=== PATIENT | male | born 1970 | race Caucasian/White ===

== ENCOUNTER 2019-08-29 08:37 | Outpatient (CLI) | payer MEDICAID, SELFPAY ==
--- NOTE | 2019-09-11 10:42 | ONC CON_ITS ---
Dr. Israel New Patient Note Patient: Tima Malik Unit #: [id number]: [id number] Dicatated By: Amee Israel M.D.Date of Visit: Aug 29, 2019 Onc MED New Patient/Consult Referring Physician: Dr. Chun Moreira M.D. History of Present Illness: Mr. Tima Malik, is a 48-year-old gentleman, with history of 40 to 50 pounds weight loss since February 2019, as per patient he sustained an injury to the chest in January or February 2019 initially, it was not bothersome but then it become progressive to the point where even taking deep breath would hurt and the pain was not mainly in the mid upper anterior chest wall. And also developed progressive shortness of breath. Patient said he did have medical insurance so he was taking over the counter pain medicine with some help but eventually on August 16, 2019 he went to the [facility] in [place], where he had chest x-ray done which showed complete whiteout of left lung and CTA chest done showed complete collapse of left lung likely secondary to left hilar mass/malignancy. There is a bulky mediastinal and likely left hilar lymphadenopathy present. And moderate to large malignant left pleural effusion patient was transferred to [facility] in [place] where on August 17, 2019 underwent ultrasound-guided left thoracentesis and about 25 cc of cloudy yellow pleural fluid was removed, repeat CT scan of the chest done on August 17, 2019 showed possible obstruction of left main bronchus, a mucous plug or obstructing pulmonary mass or consideration. Complete opacification of left hemithorax appears similar to chest x-ray done on August 16, 2019. Elevation of left diaphragm suggest volume loss due to some degree of atelectasis. Left pleural effusion or large left consolidations are also considered. On August 18, 2019 patient underwent bronchoscopy and endobronchial biopsy and bronchial washing from left main bronchus confirmed invasive small cell carcinoma. Patient underwent CT PET scan on August 27, 2019 which showed hypermetabolic very large left hilar/mediastinal mass and matthew conglomeration. There is also redemonstration of complete collapse of left lung with associated hypermetabolic activity that may be secondary to diffuse tumor involvement or pneumonia depending on clinical context There is also evidence of metastatic disease to bilateral cervical chain lymph nodes as well as posterior upper neck intramuscular metastasis. In addition there is evidence of direct metastatic extension into the right of the trachea and to an epicardial fat lymph node No findings to suggest metastatic disease below the diaphragm and no evidence of metastatic disease to the right lung. Patient was referred to cancer center in [place] as it is convenient to the patient. Patient has longstanding history of smoking quit in mid August 2019 Today patient is complaining of feeling weak and tired and lethargic still having shortness of breath and denies any hemoptysis or hematemesis denies any fever or chills, denies any headaches or blurred vision or double vision but patient appears lethargic his blood pressure is 80/50 and pulse is around 120/min Past Medical History: Mr. Malik's medical history consists of hypertension, left pleural effusion, and respiratory failure. Past Surgical History: Mr. Malik's surgical history is unremarkable. Medications: Cyclobenzaprine HCl 1 Tablet (of 10 mg) Oral at bedtime PRN, Flonase 2 [place](s) (of 50 mcg/act) Suspension Nasal daily, HYDROcodone-Acetaminophen 1 Tablet (of 5-325 mg) Oral q 6 hours PRN, levoFLOXacin 1 Tablet (of 500 mg) Oral daily for 7 days, Lisinopril 1 Tablet (of 20 mg) Oral daily, Multi-Vitamin Daily 1 Tablet Oral daily Allergies: No Known Allergies. Social History: Mr. Malik is single. Mr. Malik quit smoking less than one year ago but had smoked for 37 years. He is a former drinker. He has indicated exposure to the following products: recreational drug use. Mr. Malik reports the following support systems: lives with spouse, significant other, family, or friends, supportive family/friends willing to assist with needs, and adequate transportation available for expected visits. His diet consists of regular meals. He indicates his activity level as: daily activities. Family History: Mr. Malik's mother at age 68: esophageal cancer. Mr. Malik's father at age 71: lung cancer. Review Of Symptoms: Review of Systems is not available for this patient. Vital Signs: Performed on Sep 11, 2019 10:36: 2, 18.52, 1.77 sq.m, 71.00 in, 97 %, 105 /min (HIGH), 18 /min, 120/71 mm(hg), 97.9 F (LOW), and 132.8 lbs (HIGH). Performance Status: 3 - Capable of only limited self-care, confined to bed or chair more than 50% of waking hours. (ECOG) Physical Examination: ENMT - Poor oral hygiene, no mucositis or thrush,But dry oral mucosa,no jaundice, Respiratory - No breath sounds heard in the left lung, poor air entry in the right, Cardiovascular - Tachycardia, regular rate and rhythm, Abdomen - Soft, bowel sounds present, nontender, Extremities - No visible edema. Lab/Imaging: Most recent lab results are not available for this patient. Impression: Small cell lung cancer involving left lung, per bronchoscopy done on August 18, 2019 Extensive loco- regional disease with bilateral cervical lymph nodes involvement. CT PET scan done on August 27, 2019 showed hypermetabolic large left hilar/mediastinal mass with matthew conglomeration in keeping with known small cell lung cancer. Also redemonstration of complete collapse of left lung with associated hypermetabolic activity may be secondary to diffuse tumor involvement or pneumonia There is evidence of metastatic disease to bilateral cervical chain lymph nodes as well as posterior upper neck intramuscular metastasis. In addition there is evidence of direct metastatic extension to the right of trachea and to an epicardial fat lymph node. No findings to suggest metastatic disease below diaphragm. No evidence of metastatic disease to the right lung. Longstanding history of smoking, quit in mid August 2019 Plan: Discussed with the patient regarding his disease status, clinically, it appears patient is either progressing into septic shock or severely dehydrated, but alert and oriented. At this point , because of his overall condition and severity, we will send him to emergency room via ambulance for immediate evaluation for sepsis or impending risk of respiratory distress/failure. Discussed with caregiver and agreed, patient was transferred to [facility] via ambulance. Further treatment will be considered as an inpatient or as situation arise. Signed By: Amee Israel M.D. <<Signature on File>>
== END 2019-08-29 08:38 | disposition home or self-care (01) ==
LOC: ONCMED 08:42
PROVIDERS: PCP Family Medicine; Referring Provider Family Medicine; Visit Provider Internal Medicine Hematology & Oncology
DX: C34.12 Malignant neoplasm of upper lobe, left bronchus or lung (principal); R53.1 Weakness; R53.83 Other fatigue; F17.201 Nicotine dependence, unspecified, in remission; R00.0 Tachycardia, unspecified
CPT/HCPCS: 99203

== ENCOUNTER 2019-08-29 10:49 | Inpatient (IN) | payer MEDICAID, SELFPAY ==
[2019-08-29] VITALS (24 sets, daily range): BP systolic 74–108; BP diastolic 51–66; PULSE 99–164; RESP 14–27; TEMP 36.6–36.8; O2SAT 97–100; BMI 17.8
--- NOTE | 2019-08-29 11:00 | XRR_ITS ---
PROCEDURE INFORMATION: Exam: XR Chest, 1 View Exam date and time: 08/29/2019 11:31 AM Age: 49 years old Clinical indication: Condition or disease; Lung condition and disease; Cancer of the lung; Left; Unspecified; Patient HX: PT denies surgery; Hypotensive, weakness; Additional info: Lung CA, small cell; Starting chemo TECHNIQUE: Imaging protocol: XR of the chest Views: 1 view. COMPARISON: CR XR chest 2V* [id number] 08/16/2019 11:59 AM FINDINGS: Lungs: Complete opacification left hemithorax. Elevation left hemidiaphragm. No significant change. Pleural space: Left pleural effusion and atelectasis. Heart/Mediastinum: Obscured on the left Bones/joints: Unremarkable. XR/XR chest 1V portable [id number] IMPRESSION: Complete opacification left hemithorax. Elevation left hemidiaphragm. No significant change.
--- NOTE | 2019-08-29 11:02 | ECG_ITS ---
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 Measurements Intervals [place] Rate: 107 P: 22 RI: 138 QRS: 37 QRSD: 85 T: 36 QT: 302 QTc: 405 Interpretive Statements SINUS TACHYCARDIA ST ELEVATION CONSISTENT WITH INJURY, PERICARDITIS, OR EARLY REPOLARIZATION [ST ELEVATION W/O NORMALLY INFLECTED T WAVE] No previous ECG available for comparison Electronically Signed On 08-29-2019 21:13:52 CDT by Ly Ponce M.D. [id number]
--- NOTE | 2019-08-29 11:05 | ED_ITS ---
HPI - SOB/Dyspnea General: Chief Complaint: Weakness Stated Complaint: HYPOTENSIVE/ LUNG CA/ WEAKNESS Time Seen by Provider: 08/29/19 10:50 History of Present Illness: HPI Narrative: Patient just recently been diagnosed with small cell lung cancer. He was seen by Dr. Israel today. Dr. Israel called me and told me the patient is hypotensive and has complete white out of his left long. Patient was sent to the emergency room to be admitted to the hospital. MD elicited complaint: shortness of breath, cough and pain with inspiration Pertinent past history: sepsis (possible) and other (ca) Timing: constant and progressively worsening Severity: severe Exacerbating factors: lying flat, exertion, movement, coughing and stress Relieving factors: nothing Known history of: other (ca) Review of Systems General: Reports: 10 or more systems reviewed and unremarkable except in HPI and below PFSH ED PFSH: Social History Smoking and tobacco status: former smoker Physical Exam Const: COMMON NORMALS: alert GENERAL APPEARANCE: cooperative, disheveled, ill appearing and frail appearing NUTRITIONAL APPEARANCE: thin and underweight ORIENTATION/CONSCIOUSNESS: Yes awake, Yes oriented to person, Yes oriented to place and Yes oriented to time HENMT: COMMON NORMALS: normocephalic and atraumatic HEAD & SCALP: normal to inspection, normocephalic and atraumatic Eye: GENERAL EYE: appearance normal, both eyes and all related structures Neck/C-Spine: COMMON NORMALS: full ROM, no lymphadenopathy and no meningeal signs GENERAL: Yes normal visual inspection CERVICAL SPINE: Yes cervical ROM normal and Yes normal cervical lordosis Chest: COMMONS NORMALS: normal inspection of the chest and normal palpation of entire chest wall Resp: COMMON NORMALS: normal respiratory effort EFFORT & INSPECTION: Yes decreased respiratory effort and Yes labored AUSCULTATION: breath sounds absent on th left Cardio: COMMON NORMALS: regular rate, regular rhythm, S1 normal heart sound present and S2 normal heart sound present JUGULAR VENOUS DISTENTION: no JVD PALPATION: normal PMI RATE: regular rate RHYTHM: regular rhythm HEART SOUNDS: S1 normal heart sound present and S2 normal heart sound present GI: COMMON NORMALS: Soft to palpation and No hepatosplenomegaly present INSPECTION: Yes normal to inspection PALPATION: Yes Soft to palpation and Yes No hepatosplenomegaly present PERCUSSION: normal to percussion : COMMON NORMALS: Yes no CVA tenderness BLADDER/KIDNEY EXAM: Yes no CVA tenderness Back/Pelvis: COMMON NORMALS: no CVA tenderness, thoracic and lumbar spine normal to inspection and thoraco-lumbar ROM normal Extremity: COMMON NORMALS: normal to inspection, full ROM and capillary refill normal Neuro: SENSORIUM/ORIENTATION: Yes alert, Yes oriented to person, Yes oriented to place and Yes oriented to time MENINGEAL SIGNS: Yes no meningeal signs Skin: COMMON NORMALS: no rashes or lesions noted, no wounds and turgor normal GENERAL SKIN EXAM: no rashes or lesions noted, elasticity normal and turgor normal LESIONS: no lesions RASHES: no rashes TRAUMA: no lacerations or abrasions HAIR: normal NAILS: normal Procedures Central Line Placement Right SC: Time Out Performed: No Patient Placed on Monitor/Pulse Ox: Yes MD Prep: mask, gown and gloves Central Line Prep: Chlorhexidine scrub and sterile drapes applied Local Anesthetic: lidocaine 1% and with epi Ultrasound Used for Placement: No Central Line Lumen Inserted: triple Post Procedure: sutured in place, good blood return, all ports aspirated, flushed, capped and sterile dressing applied Post Procedure X-Ray: tip of catheter in good position and no pneumothorax seen Patient Tolerated Procedure: well Intubation sedative: Etomidate paralytic: Succinylcholine Laryngoscope: Ngoc ET Tube Size: 8 Tube Placement Confirmation: visualized tube passing through cords, equal breath sounds bilaterally, no breath sounds over epigastrium and confirmation by capnometry Patient Tolerated Procedure: well Intubation Complications: none Course ED course: While still waiting the results of laboratory testing the patient developed atrial fibrillation with rapid ventricular response. Patient also became markedly hypotensive. I contacted internal medicine for consult and admission. Dr. Gant came to the ER promptly patient was started on levo fed for his hypotension. Patient's blood pressure began to improve Cardizem was started for his atrial fibrillation. I placed a subclavian central IV line at the request of the hospitalist. Also the request of Dr. Gant the patient will be orotracheally intubated prior to transfer to the ICU. Vital Signs: Vital signs: Vital Signs Temperature 97.8 F 08/29/19 11:00 Pulse Rate 112 H 08/29/19 11:00 Respiratory Rate 27 H 08/29/19 11:00 Blood Pressure 81/65 08/29/19 11:00 Pulse Oximetry 98 08/29/19 11:00 MDM - SOB/Dyspnea Lab Data: Labs: Lab Results 08/29/19 08/29/19 08/29/19 Range/Units 10:45 10:45 10:45 WBC 12.9 H (4.0-10.0) 10^3/ uL RBC 4.24 (4.1-5.3) 10^6/u L Hgb 10.7 L (11.7-16.6) g/dL Hct 35.3 L (42.0-52.0) % MCV 83.3 (80-94) fL MCH 25.2 L (28.0-34.0) pg MCHC 30.3 (30.0-36.0) g/dL RDW 15.3 H (12.1-15.1) % Plt Count 777 H (130-400) 10^3/c mm MPV 8.9 (7.4-10.4) fL Neut % (Auto) 74.3 % Lymph % (Auto) 15.3 % [place] % (Auto) 7.9 % Eos % (Auto) 1.5 % Baso % (Auto) 0.6 % Neut # (Auto) 9.6 H (1.8-7.7) 10^3/u L Lymph # (Auto) 2.0 (0.8-4.8) 10^3/u L [place] # (Auto) 1.0 H (0.2-0.9) 10^3/u L Eos # (Auto) 0.2 (0.0-0.8) 10^3/u L Baso # (Auto) 0.1 (0.0-0.1) 10^3/u L Nucleated RBC % (a uto) 0 % Nucleated RBCs # 0.0 /100WBC PT 14.10 H (10.5-13.3) SECO NDS INR 1.06 (0.8-1.2) Specimen Type Sample Site ABG pH (7.35-7.45) ABG pCO2 (35-45) mmHg ABG pO2 (80.0-100.0) mmH g ABG HCO3 (22-26) mmol/L ABG Base Excess (-2.0-2.0) mmol/ L [place] Test Hematocrit (42-52) % O2 Delivery Device O2 Liters/Min % FiO2 % Seamless Tube Mill Operator ID Sodium 132 L (136-145) mmol/L Potassium 5.9 H (3.5-5.1) mmol/L Chloride 92 L (98-107) mmol/L Carbon Dioxide 26 (22-29) mmol/L Anion Gap 19.9 H (5-19) BUN 28 H (6-20) mg/dL Creatinine 0.8 (0.7-1.2) mg/dL GFR Calculation 103.6 (90-130) mL/min Glucose 86 (65-115) mg/dL Calculated Osmolal ity 270 L (285-295) mOsm/k g Lactic Acid (0.5-2.2) mmol/L Calcium 9.5 (8.5-10.5) mg/dL Total Bilirubin 0.2 (0.15-1.2) mg/dL AST 20 (0-40) U/L ALT 12 (0-41) U/L Alkaline Phosphata se 156 H (40-130) IU/L Troponin T Baselin e (0-15) ng/L Troponin T 120 Min [place] (0-15) ng/L NT-Pro-B Natriuret Pep 267 H (0-125) pg/mL Total Protein 6.9 (6.6-8.7) g/dL Albumin 3.2 L (3.5-5.2) g/dL Globulin 3.7 (1.3-4.6) g/dL 08/29/19 08/29/19 08/29/19 Range/Units 10:45 11:13 11:13 WBC (4.0-10.0) 10^3/ uL RBC (4.1-5.3) 10^6/u L Hgb (11.7-16.6) g/dL Hct (42.0-52.0) % MCV (80-94) fL MCH (28.0-34.0) pg MCHC (30.0-36.0) g/dL RDW (12.1-15.1) % Plt Count (130-400) 10^3/c mm MPV (7.4-10.4) fL Neut % (Auto) % Lymph % (Auto) % [place] % (Auto) % Eos % (Auto) % Baso % (Auto) % Neut # (Auto) (1.8-7.7) 10^3/u L Lymph # (Auto) (0.8-4.8) 10^3/u L [place] # (Auto) (0.2-0.9) 10^3/u L Eos # (Auto) (0.0-0.8) 10^3/u L Baso # (Auto) (0.0-0.1) 10^3/u L Nucleated RBC % (a uto) % Nucleated RBCs # /100WBC PT (10.5-13.3) SECO NDS INR (0.8-1.2) Specimen Type Arterial Sample Site Radial, left ABG pH 7.46 H (7.35-7.45) ABG pCO2 35.9 (35-45) mmHg ABG pO2 70.7 L (80.0-100.0) mmH g ABG HCO3 25.3 (22-26) mmol/L ABG Base Excess 1.6 (-2.0-2.0) mmol/ L [place] Test Pos Hematocrit 33.8 L (42-52) % O2 Delivery Device Oxy mask O2 Liters/Min 2.0 % FiO2 28.0 % Seamless Tube Mill Operator ID ed Sodium (136-145) mmol/L Potassium (3.5-5.1) mmol/L Chloride (98-107) mmol/L Carbon Dioxide (22-29) mmol/L Anion Gap (5-19) BUN (6-20) mg/dL Creatinine (0.7-1.2) mg/dL GFR Calculation (90-130) mL/min Glucose (65-115) mg/dL Calculated Osmolal ity (285-295) mOsm/k g Lactic Acid 1.2 (0.5-2.2) mmol/L Calcium (8.5-10.5) mg/dL Total Bilirubin (0.15-1.2) mg/dL AST (0-40) U/L ALT (0-41) U/L Alkaline Phosphata se (40-130) IU/L Troponin T Baselin e 11 (0-15) ng/L Troponin T 120 Min [place] (0-15) ng/L NT-Pro-B Natriuret Pep (0-125) pg/mL Total Protein (6.6-8.7) g/dL Albumin (3.5-5.2) g/dL Globulin (1.3-4.6) g/dL // Range/Units 13:00 WBC (4.0-10.0) 10^3/ uL RBC (4.1-5.3) 10^6/u L Hgb (11.7-16.6) g/dL Hct (42.0-52.0) % MCV (80-94) fL MCH (28.0-34.0) pg MCHC (30.0-36.0) g/dL RDW (12.1-15.1) % Plt Count (130-400) 10^3/c mm MPV (7.4-10.4) fL Neut % (Auto) % Lymph % (Auto) % [place] % (Auto) % Eos % (Auto) % Baso % (Auto) % Neut # (Auto) (1.8-7.7) 10^3/u L Lymph # (Auto) (0.8-4.8) 10^3/u L [place] # (Auto) (0.2-0.9) 10^3/u L Eos # (Auto) (0.0-0.8) 10^3/u L Baso # (Auto) (0.0-0.1) 10^3/u L Nucleated RBC % (a uto) % Nucleated RBCs # /100WBC PT (10.5-13.3) SECO NDS INR (0.8-1.2) Specimen Type Sample Site ABG pH (7.35-7.45) ABG pCO2 (35-45) mmHg ABG pO2 (80.0-100.0) mmH g ABG HCO3 (22-26) mmol/L ABG Base Excess (-2.0-2.0) mmol/ L [place] Test Hematocrit (42-52) % O2 Delivery Device O2 Liters/Min % FiO2 % Seamless Tube Mill Operator ID Sodium (136-145) mmol/L Potassium (3.5-5.1) mmol/L Chloride (98-107) mmol/L Carbon Dioxide (22-29) mmol/L Anion Gap (5-19) BUN (6-20) mg/dL Creatinine (0.7-1.2) mg/dL GFR Calculation (90-130) mL/min Glucose (65-115) mg/dL Calculated Osmolal ity (285-295) mOsm/k g Lactic Acid (0.5-2.2) mmol/L Calcium (8.5-10.5) mg/dL Total Bilirubin (0.15-1.2) mg/dL AST (0-40) U/L ALT (0-41) U/L Alkaline Phosphata se (40-130) IU/L Troponin T Baselin e (0-15) ng/L Troponin T 120 Min [place] 12.07 (0-15) ng/L NT-Pro-B Natriuret Pep (0-125) pg/mL Total Protein (6.6-8.7) g/dL Albumin (3.5-5.2) g/dL Globulin (1.3-4.6) g/dL Discharge Plan Discharge Patient Disposition: Admitted As Inpatient Clinical Impression: Small cell lung cancer, Atrial fibrillation and flutter, Thrombocytopenia Sepsis Qualifiers: Sepsis type: sepsis due to unspecified organism Sepsis acute organ dysfunction status: with acute organ dysfunction Severe sepsis acute organ dysfunction type: unspecified Severe sepsis shock status: unspecified Qualified Code(s): A41.9 - Sepsis, unspecified organism Hypotension Qualifiers: Hypotension type: unspecified hypotension type Qualified Code(s): I95.9 - Hypotension, unspecified Respiratory failure Qualifiers: Chronicity: acute Respiratory failure complication: hypoxia and hypercapnia Qualified Code(s): J96.01 - Acute respiratory failure with hypoxia Condition: Serious Referrals: Chun Moreira [Primary Care Provider] - Coding Level of Care Code ED Fashion Show Director for [facility] Fwd Exam Comprehensive
[2019-08-29 11:24] LABS: ABG PCO2 35.9 mmHg (35-45); ABG PH Result 7.46 (7.35-7.45); Arterial Blood Gas Hematocrit 33.8 % (42-52); Base Excess ABG 1.6 mmol/L (-2.0-2.0); Blood Gas Allen Test Pos; Blood Gas Sample Site Radial, left; Blood Gas Sample Type Arterial; HCO3 ABG 25.3 mmol/L (22-26); Oxygen Device OXY MASK; PO2 ABG 70.7 mmHg (80.0-100.0)
[2019-08-29 11:34] LABS: Basophils # 0.1 10^3/uL (0.0-0.1); Basophils % 0.6 %; Eosinophils # 0.2 10^3/uL (0.0-0.8); Eosinophils % 1.5 %; Hematocrit 35.3 % (42.0-52.0); Hemoglobin 10.7 g/dL (11.7-16.6); Lymphocytes % 15.3 %; Mean Corpuscular HGB Conc 30.3 g/dL (30.0-36.0); Mean Corpuscular Hemoglobin 25.2 pg (28.0-34.0); Mean Corpuscular Volume 83.3 fL (80-94); Mean Platelet Volume 8.9 fL (7.4-10.4); Monocytes % 7.9 %; Neutrophils # 9.6 10^3/uL (1.8-7.7); Neutrophils % 74.3 %; Nucleated Red Blood Cells % 0 %; Platelet Count 777 10^3/cmm (130-400); Red Blood Count 4.24 10^6/uL (4.1-5.3); Red Cell Distribution Width 15.3 % (12.1-15.1); White Blood Count 12.9 10^3/uL (4.0-10.0)
[2019-08-29] MEDS: piperacillin-tazobactam 4.5 GM in sodium chloride 0.9% (plus) 50 ML IV (11:37)
[2019-08-29] MEDS: sodium chloride 0.9% 1,000 ML 125 ML IV (11:38)
[2019-08-29 11:51] LABS: INR 1.06 (0.8-1.2)
[2019-08-29 11:51] LABS: Lactic Sepsis W/Reflex 1.2 mmol/L (0.5-2.2)
[2019-08-29 11:53] LABS: Troponin(5th) Baseline 11 ng/L (0-15)
[2019-08-29 12:01] LABS: Alanine Aminotransferase 12 U/L (0-41); Albumin Level 3.2 g/dL (3.5-5.2); Alkaline Phosphatase 156 IU/L (40-130); Anion Gap 19.9 (5-19); Blood Urea Nitrogen 28 mg/dL (6-20); Calcium 9.5 mg/dL (8.5-10.5); Carbon Dioxide 26 mmol/L (22-29); Chloride 92 mmol/L (98-107); Globulin 3.7 g/dL (1.3-4.6); Glomerular Filtration Rate 103.6 mL/min (90-130); Glucose 86 mg/dL (65-115); NT Pro B Type Natriuretic Pept 267 pg/mL (0-125); Osmolality Calculated 270 mOsm/kg (285-295); Potassium 5.9 mmol/L (3.5-5.1); Sodium 132 mmol/L (136-145); Total Bilirubin 0.2 mg/dL (0.15-1.2); Total Protein 6.9 g/dL (6.6-8.7)
[2019-08-29] MEDS: Fleet Enema 133 mL Enema PR (12:07)
[2019-08-29 12:18] LABS: Aspartate Amino Transferase 20 U/L (0-40)
--- NOTE | 2019-08-29 13:02 | ECG_ITS ---
[facility] Test Date: 2019-08-29 Pat Name: Tima Malik Department: Room: [facility] Gender: Male Generation Manager: : 1970 Requested By: Sabas Frye Order Number: [id number] Catrachito MD: yL Ponce M.D. Measurements Intervals [place] Rate: 160 P: NE: -1 QRS: 60 QRSD: 84 T: -51 QT: 271 QTc: 442 Interpretive Statements ATRIAL FIBRILLATION WITH RAPID VENTRICULAR RESPONSE ABNORMAL QRS-T ANGLE [QRS-T AXIS DIFFERENCE > 60] CRITICAL TEST RESULT Compared to ECG 08/29/2019 11:24:36 Sinus tachycardia no longer present ST (T wave) deviation no longer present Early repolarization no longer present Electronically Signed On 08-29-2019 21:14:42 CDT by Ly Ponce M.D. [id number] f
--- NOTE | 2019-08-29 13:23 | CT_ITS ---
WS: [id number] CT CHEST ANGIOGRAPHY WITH REFORMATS HISTORY: sob TECHNIQUE: Contiguous axial images are obtained through the chest during arterial injection of intrav enous contrast. Images are reconstructed to evaluate the pulmonary arteries. MIP imaging also reviewe d. All CT scans at [facility] use at least one of these dose optimization techniques: aut omated exposure control; mA and/or kV adjustment per patient size (includes targeted exams where dose is matched to clinical indication); or iterative reconstruction. CONTRAST: Omnipaque 350; 95 mL IV. DLP: 547.33 mGy.cm COMPARISON: 08/16/2019 Good opacification of the main pulmonary artery and the central pulmonary arteries. No pulmonary embo li are identified. Thoracic aorta is normal caliber. Patient has a known neoplastic process in the LEFT chest which is poorly visualized on this examinati on. There is complete LEFT lung collapse due to central mass. There is a small LEFT pleural effusion and large pericardial effusion. Increased soft tissue density in the LEFT apex surrounding the pulmon jon arteries and proximal LEFT bronchial tree. Recent PET/CT showed extensive neoplastic process in t he LEFT thorax. Patient is intubated. CT/CT angio chest PE protcl [id number] IMPRESSION: 1. No pulmonary embolism. 2. Complete collapse of the LEFT lung similar to the prior study secondary to a central neoplastic process causing postobstructive atelectasis. 3. Large pericardial effusion has increased since 08/27/2019.
--- NOTE | 2019-08-29 13:27 | XRR_ITS ---
PROCEDURE INFORMATION: Exam: XR Chest, 1 View Exam date and time: 08/29/2019 2:30 PM Age: 49 years old Clinical indication: Device placement; Additional info: Post central line placement TECHNIQUE: Imaging protocol: XR of the chest Views: 1 view. COMPARISON: CR XR chest 1V portable [id number] 08/29/2019 11:19 AM FINDINGS: Tubes, catheters and devices: A right central line extends into the right atrium. Endotracheal tube is in place the tip is 5.6 cm above the tasha. Lungs: There is a complete opacification of the left hemithorax Pleural space: Unremarkable. No pneumothorax. Heart/Mediastinum: The heart and mediastinal structures are not visible having been shifted toward the left side. Elevation of the left hemidiaphragm is seen Bones/joints: Unremarkable. Other findings: Comparison to prior examination similar findings is seen. XR/XR chest 1V portable [id number] IMPRESSION: 1. Right central line extending into the right atrium. 2. Endotracheal tube is in place as described. 3. Stable Complete opacity and volume loss left hemithorax 4. Otherwise negative chest examination
[2019-08-29 13:29] LABS: Troponin 5 2HR 12.07 ng/L (0-15); Troponin 5 2HR Delta 1.07 ABS# (0-10)
[2019-08-29] MEDS: succinylcholine 20 mg/mL SDV 10mL 87.09 MG IV (13:35)
[2019-08-29] MEDS: midazolam 1 mg/mL INJ 2 mL 4 MG IVP (13:42)
[2019-08-29] MEDS: sodium chloride 0.9% (100 ml) 100 ML (13:43)
[2019-08-29] MEDS: propofol 1,000 MG/100 ML INJ 25 MG (14:38)
--- NOTE | 2019-08-29 15:11 | PM.HP ---
Providers/Chief Complaint Admitting Physician: Brenden Shannon MD Primary Care Provider: Chun Moreira Chief Complaint: HYPOTENSIVE/ LUNG CA/ WEAKNESS History of Present Illness Tima Malik is a 49 year old male with newly diagnosed small cell lung cancer, presents [facility] due to complaints of shortness of breath, low blood pressure, concern for complete whiteout of the left lung. Patient was recently diagnosed with small cell lung cancer in [facility] 2 weeks ago, apparently had a bronchoscopy, PET scan, had a inpatient admission. Patient was discharged home, has been complaining of shortness of breath, weakness, was supposed to follow-up with Dr. Israel for oncology follow-up here in [place]. Most the history was obtained by mother at bedside as patient had episodes of respiratory distress and confusion. Currently patient was on 15 L nonrebreather, having intermittent episodes of tachypnea, intercostal retractions, nasal flaring, respiratory distress, chest x-ray showed complete blackout of the left lung, telemetry showed atrial fibrillation, EKG showed atrial fibrillation. Patient was hypotensive blood pressures 80s over 60s, on 4 mcg of Levophed, receiving sepsis bolus, receiving Zosyn. Currently patient is in septic shock from postobstructive pneumonia, currently in respiratory failure, decision was to intubate patient, risks and benefits were discussed with patient, he agreed, voiced understanding, all questions answered, agreed with intubation and mechanical ventilation. Patient was a full code. Also I discussed the possibility of repeat bronchoscopy, thoracocentesis, Pleurx catheter placement, patient agreed to all medical interventions. Also patient was a full code, wanted all interventions. Central line was placed by Dr. Buckley. Patient was intubated by Dr. Goldman. Review of Systems General: Reports: ROS unobtainable due to medical condition Medications/Allergies Home Medications Medication Instructions Recorded Confirmed Last Taken Type Unable to Assess 08/29/19 08/29/19 Unknown History Allergies Allergy/AdvReac Type Severity Reaction Status Date / Time No Known Allergies Allergy Verified 08/29/19 11:18 PFSH Acute PFSH: Surgical History (Updated 08/29/19 @ 15:20 by Brenden Shannon MD) S/P bronchoscopy Social History Smoking and tobacco status: former smoker Vitals/I&O/Wt Last Vital Signs Temp 97.8 F 08/29/19 11:00 Pulse 112 H 08/29/19 11:00 Resp 19 H 08/29/19 13:59 BP 81/65 08/29/19 11:00 Pulse Ox 98 08/29/19 11:00 08/29/19 08/29/19 08/29/19 06:59 14:59 22:59 Intake Total 36.458 / 36.458 Balance 36.458 / 36.458 Weight last 48 hrs Weight 58.06 kg Data : 08/29/19 10:45 08/29/19 10:45 Micro: Microbiology 08/29/19 11:13 Blood Culture - Preliminary Blood SPECIMEN COLLECTED 08/29/19 11:17 Blood Culture - Preliminary Blood SPECIMEN COLLECTED A&P Assessment and plan (1) Acute respiratory failure with hypoxia: -Secondary to postobstructive pneumonia, small cell lung cancer, possible mucous plugging -With septic encephalopathy -With septic shock -, With A. fib with RVR Plan: -COVID-19 testing, COVID-19 precautions -Blood cultures, urine cultures, sputum cultures, urine bacterial antigens -Continue mechanical ventilation, minimize PEEP, minimize FiO2, fentanyl, propofol for sedation -Heparin drip for DVT prophylaxis -Protonix for GI prophylaxis -Broad-spectrum antibiotics vancomycin, Zosyn, azithromycin -Currently on a Levophed drip, maintain map around 65 -Continue fluid boluses, septic boluses, then IV fluids thereafter LR 100 cc an hour -Nolasco catheter in place, monitor urine output -Cardizem drip, heparin drip -We will order CT angiogram of the chest, will order cardiac echocardiogram -I have spoken to Dr. Israel, they are considering doing inpatient chemotherapy - Status: Acute (2) Septic shock: Status: Acute (3) Postobstructive pneumonia: Status: Acute (4) Small cell lung cancer: -Patient was admitted on 1220 at [facility] for acute respiratory failure, severe protein calorie malnutrition, left pleural effusion, mediastinal mass -He underwent bronchoscopy with 15 biopsies, attempt was made to partially debulked mouth, pathology was positive for small cell lung carcinoma -He also had a CT of the chest which did show complete collapse of the left lung likely secondary to left hilar mass, bulky mediastinal and likely left hilar lymphadenopathy present, moderate to large malignant pleural effusion -Bronchoscopy report shows vocal cords left vocal cord paralyzed, trachea was normal, tasha was sharp, right tracheobronchial tree within normal limits, left tracheobronchial tree fungating mass seen left mainstem, totally occluding the left upper and lower lobe bronchi, masses located 2 cm from the tasha, at least 15 endobronchial biopsies were performed to attempt to debulk as much as possible -Sputum culture with Gram stain -AFB stain negative, no acid fast bacilli isolated on culture so far -Anaerobic and aerobic cultures no growth, no WBCs, no organisms, Gram stain organisms -COVID-19 negative -Lesion cells are positive for AE1/AE3, CK7, TTF-1 synaptophysin, chromogranin, CD56 Status: Acute (5) Sepsis: Status: Acute Qualifiers: Sepsis acute organ dysfunction status: with acute organ dysfunction Sepsis type: sepsis due to unspecified organism Severe sepsis acute organ dysfunction type: unspecified Severe sepsis shock status: unspecified Qualified Code(s): A41.9 - Sepsis, unspecified organism; R65.20 - Severe sepsis without septic shock (6) Atrial fibrillation and flutter: Status: Acute (7) Hypotension: Status: Acute Qualifiers: Hypotension type: unspecified hypotension type Qualified Code(s): I95.9 - Hypotension, unspecified Attestations Medical Necessity Statement*: Patient requires inpatient admission, greater than 2 midnights, acute respiratory failure, postobstructive pneumonia, septic shock Coding Level of Care Code Acute General Matcher for [facility] Diagnoses Acute respiratory failure with hypoxia J96.01 Septic shock A41.9; R65.21 Postobstructive pneumonia J18.9 Small cell lung cancer C34.90 Sepsis A41.9; R65.20 Sepsis acute organ dysfunction status: with acute organ dysfunction Sepsis type: sepsis due to unspecified organism Severe sepsis acute organ dysfunction type: unspecified Severe sepsis shock status: unspecified Atrial fibrillation and flutter I48.91; I48.92 Hypotension I95.9 Hypotension type: unspecified hypotension type
[2019-08-29] MEDS: propofol 1,000 MG/100 ML INJ 3.5 MG IV ×2 (15:19→19:05)
[2019-08-29 15:24] LABS: NT Pro B Type Natriuretic Pept 273 pg/mL (0-125); Procalcitonin 0.12 ng/mL (0-0.5); Thyroid Stimulating Hormone 2.59 uIU/mL (0.27-4.20)
[2019-08-29 15:35] LABS: C Reactive Protein 81.6 mg/L (0.0-4.9); Chol HDL Ratio 3.51 mg/dL (1.0-5.00); Cholesterol 123 mg/dL (0-200); HDL Cholesterol 35 mg/dL (60-100); LDL Cholesterol Calculated 71 mg/dL (50-129); LDL HDL Ratio 2.03 RATIO (0.00-3.22); Triglycerides 86 mg/dL (0-150)
[2019-08-29 15:38] LABS: Estmated Average Glucose 120; Hemoglobin A1C 5.8 % (4.0-6.0)
[2019-08-29 15:58] LABS: Erythrocyte Sedimentation Rate 115 mm/hr (0-10)
[2019-08-29] MEDS: iohexol 350 mg/mL 100 mL Btl IV (16:14)
[2019-08-29 16:46] LABS: ABG PCO2 37.7 mmHg (35-45); ABG PH Result 7.37 (7.35-7.45); Alveolar-Arterial Oxygen Gradi 313.8 mmHg (5-10); Arterial Blood Gas Hematocrit 32.7 % (42-52); Base Excess ABG -2.9 mmol/L (-2.0-2.0); Blood Gas Allen Test Pos; Blood Gas Sample Site Radial, right; Blood Gas Sample Type Arterial; Blood Gas Tidal Volume 0.5; Carboxyhemoglobin 0.6 %THgb (0.4-20.1); HGB O2 Sat 98.6 % (95-100); Ionized Calcium Level - ABG 1.2 mmol/L (1.1-1.4); Methemoglobin 1.1 % (0.4-1.5); Oxygen Device VENT; Potassium Level - ABG 4.8 mmol/L (3.5-5.0); Total Hemoglobin 10.7 g/dL (14-18)
--- NOTE | 2019-08-29 17:19 | PC.NURSE ---
PASSWORD: BUTT CHEESE.
--- NOTE | 2019-08-29 17:19 | PC.NURSE ---
Spoke with family at [facility] entrance. Password set with Aunt Trice Parikh. Family asked about pt/ transferring to [facility] when stable, stated they had already spoke to about this. They chose [facility] , do not want [facility].
[2019-08-29] MEDS: vancomycin 1,000 MG in sodium chloride 0.9% 250 ML 250 MG IV (17:24)
[2019-08-29] MEDS: lactated ringers 1,000 ML 125 ML IV (17:25)
[2019-08-29] MEDS: enoxaparin 60 mg/0.6 mL Syringe SUBCUT (17:30)
[2019-08-29] MEDS: azithromycin 500 MG in sodium chloride 0.9% 250 ML 250 MG IV (18:59)
--- NOTE | 2019-08-29 19:50 | XRR_ITS ---
PROCEDURE INFORMATION: Exam: XR Chest, 1 View Exam date and time: 08/29/2019 8:34 PM Age: 49 years old Clinical indication: Device placement; Other: Og placement; Additional info: Og tube placement verification TECHNIQUE: Imaging protocol: XR of the chest Views: 1 view. COMPARISON: CR XR chest 1V portable [id number] 08/29/2019 2:36 PM FINDINGS: Tubes, catheters and devices: Tip of the OG tube is in the stomach. Tip of the central line is in the right atrium. Lungs: The left hemithorax remains completely opacified. Lung apices not included on x-ray. Right lateral lung not included on x-ray. Pleural space: Unremarkable. No pleural effusion. No pneumothorax. Heart/Mediastinum: Unremarkable. No cardiomegaly. Bones/joints: Unremarkable. Gastrointestinal tract: There is moderately dilated small and large bowel, probable ileus. XR/XR chest 1V portable [id number] IMPRESSION: Tip of OG tube in stomach.
[2019-08-29] MEDS: piperacillin-tazobactam 3.375 GM in sodium chloride 0.9% (plus) 50 ML IV (20:35)
[2019-08-30] VITALS (63 sets, daily range): BP systolic 85–115; BP diastolic 50–70; PULSE 92–113; RESP 12–28; TEMP 36.1–36.6; O2SAT 89–100
[2019-08-30] MEDS: lactated ringers 1,000 ML 125 ML IV (00:47)
[2019-08-30] MEDS: propofol 1,000 MG/100 ML INJ 15.7 MG IV (00:47)
[2019-08-30] MEDS: vancomycin 1,000 MG in sodium chloride 0.9% 250 ML 250 MG IV (01:41)
[2019-08-30] MEDS: piperacillin-tazobactam 3.375 GM in sodium chloride 0.9% (plus) 50 ML IV ×2 (04:05→11:32)
[2019-08-30 04:54] LABS: ABG PCO2 29.9 mmHg (35-45); ABG PH Result 7.48 (7.35-7.45); Arterial Blood Gas Hematocrit 30.4 % (42-52); Base Excess ABG -0.8 mmol/L (-2.0-2.0); Blood Gas Allen Test Pos; Blood Gas Sample Site Radial, right; Blood Gas Sample Type Arterial; Blood Gas Tidal Volume 0.5; HCO3 ABG 22.1 mmol/L (22-26); Oxygen Device VENT; PO2 ABG 93.1 mmHg (80.0-100.0)
[2019-08-30] MEDS: enoxaparin 60 mg/0.6 mL Syringe SUBCUT (05:00)
--- NOTE | 2019-08-30 07:00 | XRR_ITS ---
PROCEDURE INFORMATION: Exam: XR Chest, 1 View Exam date and time: 08/30/2019 5:10 AM Age: 49 years old Clinical indication: Shortness of breath; Patient HX: SOB f/u et, og TECHNIQUE: Imaging protocol: XR of the chest Views: 1 view. COMPARISON: CR XR chest 1V portable [id number] 08/29/2019 8:20 PM FINDINGS: Tubes, catheters and devices: Endotracheal tube tip resides 2.7 cm above the tasha. Enteric tube tip extends to the lateral left upper abdomen. Central vascular catheter tip resides at the cavoatrial junction or right atrium. Electronic device projects over the left chest. Lungs: No consolidation of the right lung. There is no aeration of a left lung. Pleural space: A component of effusion within the left chest could be present. No pneumothorax. Heart/Mediastinum: Cardiac structure shifted to the left. Diaphragm: Elevation left hemidiaphragm. Bones/joints: Unremarkable. Soft tissues: There is complete opacification of the left chest. Gastrointestinal tract: Gaseous distention of bowel in the upper abdomen. XR/XR chest 1V portable [id number] IMPRESSION: 1. Complete opacification of the left chest. 2. Hyperinflation right lung.
--- NOTE | 2019-08-30 07:29 | PC.NURSE ---
responsive on vent at this time wants et tube out at this time pending covid
[2019-08-30 09:13] LABS: Lactic Sepsis W/Reflex 1.4 mmol/L (0.5-2.2)
[2019-08-30] MEDS: pantoprazole 40 mg SDV IVP (09:16)
[2019-08-30 09:18] LABS: Basophils # 0.1 10^3/uL (0.0-0.1); Eosinophils # 0.2 10^3/uL (0.0-0.8); Eosinophils % 1.9 %; Hematocrit 29.7 % (42.0-52.0); Hemoglobin 9.1 g/dL (11.7-16.6); Lymphocytes # 1.7 10^3/uL (0.8-4.8); Mean Corpuscular HGB Conc 30.6 g/dL (30.0-36.0); Mean Corpuscular Hemoglobin 25.8 pg (28.0-34.0); Mean Corpuscular Volume 84.1 fL (80-94); Mean Platelet Volume 9.4 fL (7.4-10.4); Monocytes # 1.1 10^3/uL (0.2-0.9); Monocytes % 8.5 %; Neutrophils # 9.2 10^3/uL (1.8-7.7); Neutrophils % 74.3 %; Nucleated Red Blood Cells % 0 %; Platelet Count 638 10^3/cmm (130-400); Red Blood Count 3.53 10^6/uL (4.1-5.3); Red Cell Distribution Width 15.7 % (12.1-15.1); White Blood Count 12.4 10^3/uL (4.0-10.0)
[2019-08-30 09:24] LABS: INR 1.29 (0.8-1.2)
[2019-08-30 09:29] LABS: Alanine Aminotransferase 9 U/L (0-41); Albumin Level 2.4 g/dL (3.5-5.2); Alkaline Phosphatase 120 IU/L (40-130); Anion Gap 16.9 (5-19); Aspartate Amino Transferase 16 U/L (0-40); Blood Urea Nitrogen 16 mg/dL (6-20); C Reactive Protein 88.2 mg/L (0.0-4.9); Calcium 8.4 mg/dL (8.5-10.5); Carbon Dioxide 22 mmol/L (22-29); Chloride 98 mmol/L (98-107); Globulin 2.9 g/dL (1.3-4.6); Glomerular Filtration Rate 144.4 mL/min (90-130); Glucose 133 mg/dL (65-115); Magnesium 1.8 mg/dL (1.7-2.3); Osmolality Calculated 272 mOsm/kg (285-295); Phosphorus 3.6 mg/dL (2.5-4.5); Potassium 4.9 mmol/L (3.5-5.1); Sodium 132 mmol/L (136-145); Total Bilirubin 0.2 mg/dL (0.15-1.2); Total Protein 5.3 g/dL (6.6-8.7)
[2019-08-30 09:39] LABS: Procalcitonin 0.27 ng/mL (0-0.5)
--- NOTE | 2019-08-30 10:11 | PC.NURSE ---
attempting to transfer to [facility] at this time pending accepting
--- NOTE | 2019-08-30 11:51 | P.TS_ITS ---
Transfer Summary Providers Date of Admission: 08/29/19 13:10 Date of Discharge: 08/30/19 Attending Provider at Admission: Brenden Shannon MD Attending Provider at Transfer: Brenden Shannon MD Primary Care Provider: Chun Moreira Anticipated Date of Transfer: Anticipated date of transfer: 08/30/19 Receiving Facility & Provider: Receiving Provider: [] Receiving facility: [] Diagnoses at Discharge Discharge Diagnosis (1) Acute respiratory failure with hypoxia: Status: Acute (2) Septic shock: Status: Acute (3) Postobstructive pneumonia: Status: Acute (4) Small cell lung cancer: Status: Acute (5) Sepsis: Status: Acute Qualifiers: Sepsis acute organ dysfunction status: with acute organ dysfunction Sepsis type: sepsis due to unspecified organism Severe sepsis acute organ dysfunction type: unspecified Severe sepsis shock status: unspecified Qualified Code(s): A41.9 - Sepsis, unspecified organism; R65.20 - Severe sepsis without septic shock (6) Atrial fibrillation and flutter: Status: Acute (7) Hypotension: Status: Acute Qualifiers: Hypotension type: unspecified hypotension type Qualified Code(s): I95.9 - Hypotension, unspecified Reason for Visit Reason for Visit: HYPOTENSIVE/ LUNG CA/ WEAKNESS Hospital Course Discharge Summary: This is a 49-year-old with a recent medical history of small cell lung cancer who presented to [facility] due to respiratory distress, low blood pressure, fatigue, malaise. -Patient was admitted on 1220 at [facility] for acute respiratory failure, severe protein calorie malnutrition, left pleural effusion, mediastinal mass -He underwent bronchoscopy with 15 biopsies, attempt was made to partially debulked mouth, pathology was positive for small cell lung carcinoma -He also had a CT of the chest which did show complete collapse of the left lung likely secondary to left hilar mass, bulky mediastinal and likely left hilar lymphadenopathy present, moderate to large malignant pleural effusion -Bronchoscopy report shows vocal cords left vocal cord paralyzed, trachea was normal, tasha was sharp, right tracheobronchial tree within normal limits, left tracheobronchial tree fungating mass seen left mainstem, totally occluding the left upper and lower lobe bronchi, masses located 2 cm from the tasha, at least 15 endobronchial biopsies were performed to attempt to debulk as much as possible -Sputum culture with Gram stain -AFB stain negative, no acid fast bacilli isolated on culture so far -Anaerobic and aerobic cultures no growth, no WBCs, no organisms, Gram stain organisms -COVID-19 negative -Lesion cells are positive for AE1/AE3, CK7, TTF-1 synaptophysin, chromogranin, CD56 -He also was diagnosed with postobstructive pneumonia, given Levaquin, discharge on oral Levaquin, with a follow-up with Dr. Israel in clinic for consideration of chemotherapy -Upon arriving to Dr. Israel's office, patient was noted to be hypotensive blood pressures 80s over 40s, having episodes of tachypnea, concerns for respiratory distress she was sent over to [facility] for further evaluation In the [facility] emergency room, patient was diagnosed with postobstructive pneumonia, healthcare associated pneumonia septic shock, acute hypoxic respiratory failure , A. fib with RVR Due to concerns for respiratory distress, white out of the left lung seen on the chest x-ray, postobstructive pneumonia, healthcare associate pneumonia, patient was intubated in the emergency room, placed on sedative medications, had a central line placed, moved to the ICU, placed on pressors, broad-spectrum antibiotics blood cultures, sputum cultures, urine cultures were obtained, in addition patient was tested for COVID-19. Ct angio showed:Good opacification of the main pulmonary artery and the central pulmonary arteries. No pulmonary emboli are identified. Thoracic aorta is normal caliber. Patient has a known neoplastic process in the LEFT chest which is poorly visualized on this examination. There is complete LEFT lung collapse due to central mass. There is a small LEFT pleural effusion and large pericardial effusion. Increased soft tissue density in the LEFT apex surrounding the pulmonary arteries and proximal LEFT bronchial tree. Recent PET/CT showed extensive neoplastic process in the LEFT thorax. I reviewed the case with Dr. Stevenson cardiothoracic surgery, he felt that performing a bronchoscopy for debulking would l carry significant risk of bleeding, and he would likely not benefit. I also reviewed the case with Dr. Israel and Dr. Renee, the advised that likely patient would benefit from chemotherapy or radiation therapy once he is clinically stable from his sepsis. 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 Advised the risk and benefits, voiced understanding, all questions answered, agreed for transfer. I do not think that this is unreasonable as we do not currently have a home therapy teacher control clerk subassembly, patient in addition needs a infectious disease specialist, 24-hour CT surgery and hematology oncology. I spoke to Dr. Valles, from [facility] who accepted transfer. Before discharge, patient was in A. fib, heart rates 100s to 110, on Cardizem drip, getting therapeutic Lovenox. For his postobstructive pneumonia, sepsis, septic shock, was on 8 of levophed, on vancomycin, Zosyn, azithromycin. For sedation was getting fentanyl and propofol. Was receiving tube feeds. Has a Nolasco catheter in place, good urine output. Doing well on ventilation, 40% FiO2, PEEP of 8. On minimal sedation this morning was able to follow commands, squeeze my fingers, not understanding, I reviewed the case with him, he nodded that he understood. Urine cultures, blood cultures, sputum cultures pending. COVID-19 testing pending. Physical Exam Const: COMMON NORMALS: no acute distress OTHER: Intubated, on minimal sedation follows commands, nods his head to voiced understanding, squeezes my fingers HENMT: COMMON NORMALS: normocephalic HEAD & SCALP: normocephalic Neck/C-Spine: COMMON NORMALS: no JVD Resp: COMMON NORMALS: normal respiratory effort, No retractions and No use of accessory muscles AUSCULTATION: breath sounds absent on th left Cardio: COMMON NORMALS: no JVD, S1 normal heart sound present and S2 normal heart sound present RATE: tachycardic RHYTHM: abnormal rhythm HEART SOUNDS: S1 normal heart sound present and S2 normal heart sound present GI: COMMON NORMALS: Normal to inspection, nondistended, normoactive bowel sounds present, Soft to palpation, non-tender, No hepatosplenomegaly present, no masses and no bruits PALPATION: Yes Soft to palpation and Yes No hepatosplenomegaly present Extremity: COMMON NORMALS: capillary refill normal, no clubbing, cyanosis or edema, no calf tenderness and no pedal edema Urinary Catheter Management^: Nolasco: Cath Placed During This Visit: yes Reason for Continuing Indwelling Catheter: Accurate Measurement of Urinary Output in Critically Ill Patients Urinary Catheter Date of Insertion: 08/29/19 Urinary Catheter Time of Insertion: 16:56 TS Data Data Completed and Pending: Completed Studies During Hospitalization Category Date Time Status CT angio chest PE protcl [id number] Urge nt Cat Scan 08/29/19 13:23 Completed CXRP [XR chest 1V portable [id number]] S tat Exams 08/29/19 13:27 Completed XR chest 1V reilyl ble [id number] NOW Exams 08/29/19 19:50 Completed XR chest 1V reilly ble [id number] Routine Exams 08/30/19 07:00 Completed XR chest 1V reilly ble [id number] Stat Exams 08/29/19 11:00 Completed Pending at discharge Category Date Time Status ABG FULL [Arteria l Blood Gas Full] Stat Lab 08/29/19 16:32 Results Arterial Blood Ga s W/O Coox AM LABS Lab 08/31/19 04:00 Ordered Arterial Blood Ga s W/O Coox AM LABS Lab 09/01/19 04:00 Ordered Blood Culture Sta t Lab 08/29/19 11:13 Results C Reactive Protei n AM LABS Lab 08/31/19 04:00 Ordered C Reactive Protei n AM LABS Lab 09/01/19 04:00 Ordered Complete Blood Co unt w/Auto AM LABS Lab 08/31/19 04:00 Ordered Complete Blood Co unt w/Auto AM LABS Lab 09/01/19 04:00 Ordered Comprehensive Met abolic Panel AM LA BS Lab 08/31/19 04:00 Ordered Comprehensive Met abolic Panel AM LA BS Lab 09/01/19 04:00 Ordered Magnesium AM LABS Lab 08/31/19 04:00 Ordered Magnesium AM LABS Lab 09/01/19 04:00 Ordered Phosphorus AM LAB S Lab 08/31/19 04:00 Ordered Phosphorus AM LAB S Lab 09/01/19 04:00 Ordered Procalcitonin AM LABS Lab 08/31/19 04:00 Ordered Procalcitonin AM LABS Lab 09/01/19 04:00 Ordered Prothrombin Time INR AM LABS Lab 08/31/19 04:00 Ordered Prothrombin Time INR AM LABS Lab 09/01/19 04:[address] at Lab 08/29/19 11:00 Ordered Sputum Culture an d Gram Stain Routi ne Lab 08/29/19 13:55 Results Sputum Culture an d Gram Stain Stat Lab 08/29/19 14:48 Ordered Urine Culture Sta t Lab 08/29/19 16:50 Results Vancomycin Trough Timed Lab 08/31/19 00:45 Ordered CV echo complete* [id number] Routine Ultrasound 08/30/19 13:23 Ordered Labs from last 24 hours 08/30/19 08/30/19 08/30/19 08:53 05:26 05:26 WBC RBC Hgb Hct MCV MCH MCHC RDW Plt Count MPV Neut % (Auto) Lymph % (Auto) Crisp % (Auto) Eos % (Auto) Baso % (Auto) Neut # (Auto) Lymph # (Auto) Crisp # (Auto) Eos # (Auto) Baso # (Auto) Nucleated RBC % (a uto) Nucleated RBCs # ESR PT 16.50 H INR 1.29 H Specimen Type Sample Site ABG pH ABG pCO2 ABG pO2 ABG HCO3 ABG O2 Saturation ABG Base Excess [place] Test A-a O2 Gradient Hematocrit Hgb O2 Saturation Carboxyhemoglobin Methemoglobin Total Hemoglobin Ionized Calcium Respiration Rate O2 Delivery Device O2 Liters/Min Mechanical Rate FiO2 Tidal Volume PEEP [employer] Principal ID Sodium Potassium Chloride Carbon Dioxide Anion Gap BUN Creatinine GFR Calculation Glucose Estimat Average Gl ucose Hemoglobin A1c Calculated Osmolal ity Lactic Acid 1.4 Calcium Phosphorus Magnesium Total Bilirubin AST ALT Alkaline Phosphata se Troponin I 6 Hour Troponin I Hi Sens Del Troponin T Baselin e Troponin T 120 Min kiana Delta Troponin T C-Reactive Protein NT-Pro-B Natriuret Pep Total Protein Albumin Globulin Triglycerides Cholesterol LDL Cholesterol, C alc HDL Cholesterol LDL/HDL Ratio Cholesterol/HDL Ra charlee Procalcitonin 0.27 TSH RSV Antigen 08/30/19 08/30/19 08/30/19 05:26 05:26 04:40 WBC 12.4 H RBC 3.53 L Hgb 9.1 L Hct 29.7 L MCV 84.1 MCH 25.8 L MCHC 30.6 RDW 15.7 H Plt Count 638 H MPV 9.4 Neut % (Auto) 74.3 Lymph % (Auto) 14.0 Crisp % (Auto) 8.5 Eos % (Auto) 1.9 Baso % (Auto) 1.0 Neut # (Auto) 9.2 H Lymph # (Auto) 1.7 Crisp # (Auto) 1.1 H Eos # (Auto) 0.2 Baso # (Auto) 0.1 Nucleated RBC % (a uto) 0 Nucleated RBCs # 0.0 ESR PT INR Specimen Type Arterial Sample Site Radial, right ABG pH 7.48 H ABG pCO2 29.9 L ABG pO2 93.1 ABG HCO3 22.1 ABG O2 Saturation ABG Base Excess -0.8 Salvador Test Pos A-a O2 Gradient Hematocrit 30.4 L Hgb O2 Saturation Carboxyhemoglobin Methemoglobin Total Hemoglobin Ionized Calcium Respiration Rate 14.0 O2 Delivery Device Vent O2 Liters/Min Mechanical Rate FiO2 40.0 Tidal Volume 0.5 PEEP 8.0 [employer] Principal ID kurt Sodium 132 L Potassium 4.9 Chloride 98 Carbon Dioxide 22 Anion Gap 16.9 BUN 16 Creatinine 0.6 L GFR Calculation 144.4 H Glucose 133 H Estimat Average Gl ucose Hemoglobin A1c Calculated Osmolal ity 272 L Lactic Acid Calcium 8.4 L Phosphorus 3.6 Magnesium 1.8 Total Bilirubin 0.2 AST 16 ALT 9 Alkaline Phosphata se 120 Troponin I 6 Hour Troponin I Hi Sens Del Troponin T Baselin e Troponin T 120 Min kiana Delta Troponin T C-Reactive Protein 88.2 H NT-Pro-B Natriuret Pep Total Protein 5.3 L D Albumin 2.4 L Globulin 2.9 Triglycerides Cholesterol LDL Cholesterol, C alc HDL Cholesterol LDL/HDL Ratio Cholesterol/HDL Ra charlee Procalcitonin TSH RSV Antigen 08/29/19 08/29/19 08/29/19 16:46 16:32 15:30 WBC RBC Hgb Hct MCV MCH MCHC RDW Plt Count MPV Neut % (Auto) Lymph % (Auto) Crisp % (Auto) Eos % (Auto) Baso % (Auto) Neut # (Auto) Lymph # (Auto) Crisp # (Auto) Eos # (Auto) Baso # (Auto) Nucleated RBC % (a uto) Nucleated RBCs # ESR PT INR Specimen Type Arterial Sample Site Radial, right ABG pH 7.37 ABG pCO2 37.7 ABG pO2 336.0 H* ABG HCO3 22.0 ABG O2 Saturation Pending ABG Base Excess -2.9 L [place] Test Pos A-a O2 Gradient 313.8 H Hematocrit 32.7 L Hgb O2 Saturation 98.6 Carboxyhemoglobin 0.6 Methemoglobin 1.1 Total Hemoglobin 10.7 L Ionized Calcium 1.2 Respiration Rate 14.0 O2 Delivery Device Vent O2 Liters/Min Mechanical Rate 14.0 FiO2 100.0 Tidal Volume 0.5 PEEP 8.0 [employer] Principal ID gd Sodium 133.0 Potassium 4.8 Chloride Carbon Dioxide Anion Gap BUN Creatinine GFR Calculation Glucose 171.0 H Estimat Average Gl ucose Hemoglobin A1c Calculated Osmolal ity Lactic Acid Calcium Phosphorus Magnesium Total Bilirubin AST ALT Alkaline Phosphata se Troponin I 6 Hour 10.30 Troponin I Hi Sens Del -0.70 L Troponin T Baselin e Troponin T 120 Min kiana Delta Troponin T C-Reactive Protein NT-Pro-B Natriuret Pep Total Protein Albumin Globulin Triglycerides Cholesterol LDL Cholesterol, C alc HDL Cholesterol LDL/HDL Ratio Cholesterol/HDL Ra charlee Procalcitonin TSH RSV Antigen Negative 08/29/19 08/29/19 08/29/19 13:00 11:13 11:13 WBC RBC Hgb Hct MCV MCH MCHC RDW Plt Count MPV Neut % (Auto) Lymph % (Auto) Crisp % (Auto) Eos % (Auto) Baso % (Auto) Neut # (Auto) Lymph # (Auto) Crisp # (Auto) Eos # (Auto) Baso # (Auto) Nucleated RBC % (a uto) Nucleated RBCs # ESR PT INR Specimen Type Arterial Sample Site Radial, left ABG pH 7.46 H ABG pCO2 35.9 ABG pO2 70.7 L ABG HCO3 25.3 ABG O2 Saturation ABG Base Excess 1.6 [place] Test Pos A-a O2 Gradient Hematocrit 33.8 L Hgb O2 Saturation Carboxyhemoglobin Methemoglobin Total Hemoglobin Ionized Calcium Respiration Rate O2 Delivery Device Oxy mask O2 Liters/Min 2.0 Mechanical Rate FiO2 28.0 Tidal Volume PEEP [employer] Principal ID ed Sodium Potassium Chloride Carbon Dioxide Anion Gap BUN Creatinine GFR Calculation Glucose Estimat Average Gl ucose Hemoglobin A1c Calculated Osmolal ity Lactic Acid 1.2 Calcium Phosphorus Magnesium Total Bilirubin AST ALT Alkaline Phosphata se Troponin I 6 Hour Troponin I Hi Sens Del Troponin T Baselin e Troponin T 120 Min kiana 12.07 Delta Troponin T 1.07 C-Reactive Protein NT-Pro-B Natriuret Pep Total Protein Albumin Globulin Triglycerides Cholesterol LDL Cholesterol, C alc HDL Cholesterol LDL/HDL Ratio Cholesterol/HDL Ra charlee Procalcitonin TSH RSV Antigen 08/29/19 08/29/19 08/29/19 10:45 10:45 10:45 WBC RBC Hgb Hct MCV MCH MCHC RDW Plt Count MPV Neut % (Auto) Lymph % (Auto) Crisp % (Auto) Eos % (Auto) Baso % (Auto) Neut # (Auto) Lymph # (Auto) Crisp # (Auto) Eos # (Auto) Baso # (Auto) Nucleated RBC % (a uto) Nucleated RBCs # ESR 115 H PT INR Specimen Type Sample Site ABG pH ABG pCO2 ABG pO2 ABG HCO3 ABG O2 Saturation ABG Base Excess [place] Test A-a O2 Gradient Hematocrit Hgb O2 Saturation Carboxyhemoglobin Methemoglobin Total Hemoglobin Ionized Calcium Respiration Rate O2 Delivery Device O2 Liters/Min Mechanical Rate FiO2 Tidal Volume PEEP [employer] Principal ID Sodium Potassium Chloride Carbon Dioxide Anion Gap BUN Creatinine GFR Calculation Glucose Estimat Average Gl ucose 120 Hemoglobin A1c 5.8 Calculated Osmolal ity Lactic Acid Calcium Phosphorus Magnesium Total Bilirubin AST ALT Alkaline Phosphata se Troponin I 6 Hour Troponin I Hi Sens Del Troponin T Baselin e Troponin T 120 Min kiana Delta Troponin T C-Reactive Protein 81.6 H NT-Pro-B Natriuret Pep 273 H Total Protein Albumin Globulin Triglycerides 86 Cholesterol 123 LDL Cholesterol, C alc 71 HDL Cholesterol 35 L LDL/HDL Ratio 2.03 Cholesterol/HDL Ra charlee 3.51 Procalcitonin 0.12 TSH 2.59 RSV Antigen 08/29/19 08/29/19 08/29/19 10:45 10:45 10:45 WBC RBC Hgb Hct MCV MCH MCHC RDW Plt Count MPV Neut % (Auto) Lymph % (Auto) Crisp % (Auto) Eos % (Auto) Baso % (Auto) Neut # (Auto) Lymph # (Auto) Crisp # (Auto) Eos # (Auto) Baso # (Auto) Nucleated RBC % (a uto) Nucleated RBCs # ESR PT 14.10 H INR 1.06 Specimen Type Sample Site ABG pH ABG pCO2 ABG pO2 ABG HCO3 ABG O2 Saturation ABG Base Excess [place] Test A-a O2 Gradient Hematocrit Hgb O2 Saturation Carboxyhemoglobin Methemoglobin Total Hemoglobin Ionized Calcium Respiration Rate O2 Delivery Device O2 Liters/Min Mechanical Rate FiO2 Tidal Volume PEEP [employer] Principal ID Sodium 132 L Potassium 5.9 H Chloride 92 L Carbon Dioxide 26 Anion Gap 19.9 H BUN 28 H Creatinine 0.8 GFR Calculation 103.6 Glucose 86 Estimat Average Gl ucose Hemoglobin A1c Calculated Osmolal ity 270 L Lactic Acid Calcium 9.5 Phosphorus Magnesium Total Bilirubin 0.2 AST 20 ALT 12 Alkaline Phosphata se 156 H Troponin I 6 Hour Troponin I Hi Sens Del Troponin T Baselin e 11 Troponin T 120 Min kiana Delta Troponin T C-Reactive Protein NT-Pro-B Natriuret Pep 267 H Total Protein 6.9 Albumin 3.2 L Globulin 3.7 Triglycerides Cholesterol LDL Cholesterol, C alc HDL Cholesterol LDL/HDL Ratio Cholesterol/HDL Ra charlee Procalcitonin TSH RSV Antigen Vitals: Last Vital Signs Temp 97.0 F L 08/30/19 04:00 Pulse 108 H 08/30/19 08:15 Resp 14 08/30/19 11:23 BP 103/66 08/30/19 08:15 Pulse Ox 97 08/30/19 08:15 TS Medications Medications Home Medications Men's Daily 1 tab PO DAILY 08/29/19 [History Confirmed 08/29/19] cyclobenzaprine 10 mg PO BEDTIME 08/29/19 [History Confirmed 08/29/19] fluticasone propionate 2 puff INHALATION DAILY 08/29/19 [History Confirmed 08/29/19] hydrocodone-acetaminophen 1 tab PO Q6H PRN 08/29/19 [History Confirmed 08/29/19] ibuprofen 400 mg PO TID PRN 08/29/19 [History Confirmed 08/29/19] levofloxacin 500 mg PO DAILY 08/29/19 [History Confirmed 08/29/19] lisinopril 20 mg PO DAILY 08/29/19 [History Confirmed 08/29/19] Active Medications Enoxaparin Sodium (Lovenox) 60 mg SUBCUT Q12H YUDI Last Admin: 08/30/19 05:00 Dose: 60 mg Documented by: Norepinephrine Bitartrate 4 mg (/ Dextrose) 254 mls @ 0 mls/hr IV .Q0M YUDI; Protocol Last Admin: 08/30/19 07:52 Dose: 8 mcg/min, 30.5 mls/hr Documented by: Diltiazem HCl 125 mg/ Sodium (Chloride) 125 mls @ 0 mls/hr IV .Q0M YUDI; Protocol Last Admin: 08/30/19 11:32 Dose: 10 mg/hr, 10 mls/hr Documented by: Vancomycin HCl 1,000 mg/ (Sodium Chloride) 250 mls @ 250 mls/hr IV Q12H YUDI; Protocol Last Infusion: 08/30/19 02:45 Dose: Infused Documented by: Piperacillin Sod/Tazobactam (Sod 3.375 gm/ Sodium Chloride) 50 mls @ 12.5 mls/hr IV Q8H YUDI; Protocol Last Admin: 08/30/19 11:32 Dose: 12.5 mls/hr Documented by: Azithromycin 500 mg/ Sodium (Chloride) 250 mls @ 250 mls/hr IV Q24H YUDI; Protocol Last Infusion: 08/29/19 20:00 Dose: Infused Documented by: Propofol (Diprivan) 1,000 mg in 100 mls @ 0 mls/hr IV .Q0M YUDI; Protocol Last Titration: 08/30/19 04:11 Dose: 30 mcg/kg/min, 10.5 mls/hr Documented by: Fentanyl 1,000 mcg/ Sodium (Chloride) 100 mls @ 0 mls/hr IV .Q0M YUDI; Protocol Last Admin: 08/29/19 14:04 Dose: 25 mcg/hr, 2.5 mls/hr Documented by: Lactated Ringer's (Lactated Ringers) 1,000 mls @ 125 mls/hr IV .Q8H YUDI Last Admin: 08/30/19 10:05 Dose: Not Given Documented by: Vasopressin 40 unit/ Sodium (Chloride) 40 mls @ 0.03 mls/min IV PRN [facility] Pantoprazole Sodium (Protonix) 40 mg IVP DAILY [facility] Last Admin: 08/30/19 09:16 Dose: 40 mg Documented by: Discharge Plan Discharge Patient Disposition: Xfer Other Condition: Serious Prescriptions: No Action cyclobenzaprine 10 mg Tablet 10 mg PO BEDTIME RF: 0 hydrocodone-acetaminophen 5-325 mg Tablet 1 tab PO Q6H PRN (Reason: Pain) RF: 0 lisinopril 20 mg Tablet 20 mg PO DAILY RF: 0 fluticasone propionate 44 mcg/actuation Hfa Aerosol Inhaler 2 puff INHALATION DAILY RF: 0 ibuprofen 400 mg Tablet 400 mg PO TID PRN (Reason: Pain) RF: 0 levofloxacin 500 mg Tablet 500 mg PO DAILY RF: 0 Men's Daily 1 tab PO DAILY RF: 0 Discharge Orders: Discharge Order (Routine); Ordered 08/30/19 Ordered By: Brenden Shannon Referrals: Chun Moreira [Primary Care Provider] - Transfer Attestations Time Spent in Transfer Care*: less than 30 min Quality Metrics Clinical Quality Measures: During this hospital stay, did patient experience: None Coding Level of Care Code Acute Epic Interface Analyst for g Fwd Diagnoses Acute respiratory failure with hypoxia J96.01 Septic shock A41.9; R65.21 Postobstructive pneumonia J18.9 Small cell lung cancer C34.90 Sepsis A41.9; R65.20 Sepsis acute organ dysfunction status: with acute organ dysfunction Sepsis type: sepsis due to unspecified organism Severe sepsis acute organ dysfunction type: unspecified Severe sepsis shock status: unspecified Atrial fibrillation and flutter I48.91; I48.92 Hypotension I95.9 Hypotension type: unspecified hypotension type
[2019-08-30] MEDS: propofol 1,000 MG/100 ML INJ 10.5 MG IV (12:34)
--- NOTE | 2019-08-30 13:48 | PC.RESP ---
Pulmonary Rehab information sent to patient.
--- NOTE | 2019-08-30 14:04 | PC.NURSE ---
transfer out at this time per air vac . covid results neg
--- NOTE | 2019-08-30 14:08 | PC.NURSE ---
transfer out to [facility] at this time per air vac
[2019-08-30 14:53] LABS: Coronavirus Lab Test PTC NOT DETECTED
== END 2019-08-30 14:50 | disposition short-term general hospital (02) | DRG 871 ==
LOC: ER 14:20 → ICU 14:24
PROVIDERS: Admitting Provider Family Medicine; Emergency Provider Family Medicine; PCP Family Medicine; Visit Provider Family Medicine
DX: A41.9 Sepsis, unspecified organism (principal); R65.21 Severe sepsis with septic shock; J18.9 Pneumonia, unspecified organism; J96.01 Acute respiratory failure with hypoxia; G93.41 Metabolic encephalopathy; E43 Unspecified severe protein-calorie malnutrition; C34.90 Malignant neoplasm of unspecified part of unspecified bronchus or lung; Z68.1 Body mass index [BMI] 19.9 or less, adult; I95.9 Hypotension, unspecified; I48.91 Unspecified atrial fibrillation; Z87.891 Personal history of nicotine dependence
CPT/HCPCS: 12345; 31500; 36415; 36556; 36592; 36600; 51702; 71045; 71275; 80051; 80053; 80061; 82803; 82810; 83036; 83605; 83735; 83880; 83986; 84100; 84145; 84443; 84484; 85025; 85610; 85651; 86140; 86403; 87040; 87070; 87086; 87205; 87420; 87635; 87641; 93005; 94002; 94003; 94664; 94799; 96372; 96375; 99284; C1751; C9113; J0330; J0456; J1650; J2001; J2250; J2543; J2704; J3010; J3370; J3490; J7030; J7050; Q9967

== ENCOUNTER 2019-08-29 10:49 | Emergency (ER) | payer MEDICAID, SELFPAY | END 2019-08-29 17:06 | disposition admitted as inpatient to this hospital (09) | LOC: ER 08-31 02:42 | PROVIDERS: Emergency Provider Family Medicine; PCP Family Medicine | DX: A41.9 Sepsis, unspecified organism (principal); C34.90 Malignant neoplasm of unspecified part of unspecified bronchus or lung; I48.91 Unspecified atrial fibrillation; I48.92 Unspecified atrial flutter; D69.6 Thrombocytopenia, unspecified; I95.9 Hypotension, unspecified; J96.01 Acute respiratory failure with hypoxia; Z87.891 Personal history of nicotine dependence | CPT/HCPCS: 12345; 31500; 36415; 36556; 36600; 51702; 71045; 80053; 80061; 82803; 83036; 83605; 83880; 84145; 84443; 84484; 85025; 85610; 85651; 86140; 87040; 93005; 96365; 96366; 96367; 96368; 96375; 99284; 99291; C1751; J2543; J7030 ==

== ENCOUNTER 2019-09-11 08:53 | Outpatient (CLI) | payer MEDICAID, SELFPAY ==
[2019-09-11 09:39] LABS: Hematocrit 28.1 % (42.0-52.0); Hemoglobin 8.6 g/dL (11.7-16.6); Lymphocytes # 0.8 10^3/uL (0.8-4.8); Lymphocytes % 41.7 %; Mean Corpuscular HGB Conc 30.6 g/dL (30.0-36.0); Mean Corpuscular Hemoglobin 25.7 pg (28.0-34.0); Mean Corpuscular Volume 84.1 fL (80-94); Mean Platelet Volume 9.5 fL (7.4-10.4); Monocytes # 0.2 10^3/uL (0.2-0.9); Monocytes % 11.7 %; Neutrophils % 38.8 %; Nucleated Red Blood Cells % 0 %; Platelet Count 110 10^3/cmm (130-400); Red Blood Count 3.34 10^6/uL (4.1-5.3); Red Cell Distribution Width 14.9 % (12.1-15.1); White Blood Count 1.8 10^3/uL (4.0-10.0)
[2019-09-11 09:55] LABS: Alanine Aminotransferase 41 U/L (0-41); Albumin Level 3.3 g/dL (3.5-5.2); Alkaline Phosphatase 141 IU/L (40-130); Anion Gap 16.5 (5-19); Aspartate Amino Transferase 16 U/L (0-40); Blood Urea Nitrogen 19 mg/dL (6-20); Carbon Dioxide 23 mmol/L (22-29); Chloride 102 mmol/L (98-107); Globulin 3.1 g/dL (1.3-4.6); Glomerular Filtration Rate 178.2 mL/min (90-130); Glucose 132 mg/dL (65-115); Osmolality Calculated 282 mOsm/kg (285-295); Potassium 4.5 mmol/L (3.5-5.1); Sodium 137 mmol/L (136-145); Total Bilirubin 0.2 mg/dL (0.15-1.2); Total Protein 6.4 g/dL (6.6-8.7)
[2019-09-11 10:15] LABS: Neutrophils # 0.7 10^3/uL (1.8-7.7); Slide Review Slide Review Perform
--- NOTE | 2019-09-11 17:54 | ONC FU_ITS ---
Dr. Israel follow up note Patient: Tima Malik Unit #: [id number]: [id number] Dicatated By: Amee Israel M.D.Date of Visit:Sep 11, 2019 Onc Med Follow-up/Prog Note History of Present Illness: Mr. Tima Malik, is a 48-year-old gentleman, with history of 40 to 50 pounds weight loss since February 2019, as per patient he sustained an injury to the chest in January or February 2019 initially, it was not bothersome but then it become progressive to the point where even taking deep breath would hurt and the pain was not mainly in the mid upper anterior chest wall. And also developed progressive shortness of breath. Patient said he did have medical insurance so he was taking over the counter pain medicine with some help but eventually on August 16, 2019 he went to the [facility] in [place], where he had chest x-ray done which showed complete whiteout of left lung and CTA chest done showed complete collapse of left lung likely secondary to left hilar mass/malignancy. There is a bulky mediastinal and likely left hilar lymphadenopathy present. And moderate to large malignant left pleural effusion patient was transferred to [facility] in [place] where on August 17, 2019 underwent ultrasound-guided left thoracentesis and about 25 cc of cloudy yellow pleural fluid was removed, repeat CT scan of the chest done on August 17, 2019 showed possible obstruction of left main bronchus, a mucous plug or obstructing pulmonary mass or consideration. Complete opacification of left hemithorax appears similar to chest x-ray done on August 16, 2019. Elevation of left diaphragm suggest volume loss due to some degree of atelectasis. Left pleural effusion or large left consolidations are also considered. On August 18, 2019 patient underwent bronchoscopy and endobronchial biopsy and bronchial washing from left main bronchus confirmed invasive small cell carcinoma. Patient underwent CT PET scan on August 27, 2019 which showed hypermetabolic very large left hilar/mediastinal mass and matthew conglomeration. There is also redemonstration of complete collapse of left lung with associated hypermetabolic activity that may be secondary to diffuse tumor involvement or pneumonia depending on clinical context There is also evidence of metastatic disease to bilateral cervical chain lymph nodes as well as posterior upper neck intramuscular metastasis. In addition there is evidence of direct metastatic extension into the right of the trachea and to an epicardial fat lymph node No findings to suggest metastatic disease below the diaphragm and no evidence of metastatic disease to the right lung. Patient was referred to cancer center in [place] as it is convenient to the patient. Patient has longstanding history of smoking quit in mid August 2019 Patient was admitted to hospital on August 29, 2019 with acute respiratory failure with hypoxia and he was intubated and then he was transferred to [facility] in [place] where he underwent further management and work-up including MRI scan of the head on September 01, 2019 which showed multiple intra-axial metastasis the largest lesion is located within the left parietal lobe. Extracranial soft tissue mass adjacent to spinous process of C2 and posterior arch of C1 suspicious for metastatic disease., Patient was started on systemic chemotherapy with carboplatin/etoposide on August 31 and completed on September 03, 2019 tolerated reasonably well but as per patient and his aunt, patient did 'crash' during chemotherapy, his blood pressure dropped his pulse was fast and he was diagnosed with atrial fibrillation since then he is having off and on episode of tachycardia and palpitation.Radiation oncology was consulted for brain mets but radiation was not offered because the patient was asymptomatic and he was started on systemic chemotherapy because of progressive and symptomatic intrathoracic disease. And was recommended to complete systemic chemotherapy followed by whole brain radiation therapy. Came for follow-up, denies any specific complaint except off and on episodes of palpitation, patient has 20+ year history of marijuana use, as per patient anytime he get anxious, he get palpitations and usually with marijuana does help him. Denies any chest pain denies any shortness of breath, since first cycle of chemotherapy his retrosternal pain/heaviness has resolved, breathing is better. Overall feeling better. No headaches no blurred vision or double vision. No fever or chills, no nausea or vomiting, no diarrhea or constipation. Medications: Allopurinol 1 Tablet (of 300 mg) Oral daily, Dexamethasone 1 Tablet (of 4 mg) Oral q 6 hours for 6 days, Flonase 2 [place](s) (of 50 mcg/act) Suspension Nasal daily, Ibuprofen 1 - 2 Capsule (of 200 mg) Oral daily PRN, oxyCODONE HCl 1 Capsule (of 5 mg) Oral q 8 hours PRN Allergies: No Known Allergies. Review of Systems: Review of Systems is not available for this patient. Vital Signs: Performed on Sep 11, 2019 10:36 Height - 71.00 in Weight - 132.8 lbs (HIGH) BSA - 1.77 sq.m BMI - 18.52 Temperature - 97.9 F (LOW) Pulse - 105 /min (HIGH) Respiration - 18 /min BP - 120/71 mm(hg) O2 Sat - 97 % Pain - 2 Performance Status: 2 - Ambulatory/capable of all self-care, unable to perform any work activities. Up and about more than 50% of waking hours. (ECOG) Physical Examination: ENMT - No mouth sores no thrush no jaundice, Respiratory - Poor air entry with a decreased breath sound the left lung, Cardiovascular - Regular rate and rhythm of heart, Abdomen - Soft, bowel sounds present, Extremities - Trace edema bilaterally. Lab/Imaging: Most recent lab results are not available for this patient. Impression: Small cell lung cancer involving left lung, per bronchoscopy done on August 18, 2019 Extensive loco- regional disease with bilateral cervical lymph nodes involvement. CT PET scan done on August 27, 2019 showed hypermetabolic large left hilar/mediastinal mass with matthew conglomeration in keeping with known small cell lung cancer. Also redemonstration of complete collapse of left lung with associated hypermetabolic activity may be secondary to diffuse tumor involvement or pneumonia There is evidence of metastatic disease to bilateral cervical chain lymph nodes as well as posterior upper neck intramuscular metastasis. In addition there is evidence of direct metastatic extension to the right of trachea and to an epicardial fat lymph node. No findings to suggest metastatic disease below diaphragm. No evidence of metastatic disease to the right lung. MRI scan of the brain done on September 01, 2019 at [facility] in [place] showed extensive brain mets but asymptomatic As per radiation oncology consultation at [facility] radiation therapy to brain was postponed till completion of systemic chemotherapy Started on Systemic chemotherapy with carboplatin/etoposide on September 01, 2019, first cycle was given at [facility] in [place] Longstanding history of smoking, quit in mid August 2019 Plan: Discussed with patient regarding his labs white blood count 1.8 hemoglobin 8.6 hematocrit 28.1 platelets 110,000 ANC 700 CMP within normal limits Clinically, patient doing reasonably well, no new signs symptoms rather retrosternal pain/pressure is improving since first cycle of chemotherapy done recently. His follow-up lab work-up shows pancytopenia due to chemotherapy. At this point will continue supportive care and also consider Port-A-Cath placement as patient has PICC line in the right subclavian and repeat his labs in a week and if it shows recovery e.g. resolution of thrombocytopenia and leukopenia/neutropenia, will consider second cycle of chemotherapy. In the meantime we will refer him to cardiology for evaluation regarding episode of atrial fibrillation and now with off and on tachycardia palpitation which could be due to anxiety attacks but new onset of atrial fibrillation cannot be ruled out. Patient and his aunt was concerned rather anxious regarding next cycle of chemotherapy as during first cycle of chemotherapy patient had issues with severe hypotension and tachycardia. In that case we will get cardiac evaluation done prior to next treatment otherwise we may consider second course of chemotherapy as inpatient. We will continue to monitor his hemoglobin and consider blood transfusion if hemoglobin drops below 8 g. We will consider CT scan of the chest after third cycle of chemotherapy To assess the response. Signed By: Amee Israel M.D. <<Signature on File>>
== END 2019-09-11 08:54 | disposition home or self-care (01) ==
LOC: ONCMED 09:00
PROVIDERS: PCP Family Medicine; Visit Provider Internal Medicine Hematology & Oncology
DX: C34.02 Malignant neoplasm of left main bronchus (principal); J96.01 Acute respiratory failure with hypoxia; J96.02 Acute respiratory failure with hypercapnia; J90 Pleural effusion, not elsewhere classified; I10 Essential (primary) hypertension; F17.211 Nicotine dependence, cigarettes, in remission
CPT/HCPCS: 36592; 80053; 85025; 99214

== ENCOUNTER 2019-09-19 09:16 | Outpatient (CLI) | payer MEDICAID, SELFPAY ==
[2019-09-19 13:31] LABS: Hematocrit 33.8 % (42.0-52.0); Hemoglobin 10.2 g/dL (11.7-16.6); Mean Corpuscular HGB Conc 30.2 g/dL (30.0-36.0); Mean Corpuscular Volume 89.4 fL (80-94); Mean Platelet Volume 9.9 fL (7.4-10.4); Nucleated Red Blood Cells % 0 %; Platelet Count 117 10^3/cmm (130-400); Red Blood Count 3.78 10^6/uL (4.1-5.3); Red Cell Distribution Width 20.6 % (12.1-15.1); White Blood Count 21.8 10^3/uL (4.0-10.0)
[2019-09-19 13:56] LABS: Alanine Aminotransferase 32 U/L (0-41); Albumin Level 3.4 g/dL (3.5-5.2); Alkaline Phosphatase 251 IU/L (40-130); Anion Gap 17.9 (5-19); Aspartate Amino Transferase 27 U/L (0-40); Blood Urea Nitrogen 15 mg/dL (6-20); Calcium 9.3 mg/dL (8.5-10.5); Carbon Dioxide 24 mmol/L (22-29); Chloride 101 mmol/L (98-107); Globulin 3.4 g/dL (1.3-4.6); Glomerular Filtration Rate 120.9 mL/min (90-130); Glucose 81 mg/dL (65-115); Osmolality Calculated 283 mOsm/kg (285-295); Potassium 3.9 mmol/L (3.5-5.1); Sodium 139 mmol/L (136-145); Total Bilirubin 0.2 mg/dL (0.15-1.2); Total Protein 6.8 g/dL (6.6-8.7)
[2019-09-19 15:25] LABS: Slide Review Slide Review Perform
[2019-09-19 15:28] LABS: Absolute Segmented Neutrophil 11.8 10/cmm (1.6-7.1); Band Neutrophils Absolute 3.7 10^3/cmm (0.0-1.2); Lymphocytes 22 %; Monocytes Absolute 1.5 10^3/cmm (0.1-0.6); Segmented Neutrophils 54 %; Total Cells Counted 100 (0-100)
[2019-09-19 15:30] LABS: Absolute Neutrophil 15.5 10^3/cmm (1.4-6.5); Anisocytosis Trace; Platelet Estimate Decreased (Normal)
[2019-09-19 15:31] LABS: Polychromasia Trace
== END 2019-09-19 09:17 | disposition home or self-care (01) ==
LOC: ONCMED 14:46
PROVIDERS: PCP Family Medicine; Visit Provider Internal Medicine Hematology & Oncology
DX: C34.02 Malignant neoplasm of left main bronchus (principal)
CPT/HCPCS: 80053; 85007; 85025

== ENCOUNTER 2019-09-23 05:49 | Day surgery (SDC) | payer MEDICAID, SELFPAY ==
[2019-09-20 13:48] VITALS: BMI 17.8
--- NOTE | 2019-09-23 | SCC_ITS ---
Procedure Done: Placement of PowerPort in the right internal jugular vein Fluoroscopic guidance and interpretation for placement of catheter Ultrasound guidance to access right internal jugular vein Removal of central venous triple-lumen catheter from the right subclavian vein 26.9 seconds of fluoroscopic guidance, for a cumulative dose of 2.82 mGy, was provided to Dr. Mccollum by the radiology department. C-arm images of the chest were saved for the patient's permanent record. ROJELIOD
[2019-09-23 06:10] VITALS: BP 108/70; PULSE 99; RESP 18; TEMP 37.3; O2SAT 99
[2019-09-23] MEDS: sodium chloride 0.9% 1,000 ML 30 ML IV (06:30)
--- NOTE | 2019-09-23 06:41 | SC_ITS ---
WS: [id number] C-ARM RADIOGRAPHS CHEST; 2 IMAGES HISTORY: intra-op COMPARISON: None available. Intraoperative imaging during Port-A-Cath placement through the RIGHT subclavian vein. SC/C-arm FL for CVA 88269 IMPRESSION: Intraoperative imaging during Port-A-Cath placement.
--- NOTE | 2019-09-23 06:54 | W.PM.OPSUD ---
Surgery/Procedure H&P Update DATE OF PROCEDURE: September 23, 2019 DATE H&P PERFORMED: 09/16/19 H&P UPDATE INFORMATION: I have reviewed H&P completed within last 30 days, I have examined patient prior to procedure and No changes to prior documentation PREOP DIAGNOSIS: lung ca PLANNED PROCEDURE: Operation Date: 09/23/19 07:00 Proposed Procedures p Portacath Placement 13666 C34.90(Not Applicable) - Epifanio Mccollum MD
--- NOTE | 2019-09-23 06:59 | ANES.PREANE2 ---
Pre-Anesthetic Assessment Pre-Anesthetic Assessment: Height/Weight: Height 1.8 m Weight 58.06 kg Temp Pulse Resp BP Pulse Ox 99.1 F 99 18 108/70 99 09/23/19 06:10 09/23/19 06:10 09/23/19 06:10 09/23/19 06:10 09/23/19 06:10 Preop Diagnosis: lung ca Proposed Procedure: Operation Date: 09/23/19 07:00 Proposed Procedures p Portacath Placement 20270 C34.90(Not Applicable) - Epifanio Mccollum MD Was Beta Eri taken within 24 hours: N/A Last intake: Intake Last Liquid Date 09/22/19 Last Liquid Time 20:00 Last Solid Date 09/22/19 Last Solid Time 20:00 Social: Packs per day: quit recently Exam: Pre-Anes Outpt Exam: alert, oriented x 3, clear to auscultation bilaterally and regular rate & rhythm Airway: Submandibular: WNL Cervical ROM: WNL MP: 2 Dentition: Chipped and Loose Additional comments: multiple History/ROS: No significant history except as noted and No significant complaints Pulmonary: Pulmonary: COPD, EASTON and SOB CV/HEM: CV/HEM: Afib Comments: one episode A Fib : : None reported Hepatic: Hepatic: None reported GI: GI: None reported Metabolic: Metabolic: None reported Musc/skel: Musc/skel: None reported Neuropsych: Neuropsych: Anxiety and None reported Anesthetic Plan: ASA status: 3 Anesthesia: MAC Risk of > 500 ml blood loss (7ml/kg in children): No PFSH Anesthesia PFSH: Surgical History (Updated 09/16/19 @ 14:06 by Epifanio Mccollum MD) H/O circumcision S/P bronchoscopy Family History Father Cancer Mother Cancer lungs Other Diabetes Denies family history of Anesthesia complication Bleeding disorder Social History Smoking and tobacco status: former smoker Alcohol intake: never Household members: family Marital status: Single Current occupational status: disabled History of recent travel: No Data Anesthesia Cardiac Studies: No Data to Display
[2019-09-23] MEDS: lidocaine 1% INJ 20 mL SUBCUT (07:35)
[2019-09-23] MEDS: heparin, porcine 1,000 unit/mL INJ 10 mL 6000 UNIT IRRIGATION (07:43)
[2019-09-23 08:10] VITALS: BP 100/72; PULSE 97; RESP 18; TEMP 36.7; O2SAT 97
[2019-09-23 08:39] VITALS: BP 114/76; PULSE 82; RESP 18; O2SAT 99
--- NOTE | 2019-09-23 09:32 | P.OP_ITS ---
Operative Report Date of procedure: September 23, 2019 Pre-op Diagnosis: lung ca Post-op diagnosis: same Procedure Done: Placement of PowerPort in the right internal jugular vein Fluoroscopic guidance and interpretation for placement of catheter Ultrasound guidance to access right internal jugular vein Removal of central venous triple-lumen catheter from the right subclavian vein Pathology: none sent Surgeon: Epifanio Mccollum Anesthesia: MAC Condition: stable Disposition: same day Procedure: The patient was taken to the Operating Room and the chest and neck bilaterally were prepped and draped in a sterile manner after the antibiotic had been administered and shoulder rolls had been placed. A total of 10 mL of 1% lidocaine with 0.5% Marcaine was infiltrated at the side at the site of the planned entry into the right vein. An ultrasound of the right internal jugular vein revealed patent flow, no thrombus. An introducer needle was then used to access the subclavian vein under the clavicle and after withdrawing blood syringe was removed and a guidewire passed under fluoroscopy into the superior vena cava. The site of the planned port was then marked on the chest and a 15 blade was used to make a 3 cm skin incision this was extended into the subcutaneous tissue using electrocautery and a subcutaneous pocket over the pectoralis fascia was created 2-0 Vicryl suture was used to suture the port to the pectoral fascia in the pocket on 3 sides. The catheter, after having been flushed with hep saline, was attached to the tunneler and a tunnel created between the port site and the internal jugular vein entry site. Under fluoroscopy the dilator sheath was passed over the guidewire into the proximal superior vena cava. The inner dilator was removed and the sheath left behind and~ the catheter was introduced through the peel- away sheath with the tip in the superior vena cava. The peel-away sheath was removed. The proximal end of the catheter was cut to the right size and was attached to the port. Using a Barker needle the port was accessed, it withdrew blood easily and flushed easily. A final 5cc of heparin was used to flush the PowerPort. The subcutaneous tissue was approximated using interrupted 3-0 Vicryl sutures and the skin at the introducer site and the port site was closed using subcuticular running 4-0 Monocryl sutures. Surgical glue was applied and the patient was stable throughout the procedure. Fluoroscopic guidance and interpretation was performed for introduction of the guidewire in the right internal jugular vein, passage of dilator and placement of catheter tip in the distal superior vena cava. \ Sutures were cut and triple-lumen catheter was removed from the right subclavian vein without difficulty and pressure was held.
== END 2019-09-23 08:57 | disposition home or self-care (01) ==
PROVIDERS: PCP Family Medicine; Visit Provider Surgery
PROC: (CPT 36561; principal; 2019-09-23 07:00)
DX: C34.90 Malignant neoplasm of unspecified part of unspecified bronchus or lung (principal); J44.9 Chronic obstructive pulmonary disease, unspecified; I48.91 Unspecified atrial fibrillation; Z87.891 Personal history of nicotine dependence; Z79.891 Long term (current) use of opiate analgesic
CPT/HCPCS: 36561; 12345; 76000; 77001; C1788; J0690; J1644; J2250; J2704; J3490; J7030

== ENCOUNTER 2019-10-03 06:04 | Outpatient (RCR) | payer MEDICAID, SELFPAY ==
[2019-10-01 11:34] LABS: Basophils # 0.2 10^3/uL (0.0-0.1); Basophils % 1.4 %; Eosinophils # 0.1 10^3/uL (0.0-0.8); Eosinophils % 1.2 %; Lymphocytes # 3.2 10^3/uL (0.8-4.8); Lymphocytes % 29.2 %; Mean Corpuscular HGB Conc 30.3 g/dL (30.0-36.0); Mean Corpuscular Volume 88.9 fL (80-94); Mean Platelet Volume 9.1 fL (7.4-10.4); Monocytes # 1.3 10^3/uL (0.2-0.9); Neutrophils % 55.3 %; Nucleated Red Blood Cells % 0 %; Platelet Count 518 10^3/cmm (130-400); Red Blood Count 3.71 10^6/uL (4.1-5.3); Red Cell Distribution Width 22.1 % (12.1-15.1)
[2019-10-01 11:53] LABS: Alanine Aminotransferase 9 U/L (0-41); Albumin Level 3.5 g/dL (3.5-5.2); Alkaline Phosphatase 148 IU/L (40-130); Anion Gap 13.4 (5-19); Aspartate Amino Transferase 18 U/L (0-40); Blood Urea Nitrogen 10 mg/dL (6-20); Calcium 8.4 mg/dL (8.5-10.5); Carbon Dioxide 26 mmol/L (22-29); Chloride 103 mmol/L (98-107); Globulin 3.6 g/dL (1.3-4.6); Glomerular Filtration Rate 144.4 mL/min (90-130); Glucose 111 mg/dL (65-115); Osmolality Calculated 283 mOsm/kg (285-295); Potassium 4.4 mmol/L (3.5-5.1); Sodium 138 mmol/L (136-145); Total Bilirubin 0.2 mg/dL (0.15-1.2); Total Protein 7.1 g/dL (6.6-8.7)
[2019-10-01] MEDS: sodium chloride 0.9% 250 ML 999 ML IV (13:48)
[2019-10-02] MEDS: sodium chloride 0.9% 250 ML 999 ML IV (14:09)
[2019-10-03] MEDS: palonosetron 0.25 mg/5 mL SDV IV (14:40)
[2019-10-03] MEDS: sodium chloride 0.9% 250 ML 75 ML IV (14:40)
== END 2019-10-04 23:59 | disposition home or self-care (01) ==
LOC: ONCMED 06:04
PROVIDERS: PCP Family Medicine; Visit Provider Internal Medicine Medical Oncology
DX: Z51.11 Encounter for antineoplastic chemotherapy (principal); C34.02 Malignant neoplasm of left main bronchus
CPT/HCPCS: 80053; 85025; 96367; 96375; 96413; 96415; 96417; J2405; J2469; J7040; J7050; J9045; J9181

== ENCOUNTER 2019-10-31 05:40 | Outpatient (RCR) | payer MEDICAID, SELFPAY ==
--- NOTE | 2019-10-22 17:07 | ONC FU_ITS ---
Dr. Israel follow up note Patient: Tima Malik Unit #: [id number]: 1970 Dicatated By: Amee Israel M.D.Date of Visit:Oct 22, 2019 Onc Med Follow-up/Prog Note History of Present Illness: Mr. Tima Malik, is a 49-year-old gentleman, with history of 40 to 50 pounds weight loss since February 2019, as per patient he sustained an injury to the chest in January or February 2019 initially, it was not bothersome but then it become progressive to the point where even taking deep breath would hurt and the pain was not mainly in the mid upper anterior chest wall. And also developed progressive shortness of breath. Patient said he did have medical insurance so he was taking over the counter pain medicine with some help but eventually on August 16, 2019 he went to the [facility] in [place], where he had chest x-ray done which showed complete whiteout of left lung and CTA chest done showed complete collapse of left lung likely secondary to left hilar mass/malignancy. There is a bulky mediastinal and likely left hilar lymphadenopathy present. And moderate to large malignant left pleural effusion patient was transferred to [facility] in [place] where on August 17, 2019 underwent ultrasound-guided left thoracentesis and about 25 cc of cloudy yellow pleural fluid was removed, repeat CT scan of the chest done on August 17, 2019 showed possible obstruction of left main bronchus, a mucous plug or obstructing pulmonary mass or consideration. Complete opacification of left hemithorax appears similar to chest x-ray done on August 16, 2019. Elevation of left diaphragm suggest volume loss due to some degree of atelectasis. Left pleural effusion or large left consolidations are also considered. On August 18, 2019 patient underwent bronchoscopy and endobronchial biopsy and bronchial washing from left main bronchus confirmed invasive small cell carcinoma. Patient underwent CT PET scan on August 27, 2019 which showed hypermetabolic very large left hilar/mediastinal mass and matthew conglomeration. There is also redemonstration of complete collapse of left lung with associated hypermetabolic activity that may be secondary to diffuse tumor involvement or pneumonia depending on clinical context There is also evidence of metastatic disease to bilateral cervical chain lymph nodes as well as posterior upper neck intramuscular metastasis. In addition there is evidence of direct metastatic extension into the right of the trachea and to an epicardial fat lymph node No findings to suggest metastatic disease below the diaphragm and no evidence of metastatic disease to the right lung. Patient was referred to cancer center in [place] as it is convenient to the patient. Patient has longstanding history of smoking quit in mid August 2019 Patient was admitted to hospital on August 29, 2019 with acute respiratory failure with hypoxia and he was intubated and then he was transferred to [facility] in [place] where he underwent further management and work-up including MRI scan of the head on September 01, 2019 which showed multiple intra-axial metastasis the largest lesion is located within the left parietal lobe. Extracranial soft tissue mass adjacent to spinous process of C2 and posterior arch of C1 suspicious for metastatic disease., Patient was started on systemic chemotherapy with carboplatin/etoposide on August 31 and completed on September 03, 2019 tolerated reasonably well but as per patient and his aunt, patient did 'crash' during chemotherapy, his blood pressure dropped his pulse was fast and he was diagnosed with atrial fibrillation since then he is having off and on episode of tachycardia and palpitation.Radiation oncology was consulted for brain mets but radiation was not offered because the patient was asymptomatic and he was started on systemic chemotherapy because of progressive and symptomatic intrathoracic disease. And was recommended to complete systemic chemotherapy followed by whole brain radiation therapy. Came for follow-up, denies any specific complaint except cough with yellowish phlegm but no fever chills, no hemoptysis or hematemesis, breathing is much better, overall feeling better, tolerating systemic chemotherapy with carboplatin/etoposide well Medications: Flonase 2 [place](s) (of 50 mcg/act) Suspension Nasal daily PRN, Ibuprofen 1 - 2 Capsule (of 200 mg) Oral daily PRN, oxyCODONE HCl 1 Capsule (of 5 mg) Oral q 8 hours PRN Allergies: No Known Allergies. Review of Systems: Constitutional - Appetite is fair and weight is stable. No fever, night sweats, or hot flashes. Energy level is poor, ENMT - No sinus congestion/drainage. No mouth sores. No sore throat or difficulty swallowing, Hematologic/Lymphatic - No abnormal bruising or bleeding, Respiratory - Positive for shortness of breath and cough. No pleuritic pain or hemoptysis, Cardiovascular - No angina pain. No palpitations, Gastrointestinal - No nausea or vomiting. No heartburn or acid reflux. No diarrhea or constipation. No blood in the stool or black stools, Genitourinary (M) - No dysuria or hematuria. No urinary frequency. No urgency or incontinence, Musculoskeletal - No joint or bone pain, Neurologic - No headache or dizziness. No numbness or tingling. No other focal neurologic symptoms, Psychiatric - No anxiety or depression. No insomnia. Vital Signs: Performed on Oct 22, 2019 09:09 Height - 71.00 in Weight - 142.0 lbs (HIGH) BSA - 1.82 sq.m BMI - 19.81 Temperature - 98.6 F Pulse - 108 /min (HIGH) Respiration - 24 /min BP - 127/75 mm(hg) O2 Sat - 100 % Pain - 0 Performance Status: 1 - No physically strenuous activity, but ambulatory and able to carry out light or sedentary work (e.g. office work, light house work). (ECOG) Physical Examination: ENMT - No mouth sores, no thrush, no jaundice, Respiratory - Lungs are clear, Cardiovascular - Regular rate and rhythm of heart, Abdomen - Soft, bowel sounds present, Extremities - No visible edema. Lab/Imaging: Test performed on Oct 21, 2019 10:01 Glucose 127 mg/dL BUN 10 mg/dL Creatinine 0.69 mg/dL Cr Clearance (Est) 112.76 mL/min Sodium 137 mmol/L Potassium 4.1 mmol/L Chloride 102 mmol/L CO2 26 mmol/L Calcium 9.6 mg/dL Protein, Total 7.1 g/dL Albumin 3.9 g/dL Bilirubin, Total 0.2 mg/dL Alkaline Phosphatase 128 IU/L AST (SGOT) 21 IU/L ALT (SGPT) 17 IU/L WBC 2.9 10^9/L RBC 3.37 10^12/L HGB 9.5 g/dL HCT 28.8 % MCV 88.4 fl MCH 28.2 pg MCHC 31.9 g/dL RDW 23.2 % Platelet Count 176 10^9/L MPV 10.2 fL Neutrophils (Gran) 0.33 10^9/L Lymphocytes 2.06 10^9/L Monocytes 0.44 10^9/L Eosinophils 0.10 10^9/L Basophils 0.01 10^9/L Manual Lymphocytes 70 % Manual Monocytes 15 % Manual Eosinophils 3 % Manual Basophils 0 % Test performed on Oct 01, 2019 11:11 Anion Gap 13.4 eGFR 144.4 mL/min Globulin 3.6 g/dL Neutrophil % 55.3 % Lymphocyte % 29.2 % Monocyte % 12.0 % Eosinophil % 1.2 % Basophils % 1.4 % NRBC % 0 % Test performed on Sep 19, 2019 09:16 Manual Bands % 17.0 % Polychromasia Trace Anisocytosis Trace CBC Slide Review Slide Review Perform Manual Bands Abs 3.7 10 3/cmm Manual Neutrophils Abs 15.5 10 3/cmm Manual Monocytes Abs 1.5 10 3/cmm Impression: Small cell lung cancer involving left lung, per bronchoscopy done on August 18, 2019 Extensive loco- regional disease with bilateral cervical lymph nodes involvement. CT PET scan done on August 27, 2019 showed hypermetabolic large left hilar/mediastinal mass with matthew conglomeration in keeping with known small cell lung cancer. Also redemonstration of complete collapse of left lung with associated hypermetabolic activity may be secondary to diffuse tumor involvement or pneumonia There is evidence of metastatic disease to bilateral cervical chain lymph nodes as well as posterior upper neck intramuscular metastasis. In addition there is evidence of direct metastatic extension to the right of trachea and to an epicardial fat lymph node. No findings to suggest metastatic disease below diaphragm. No evidence of metastatic disease to the right lung. MRI scan of the brain done on September 01, 2019 at [facility] showed extensive brain mets but asymptomatic As per radiation oncology consultation at [facility] radiation therapy to brain was postponed till completion of systemic chemotherapy Started on Systemic chemotherapy with carboplatin/etoposide on September 01, 2019, first cycle was given at [facility] Longstanding history of smoking, quit in mid August 2019 Plan: Discussed with patient regarding his labs white blood count 2.9 hemoglobin 9.5 hematocrit 28.8 platelets 176,000 ANC 330 CMP within normal limits And chest x-ray done on October 16, 2019 showed previously seen large left-sided pleural effusion has largely resolved, left lung is much better aerated. There is residual pleural fluid or thickening or fibrotic changes over the left pulmonary apex. Right lung is clear Clinically, patient doing reasonably well, tolerating systemic chemotherapy with carboplatin/etoposide well, he was scheduled for his next cycle #3 of chemotherapy but follow-up labs shows persistent neutropenia/leukopenia and moderate anemia, will hold his chemotherapy today and he will return to clinic in 1 week with CBC CMP and if blood counts improve we will consider cycle #3 but this time with Neulasta support to prevent chemotherapy-induced neutropenia/leukopenia. And Because of cough with yellowish phlegm but no fever chills, will start him on Levaquin 500 mg p.o. daily, patient was advised in case he has any fever or chills or shortness of breath he need to go to hospital for evaluation. As far as moderate anemia is concerned, will consider anemia work-up e.g. iron studies, B12 folic acid with next blood drawn We will consider follow-up CT PET scan and MRI scan of the head after next cycle of chemotherapy and if it shows resolution of metastatic disease, will discuss with radiation oncology regarding combined chemoradiation or sequential for better local control and whole brain radiation therapy once chemotherapy is completed Signed By: Amee Israel M.D. <<Signature on File>>
[2019-10-29] MEDS: sodium chloride 0.9% 250 ML 30 ML IV (09:08)
--- NOTE | 2019-10-29 09:35 | ONC FU_ITS ---
Dr. Israel follow up note Patient: Tima Malik Unit #: [id number]: 1970 Dicatated By: Amee Israel M.D.Date of Visit:Oct 29, 2019 Onc Med Follow-up/Prog Note History of Present Illness: Mr. Tima Malik, is a 49-year-old gentleman, with history of 40 to 50 pounds weight loss since February 2019, as per patient he sustained an injury to the chest in January or February 2019 initially, it was not bothersome but then it become progressive to the point where even taking deep breath would hurt and the pain was not mainly in the mid upper anterior chest wall. And also developed progressive shortness of breath. Patient said he did have medical insurance so he was taking over the counter pain medicine with some help but eventually on August 16, 2019 he went to the [facility] in [place], where he had chest x-ray done which showed complete whiteout of left lung and CTA chest done showed complete collapse of left lung likely secondary to left hilar mass/malignancy. There is a bulky mediastinal and likely left hilar lymphadenopathy present. And moderate to large malignant left pleural effusion patient was transferred to [facility] in [place] where on August 17, 2019 underwent ultrasound-guided left thoracentesis and about 25 cc of cloudy yellow pleural fluid was removed, repeat CT scan of the chest done on August 17, 2019 showed possible obstruction of left main bronchus, a mucous plug or obstructing pulmonary mass or consideration. Complete opacification of left hemithorax appears similar to chest x-ray done on August 16, 2019. Elevation of left diaphragm suggest volume loss due to some degree of atelectasis. Left pleural effusion or large left consolidations are also considered. On August 18, 2019 patient underwent bronchoscopy and endobronchial biopsy and bronchial washing from left main bronchus confirmed invasive small cell carcinoma. Patient underwent CT PET scan on August 27, 2019 which showed hypermetabolic very large left hilar/mediastinal mass and matthew conglomeration. There is also redemonstration of complete collapse of left lung with associated hypermetabolic activity that may be secondary to diffuse tumor involvement or pneumonia depending on clinical context There is also evidence of metastatic disease to bilateral cervical chain lymph nodes as well as posterior upper neck intramuscular metastasis. In addition there is evidence of direct metastatic extension into the right of the trachea and to an epicardial fat lymph node No findings to suggest metastatic disease below the diaphragm and no evidence of metastatic disease to the right lung. Patient was referred to cancer center in [place] as it is convenient to the patient. Patient has longstanding history of smoking quit in mid August 2019 Patient was admitted to hospital on August 29, 2019 with acute respiratory failure with hypoxia and he was intubated and then he was transferred to [facility] in [place] where he underwent further management and work-up including MRI scan of the head on September 01, 2019 which showed multiple intra-axial metastasis the largest lesion is located within the left parietal lobe. Extracranial soft tissue mass adjacent to spinous process of C2 and posterior arch of C1 suspicious for metastatic disease., Patient was started on systemic chemotherapy with carboplatin/etoposide on August 31 and completed on September 03, 2019 tolerated reasonably well but as per patient and his aunt, patient did 'crash' during chemotherapy, his blood pressure dropped his pulse was fast and he was diagnosed with atrial fibrillation since then he is having off and on episode of tachycardia and palpitation.Radiation oncology was consulted for brain mets but radiation was not offered because the patient was asymptomatic and he was started on systemic chemotherapy because of progressive and symptomatic intrathoracic disease. And was recommended to complete systemic chemotherapy followed by whole brain radiation therapy. Came for follow-up, denies any specific complaints, no fever chills, no nausea or vomiting, no diarrhea constipation, no shortness of breath or wheezing, no hemoptysis or hematemesis patient denies smoking tobacco but still smoking marijuana regularly. Tolerating systemic chemotherapy with carboplatin/etoposide well Medications: Flonase 2 [place](s) (of 50 mcg/act) Suspension Nasal daily PRN, Ibuprofen 1 - 2 Capsule (of 200 mg) Oral daily PRN, oxyCODONE HCl 1 Capsule (of 5 mg) Oral q 8 hours PRN Allergies: No Known Allergies. Review of Systems: Constitutional - Appetite is fair and weight is stable. No fever, night sweats, or hot flashes. Energy level is poor, ENMT - No sinus congestion/drainage. No mouth sores. No sore throat or difficulty swallowing, Hematologic/Lymphatic - No abnormal bruising or bleeding, Respiratory - Positive for shortness of breath and cough. No pleuritic pain or hemoptysis, Cardiovascular - No angina pain. No palpitations, Gastrointestinal - No nausea or vomiting. No heartburn or acid reflux. No diarrhea or constipation. No blood in the stool or black stools, Genitourinary (M) - No dysuria or hematuria. No urinary frequency. No urgency or incontinence, Musculoskeletal - No joint or bone pain, Neurologic - No headache or dizziness. No numbness or tingling. No other focal neurologic symptoms, Psychiatric - No anxiety or depression. No insomnia. Vital Signs: Performed on Oct 29, 2019 08:06 Height - 71.00 in Weight - 141.2 lbs (LOW) BSA - 1.82 sq.m BMI - 19.69 Temperature - 98.1 F (LOW) Pulse - 80 /min Respiration - 20 /min BP - 120/74 mm(hg) O2 Sat - 100 % Pain - 0 Performance Status: 0 - Fully active, able to carry on all predisease activities without restrictions. (ECOG) Physical Examination: ENMT - No mouth sores, no thrush, no jaundice, Respiratory - Decreased breath sound at left lung base, otherwise clear, Cardiovascular - Regular rate and rhythm of heart, Abdomen - Soft, bowel sounds present, Extremities - No visible edema or rash. Lab/Imaging: Test performed on Oct 28, 2019 09:25 Glucose 91 mg/dL BUN 7 mg/dL Creatinine 0.69 mg/dL Cr Clearance (Est) 112.76 mL/min Sodium 141 mmol/L Potassium 4.4 mmol/L Chloride 106 mmol/L CO2 26 mmol/L Calcium 9.0 mg/dL Protein, Total 7.2 g/dL Albumin 3.7 g/dL Bilirubin, Total 0.2 mg/dL Alkaline Phosphatase 124 IU/L AST (SGOT) 21 IU/L ALT (SGPT) 14 IU/L WBC 5.9 10^9/L RBC 3.59 10^12/L HGB 10.1 g/dL HCT 32.3 % MCV 90.0 fl MCH 28.1 pg MCHC 31.3 g/dL RDW 23.5 % Platelet Count 547 10^9/L MPV 8.7 fL Neutrophils (Gran) 2.15 10^9/L Lymphocytes 2.45 10^9/L Monocytes 1.06 10^9/L Eosinophils 0.09 10^9/L Basophils 0.07 10^9/L Manual Lymphocytes 42 % Manual Monocytes 18 % Manual Eosinophils 2 % Manual Basophils 1 % Test performed on Oct 01, 2019 11:11 Anion Gap 13.4 eGFR 144.4 mL/min Globulin 3.6 g/dL Neutrophil % 55.3 % Lymphocyte % 29.2 % Monocyte % 12.0 % Eosinophil % 1.2 % Basophils % 1.4 % NRBC % 0 % Test performed on Sep 19, 2019 09:16 Manual Bands % 17.0 % Polychromasia Trace Anisocytosis Trace CBC Slide Review Slide Review Perform Manual Bands Abs 3.7 10 3/cmm Manual Neutrophils Abs 15.5 10 3/cmm Manual Monocytes Abs 1.5 10 3/cmm Impression: Small cell lung cancer involving left lung, per bronchoscopy done on August 18, 2019 Extensive loco- regional disease with bilateral cervical lymph nodes involvement. CT PET scan done on August 27, 2019 showed hypermetabolic large left hilar/mediastinal mass with matthew conglomeration in keeping with known small cell lung cancer. Also redemonstration of complete collapse of left lung with associated hypermetabolic activity may be secondary to diffuse tumor involvement or pneumonia There is evidence of metastatic disease to bilateral cervical chain lymph nodes as well as posterior upper neck intramuscular metastasis. In addition there is evidence of direct metastatic extension to the right of trachea and to an epicardial fat lymph node. No findings to suggest metastatic disease below diaphragm. No evidence of metastatic disease to the right lung. MRI scan of the brain done on September 01, 2019 at [facility] in [place] showed extensive brain mets but asymptomatic As per radiation oncology consultation at [facility] radiation therapy to brain was postponed till completion of systemic chemotherapy Started on Systemic chemotherapy with carboplatin/etoposide on September 01, 2019, first cycle was given at [facility] in [place] Longstanding history of smoking, quit in mid August 2019 Plan: Discussed with patient regarding his labs white blood count 5.9 hemoglobin 10.1 hematocrit 32.3 platelets 547,000 CMP within normal limits Clinically, patient is doing well with no new signs symptoms suggestive of disease progression, tolerating systemic chemotherapy with carboplatin/etoposide well but with expected side effects e.g. progressive neutropenia/leukopenia causing delay in chemotherapy schedule. We will consider Neulasta with further chemotherapy to prevent chemotherapy-induced leukopenia/neutropenia and delay in chemotherapy schedule. We will proceed with cycle #3 with carboplatin/etoposide with Neulasta today and then patient return to clinic in 3 weeks with CBC CMP and with follow-up CT PET scan and MRI scan of the brain to assess response, in case patient has complete response, then will discuss with radiation oncology regarding radiation therapy to the thorax concurrent versus sequential followed by whole brain radiation therapy as, patient was diagnosed with brain mets at the time of diagnosis. We will also discuss about adding immunotherapy Tecentriq, as after completion of recommended chemotherapy, may continue with maintenance immunotherapy with Tecentriq alone. Signed By: Amee Israel M.D. <<Signature on File>>
[2019-10-31] MEDS: palonosetron 0.25 mg/5 mL SDV IV (10:00)
[2019-10-31] MEDS: sodium chloride 0.9% 250 ML 75 ML IV (10:00)
[2019-10-31] MEDS: pegfilgrastim 6 mg/0.6 mL Kit (onpro) SUBCUT (11:20)
== END 2019-11-04 23:59 | disposition home or self-care (01) ==
LOC: ONCMED 05:40
PROVIDERS: PCP Family Medicine; Visit Provider Internal Medicine Hematology & Oncology
DX: Z51.11 Encounter for antineoplastic chemotherapy (principal); C34.02 Malignant neoplasm of left main bronchus; C77.0 Secondary and unspecified malignant neoplasm of lymph nodes of head, face and neck; C77.1 Secondary and unspecified malignant neoplasm of intrathoracic lymph nodes; C79.31 Secondary malignant neoplasm of brain; C78.39 Secondary malignant neoplasm of other respiratory organs; C79.89 Secondary malignant neoplasm of other specified sites; D64.9 Anemia, unspecified; D70.1 Agranulocytosis secondary to cancer chemotherapy; T45.1X5A Adverse effect of antineoplastic and immunosuppressive drugs, initial encounter; J90 Pleural effusion, not elsewhere classified; Z87.891 Personal history of nicotine dependence
CPT/HCPCS: 96367; 96372; 96375; 96413; 96417; 99214; J2405; J2469; J2505; J7040; J7050; J9045; J9181

== ENCOUNTER 2019-11-14 14:37 | Outpatient (CLI) | payer MEDICAID, SELFPAY ==
--- NOTE | 2019-11-14 14:45 | USCV_ITS ---
Helena Tima Age: 49 Gender: M : 1970 Exam Date: 11/14/2019 14:57 Ordering Phys: Ivory Louis MD ([email or web address]) Technologist: Monserrat Esparza Exam Location: [facility] – [place] Indication: afib, flutter BP: 122 / 73 HR: 78 Rhythm: Sinus Technical Quality: Adequate MEASUREMENTS (Male / Female) Normal Values 2D ECHO LV Diastolic Diameter PLAX 3.3 cm 4.2 - 5.9 / 3.9 - 5.3 cm LV Systolic Diameter PLAX 2.7 cm LV Chamber Size 3.5 cm IVS Diastolic Thickness 0.7 cm 0.6 - 1.0 / 0.6 - 0.9 cm IVS Systolic Thickness 0.9 cm LVPW Diastolic Thickness 1.8 cm 0.6 - 1.0 / 0.6 - 0.9 cm LVPW Systolic Thickness 1.8 cm RV Chamber Size 3.5 cm LVOT Diameter 2.0 cm LV Ejection Fraction 2D Teich 38.4 % LV Ejection Fraction MOD 2C 44.6 % LV Ejection Fraction 2C AL 45.2 % LA Diameter 3.1 cm LA Width 3.3 cm LA Height 3.6 cm RA Width 3.0 cm RA Height 3.6 cm Aorta at Sinotubular Diameter 1.9 cm M-MODE LV Diastolic Diameter MM 4.9 cm 4.2 - 5.9 / 3.9 - 5.3 cm LV Systolic Diameter MM 3.4 cm LV Ejection Fraction MM Teich 56.5 % IVS Diastolic Thickness MM 0.4 cm 0.6 - 1.0 / 0.6 - 0.9 cm IVS Systolic Thickness MM 0.7 cm LVPW Diastolic Thickness MM 0.7 cm 0.6 - 1.0 / 0.6 - 0.9 cm LVPW Systolic Thickness MM 0.9 cm Aortic Annulus Diameter 2.8 cm LA Ao Ratio MM 1.1 MV E Point Septal Separation 0.3 cm DOPPLER AV Peak Velocity 105.0 cm/s LVOT Peak Velocity 101.0 cm/s AV Area Cont Eq vti 2.5 cm squared AV Area Cont Eq pk 3.1 cm squared MV Area PHT 3.9 cm squared Mitral E to A Ratio 1.3 MV E' Velocity 15.0 cm/s Mitral E to MV E' Ratio 4.2 Mitral E to LV E' Lateral Ratio 4.7 Mitral E to LV E' Septal Ratio 3.8 TR Peak Velocity 282.0 cm/s TR Peak Gradient 31.9 mmHg TV Peak E Velocity 70.0 cm/s Right Atrial Pressure 3.0 mmHg Pulmonary Artery Systolic Pressu 34.8 mmHg PV Peak Velocity 80.0 cm/s RV Acceleration Time 0.2 s RV Ejection Time 0.5 s RV AcT/ET 0.4 FINDINGS Left Ventricle Normal LV size with a borderline low ejection fraction of 50 to 55%. Relative hypokinesia of the anterolateral regions. Right Ventricle The right ventricle is normal in size and function. Right Atrium The right atrium is normal in size. Left Atrium The left atrium is normal in size. Mitral Valve No gross abnormalities noted . Aortic Valve Appears to be tricuspid with no gross abnormalities Tricuspid Valve Structurally normal tricuspid valve without significant stenosis or regurgitation. Pulmonary artery systolic pressure is normal. Pulmonic Valve Trace pulmonary valve regurgitation. Pericardium Normal pericardium without effusion. Aorta Normal ascending aorta dimension. CONCLUSIONS Normal LV size with a borderline low ejection fraction of 50 to 55%. Relative hypokinesia of the anterolateral regions. Trace pulmonary valve regurgitation. Normal cardiac chamber sizes. There is no pericardial effusion. There are no intracardiac masses. There are no prior echocardiogram studies to compare. Dr Ivory Louis MD FACC (Electronically Signed) Final Date: 14 November 2019 18:10 S
== END 2019-11-14 14:38 | disposition home or self-care (01) ==
LOC: US 14:37
PROVIDERS: PCP Family Medicine; Visit Provider Internal Medicine Cardiovascular Disease
DX: I35.0 Nonrheumatic aortic (valve) stenosis (principal); I48.91 Unspecified atrial fibrillation; I48.92 Unspecified atrial flutter; I37.1 Nonrheumatic pulmonary valve insufficiency
CPT/HCPCS: 93306

== ENCOUNTER 2019-11-21 05:41 | Outpatient (RCR) | payer MEDICAID, SELFPAY ==
--- NOTE | 2019-11-15 11:33 | MR_ITS ---
WS: [id number] MRI HEAD WITH CONTRAST TECHNIQUE: Sagittal T1, T2 axial, T2 axial FLAIR, axial susceptibility weighted imaging, axial diffus ion weighted images, and coronal T2 images were obtained. Pre and post-T1 axial and post T1 coronal i mages. ADC and FSPGR images. CLINICAL INFORMATION: LUNG CA W/ BRAIN METS COMPARISON: MRI September 01, 2019 FINDINGS: No evidence of restricted diffusion to suggest acute ischemia. Ventricular system and basal cisterns are patent. Again seen is the cystic appearing peripheral enhancing lesion in the left parietal lobe decreased in size compared to the prior examination today measuring 2.6 x 1.9 cm compared to 3.6 x 2. 9 cm previous. Interval decrease in surrounding edema. No evidence of increasing edema or mass effect . Previously described right parietal lesion is no longer visualized and has resolved. Additional left frontal lesion previously seen, no longer visualized today. No other suspicious lesions. No new lesio ns. No hemosiderin on the susceptibly weighted images. Normal posterior fossa. Normal vascular flow voids at the skull base. No extra-axial fluid collections. Paranasal sinuses and mastoid air cells are wel l aerated. Normal optic chiasm and pituitary infundibulum. No other enhancing intracranial lesions. N ormal visualized dural venous sinuses. MR/MR head wo/w con [id number] IMPRESSION: 1. No evidence of progressed metastatic disease. 2. Interval decrease in size of the cystic appearing peripherally enhancing le ft parietal lesion measuring 1.8 x 2.6 cm today. Interval decrease in the surro unding edema. 3. Previously described lesions are no longer appreciated today. 4. No new enhancing lesions. 5. No restricted diffusion to suggest acute ischemia. 6. No other interval changes.
[2019-11-19] MEDS: alteplase 1 mg/mL SDV 2 mL 2 MG IV ×2 (10:10→11:40)
[2019-11-19] MEDS: sodium chloride 0.9% 250 ML 999 ML IV (10:50)
[2019-11-20] MEDS: sodium chloride 0.9% 250 ML 75 ML IV (13:10)
[2019-11-20] MEDS: LORazepam 2 mg/mL INJ 1 mL IV (13:44)
[2019-11-21] MEDS: palonosetron 0.25 mg/5 mL SDV IV (13:06)
[2019-11-21] MEDS: LORazepam 2 mg/mL INJ 1 mL IVP (13:08)
[2019-11-21] MEDS: pegfilgrastim 6 mg/0.6 mL Kit (onpro) SUBCUT (15:20)
--- NOTE | 2019-11-24 20:45 | ONC FU_ITS ---
[facility] Patient Note Patient: Tima Malik Unit #: [id number]: 1970 Dictated By: Josh RobertsDate of Visit: Nov 19, 2019 Onc MED Follow-Up/Prog Note Chief Complaint: Small cell lung cancer History of Present Illness: Mr. Malik is a 49-year-old gentleman with history of 40 to 50 pounds weight loss since February 2019. Mr Malik reports he sustained an injury to the chest in January or February 2019. Initially, it was not bothersome but then it become progressive to the point where even taking deep breath would hurt. The pain was not mainly in the mid upper anterior chest wall. He also developed progressive shortness of breath. He said he did not have medical insurance so he was taking over the counter pain medicine, which did help some but eventually on August 16, 2019 he went to the [facility] in [place], [place]. He had chest x-ray done which showed complete whiteout of left lung and CTA chest done showed complete collapse of left lung likely secondary to left hilar mass/malignancy. There was a bulky mediastinal and likely left hilar lymphadenopathy present. And moderate to large malignant left pleural effusion patient was transferred to [facility] in [place] where on August 17, 2019 underwent ultrasound-guided left thoracentesis and about 25 cc of cloudy yellow pleural fluid was removed, repeat CT scan of the chest done on August 17, 2019 showed possible obstruction of left main bronchus, a mucous plug or obstructing pulmonary mass or consideration. Complete opacification of left hemithorax appears similar to chest x-ray done on August 16, 2019. Elevation of left diaphragm suggest volume loss due to some degree of atelectasis. Left pleural effusion or large left consolidations are also considered. On August 18, 2019 patient underwent bronchoscopy and endobronchial biopsy and bronchial washing from left main bronchus confirmed invasive small cell carcinoma. Mr Malik underwent CT PET scan on August 27, 2019 which showed hypermetabolic very large left hilar/mediastinal mass and matthew conglomeration. There is also redemonstration of complete collapse of left lung with associated hypermetabolic activity that may be secondary to diffuse tumor involvement or pneumonia depending on clinical context There was also evidence of metastatic disease to bilateral cervical chain lymph nodes as well as posterior upper neck intramuscular metastasis. In addition there is evidence of direct metastatic extension into the right of the trachea and to an epicardial fat lymph node. No findings to suggest metastatic disease below the diaphragm and no evidence of metastatic disease to the right lung. Mr Malik was referred to Dr Israel for cancer center in [place] as it is convenient to the patient. Patient has longstanding history of smoking but states he quit in mid August 2019. Patient was admitted to hospital on August 29, 2019 with acute respiratory failure with hypoxia and he was intubated and then he was transferred to [facility] in [place] where he underwent further management and work-up including MRI scan of the head on September 01, 2019 which showed multiple intra-axial metastasis the largest lesion was located within the left parietal lobe. Extracranial soft tissue mass adjacent to spinous process of C2 and posterior arch of C1 suspicious for metastatic disease. Mr Malik was started on systemic chemotherapy with carboplatin/etoposide on August 31 and completed on September 03, 2019. He tolerated it reasonably well but as per patient and his aunt, patient did 'crash' during chemotherapy, his blood pressure dropped and his pulse was fast. He was diagnosed with atrial fibrillation- since then he is having off and on episode of tachycardia and palpitation. Radiation oncology was consulted for brain mets but radiation was not offered because the patient was asymptomatic. He was started on systemic chemotherapy because of progressive and symptomatic intrathoracic disease. The current plan is to complete systemic chemotherapy followed by whole brain radiation therapy. Mr Malik had his third cycle of chemotherapy with Carboplatin/etoposide on 10/29/2019-10/31/2019. (He did receive 1 chemotherapy prior to transferring his care to [facility]-his second cycle was complete on 10/03/2019). He is receiving growth factor support for neutropenia. Mr. Malik did have PET CT imaging on 11/02/2019 after 3 cycles of chemotherapy. It was noted there were bilateral cervical lymph nodes described on the prior imaging for CT was not present on this PET CT. There was no head or neck intramuscular metastatic disease present. There was complete postobstructive atelectasis of the left upper lobe. A region of residual activity measuring 1.6 x 3.7 cm with an SUV of 6.2 is consistent with a lung primary. Mild activity in the subaortic node is consistent with local metastatic disease. There was no other significant mediastinal adenopathy present. Innumerable small sclerotic osseous lesions best in the pelvis are most compatible with treated osseous metastatic disease. These were difficult to characterize due to size and background marrow activity from recent Neulasta therapy. He continues with chemotherapy at this time. The followup MRI scan of the brain to assess response has not been obtained as of this visit. Mr. Malik is here today for follow-up. He is due for cycle 4. carboplatin and etoposide. He states overall he is feeling pretty good. He states he did have nausea for 2 to 3 days with the chemotherapy but he has not had any nausea since then. He denies any emesis. He denies any mouth sores, sore throat or difficulty swallowing. He states his breathing is a little better. He still having some heaviness in his chest but no further palpitations. He states both hands shake at times but that comes and goes. He cannot find and identify a trigger at this point. He states his appetite is fair. His energy is poor but seems to be improving per his report. He denies any fever or chills. He has had no signs of fever or infection for at least the last 72 hours. He denies any COVID symptoms or known exposure. His ECOG is 1. Past Medical History: Hypertension Left pleural effusion Respiratory failure Past Surgical History: Mr. Malik's surgical history is unremarkable. Allergies: Dexamethasone Medications: Flonase 2 [place](s) (of 50 mcg/act) Suspension Nasal daily PRN Ibuprofen 1 - 2 Capsule (of 200 mg) Oral daily PRN oxyCODONE HCl 1 Capsule (of 5 mg) Oral q 8 hours PRN Family History: Mr. Malik's mother at age 68: esophageal cancer. Mr. Malik's father at age 71: lung cancer. Social History: Mr. Malik is single. Mr. Malik quit smoking less than one year ago but had smoked for 37 years. He is a former drinker. He has indicated exposure to the following products: recreational drug use. Mr. Malik reports the following support systems: lives with spouse, significant other, family, or friends, supportive family/friends willing to assist with needs, and adequate transportation available for expected visits. His diet consists of regular meals. He indicates his activity level as: daily activities. Pt states he smokes marijuana. Review Of Symptoms: Constitutional Denies fevers, chills, night sweats, excessive fatigue or weight loss. Allergic/Immunologic No reactions. Eyes Denies significant visual changes. No diplopia. No amaurosis. ENMT Denies changes in hearing, sore throat, mouth sores, difficulty or changes in swallowing ability, and/or sinus drainage. Endocrine No diabetes, thyroid disease or hormone replacement. Denies hot flashes or night sweats. Hematologic/Lymphatic Denies easy bruising or bleeding. The patient denies any tender or palpable lymph nodes. Respiratory Denies dyspnea on exertion, chest pain, cough or hemoptysis. Denies orthopnea. Cardiovascular Denies anginal chest pain, palpitations or orthopnea. Gastrointestinal Denies nausea, vomiting, diarrhea, GI bleeding, or constipation. Denies change in bowel habits and/or stool color, no heartburn or early satiety. Genitourinary (M) Denies hematuria, dysuria, increased frequency, urgency, hesitancy or incontinence. Musculoskeletal Denies joint pain, swelling or redness. No decreased range of motion. Integumentary Denies chronic rashes, inflammation, ulcerations or skin changes. Neurologic Denies headache, blurred vision, and no areas of focal weakness or numbness. Normal gait. No sensory problems. Psychiatric Denies insomnia, depression, allyson or mood swings. Vital Signs: Performed on Nov 19, 2019 09:01 Height - 71.00 in Weight - 142.8 lbs (HIGH) BSA - 1.83 sq.m BMI - 19.92 Temperature - 98.2 F (LOW) Pulse - 99 /min Respiration - 16 /min BP - 123/79 mm(hg) O2 Sat - 99 % Pain - 0,2 - Ambulatory/capable of all self-care, unable to perform any work activities. Up and about more than 50% of waking hours. (ECOG) Physical Examination: Constitutional Alert, oriented, no acute distress. Skin pink, warm and dry. Head Normocephalic; atraumatic. Eyes Conjunctivae and sclerae are clear and without icterus. Pupils are reactive and equal. Neck Supple without masses or thyromegaly. No jugular venous distension. Hematologic/Lymphatic No petechiae or purpura. No tender or palpable lymph nodes in the cervical or supraclavicular areas. Respiratory Lungs are clear to auscultation without rhonchi or wheezing. Cardiovascular Regular rate and rhythm of heart without murmurs,clicks, gallops or rubs. Abdomen Non-tender, non-distended, no masses or ascites. Good bowel sounds noted in all quads. No guarding or rebound tenderness. No pulsatile masses. Back/Spine Non-tender to palpation. Extremities No visible deformities, no cyanosis, clubbing or edema. Musculoskeletal No tenderness or swelling, normal range of motion without obvious weakness. Integumentary No rashes or lesions. Neurologic No sensory or motor deficits, normal cerebellar function, normal gait. Psychiatric Alert and oriented times three. Coherent speech. Verbalizes understanding of our discussions today. Laboratory:Test performed on Nov 18, 2019 09:08 Glucose 128 mg/dL BUN 10 mg/dL Creatinine 0.77 mg/dL Cr Clearance (Est) 101.05 mL/min Sodium 141 mmol/L Potassium 4.0 mmol/L Chloride 105 mmol/L CO2 25 mmol/L Calcium 9.6 mg/dL Protein, Total 7.2 g/dL Albumin 4.1 g/dL Bilirubin, Total 0.2 mg/dL Alkaline Phosphatase 152 IU/L AST (SGOT) 22 IU/L ALT (SGPT) 18 IU/L WBC 6.7 10^9/L RBC 3.48 10^12/L HGB 10.1 g/dL HCT 31.4 % MCV 90.2 fl MCH 29.0 pg MCHC 32.2 g/dL RDW 22.1 % Platelet Count 184 10^9/L MPV 9.8 fL Neutrophils (Gran) 3.28 10^9/L Lymphocytes 2.31 10^9/L Monocytes 0.88 10^9/L Eosinophils 0.4 10^9/L Basophils 0.03 10^9/L Manual Lymphocytes 35 % Manual Monocytes 13 % Manual Eosinophils 1 % Manual Basophils 1 % Impression: Small cell lung cancer involving left lung, per bronchoscopy done on August 18, 2019 Extensive loco- regional disease with bilateral cervical lymph nodes involvement. CT PET scan done on August 27, 2019 showed hypermetabolic large left hilar/mediastinal mass with matthew conglomeration in keeping with known small cell lung cancer. Also redemonstration of complete collapse of left lung with associated hypermetabolic activity may be secondary to diffuse tumor involvement or pneumonia There is evidence of metastatic disease to bilateral cervical chain lymph nodes as well as posterior upper neck intramuscular metastasis. In addition there is evidence of direct metastatic extension to the right of trachea and to an epicardial fat lymph node. No findings to suggest metastatic disease below diaphragm. No evidence of metastatic disease to the right lung. MRI scan of the brain done on September 01, 2019 at [facility] in [place] showed extensive brain mets but asymptomatic As per radiation oncology consultation at [facility] radiation therapy to brain was postponed till completion of systemic chemotherapy Started on Systemic chemotherapy with carboplatin/etoposide on September 01, 2019, first cycle was given at [facility] in [place] Longstanding history of smoking, quit in mid August 2019. Clinically, patient is doing well with no new signs symptoms suggestive of disease progression, tolerating systemic chemotherapy with carboplatin/etoposide well but with expected side effects e.g. progressive neutropenia/leukopenia causing delay in chemotherapy schedule with cycle 2. We have given him Neulasta to prevent chemotherapy-induced leukopenia/neutropenia and further delay in his chemotherapy schedule. Mr. Malik did have PET CT imaging on 11/02/2019 after 3 cycles of chemotherapy. It was noted there were bilateral cervical lymph nodes described on the prior imaging for CT was not present on this PET CT. There was no head or neck intramuscular metastatic disease present. There was complete postobstructive atelectasis of the left upper lobe. A region of residual activity measuring 1.6 x 3.7 cm with an SUV of 6.2 is consistent with a lung primary. Mild activity in the subaortic node is consistent with local metastatic disease. There was no other significant mediastinal adenopathy present. Innumerable small sclerotic osseous lesions best in the pelvis are most compatible with treated osseous metastatic disease. These were difficult to characterize due to size and background marrow activity from recent Neulasta therapy. He continues with chemotherapy at this time. The followup MRI scan of the brain to assess response has not been obtained as of this visit. Dr Israel's recommendations for further plan of care per his last office note suggests in case patient has complete response, then will discuss with radiation oncology regarding radiation therapy to the thorax concurrent versus sequential followed by whole brain radiation therapy as, patient was diagnosed with brain mets at the time of diagnosis. We will also discuss about adding immunotherapy Tecentriq, as after completion of recommended chemotherapy, may continue with maintenance immunotherapy with Tecentriq alone . Plan: 1. Proceed with cycle 4 carboplatin etoposide. 2. Continue current antiemetics we can add Emend on day 2 if he continues to have chemo induced nausea for now we will add Pepcid to his regimen to see if this helps any at all. He has been advised that he could take the Compazine starting the night of day 2 and day 3 if he wants to see if this will help jordan off the nausea. He is not getting any Compazine or similar agent premed for chemotherapy. 3. We will continue with the Neulasta support. 4. Labs from November 18, 2019 were reviewed in detail and discussed with Mr. Malik and a copy was given to him. White count 6.7 hemoglobin 10.1 platelets 184,000 ANC is 3300 potassium 4.0 creatinine 0.77 LFTs are normal his alk phos was 152. His weight is stable at 142.8. 5. We will plan to recheck a CBC CMP and port flush for this follow-up in 3 weeks at which time he will be due for cycle 4 chemotherapy with carboplatin etoposide. 6. Mr. Malik was instructed to contact us in the interim should questions or problems arise. He is aware that we are glad to do supportive care with hydration and antiemetics if needed. 7. We discussed briefly the possibility referring him to cancer rehab here at [facility] if only for a few visits just to help him get built back up . He states he will think about it or the course of the cycle and discuss it further with his at his next visit. Signed By: Josh Roberts-, KEY Israel MD <<Signature on File>>
== END 2019-12-04 23:59 | disposition home or self-care (01) ==
LOC: ONCMED 05:41
PROVIDERS: PCP Family Medicine; Visit Provider Nurse Practitioner
DX: Z51.11 Encounter for antineoplastic chemotherapy (principal); C34.02 Malignant neoplasm of left main bronchus; C79.31 Secondary malignant neoplasm of brain; C77.8 Secondary and unspecified malignant neoplasm of lymph nodes of multiple regions; D64.9 Anemia, unspecified; I10 Essential (primary) hypertension; Z87.09 Personal history of other diseases of the respiratory system; Z87.891 Personal history of nicotine dependence
CPT/HCPCS: 36593; 70553; 96367; 96372; 96375; 96376; 96413; 96417; 99214; A9579; J2060; J2405; J2469; J2505; J2997; J3490; J7040; J7050; J9045; J9181

== ENCOUNTER 2019-12-03 08:57 | Outpatient (CLI) | payer MEDICAID, SELFPAY ==
--- NOTE | 2019-12-03 09:03 | ECG_ITS ---
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 Interpretive Statements NAME OF STUDY: LEXISCAN SESTAMIBI STRESS TEST INDICATION: Muscle weakness; ; muscle weakness; , NOTE: Please note that this is the electrocardiogram portion of the Lexiscan/Sestamibi stress test. The perfusion scan will be documented separately. DATA: Baseline heart rate was 78 beats per minute. Baseline blood pressure was 127/85 millimeters of mercury. Target heart rate was 173. Maximum heart rate achieved was 108 . which was 62 % of the predicted target heart rate. Maximum blood pressure was 127/85 millimeters of mercury. The reason for ending the test was completion of the protocol. The patient did not experience any symptoms. ELECTROCARDIOGRAM: BASELINE: Sinus rhythm. Normal axis. Otherwise, no ST-T changes suggestive of ischemia noted. No arrhythmia noted. EXERCISE: After Lexiscan injection, no ST-T changes suggestive of ischemic noted. No arrhythmia noted. 1. EKG not suggestive of ischemia 2. Lexiscan injection unremarkable. 3. Perfusion scan will be documented separately. Electronically Signed On 12-04-2019 18:43:05 CDT by Ly Ponce M.D. [id number]
--- NOTE | 2019-12-03 09:03 | NMCV_ITS ---
NM aaron perf SPECT r/s* [id number] Tima Malik Age: 49 Gender: M : 1970 Exam Date: 12/03/2019 09:51 Ordering Phys: Ivory Louis MD ([email or web address]) Technologist: AURORA Liang Exam Location: [facility] Indications: Muscle weakness of heart STRESS TEST Please see separate stress test report in [facility] for full findings IMAGE PROTOCOL Rest/Stress 1 Lexiscan Day Radiopharmaceutical Dose (mCi) Administration Site Administered by Rest: Tc-99m 10.4 IV AURORA Liang Sestamibi Stress:Tc-99m 32.7 IV AURORA Carter Sestamibi Rest: 03-Dec-2019 60 Discovery 630 Stress: 03-Dec-2019 45 Discovery 630 0.4mg Lexiscan. Images obtained in supine and prone position. SPECT RESULTS Technical Quality: Good Raw Data Analysis: Subdiaphragmatic activity Image Corrections: No attenuation or motion correction applied Summed Stress Score: 4 Summed Rest Score: 2 Summed Difference Score: 2 PERFUSION FINDINGS Myocardial perfusion may revealing a small area of decreased tracer uptake in the apical anterior ,lateral and LV apex.. Some reversibility was noted in the apical lateral and LV apex FUNCTIONAL RESULTS (calculated via Gated SPECT) Stress Image LV EF (%): 45 Stress EDV (mL):86 TID: 0.95 Stress ESV (mL):47 FUNCTIONAL FINDINGS: Segmental wall motion analysis revealing mild diffuse hypokinesia of the LV, more so of the apex. IMPRESSIONS 1. Myocardial perfusion imaging revealing a small area of decreased tracer uptake in the apical lateral and LV apex with some reversibility, suggestive of ischemia in the distribution of the left circumflex artery. 2. Slightly diminished LV ejection fraction of 45%. 3. LV wall motion analysis revealing mild diffuse hypokinesia of the left ventricle. 4. Mildly dilated LV cavity with an end-systolic volume of 47 normal. No similar previous studies are available for comparison Dr Ivory Louis MD FAC (Electronically Signed) Final Date: 03 December 2019 14:24 S
[2019-12-03 09:17] VITALS: BMI 20.2
[2019-12-03] MEDS: regadenoson 0.4 Mg/5 ml Syringe IVP (10:47)
[2019-12-03 11:02] VITALS: BP 118/73; PULSE 96
== END 2019-12-03 08:58 | disposition home or self-care (01) ==
LOC: CDL 08:58
PROVIDERS: PCP Family Medicine; Visit Provider Internal Medicine Cardiovascular Disease
DX: I48.91 Unspecified atrial fibrillation (principal); I48.92 Unspecified atrial flutter
CPT/HCPCS: 78452; 93017; A9500; J2785

== ENCOUNTER 2020-01-02 08:17 | Outpatient (CLI) | payer MEDICAID, SELFPAY ==
--- NOTE | 2020-01-02 08:41 | CT_ITS ---
WS: [id number] Exam: CT chest w con* [id number] Date/Time of Exam: 01/02/2020 8:42 AM Reason For Exam: LUNG CANCER RESTAGING DLP: 674.[address] scans at [facility] use at least one of these dose optimization techniques: automat ed exposure control; mA and/or kV adjustment per patient size (includes targeted exams where dose is matched to clinical indication); or iterative reconstruction. Comparison to PET CT scan performed 11/02/[address] performed 08/29/2019. Again noted is atelectasis of the superior segment of the left upper lobe secondary to left hilar pul monary mass. Diffuse interstitial change noted in the left upper lobe which appears to be chronic. Th e trachea and proximal mainstem bronchi are patent. There is narrowing of the distal left mainstem br onchi secondary to mass effect. The right lung remains clear and fully expanded. No new pulmonary ma ss or nodule identified. The thoracic aorta is normal in caliber. The central pulmonary arteries appe ar to be clear. No significant mediastinal lymphadenopathy noted. Normal thyroid tissue. No destructi ve bone lesions. Mild pectus excavatum. CT/CT chest w con* [id number] IMPRESSION: 1. Atelectasis of the superior segment of the left upper lobe secondary to left hilar pulmonary mass. No significant change. Diffuse interstitial changes in t he left upper lobe which are stable. 2. No significant mediastinal lymphadenopathy noted. No new pulmonary mass or n odule.
[2020-01-02] MEDS: iohexol 300 mg/mL 100 mL Btl IV (08:55)
== END 2020-01-02 08:18 | disposition home or self-care (01) ==
LOC: RADWPI 08:19
PROVIDERS: PCP Family Medicine; Visit Provider Radiology Radiation Oncology
DX: C34.90 Malignant neoplasm of unspecified part of unspecified bronchus or lung (principal); J98.11 Atelectasis
CPT/HCPCS: 71260; Q9967

== ENCOUNTER 2020-01-02 08:30 | Outpatient (RCR) | payer MEDICAID, SELFPAY ==
--- NOTE | 2019-12-10 13:45 | ONC FU_ITS ---
Dr. Israel follow up note Patient: Tima Malik Unit #: [id number]: [id number] Dicatated By: Amee Israel M.D.Date of Visit:Dec 10, 2019 Onc Med Follow-up/Prog Note History of Present Illness: Mr. Malik is a 49-year-old gentleman with history of 40 to 50 pounds weight loss since February 2019. Mr Malik reports he sustained an injury to the chest in January or February 2019. Initially, it was not bothersome but then it become progressive to the point where even taking deep breath would hurt. The pain was not mainly in the mid upper anterior chest wall. He also developed progressive shortness of breath. He said he did not have medical insurance so he was taking over the counter pain medicine, which did help some but eventually on August 16, 2019 he went to the [facility] in [place], [place]. He had chest x-ray done which showed complete whiteout of left lung and CTA chest done showed complete collapse of left lung likely secondary to left hilar mass/malignancy. There was a bulky mediastinal and likely left hilar lymphadenopathy present. And moderate to large malignant left pleural effusion patient was transferred to [facility] in [place] where on August 17, 2019 underwent ultrasound-guided left thoracentesis and about 25 cc of cloudy yellow pleural fluid was removed, repeat CT scan of the chest done on August 17, 2019 showed possible obstruction of left main bronchus, a mucous plug or obstructing pulmonary mass or consideration. Complete opacification of left hemithorax appears similar to chest x-ray done on August 16, 2019. Elevation of left diaphragm suggest volume loss due to some degree of atelectasis. Left pleural effusion or large left consolidations are also considered. On August 18, 2019 patient underwent bronchoscopy and endobronchial biopsy and bronchial washing from left main bronchus confirmed invasive small cell carcinoma. Mr Malik underwent CT PET scan on August 27, 2019 which showed hypermetabolic very large left hilar/mediastinal mass and matthew conglomeration. There is also redemonstration of complete collapse of left lung with associated hypermetabolic activity that may be secondary to diffuse tumor involvement or pneumonia depending on clinical context There was also evidence of metastatic disease to bilateral cervical chain lymph nodes as well as posterior upper neck intramuscular metastasis. In addition there is evidence of direct metastatic extension into the right of the trachea and to an epicardial fat lymph node. No findings to suggest metastatic disease below the diaphragm and no evidence of metastatic disease to the right lung. Mr Malik was referred to cancer center in [place] as it is convenient to the patient. Patient has longstanding history of smoking but states he quit in mid August 2019. Patient was admitted to hospital on August 29, 2019 with acute respiratory failure with hypoxia and he was intubated and then he was transferred to [facility] in [place] where he underwent further management and work-up including MRI scan of the head on September 01, 2019 which showed multiple intra-axial metastasis the largest lesion was located within the left parietal lobe. Extracranial soft tissue mass adjacent to spinous process of C2 and posterior arch of C1 suspicious for metastatic disease. Mr Malik was started on systemic chemotherapy with carboplatin/etoposide on August 31 and completed on September 03, 2019. He tolerated it reasonably well but as per patient and his aunt, patient did 'crash' during chemotherapy, his blood pressure dropped and his pulse was fast. He was diagnosed with atrial fibrillation- since then he is having off and on episode of tachycardia and palpitation. Radiation oncology was consulted for brain mets but radiation was not offered because the patient was asymptomatic. He was started on systemic chemotherapy because of progressive and symptomatic intrathoracic disease. The current plan is to complete systemic chemotherapy followed by whole brain radiation therapy. Mr Malik had his third cycle of chemotherapy with Carboplatin/etoposide on 10/29/2019-10/31/2019. (He did receive 1 chemotherapy prior to transferring his care to [facility]-his second cycle was complete on 10/03/2019). He is receiving growth factor support for neutropenia. Mr. Malik did have PET CT imaging on 11/02/2019 after 3 cycles of chemotherapy. It was noted there were bilateral cervical lymph nodes described on the prior imaging for CT was not present on this PET CT. There was no head or neck intramuscular metastatic disease present. There was complete postobstructive atelectasis of the left upper lobe. A region of residual activity measuring 1.6 x 3.7 cm with an SUV of 6.2 is consistent with a lung primary. Mild activity in the subaortic node is consistent with local metastatic disease. There was no other significant mediastinal adenopathy present. Innumerable small sclerotic osseous lesions best in the pelvis are most compatible with treated osseous metastatic disease. These were difficult to characterize due to size and background marrow activity from recent Neulasta therapy. He continues with chemotherapy at this time. The followup MRI scan of the brain to assess response Mr. Malik is here today for follow-up. He is due for cycle 4. carboplatin and etoposide. He states overall he is feeling pretty good. He states he did have nausea for 2 to 3 days with the chemotherapy but he has not had any nausea since then. He denies any emesis. He denies any mouth sores, sore throat or difficulty swallowing. He states his breathing is a little better. He still having some heaviness in his chest but no further palpitations. He states both hands shake at times but that comes and goes. He cannot find and identify a trigger at this point. He states his appetite is fair. His energy is poor but seems to be improving per his report. He denies any fever or chills. He has had no signs of fever or infection for at least the last 72 hours. He denies any COVID symptoms or known exposure. His ECOG is 1.Was done on November 15, 2019 showed excellent response to the chemotherapy as radiation was not given earlier and planning was to do after completion of systemic chemotherapy for extensive intrathoracic disease. And repeat MRI scan showed no evidence of progressed metastatic disease interval decrease in size of cystic appearing peripheral enhancing left parietal lesion measuring 1.6 x 2.6 cm compared to 3.6 x 2.9 cm prior to chemotherapy and also interval decrease in surrounding edema. Previously described lesions are no longer appreciated on the scan no new enhancing lesions. Came for follow-up, denies any specific complaints, no fever chills, no nausea or vomiting, no diarrhea constipation, no shortness of breath. No hemoptysis or hematemesis, no melena or hematochezia, no hematuria, no jaundice, no headaches blurred vision double vision. Tolerating systemic chemotherapy with carboplatin/etoposide well Medications: Flonase 2 [place](s) (of 50 mcg/act) Suspension Nasal daily PRN, Ibuprofen 1 - 2 Capsule (of 200 mg) Oral daily PRN, oxyCODONE HCl 1 Capsule (of 5 mg) Oral q 8 hours PRN Allergies: Dexamethasone Review of Systems: Review of Systems is not available for this patient. Vital Signs: Performed on Dec 10, 2019 10:00 Height - 71.00 in Weight - 145.2 lbs (HIGH) BSA - 1.84 sq.m BMI - 20.25 Temperature - 98.2 F (LOW) Pulse - 80 /min Respiration - 24 /min BP - 110/69 mm(hg) O2 Sat - 99 % Pain - 0 Performance Status: 1 - No physically strenuous activity, but ambulatory and able to carry out light or sedentary work (e.g. office work, light house work). (ECOG) Physical Examination: ENMT - No mouth sores, no thrush, no jaundice, Respiratory - Lungs are clear to auscultation, Cardiovascular - Regular rate and rhythm of heart, Abdomen - Soft, bowel sounds present, Extremities - No visible edema. Lab/Imaging: Test performed on Nov 18, 2019 09:08 Glucose 128 mg/dL BUN 10 mg/dL Creatinine 0.77 mg/dL Cr Clearance (Est) 101.05 mL/min Sodium 141 mmol/L Potassium 4.0 mmol/L Chloride 105 mmol/L CO2 25 mmol/L Calcium 9.6 mg/dL Protein, Total 7.2 g/dL Albumin 4.1 g/dL Bilirubin, Total 0.2 mg/dL Alkaline Phosphatase 152 IU/L AST (SGOT) 22 IU/L ALT (SGPT) 18 IU/L WBC 6.7 10^9/L RBC 3.48 10^12/L HGB 10.1 g/dL HCT 31.4 % MCV 90.2 fl MCH 29.0 pg MCHC 32.2 g/dL RDW 22.1 % Platelet Count 184 10^9/L MPV 9.8 fL Neutrophils (Gran) 3.28 10^9/L Lymphocytes 2.31 10^9/L Monocytes 0.88 10^9/L Eosinophils 0.4 10^9/L Basophils 0.03 10^9/L Manual Lymphocytes 35 % Manual Monocytes 13 % Manual Eosinophils 1 % Manual Basophils 1 % Test performed on Oct 28, 2019 09:25 % Iron Saturation 18 % Iron, Total 45 mcg/dL TIBC 249 mcg/dL Test performed on Oct 01, 2019 11:11 Anion Gap 13.4 eGFR 144.4 mL/min Osmolality - Calculated 283 mOsm/kg Globulin 3.6 g/dL Neutrophil % 55.3 % Lymphocyte % 29.2 % Monocyte % 12.0 % Eosinophil % 1.2 % Basophils % 1.4 % NRBC % 0 % Test performed on Sep 19, 2019 09:16 Manual Bands % 17.0 % Polychromasia Trace Anisocytosis Trace CBC Slide Review Slide Review Perform Manual Bands Abs 3.7 10 3/cmm Manual Neutrophils Abs 15.5 10 3/cmm Manual Monocytes Abs 1.5 10 3/cmm Impression: Small cell lung cancer involving left lung, per bronchoscopy done on August 18, 2019 Extensive loco- regional disease with bilateral cervical lymph nodes involvement. CT PET scan done on August 27, 2019 showed hypermetabolic large left hilar/mediastinal mass with matthew conglomeration in keeping with known small cell lung cancer. Also redemonstration of complete collapse of left lung with associated hypermetabolic activity may be secondary to diffuse tumor involvement or pneumonia There is evidence of metastatic disease to bilateral cervical chain lymph nodes as well as posterior upper neck intramuscular metastasis. In addition there is evidence of direct metastatic extension to the right of trachea and to an epicardial fat lymph node. No findings to suggest metastatic disease below diaphragm. No evidence of metastatic disease to the right lung. MRI scan of the brain done on September 01, 2019 at [facility] showed extensive brain mets but asymptomatic As per radiation oncology consultation at [facility] radiation therapy to brain was postponed till completion of systemic chemotherapy Started on Systemic chemotherapy with carboplatin/etoposide on September 01, 2019, first cycle was given at [facility] Longstanding history of smoking, quit in mid August 2019. Clinically, patient is doing well with no new signs symptoms suggestive of disease progression, tolerating systemic chemotherapy with carboplatin/etoposide well but with expected side effects e.g. progressive neutropenia/leukopenia causing delay in chemotherapy schedule with cycle 2. We have given him Neulasta to prevent chemotherapy-induced leukopenia/neutropenia and further delay in his chemotherapy schedule. Mr. Malik did have PET CT imaging on 11/02/2019 after 3 cycles of chemotherapy. It was noted there were bilateral cervical lymph nodes described on the prior imaging for CT was not present on this PET CT. There was no head or neck intramuscular metastatic disease present. There was complete postobstructive atelectasis of the left upper lobe. A region of residual activity measuring 1.6 x 3.7 cm with an SUV of 6.2 is consistent with a lung primary. Mild activity in the subaortic node is consistent with local metastatic disease. There was no other significant mediastinal adenopathy present. Innumerable small sclerotic osseous lesions best in the pelvis are most compatible with treated osseous metastatic disease. These were difficult to characterize due to size and background marrow activity from recent Neulasta therapy. He continues with chemotherapy at this time. The followup MRI scan of the brain to assess response has not been obtained as of this visit. recommendations for further plan of care per his last office note suggests in case patient has complete response, then will discuss with radiation oncology regarding radiation therapy to the thorax concurrent versus sequential followed by whole brain radiation therapy as, patient was diagnosed with brain mets at the time of diagnosis. We will also discuss about adding immunotherapy Tecentriq, as after completion of recommended chemotherapy, may continue with maintenance immunotherapy with Tecentriq alone . Plan: Discussed with patient regarding his labs done at [facility] on December 09, 2019 showed white blood count 8.6 hemoglobin 9.5 hematocrit 28.9 platelets 80,000 and CMP within normal limits except alk phos 162 Clinically, patient is doing well, tolerating systemic chemotherapy with carboplatin/etoposide well and with excellent response seen on follow-up CT PET scan done on November 02, 2019 and MRI scan of the brain which was done on November 15, 2019 showed excellent response to chemotherapy with resolution of previously seen multiple brain lesions and now with interval decrease in size of cystic appearing peripherally enhancing left lateral lesion now measuring 1.8 x 2.6 cm compared to 3.6 x 2.9 prior to chemotherapy and interval decrease in surrounding edema also and again patient did not get radiation therapy to the brain as he was started on chemotherapy because of extensive intrathoracic disease in [place]. Case was discussed with radiation oncology today regarding role of radiation therapy to the chest and also to the brain as patient has extensive disease he would need maintenance therapy with immunotherapy Tecentriq. Patient was due for his systemic chemotherapy today but because of progressive thrombocytopenia we will hold his chemotherapy and repeat CBC in the week if blood count recovers then will consider last cycle of chemotherapy with carboplatin/etoposide in the meantime we will refer him to radiation oncology for evaluation for consolidation radiation therapy to the chest and also evaluate for whole brain radiation therapy. And then we will discuss with him regarding role of maintenance therapy with immunotherapy. Signed By: Amee Israel M.D. <<Signature on File>>
[2019-12-17] MEDS: sodium chloride 0.9% 250 ML 75 ML IV (11:11)
--- NOTE | 2019-12-17 17:42 | ONC FU_ITS ---
Dr. Israel follow up note Patient: Tima Malik Unit #: [id number]: 1970 Dicatated By: Amee Israel M.D.Date of Visit:Dec 17, 2019 Onc Med Follow-up/Prog Note History of Present Illness: Mr. Malik is a 49-year-old gentleman with history of 40 to 50 pounds weight loss since February 2019. Mr Malik reports he sustained an injury to the chest in January or February 2019. Initially, it was not bothersome but then it become progressive to the point where even taking deep breath would hurt. The pain was not mainly in the mid upper anterior chest wall. He also developed progressive shortness of breath. He said he did not have medical insurance so he was taking over the counter pain medicine, which did help some but eventually on August 16, 2019 he went to the [facility] in [place], [place]. He had chest x-ray done which showed complete whiteout of left lung and CTA chest done showed complete collapse of left lung likely secondary to left hilar mass/malignancy. There was a bulky mediastinal and likely left hilar lymphadenopathy present. And moderate to large malignant left pleural effusion patient was transferred to [facility] in [place] where on August 17, 2019 underwent ultrasound-guided left thoracentesis and about 25 cc of cloudy yellow pleural fluid was removed, repeat CT scan of the chest done on August 17, 2019 showed possible obstruction of left main bronchus, a mucous plug or obstructing pulmonary mass or consideration. Complete opacification of left hemithorax appears similar to chest x-ray done on August 16, 2019. Elevation of left diaphragm suggest volume loss due to some degree of atelectasis. Left pleural effusion or large left consolidations are also considered. On August 18, 2019 patient underwent bronchoscopy and endobronchial biopsy and bronchial washing from left main bronchus confirmed invasive small cell carcinoma. Mr Malik underwent CT PET scan on August 27, 2019 which showed hypermetabolic very large left hilar/mediastinal mass and matthew conglomeration. There is also redemonstration of complete collapse of left lung with associated hypermetabolic activity that may be secondary to diffuse tumor involvement or pneumonia depending on clinical context There was also evidence of metastatic disease to bilateral cervical chain lymph nodes as well as posterior upper neck intramuscular metastasis. In addition there is evidence of direct metastatic extension into the right of the trachea and to an epicardial fat lymph node. No findings to suggest metastatic disease below the diaphragm and no evidence of metastatic disease to the right lung. Mr Malik was referred to cancer center in [place] as it is convenient to the patient. Patient has longstanding history of smoking but states he quit in mid August 2019. Patient was admitted to hospital on August 29, 2019 with acute respiratory failure with hypoxia and he was intubated and then he was transferred to [facility] in [place] where he underwent further management and work-up including MRI scan of the head on September 01, 2019 which showed multiple intra-axial metastasis the largest lesion was located within the left parietal lobe. Extracranial soft tissue mass adjacent to spinous process of C2 and posterior arch of C1 suspicious for metastatic disease. Mr Malik was started on systemic chemotherapy with carboplatin/etoposide on August 31 and completed on September 03, 2019. He tolerated it reasonably well but as per patient and his aunt, patient did 'crash' during chemotherapy, his blood pressure dropped and his pulse was fast. He was diagnosed with atrial fibrillation- since then he is having off and on episode of tachycardia and palpitation. Radiation oncology was consulted for brain mets but radiation was not offered because the patient was asymptomatic. He was started on systemic chemotherapy because of progressive and symptomatic intrathoracic disease. The current plan is to complete systemic chemotherapy followed by whole brain radiation therapy. Mr Malik had his third cycle of chemotherapy with Carboplatin/etoposide on 10/29/2019-10/31/2019. (He did receive 1 chemotherapy prior to transferring his care to [facility]-his second cycle was complete on 10/03/2019). He is receiving growth factor support for neutropenia. Mr. Malik did have PET CT imaging on 11/02/2019 after 3 cycles of chemotherapy. It was noted there were bilateral cervical lymph nodes described on the prior imaging for CT was not present on this PET CT. There was no head or neck intramuscular metastatic disease present. There was complete postobstructive atelectasis of the left upper lobe. A region of residual activity measuring 1.6 x 3.7 cm with an SUV of 6.2 is consistent with a lung primary. Mild activity in the subaortic node is consistent with local metastatic disease. There was no other significant mediastinal adenopathy present. Innumerable small sclerotic osseous lesions best in the pelvis are most compatible with treated osseous metastatic disease. These were difficult to characterize due to size and background marrow activity from recent Neulasta therapy. He continues with chemotherapy at this time. The followup MRI scan of the brain to assess response .Was done on November 15, 2019 showed excellent response to the chemotherapy as radiation was not given earlier and planning was to do after completion of systemic chemotherapy for extensive intrathoracic disease. And repeat MRI scan showed no evidence of progressed metastatic disease interval decrease in size of cystic appearing peripheral enhancing left parietal lesion measuring 1.6 x 2.6 cm compared to 3.6 x 2.9 cm prior to chemotherapy and also interval decrease in surrounding edema. Previously described lesions are no longer appreciated on the scan no new enhancing lesions. Came for follow-up, denies any specific complaints, no fever chills, no nausea or vomiting, no diarrhea or constipation Tolerating systemic chemotherapy with carboplatin/etoposide well Medications: Flonase 2 Monroe(s) (of 50 mcg/act) Suspension Nasal daily PRN, Ibuprofen 1 - 2 Capsule (of 200 mg) Oral daily PRN, oxyCODONE HCl 1 Capsule (of 5 mg) Oral q 8 hours PRN Allergies: Dexamethasone Review of Systems: Review of Systems is not available for this patient. Vital Signs: Performed on Dec 17, 2019 10:12 Height - 71.00 in Weight - 144.6 lbs (LOW) BSA - 1.84 sq.m BMI - 20.17 Temperature - 97.9 F (LOW) Pulse - 75 /min Respiration - 20 /min BP - 104/60 mm(hg) O2 Sat - 98 % Pain - 2 Performance Status: 0 - Fully active, able to carry on all predisease activities without restrictions. (ECOG) Physical Examination: ENMT - No mouth sores, no thrush, no jaundice, Respiratory - Lungs are clear to auscultation, Cardiovascular - Regular rate and rhythm of heart, Abdomen - Soft, bowel sounds present, no tenderness, Extremities - No visible edema. Lab/Imaging: Test performed on Dec 17, 2019 10:51 Creatinine 0.77 mg/dL Cr Clearance (Est) 101.05 mL/min Test performed on Dec 16, 2019 08:07 WBC 6.7 10^9/L RBC 3.36 10^12/L HGB 10.4 g/dL HCT 32.0 % MCV 95.2 fl MCH 31.0 pg MCHC 32.5 g/dL RDW 20.9 % Platelet Count 428 10^9/L MPV 8.9 fL Neutrophils (Gran) 2.83 10^9/L Lymphocytes 2.41 10^9/L Monocytes 1.23 10^9/L Eosinophils 0.09 10^9/L Basophils 0.10 10^9/L Manual Lymphocytes 36 % Manual Monocytes 18 % Manual Eosinophils 1 % Manual Basophils 2 % Test performed on Nov 18, 2019 09:08 Glucose 128 mg/dL BUN 10 mg/dL Sodium 141 mmol/L Potassium 4.0 mmol/L Chloride 105 mmol/L CO2 25 mmol/L Calcium 9.6 mg/dL Protein, Total 7.2 g/dL Albumin 4.1 g/dL Bilirubin, Total 0.2 mg/dL Alkaline Phosphatase 152 IU/L AST (SGOT) 22 IU/L ALT (SGPT) 18 IU/L Test performed on Oct 28, 2019 09:25 % Iron Saturation 18 % Iron, Total 45 mcg/dL TIBC 249 mcg/dL Test performed on Oct 01, 2019 11:11 Anion Gap 13.4 eGFR 144.4 mL/min Osmolality - Calculated 283 mOsm/kg Globulin 3.6 g/dL Neutrophil % 55.3 % Lymphocyte % 29.2 % Monocyte % 12.0 % Eosinophil % 1.2 % Basophils % 1.4 % NRBC % 0 % Test performed on Sep 19, 2019 09:16 Manual Bands % 17.0 % Polychromasia Trace Anisocytosis Trace CBC Slide Review Slide Review Perform Manual Bands Abs 3.7 10 3/cmm Manual Neutrophils Abs 15.5 10 3/cmm Manual Monocytes Abs 1.5 10 3/cmm Impression: Small cell lung cancer involving left lung, per bronchoscopy done on August 18, 2019 Extensive loco- regional disease with bilateral cervical lymph nodes involvement. CT PET scan done on August 27, 2019 showed hypermetabolic large left hilar/mediastinal mass with matthew conglomeration in keeping with known small cell lung cancer. Also redemonstration of complete collapse of left lung with associated hypermetabolic activity may be secondary to diffuse tumor involvement or pneumonia There is evidence of metastatic disease to bilateral cervical chain lymph nodes as well as posterior upper neck intramuscular metastasis. In addition there is evidence of direct metastatic extension to the right of trachea and to an epicardial fat lymph node. No findings to suggest metastatic disease below diaphragm. No evidence of metastatic disease to the right lung. MRI scan of the brain done on September 01, 2019 at [facility] in [place] showed extensive brain mets but asymptomatic As per radiation oncology consultation at [facility] radiation therapy to brain was postponed till completion of systemic chemotherapy Started on Systemic chemotherapy with carboplatin/etoposide on September 01, 2019, first cycle was given at [facility] in [place] Longstanding history of smoking, quit in mid August 2019. Clinically, patient is doing well with no new signs symptoms suggestive of disease progression, tolerating systemic chemotherapy with carboplatin/etoposide well but with expected side effects e.g. progressive neutropenia/leukopenia causing delay in chemotherapy schedule with cycle 2. We have given him Neulasta to prevent chemotherapy-induced leukopenia/neutropenia and further delay in his chemotherapy schedule. Mr. Malik did have PET CT imaging on 11/02/2019 after 3 cycles of chemotherapy. It was noted there were bilateral cervical lymph nodes described on the prior imaging for CT was not present on this PET CT. There was no head or neck intramuscular metastatic disease present. There was complete postobstructive atelectasis of the left upper lobe. A region of residual activity measuring 1.6 x 3.7 cm with an SUV of 6.2 is consistent with a lung primary. Mild activity in the subaortic node is consistent with local metastatic disease. There was no other significant mediastinal adenopathy present. Innumerable small sclerotic osseous lesions best in the pelvis are most compatible with treated osseous metastatic disease. These were difficult to characterize due to size and background marrow activity from recent Neulasta therapy. He continues with chemotherapy at this time. The followup MRI scan of the brain to assess response has not been obtained as of this visit. recommendations for further plan of care per his last office note suggests in case patient has complete response, then will discuss with radiation oncology regarding radiation therapy to the thorax concurrent versus sequential followed by whole brain radiation therapy as, patient was diagnosed with brain mets at the time of diagnosis. We will also discuss about adding immunotherapy Tecentriq, as after completion of recommended chemotherapy, may continue with maintenance immunotherapy with Tecentriq alone . Plan: Discussed with patient regarding his labs white blood count 6.7 hemoglobin 10.4 hematocrit 32 platelets 428,000 Clinically, patient doing well, his follow-up CBC shows leukopenia/thrombocytopenia has improved, will proceed with next cycle #5 chemotherapy with carboplatin/etoposide/Tecentriq and then he will return to clinic in 2 weeks with CBC CMP, patient was referred to radiation oncology and he is supposed to see radiation oncologist on December 19, 2019 and decided to proceed with consolidation radiation therapy to the chest as well as brain then we will conclude his chemotherapy with the cycle and then after completion of radiation therapy will consider maintenance therapy with immunotherapy Tecentriq. If patient, somehow decided not to go with radiation oncology then will consider final course of chemotherapy in 3 weeks. Signed By: Amee Israel M.D. <<Signature on File>>
[2019-12-18] MEDS: sodium chloride 0.9% 250 ML 75 ML IV (10:54)
[2019-12-18] MEDS: LORazepam 2 mg/mL INJ 1 mL IV (12:42)
--- NOTE | 2019-12-19 10:01 | N.ONRAD NP_ITS ---
Radiation Oncology New Patient Visit Patient: Tima Malik MR#: [id number] : 1970> Age: 49> Sex: Male> Dictated by: Dr. Angel Low Date of Service: 12/19/2019 Referring Physician(s) : Dr. Israel Diagnosis: Extensive stage small cell lung carcinoma originating in the left lung. Purpose of Visit: Discuss the role of radiotherapy with palliative intent. History of Present Illness: The patient is a 49-year-old male with an unintended weight loss of 40 to 50 pounds, and progressive chest pain made worse with deep inspiration. He sought medical attention, and a subsequent chest x-ray demonstrated complete whiteout of the left lung. A subsequent CT angio chest (08/16/2019 and 08/29/2019) revealed complete collapse of the left lung secondary to a central neoplastic process causing postobstructive atelectasis. There is also a large pericardial effusion. A Left mainstem endobronchial biopsy (08/18/2019) revealed invasive small cell carcinoma. A subsequent PET/CT (08/27/2019) revealed: -) FDG avid large left hilar/mediastinal mass with extensive matthew conglomeration, complete collapse of the left lung; -) FDG avidity and tumor involvement/extension to the right of the trachea, a hypermetabolic large lymph node in the epicardial fat, and -) FDG avidity in the bilateral cervical lymph node chain with evidence of direct metastatic extension to the right of the trachea The patient received systemic chemotherapy by Dr. Israel and a subsequent a PET/CT (11/02/2019) revealed a significant positive posttreatment response. In addition, the MRI of the brain (11/15/2019 versus 09/01/2019) revealed interval resolution of a 1.2 cm right parietal lesion, and interval reduction in a peripheral enhancing cystic lesion in the left parietal lobe (previously measuring 3.6 x 2.9 cm, now measuring 2.6 x 1.9 cm). In consultation today, the patient reports no headaches, blurred vision, double vision, numbness/weakness, or history of seizures. Furthermore, he reports that he is breathing better, his pain on deep inspiration has resolved, he reports no cough, and no fever/chills. Imaging Review: I reviewed the radiographic images discussed above. Current Medications: CARBOplatin, dexamethasone Sodium Phosphate, etoposide, famotidine, flonase, ibuprofen, lORazepam, lORazepam, neulasta Delivery Kit, ondansetron HCl, oxyCODONE HCl, oxyCODONE-Acetaminophen, palonosetron HCl, prochlorperazine Maleate. Allergies: Dexamethasone. Medical History: - Hypertension, - left pleural effusion, - respiratory failure. No history of collagen vascular disease. No previous radiation therapy. Surgical History: Bronchoscopy. Family History: Father is at age 71 having experienced lung cancer. Mother is at age 68 having experienced esophageal cancer. Social History: Last screened on 12/19/2019 - Yes - but has quit for less than one year. Smoked 2.0 packs/day for 37 years (74 pack years). Last screened on 12/19/2019 - Past drinker. Patient indicated use of the following products: recreational drug use. Patient indicated access to the following support systems: Adequate transportation available for expected visits, Lives with spouse, significant other, family, or friends, and Supportive family/friends willing to assist with needs. Patient indicated the following nutritional habits: Regular meals. Patient indicated participation in the following forms of activity: Daily activities. Current Complaints / Review of Systems: Constitutional - Complains of a poor appetite. Complains of moderate fatigue. Complains of rigors / chills. Complains of change in weight had lost about 40 lbs in 7 months but is slowly regaining. Denies fever and night sweats. ENMT - Complains of altered taste occasionally. Denies dysphagia, ear pain, mouth dryness, stomatitis and tinnitus. Neck - Denies neck pain. Integumentary - Denies rash. Cardiovascular - Denies arrhythmias, chest pain and edema. Respiratory - Complains of a moderate cough which is non-productive. Complains of moderate dyspnea associated with normal activity. Complains of mild wheezing. Denies hemoptysis. Gastrointestinal - Complains of occasional constipation. Complains of nausea associated with treatment. Complains of pain / cramping. Complains of satiety. Complains of occasional vomiting. Denies abdominal pain, diarrhea, heartburn / dyspepsia and melena / GI bleeding. Genitourinary (M) - Denies dysuria, frequency, nocturia and urgency. Musculoskeletal - Complains of joint pain both hips and occasionally in both shoulders. Denies bone pain and muscle weakness. Neurologic - Complains of intermittent dizziness that occurs upon sitting to standing. Denies abnormal gait and headaches. Endocrine - Denies diabetes and thyroid disease. Hematologic/Lymphatic - Denies tender or enlarged lymph nodes.. Vital Signs: Performed on 12/19/2019 9:15 AM BMI - 19.945 kg/m2, Height - 71.00 in, Weight - 143.0 lbs, Temperature - 97.4 f, Pulse - 91, Respiration - 18, O2 Sat - 97 %, Pain - 0 and BP - 104/ 68 mm(hg). Physical Exam: GENERAL:??? The patient is alert, and in no acute distress. HEENT:??? Head is normocephalic. Face is symmetric. External ocular movements are intact. Sclera and conjunctivae are non erythematous. NECK:??? Trachea is midline.??? Thyroid is not enlarged by palpation.??? LYMPH NODES:??? There is no cervical or supraclavicular adenopathy bilaterally. LUNGS:??? Clear to auscultation bilaterally. Respiratory movement is unlabored. HEART:??? Regular rate and rhythm. EXTREMITIES:??? No deformities. NEUROLOGIC:??? Gait and station are normal.??? The patient is well coordinated and strength is equal bilaterally. 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 Cranial nerves II-XII are intact and without focal deficits.??? Psych: Affect is normal. Skin: Cursory review of the skin reveals no obvious lesions concerning for malignancy. Performance Status: 2 - Ambulatory/capable of all self-care, unable to perform any work activities. Up and about more than 50% of waking hours. (ECOG) Pathology: Primary, c34.02 - malignant neoplasm of left main bronchus, Diagnosed 09/10/2019 (active) and Secondary, d64.9 - anemia, unspecified, Diagnosed 10/14/2019 (active). Lab: Test performed on 09/19/2019 9:16 AM Manual Bands Abs - 3.7 10 3/cmm (high), Manual Neutrophils Abs - 15.5 10 3/cmm (high), Manual Monocytes Abs - 1.5 10 3/cmm (high), Test performed on 10/01/2019 11:11 AM eGFR - 144.4 ml/min (high), Osmolality - Calculated - 283 mosm/kg (low), Test performed on 10/28/2019 9:25 AM TIBC - 249 mcg/dl (low), Test performed on 11/18/2019 9:08 AM Alkaline Phosphatase - 152 iu/l (high), Test performed on 12/16/2019 8:07 AM RBC - 3.36 10^12/l (low), HGB - 10.4 g/dl (low), HCT - 32.0 % (low), RDW - 20.9 % (high), Platelet Count - 428 10^9/l (high), Monocytes - 1.23 10^9/l (high) and Manual Monocytes - 18 % (high). Imaging: See HPI Impression: The patient is a 49-year-old male with extensive stage small cell lung carcinoma originating in the left lung with intracranial metastasis found at initial diagnosis. The patient remains asymptomatic with respect to intracranial disease, and he has had a favorable clinical and radiographic response to systemic chemotherapy. With respect to his intracranial disease burden, complete resolution of the 1.2 cm lesion in the right parietal lobe was observed along with interval reduction in the left parietal lobe lesion (see MRI of the brain 11/15/2019 versus 09/01/2019). Furthermore, the patient has also had a dramatic response to chemotherapy (fifth cycle completed today) with respect to intrathoracic disease burden (see PET/CT 11/02/2019 versus 08/27/2019). I discussed this case with Dr. Israel who intends to treat the patient with 5 cycles of systemic chemotherapy followed by radiation therapy and immunotherapy as tolerated. Following systemic chemotherapy, I recommend whole brain radiation therapy and thoracic consolidative radiation therapy for a 10% 2-year overall survival advantage (Rajwinder et al - Lancet 2015). I have ordered a CT chest to be completed in 2 weeks to provide targeting guidance for intrathoracic consolidative radiotherapy. One or [address] chest, I recommend that the patient follow-up with us to begin treatment planning for whole brain radiation therapy and consolidative thoracic radiation therapy, both sites to 30 Gy in 10 fractions. 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 Signed by: 12/19/2019 9:59:30 AM <<Signature on File>> Time spent with patient: CPT Code: CPT Code:
[2019-12-19] MEDS: sodium chloride 0.9% 250 ML IV (10:05)
[2019-12-19] MEDS: palonosetron 0.25 mg/5 mL SDV IV (10:05)
[2019-12-19] MEDS: LORazepam 2 mg/mL INJ 1 mL IVP (10:06)
[2019-12-19] MEDS: pegfilgrastim 6 mg/0.6 mL Kit (onpro) SUBCUT (10:37)
[2019-12-31 11:28] LABS: Basophils % 0.4 %; Eosinophils % 0.8 %; Hematocrit 28.2 % (42.0-52.0); Lymphocytes # 2.4 10^3/uL (0.8-4.8); Lymphocytes % 49.3 %; Mean Corpuscular HGB Conc 31.9 g/dL (30.0-36.0); Mean Corpuscular Hemoglobin 30.8 pg (28.0-34.0); Mean Corpuscular Volume 96.6 fL (80-94); Monocytes # 0.3 10^3/uL (0.2-0.9); Monocytes % 7.1 %; Neutrophils # 2.01 10^3/uL (1.8-7.7); Nucleated Red Blood Cells % 0 %; Red Blood Count 2.92 10^6/uL (4.1-5.3); Red Cell Distribution Width 17.1 % (12.1-15.1); White Blood Count 4.8 10^3/uL (4.0-10.0)
[2019-12-31 11:36] LABS: Platelet Count 7 10^3/cmm (130-400)
[2019-12-31 15:43] VITALS: BP 112/74; PULSE 80; RESP 18; TEMP 37.3; O2SAT 97
[2019-12-31] MEDS: acetaminophen 325 mg Tablet 650 MG PO (15:45)
[2019-12-31] MEDS: diphenhydrAMINE 25 mg Capsule PO (15:45)
--- NOTE | 2019-12-31 16:56 | ONC FU_ITS ---
Dr. Israel follow up note Patient: Tima Malik Unit #: [id number]: 1970 Dicatated By: Amee Israel M.D.Date of Visit:Dec 31, 2019 Onc Med Follow-up/Prog Note History of Present Illness: Mr. Malik is a 49-year-old gentleman with history of 40 to 50 pounds weight loss since February 2019. Mr Malik reports he sustained an injury to the chest in January or February 2019. Initially, it was not bothersome but then it become progressive to the point where even taking deep breath would hurt. The pain was not mainly in the mid upper anterior chest wall. He also developed progressive shortness of breath. He said he did not have medical insurance so he was taking over the counter pain medicine, which did help some but eventually on August 16, 2019 he went to the [facility] in [place], [place]. He had chest x-ray done which showed complete whiteout of left lung and CTA chest done showed complete collapse of left lung likely secondary to left hilar mass/malignancy. There was a bulky mediastinal and likely left hilar lymphadenopathy present. And moderate to large malignant left pleural effusion patient was transferred to [facility] in [place] where on August 17, 2019 underwent ultrasound-guided left thoracentesis and about 25 cc of cloudy yellow pleural fluid was removed, repeat CT scan of the chest done on August 17, 2019 showed possible obstruction of left main bronchus, a mucous plug or obstructing pulmonary mass or consideration. Complete opacification of left hemithorax appears similar to chest x-ray done on August 16, 2019. Elevation of left diaphragm suggest volume loss due to some degree of atelectasis. Left pleural effusion or large left consolidations are also considered. On August 18, 2019 patient underwent bronchoscopy and endobronchial biopsy and bronchial washing from left main bronchus confirmed invasive small cell carcinoma. Mr Malik underwent CT PET scan on August 27, 2019 which showed hypermetabolic very large left hilar/mediastinal mass and matthew conglomeration. There is also redemonstration of complete collapse of left lung with associated hypermetabolic activity that may be secondary to diffuse tumor involvement or pneumonia depending on clinical context There was also evidence of metastatic disease to bilateral cervical chain lymph nodes as well as posterior upper neck intramuscular metastasis. In addition there is evidence of direct metastatic extension into the right of the trachea and to an epicardial fat lymph node. No findings to suggest metastatic disease below the diaphragm and no evidence of metastatic disease to the right lung. Mr Malik was referred to cancer center in [place] as it is convenient to the patient. Patient has longstanding history of smoking but states he quit in mid August 2019. Patient was admitted to hospital on August 29, 2019 with acute respiratory failure with hypoxia and he was intubated and then he was transferred to [facility] in [place] where he underwent further management and work-up including MRI scan of the head on September 01, 2019 which showed multiple intra-axial metastasis the largest lesion was located within the left parietal lobe. Extracranial soft tissue mass adjacent to spinous process of C2 and posterior arch of C1 suspicious for metastatic disease. Mr Malik was started on systemic chemotherapy with carboplatin/etoposide on August 31 and completed on September 03, 2019. He tolerated it reasonably well but as per patient and his aunt, patient did 'crash' during chemotherapy, his blood pressure dropped and his pulse was fast. He was diagnosed with atrial fibrillation- since then he is having off and on episode of tachycardia and palpitation. Radiation oncology was consulted for brain mets but radiation was not offered because the patient was asymptomatic. He was started on systemic chemotherapy because of progressive and symptomatic intrathoracic disease. The current plan is to complete systemic chemotherapy followed by whole brain radiation therapy. Mr Malik had his third cycle of chemotherapy with Carboplatin/etoposide on 10/29/2019-10/31/2019. (He did receive 1 chemotherapy prior to transferring his care to [facility]-his second cycle was complete on 10/03/2019). He is receiving growth factor support for neutropenia. Mr. Malik did have PET CT imaging on 11/02/2019 after 3 cycles of chemotherapy. It was noted there were bilateral cervical lymph nodes described on the prior imaging for CT was not present on this PET CT. There was no head or neck intramuscular metastatic disease present. There was complete postobstructive atelectasis of the left upper lobe. A region of residual activity measuring 1.6 x 3.7 cm with an SUV of 6.2 is consistent with a lung primary. Mild activity in the subaortic node is consistent with local metastatic disease. There was no other significant mediastinal adenopathy present. Innumerable small sclerotic osseous lesions best in the pelvis are most compatible with treated osseous metastatic disease. These were difficult to characterize due to size and background marrow activity from recent Neulasta therapy. He continues with chemotherapy at this time. The followup MRI scan of the brain to assess response .Was done on November 15, 2019 showed excellent response to the chemotherapy as radiation was not given earlier and planning was to do after completion of systemic chemotherapy for extensive intrathoracic disease. And repeat MRI scan showed no evidence of progressed metastatic disease interval decrease in size of cystic appearing peripheral enhancing left parietal lesion measuring 1.6 x 2.6 cm compared to 3.6 x 2.9 cm prior to chemotherapy and also interval decrease in surrounding edema. Previously described lesions are no longer appreciated on the scan no new enhancing lesions. Patient completed 5 cycles of chemotherapy with carboplatin/etoposide on December 19, 2019, had excellent response, was referred to radiation oncology for consolidation radiotherapy to the chest and also to the brain as patient was diagnosed with brain mets at the time of diagnosis. Came for follow-up, denies any specific complaints, no fever chills, no nausea or vomiting, no diarrhea or constipation, no melena or hematochezia, no nosebleed or gum bleed. Patient has seen radiation oncology now consolidation radiation therapy to the chest as well as whole brain radiation therapy for brain mets is under consideration. Medications: Aspirin Adult Low Dose 1 Tablet (of 81 mg) Tablet, enteric coated Oral daily, Flonase 2 [place](s) (of 50 mcg/act) Suspension Nasal daily PRN, Ibuprofen 1 - 2 Capsule (of 200 mg) Oral daily PRN, oxyCODONE HCl 1 Capsule (of 5 mg) Oral q 8 hours PRN Allergies: Dexamethasone Review of Systems: Review of Systems is not available for this patient. Vital Signs: Performed on Dec 31, 2019 09:45 Height - 71.00 in Weight - 141.4 lbs (LOW) BSA - 1.82 sq.m BMI - 19.72 Temperature - 98.1 F (LOW) Pulse - 96 /min Respiration - 17 /min BP - 115/74 mm(hg) O2 Sat - 98 % Pain - 2 Performance Status: 1 - No physically strenuous activity, but ambulatory and able to carry out light or sedentary work (e.g. office work, light house work). (ECOG) Physical Examination: ENMT - No mouth sores, no thrush, no joint, Respiratory - Lungs are clear to auscultation, Cardiovascular - Regular rate and rhythm of heart, Abdomen - Soft, bowel sounds present, Extremities - No visible edema or petechia or ecchymosis. Lab/Imaging: Test performed on Dec 30, 2019 10:09 Glucose 97 mg/dL BUN 11 mg/dL Creatinine 0.78 mg/dL Cr Clearance (Est) 99.75 mL/min Sodium 139 mmol/L Potassium 3.7 mmol/L Chloride 104 mmol/L CO2 26 mmol/L Calcium 9.4 mg/dL Protein, Total 7.1 g/dL Albumin 4.3 g/dL Bilirubin, Total 0.2 mg/dL Alkaline Phosphatase 180 IU/L AST (SGOT) 19 IU/L ALT (SGPT) 15 IU/L WBC 4.7 10^9/L RBC 3.16 10^12/L HGB 9.8 g/dL HCT 30.6 % MCV 96.8 fl MCH 31.0 pg MCHC 32.0 g/dL RDW 16.7 % Platelet Count 13 10^9/L Neutrophils (Gran) 2.20 10^9/L Lymphocytes 1.99 10^9/L Monocytes 0.38 10^9/L Eosinophils 0.07 10^9/L Basophils 0.03 10^9/L Manual Lymphocytes 42 % Manual Monocytes 8 % Manual Eosinophils 2 % Manual Basophils 1 % Test performed on Dec 16, 2019 08:07 MPV 8.9 fL Test performed on Oct 28, 2019 09:25 % Iron Saturation 18 % Iron, Total 45 mcg/dL TIBC 249 mcg/dL Test performed on Oct 01, 2019 11:11 Anion Gap 13.4 eGFR 144.4 mL/min Osmolality - Calculated 283 mOsm/kg Globulin 3.6 g/dL Neutrophil % 55.3 % Lymphocyte % 29.2 % Monocyte % 12.0 % Eosinophil % 1.2 % Basophils % 1.4 % NRBC % 0 % Test performed on Sep 19, 2019 09:16 Manual Bands % 17.0 % Polychromasia Trace Anisocytosis Trace CBC Slide Review Slide Review Perform Manual Bands Abs 3.7 10 3/cmm Manual Neutrophils Abs 15.5 10 3/cmm Manual Monocytes Abs 1.5 10 3/cmm Impression: Small cell lung cancer involving left lung, per bronchoscopy done on August 18, 2019 Extensive loco- regional disease with bilateral cervical lymph nodes involvement. CT PET scan done on August 27, 2019 showed hypermetabolic large left hilar/mediastinal mass with matthew conglomeration in keeping with known small cell lung cancer. Also redemonstration of complete collapse of left lung with associated hypermetabolic activity may be secondary to diffuse tumor involvement or pneumonia There is evidence of metastatic disease to bilateral cervical chain lymph nodes as well as posterior upper neck intramuscular metastasis. In addition there is evidence of direct metastatic extension to the right of trachea and to an epicardial fat lymph node. No findings to suggest metastatic disease below diaphragm. No evidence of metastatic disease to the right lung. MRI scan of the brain done on September 01, 2019 at [facility] in [place] showed extensive brain mets but asymptomatic As per radiation oncology consultation at [facility] radiation therapy to brain was postponed till completion of systemic chemotherapy Started on Systemic chemotherapy with carboplatin/etoposide on September 01, 2019, first cycle was given at [facility] in [place] Longstanding history of smoking, quit in mid August 2019. Clinically, patient is doing well with no new signs symptoms suggestive of disease progression, tolerating systemic chemotherapy with carboplatin/etoposide well but with expected side effects e.g. progressive neutropenia/leukopenia causing delay in chemotherapy schedule with cycle 2. We have given him Neulasta to prevent chemotherapy-induced leukopenia/neutropenia and further delay in his chemotherapy schedule. Mr. Malik did have PET CT imaging on 11/02/2019 after 3 cycles of chemotherapy. It was noted there were bilateral cervical lymph nodes described on the prior imaging for CT was not present on this PET CT. There was no head or neck intramuscular metastatic disease present. There was complete postobstructive atelectasis of the left upper lobe. A region of residual activity measuring 1.6 x 3.7 cm with an SUV of 6.2 is consistent with a lung primary. Mild activity in the subaortic node is consistent with local metastatic disease. There was no other significant mediastinal adenopathy present. Innumerable small sclerotic osseous lesions best in the pelvis are most compatible with treated osseous metastatic disease. These were difficult to characterize due to size and background marrow activity from recent Neulasta therapy. He continues with chemotherapy at this time. The followup MRI scan of the brain to assess response has not been obtained as of this visit. recommendations for further plan of care per his last office note suggests in case patient has complete response, then will discuss with radiation oncology regarding radiation therapy to the thorax concurrent versus sequential followed by whole brain radiation therapy as, patient was diagnosed with brain mets at the time of diagnosis. We will also discuss about adding immunotherapy Tecentriq, as after completion of recommended chemotherapy, may continue with maintenance immunotherapy with Tecentriq alone . Plan: Discussed with patient regarding his labs from December 30, 2019 done at [facility] in [place] which showed white blood count 4.7 hemoglobin 9.8 hematocrit 30.6 platelets 13,000, repeat platelet count here was 7000 Clinically, patient doing well with no signs symptom suggestive of gross bleeding his follow-up labs shows severe thrombocytopenia probably due to chemotherapy, at this point we will consider platelet transfusion today and monitor his platelet counts. Return to clinic in 1 week with CBC Patient will follow with radiation oncology regarding consolidation therapy to the chest and also whole brain radiation therapy for brain mets and if thrombocytopenia resolves then will follow him after radiation therapy to discuss maintenance immunotherapy with Tecentriq. Mild/moderate anemia, probably due to chemotherapy will continue monitor blood counts, if no improvement will consider work-up. Signed By: Amee Israel M.D. <<Signature on File>>
== END 2020-01-04 23:59 | disposition home or self-care (01) ==
LOC: ONCMED 08:30
PROVIDERS: PCP Family Medicine; Visit Provider Internal Medicine Hematology & Oncology
DX: Z51.11 Encounter for antineoplastic chemotherapy (principal); C34.02 Malignant neoplasm of left main bronchus; C77.0 Secondary and unspecified malignant neoplasm of lymph nodes of head, face and neck; C79.31 Secondary malignant neoplasm of brain; C79.51 Secondary malignant neoplasm of bone; D69.59 Other secondary thrombocytopenia; T45.1X5A Adverse effect of antineoplastic and immunosuppressive drugs, initial encounter; Z79.82 Long term (current) use of aspirin; Z79.891 Long term (current) use of opiate analgesic; Z87.891 Personal history of nicotine dependence
CPT/HCPCS: 36430; 85025; 86900; 96367; 96372; 96375; 96413; 96417; 99214; 99215; J2060; J2405; J2469; J2505; J3490; J7040; J7050; J9045; J9181; P9035

== ENCOUNTER 2020-01-27 05:32 | Outpatient (RCR) | payer MEDICAID, SELFPAY ==
--- NOTE | 2020-01-07 | CT_ITS ---
Radiation Therapy Planning CT images; total exam DLP: 819.73 mGy-cm and 554.17 mGy-cm MTDD
--- NOTE | 2020-01-15 14:51 | ONCRAD TMN_ITS ---
Radiation Oncology Weekly Treatment Management Patient: Helena Alfred MR#: [id number] : 1970 Attending Physician: Dr. Christiano Flores Date of Service: 01/15/2020 Diagnosis: C34.02 - Malignant neoplasm of left main bronchus, Diagnosed 09/10/2019 (Active) Treatment Site: LT Lung and brain Fraction #: Start Date: 01/13/2020 End Date: 01/15/2020 Elapsed Days: 2 Reason for visit: The patient is being seen today as part of their regularly scheduled weekly on treatment visits to assess for acute toxicities from radiotherapy. Review of Systems: The patient described improvement in his breathing. Not report any neurological symptoms. Vital Signs: Performed on 01/15/2020 2:36 PM BMI - 19.554 kg/m2, Height - 71.00 in, Weight - 140.2 lbs, Temperature - 98.8 f, Pulse - 69, Respiration - 18, O2 Sat - 100 %, Pain - 7 and BP - 119/ 77 mm(hg). Physical Exam: No neurological signs upon examination. Auscultation of the posterior lung field revealed decreased left sided breath sounds. Imaging: Radiation therapy imaging related to accurate target localization (i.e. KV, MV and CBCT) was reviewed. Appropriate changes, if any, were made to ensure treatment accuracy. Plan: Continue consolidative radiotherapy as prescribed. Signed by: Dr. Christiano Flores 01/15/2020 2:51:21 PM
--- NOTE | 2020-01-21 14:46 | ONCRAD TMN_ITS ---
Radiation Oncology Weekly Treatment Management Patient: Helena Alfred> MR#: [id number] : 1970> Attending Physician: Christiano Flores M.D. Date of Service: 01/21/2020 Diagnosis: Metastatic non-small cell lung cancer Treatment Site: Brain and thorax Dose: 21 Gy of a prescribed 30 Gy. Review of Systems: Not report any neurological symptoms. He continues to have shortness of breath upon exertion. Vital Signs: Weight - 140 lbs. Temperature -98.9 F, BP -122/84 (mm Hg). Pulse ??? 64 bpm, Respirations - 18, oxygen saturation was 98% with ambient air Physical Exam: The skin within the treatment gordon did not demonstrate any erythema. Imaging: Radiation therapy imaging related to accurate target localization (i.e. KV, MV and CBCT) was reviewed. Appropriate changes, if any, were made to ensure treatment accuracy. Plan: Continue whole brain radiotherapy and consolidative thoracic radiation treatment. Signed by: Dr. Christiano Flores 01/21/2020 2:45:15 PM
== END 2020-02-03 23:59 | disposition home or self-care (01) ==
LOC: ONCMED 05:32
PROVIDERS: PCP Family Medicine; Visit Provider Radiology Radiation Oncology
DX: Z51.0 Encounter for antineoplastic radiation therapy (principal); C34.02 Malignant neoplasm of left main bronchus
CPT/HCPCS: 77295; 77300; 77334; 77336; 77387; 77412

== ENCOUNTER 2020-02-12 05:37 | Outpatient (RCR) | payer MEDICAID, SELFPAY ==
--- NOTE | 2020-02-12 10:35 | ONC FU_ITS ---
Dr. Israel follow up note Patient: Tima Malik Unit #: [id number]: 1970 Dicatated By: Amee Israel M.D.Date of Visit:Feb 12, 2020 Onc Med Follow-up/Prog Note History of Present Illness: Mr. Malik is a 49-year-old gentleman with history of 40 to 50 pounds weight loss since February 2019. Mr Malik reports he sustained an injury to the chest in January or February 2019. Initially, it was not bothersome but then it become progressive to the point where even taking deep breath would hurt. The pain was not mainly in the mid upper anterior chest wall. He also developed progressive shortness of breath. He said he did not have medical insurance so he was taking over the counter pain medicine, which did help some but eventually on August 16, 2019 he went to the [facility] in [place], [place]. He had chest x-ray done which showed complete whiteout of left lung and CTA chest done showed complete collapse of left lung likely secondary to left hilar mass/malignancy. There was a bulky mediastinal and likely left hilar lymphadenopathy present. And moderate to large malignant left pleural effusion patient was transferred to [facility] in [place] where on August 17, 2019 underwent ultrasound-guided left thoracentesis and about 25 cc of cloudy yellow pleural fluid was removed, repeat CT scan of the chest done on August 17, 2019 showed possible obstruction of left main bronchus, a mucous plug or obstructing pulmonary mass or consideration. Complete opacification of left hemithorax appears similar to chest x-ray done on August 16, 2019. Elevation of left diaphragm suggest volume loss due to some degree of atelectasis. Left pleural effusion or large left consolidations are also considered. On August 18, 2019 patient underwent bronchoscopy and endobronchial biopsy and bronchial washing from left main bronchus confirmed invasive small cell carcinoma. Mr Malik underwent CT PET scan on August 27, 2019 which showed hypermetabolic very large left hilar/mediastinal mass and matthew conglomeration. There is also redemonstration of complete collapse of left lung with associated hypermetabolic activity that may be secondary to diffuse tumor involvement or pneumonia depending on clinical context There was also evidence of metastatic disease to bilateral cervical chain lymph nodes as well as posterior upper neck intramuscular metastasis. In addition there is evidence of direct metastatic extension into the right of the trachea and to an epicardial fat lymph node. No findings to suggest metastatic disease below the diaphragm and no evidence of metastatic disease to the right lung. Mr Malik was referred to cancer center in [place] as it is convenient to the patient. Patient has longstanding history of smoking but states he quit in mid August 2019. Patient was admitted to hospital on August 29, 2019 with acute respiratory failure with hypoxia and he was intubated and then he was transferred to [facility] in [place] where he underwent further management and work-up including MRI scan of the head on September 01, 2019 which showed multiple intra-axial metastasis the largest lesion was located within the left parietal lobe. Extracranial soft tissue mass adjacent to spinous process of C2 and posterior arch of C1 suspicious for metastatic disease. Mr Malik was started on systemic chemotherapy with carboplatin/etoposide on August 31 and completed on September 03, 2019. He tolerated it reasonably well but as per patient and his aunt, patient did 'crash' during chemotherapy, his blood pressure dropped and his pulse was fast. He was diagnosed with atrial fibrillation- since then he is having off and on episode of tachycardia and palpitation. Radiation oncology was consulted for brain mets but radiation was not offered because the patient was asymptomatic. He was started on systemic chemotherapy because of progressive and symptomatic intrathoracic disease. The current plan is to complete systemic chemotherapy followed by whole brain radiation therapy. Mr Malik had his third cycle of chemotherapy with Carboplatin/etoposide on 10/29/2019-10/31/2019. (He did receive 1 chemotherapy prior to transferring his care to [facility]his second cycle was complete on 10/03/2019). He is receiving growth factor support for neutropenia. Mr. Malik did have PET CT imaging on 11/02/2019 after 3 cycles of chemotherapy. It was noted there were bilateral cervical lymph nodes described on the prior imaging for CT was not present on this PET CT. There was no head or neck intramuscular metastatic disease present. There was complete postobstructive atelectasis of the left upper lobe. A region of residual activity measuring 1.6 x 3.7 cm with an SUV of 6.2 is consistent with a lung primary. Mild activity in the subaortic node is consistent with local metastatic disease. There was no other significant mediastinal adenopathy present. Innumerable small sclerotic osseous lesions best in the pelvis are most compatible with treated osseous metastatic disease. These were difficult to characterize due to size and background marrow activity from recent Neulasta therapy. He continues with chemotherapy at this time. The followup MRI scan of the brain to assess response .Was done on November 15, 2019 showed excellent response to the chemotherapy as radiation was not given earlier and planning was to do after completion of systemic chemotherapy for extensive intrathoracic disease. And repeat MRI scan showed no evidence of progressed metastatic disease interval decrease in size of cystic appearing peripheral enhancing left parietal lesion measuring 1.6 x 2.6 cm compared to 3.6 x 2.9 cm prior to chemotherapy and also interval decrease in surrounding edema. Previously described lesions are no longer appreciated on the scan no new enhancing lesions. Patient completed 5 cycles of chemotherapy with carboplatin/etoposide on December 19, 2019, had excellent response, was referred to radiation oncology for consolidation radiotherapy to the chest and also to the brain as patient was diagnosed with brain mets at the time of diagnosis. Patient completed radiation therapy to his brain on January 27, 2020 and to his left chest on January 27, 2020 Came for follow-up, denies any specific complaints, more energetic, now recovering from radiation therapy to the chest and brain, as per patient he did develop discomfort with swallowing during radiation therapy but now has resolved, no fever chills, no nausea or vomiting, no diarrhea, constipation, no dysphagia. No headaches or blurred vision or double vision, no hemoptysis or hematemesis, appetite is good, patient smoke marijuana and feeling well with that. Medications: Aspirin Adult Low Dose 1 Tablet (of 81 mg) Tablet, enteric coated Oral daily, Flonase 2 [place](s) (of 50 mcg/act) Suspension Nasal daily PRN, Ibuprofen 1 - 2 Capsule (of 200 mg) Oral daily PRN, oxyCODONE HCl 1 Capsule (of 5 mg) Oral q 8 hours PRN Allergies: Dexamethasone Review of Systems: Constitutional - Appetite is fair and weight is stable. No fever, night sweats, or hot flashes. Energy level is poor, ENMT - No sinus congestion/drainage. No mouth sores. No sore throat or difficulty swallowing, Hematologic/Lymphatic - No abnormal bruising or bleeding, Respiratory - Positive for shortness of breath and cough. No pleuritic pain or hemoptysis, Cardiovascular - No angina pain. No palpitations, Gastrointestinal - No nausea or vomiting. No heartburn or acid reflux. No diarrhea or constipation. No blood in the stool or black stools, Genitourinary (M) - No dysuria or hematuria. No urinary frequency. No urgency or incontinence, Musculoskeletal - Positive for joint and bone pain to left shoulder and right hip, Neurologic - No headache or dizziness. No numbness or tingling. No other focal neurologic symptoms, Psychiatric - No anxiety or depression. No insomnia. Vital Signs: Performed on Feb 12, 2020 09:01 Height - 71.00 in Weight - 142.0 lbs (HIGH) BSA - 1.82 sq.m BMI - 19.81 Temperature - 98.8 F Pulse - 64 /min Respiration - 18 /min BP - 125/82 mm(hg) O2 Sat - 100 % Pain - 4 Performance Status: 1 - No physically strenuous activity, but ambulatory and able to carry out light or sedentary work (e.g. office work, light house work). (ECOG) Physical Examination: ENMT - No mouth sores, no thrush, no jaundice, Respiratory - poor air entry with mild wheezing, Cardiovascular - Regular rate and rhythm of heart, Abdomen - Soft, bowel sounds present, Extremities - No visible edema. Lab/Imaging: Test performed on Feb 11, 2020 09:19 Glucose 101 mg/dL BUN 14 mg/dL Creatinine 0.92 mg/dL Cr Clearance (Est) 84.57 mL/min Sodium 136 mmol/L Potassium 4.0 mmol/L Chloride 103 mmol/L CO2 26 mmol/L Calcium 9.4 mg/dL Protein, Total 6.8 g/dL Albumin 3.8 g/dL Bilirubin, Total 0.3 mg/dL Alkaline Phosphatase 116 IU/L AST (SGOT) 17 IU/L ALT (SGPT) 10 IU/L WBC 4.3 10^9/L RBC 3.99 10^12/L HGB 12.2 g/dL HCT 38.4 % MCV 96.2 fl MCH 30.6 pg MCHC 31.8 g/dL RDW 15.2 % Platelet Count 163 10^9/L Neutrophils (Gran) 2.795 10^9/L Lymphocytes 0.817 10^9/L Monocytes 0.387 10^9/L Eosinophils 0.258 10^9/L Basophils 0.043 10^9/L Test performed on Dec 31, 2019 15:36 ABO & Rh Type # 2 AP Test performed on Dec 31, 2019 10:39 Platelets Leuko Reduced [id number] OP PLTLR ISSUED 12/31/19 1533 [id number] AP PLTLR ISSUED 12/31/19 1535 Neutrophil % 42.0 % Lymphocyte % 49.3 % Monocyte % 7.1 % Eosinophil % 0.8 % Basophils % 0.4 % NRBC % 0 % Test performed on Dec 30, 2019 10:09 Manual Lymphocytes 42 % Manual Monocytes 8 % Manual Eosinophils 2 % Manual Basophils 1 % Test performed on Dec 16, 2019 08:07 MPV 8.9 fL Test performed on Oct 28, 2019 09:25 % Iron Saturation 18 % Iron, Total 45 mcg/dL TIBC 249 mcg/dL Test performed on Oct 01, 2019 11:11 Anion Gap 13.4 eGFR 144.4 mL/min Osmolality - Calculated 283 mOsm/kg Globulin 3.6 g/dL Test performed on Sep 19, 2019 09:16 Manual Bands % 17.0 % Polychromasia Trace Anisocytosis Trace CBC Slide Review Slide Review Perform Manual Bands Abs 3.7 10 3/cmm Manual Neutrophils Abs 15.5 10 3/cmm Manual Monocytes Abs 1.5 10 3/cmm Impression: Small cell lung cancer involving left lung, per bronchoscopy done on August 18, 2019 Extensive loco- regional disease with bilateral cervical lymph nodes involvement. CT PET scan done on August 27, 2019 showed hypermetabolic large left hilar/mediastinal mass with matthew conglomeration in keeping with known small cell lung cancer. Also redemonstration of complete collapse of left lung with associated hypermetabolic activity may be secondary to diffuse tumor involvement or pneumonia There is evidence of metastatic disease to bilateral cervical chain lymph nodes as well as posterior upper neck intramuscular metastasis. In addition there is evidence of direct metastatic extension to the right of trachea and to an epicardial fat lymph node. No findings to suggest metastatic disease below diaphragm. No evidence of metastatic disease to the right lung. MRI scan of the brain done on September 01, 2019 at [facility] in [place] showed extensive brain mets but asymptomatic As per radiation oncology consultation at [facility] radiation therapy to brain was postponed till completion of systemic chemotherapy Started on Systemic chemotherapy with carboplatin/etoposide on September 01, 2019, first cycle was given at [facility] in [place] Longstanding history of smoking, quit in mid August 2019. Clinically, patient is doing well with no new signs symptoms suggestive of disease progression, tolerating systemic chemotherapy with carboplatin/etoposide well but with expected side effects e.g. progressive neutropenia/leukopenia causing delay in chemotherapy schedule with cycle 2. We have given him Neulasta to prevent chemotherapy-induced leukopenia/neutropenia and further delay in his chemotherapy schedule. Mr. Malik did have PET CT imaging on 11/02/2019 after 3 cycles of chemotherapy. It was noted there were bilateral cervical lymph nodes described on the prior imaging for CT was not present on this PET CT. There was no head or neck intramuscular metastatic disease present. There was complete postobstructive atelectasis of the left upper lobe. A region of residual activity measuring 1.6 x 3.7 cm with an SUV of 6.2 is consistent with a lung primary. Mild activity in the subaortic node is consistent with local metastatic disease. There was no other significant mediastinal adenopathy present. Innumerable small sclerotic osseous lesions best in the pelvis are most compatible with treated osseous metastatic disease. These were difficult to characterize due to size and background marrow activity from recent Neulasta therapy. He continues with chemotherapy at this time. The followup MRI scan of the brain to assess response has not been obtained as of this visit. recommendations for further plan of care per his last office note suggests in case patient has complete response, then will discuss with radiation oncology regarding radiation therapy to the thorax concurrent versus sequential followed by whole brain radiation therapy as, patient was diagnosed with brain mets at the time of diagnosis. We will also discuss about adding immunotherapy Tecentriq, as after completion of recommended chemotherapy, may continue with maintenance immunotherapy with Tecentriq alone . Plan: Discussed with patient regarding his labs done on February 11, 2020 showed white blood count 4.3 hemoglobin 12.2 hematocrit 38.4 platelets 163,000 CMP within normal limits Clinically, patient doing well, no recovering from consolidation radiation therapy to the the chest and whole brain radiation for brain mets which was completed a couple of weeks ago, his lab work-up shows resolution of thrombocytopenia and improvement in his anemia and white blood count is in normal range. At this point treatment options including maintenance immunotherapy therapy with Tecentriq or durvalumab was discussed or observation with history and physical, lab as well as CT scan of chest abdomen pelvis every 2 months and first year then 3 to 4 months from 2 to 3 years then every 6 months till 5 years along with MRI scan of the brain every 3 to 4 months and first year then every 6 months till 5 years, patient wants to think about this, he was given information regarding immunotherapy, all the side effects possible benefits associated with immunotherapy including but not limited to, nausea, bone marrow suppression, peripheral neuropathy, hypothyroidism, pneumonitis, colitis, jaundice were mentioned and patient was provided literature. Patient wants to review his follow-up CT scan of chest abdomen pelvis and MRI scan of brain before he make his decision regarding whether to consider maintenance immunotherapy or not. So we will schedule him for CT scan of chest abdomen pelvis with and without contrast and MRI scan of the brain in 2-3 months as patient recently completed radiation therapy to brain and chest and he will return to clinic after CT scan of chest abdomen pelvis and MRI scan and with CBC CMP for further discussion. Patient was advised in case he has any new symptoms like headaches or hemoptysis or hematemesis or jaundice or new bony pains he need to call us. Signed By: Amee Israel M.D. <<Signature on File>>
== END 2020-03-05 23:59 | disposition home or self-care (01) ==
LOC: ONCMED 05:37
PROVIDERS: Absent Provider Radiology Radiation Oncology; PCP Family Medicine; Visit Provider Internal Medicine Hematology & Oncology
DX: C34.02 Malignant neoplasm of left main bronchus (principal); C79.31 Secondary malignant neoplasm of brain; F17.211 Nicotine dependence, cigarettes, in remission; Z79.899 Other long term (current) drug therapy; Z92.3 Personal history of irradiation
CPT/HCPCS: 99214

== ENCOUNTER 2020-05-13 10:02 | Outpatient (CLI) | payer MEDICAID, SELFPAY ==
--- NOTE | 2020-05-13 10:06 | MR_ITS ---
WS: [id number] MRI HEAD WITH CONTRAST TECHNIQUE: Sagittal T1, T2 axial, T2 axial FLAIR, axial susceptibility weighted imaging, axial diffus ion weighted images, and coronal T2 images were obtained. Pre and post-T1 axial and post T1 coronal i mages. ADC and FSPGR images. CLINICAL INFORMATION: SMALL CELL LUNG CANCER COMPARISON: MRI 11/15/2019 and 09/01/2019 FINDINGS: No evidence of restricted diffusion to suggest acute ischemia. Ventricular system and basal cisterns are patent. Again seen is the cystic appearing peripheral enhancing lesion in the left parietal lobe decreased in size compared to the prior examinations today measuring 1.6 x 1.0 cm compared to 2.6 x 1 .9 cm previous. No significant surrounding edema. No evidence of increasing edema or mass effect. New enhancing metastatic lesion in the left temporal lobe with surrounding edema. Enhancing lesion me asures 5.2 mm. No hemosiderin on the susceptibly weighted images. Normal posterior fossa. Normal vascular flow void s at the skull base. No extra-axial fluid collections. Retention cyst right maxillary sinus. Mild muc osal thickening. Incidental tiny pars intermedia cyst unchanged. Normal optic chiasm. MR/MR head wo/w con [id number] IMPRESSION: 1. New enhancing metastatic lesion in the left temporal lobe measuring 5.2 mm with surrounding edema. 2. Previously described left parietal peripherally enhancing cystic lesion has decreased in size today measuring 1.6 x 1.0 CM. 3. No other new lesions. 4. No other significant interval changes.
[2020-05-13] MEDS: gadobenate dimeglumine 20 mL vial IV (11:08)
== END 2020-05-13 10:03 | disposition home or self-care (01) ==
LOC: RADSHAW 10:04
PROVIDERS: PCP Family Medicine; Visit Provider Internal Medicine Hematology & Oncology
DX: C34.02 Malignant neoplasm of left main bronchus (principal); G93.89 Other specified disorders of brain
CPT/HCPCS: 70553; A9577

== ENCOUNTER 2020-05-14 13:17 | Outpatient (CLI) | payer MEDICAID, SELFPAY ==
--- NOTE | 2020-05-14 13:15 | CT_ITS ---
WS: [id number] CT CHEST, ABDOMEN AND PELVIS WITH CONTRAST HISTORY: SMALL CELL LUNG CANCER TECHNIQUE: Contiguous 5 mm axial imaging performed through the chest, abdomen and pelvis with IV cont rast, oral contrast has been provided. Coronal and sagittal reformats chest. Coronal and sagittal ref ormats through the abdomen and pelvis. All CT scans at [facility] use at least one of the se dose optimization techniques: automated exposure control; mA and/or kV adjustment per patient size (includes targeted exams where dose is matched to clinical indication); or iterative reconstruction. CONTRAST: Omnipaque 300; 95 mL IV. DLP: 1382.0 mGycm COMPARISON: 01/02/2020, PET/CT 11/02/[address]: Again noted is atelectasis of the superior segment LEFT upper lobe. Dense triangular area o f consolidation. Soft tissue in the proximal LEFT upper lobe bronchus causing collapse. Mild progress ion of the soft tissue in the proximal LEFT upper lobe bronchus causing the obstruction. Increased so ft tissue surrounding the LEFT main pulmonary artery. There is volume loss in the adjacent pleural th ickening in the LEFT upper lobe. RIGHT lung is hyperexpanded. No additional masses or nodules. Increa sed soft tissue at the LEFT hilum extending into the AP window is due to combination of atelectasis a nd possible extension of neoplasm. Abdomen CT: No metastatic lesions are noted within the liver. Spleen is normal. Pancreatic atrophy an d no adrenal mass. Gallbladder is normally distended. Stable cystic lesion in the mid RIGHT kidney. N o obstruction. No ascites or fluid. Mild atherosclerosis aorta. The appendix is normal. No GI tract obstruction. Pelvic CT: There is a small amount of free fluid in the pelvis. This collection in the perineum measu ring 2.6 x 1.3 cm that was not present on the PET/CT of 11/02/2019. Low-attenuation center with periph eral enhancement. May be an abscess at the perineum or pilonidal cyst. There are numerous tiny sclerotic lesions within the pelvis and femoral necks and heads. A few additi onal sclerotic lesions throughout the thoracic spine. These areas were previously described and relat ed to treated metastatic bone disease. CT/CT chest abd pel w con* IMPRESSION: 1. Partial collapse LEFT upper lobe is unchanged. Increasing soft tissue in th e proximal LEFT upper lobe bronchus and encasing the LEFT main pulmonary artery . Suspicious for progression of tumor. It is difficult to determine what is brigitte or versus atelectatic lung. 2. No evidence for metastatic disease to the liver or adrenal glands. 3. Treated sclerotic metastatic disease. 4. New cystic mass with peripheral enhancement in the perineum. This may be an abscess or pilonidal cyst. 5. Small amount of free fluid in the pelvis.
[2020-05-14] MEDS: iohexol 300 mg/mL 50 mL Btl PO (14:09)
[2020-05-14] MEDS: iohexol 300 mg/mL 100 mL Btl IV (14:35)
== END 2020-05-14 13:18 | disposition home or self-care (01) ==
LOC: RADWPI 13:20
PROVIDERS: PCP Family Medicine; Visit Provider Internal Medicine Hematology & Oncology
DX: C34.02 Malignant neoplasm of left main bronchus (principal)
CPT/HCPCS: 71260; 74177; Q9967

== ENCOUNTER 2020-05-15 05:47 | Outpatient (CLI) | payer MEDICAID, SELFPAY ==
--- NOTE | 2020-05-15 12:54 | ONC FU_ITS ---
Dr. Israel follow up note Patient: Tima Malik Unit #: [id number]: [id number] Dicatated By: Amee Israel M.D.Date of Visit:May 15, 2020 Onc Med Follow-up/Prog Note History of Present Illness: Mr. Malik is a 49-year-old gentleman with history of 40 to 50 pounds weight loss since February 2019. Mr Malik reports he sustained an injury to the chest in January or February 2019. Initially, it was not bothersome but then it become progressive to the point where even taking deep breath would hurt. The pain was not mainly in the mid upper anterior chest wall. He also developed progressive shortness of breath. He said he did not have medical insurance so he was taking over the counter pain medicine, which did help some but eventually on August 16, 2019 he went to the [facility] in [place], [place]. He had chest x-ray done which showed complete whiteout of left lung and CTA chest done showed complete collapse of left lung likely secondary to left hilar mass/malignancy. There was a bulky mediastinal and likely left hilar lymphadenopathy present. And moderate to large malignant left pleural effusion patient was transferred to [facility] in [place] where on August 17, 2019 underwent ultrasound-guided left thoracentesis and about 25 cc of cloudy yellow pleural fluid was removed, repeat CT scan of the chest done on August 17, 2019 showed possible obstruction of left main bronchus, a mucous plug or obstructing pulmonary mass or consideration. Complete opacification of left hemithorax appears similar to chest x-ray done on August 16, 2019. Elevation of left diaphragm suggest volume loss due to some degree of atelectasis. Left pleural effusion or large left consolidations are also considered. On August 18, 2019 patient underwent bronchoscopy and endobronchial biopsy and bronchial washing from left main bronchus confirmed invasive small cell carcinoma. Mr Malik underwent CT PET scan on August 27, 2019 which showed hypermetabolic very large left hilar/mediastinal mass and matthew conglomeration. There is also redemonstration of complete collapse of left lung with associated hypermetabolic activity that may be secondary to diffuse tumor involvement or pneumonia depending on clinical context There was also evidence of metastatic disease to bilateral cervical chain lymph nodes as well as posterior upper neck intramuscular metastasis. In addition there is evidence of direct metastatic extension into the right of the trachea and to an epicardial fat lymph node. No findings to suggest metastatic disease below the diaphragm and no evidence of metastatic disease to the right lung. Mr Malik was referred to cancer center in [place] as it is convenient to the patient. Patient has longstanding history of smoking but states he quit in mid August 2019. Patient was admitted to hospital on August 29, 2019 with acute respiratory failure with hypoxia and he was intubated and then he was transferred to [facility] in [place] where he underwent further management and work-up including MRI scan of the head on September 01, 2019 which showed multiple intra-axial metastasis the largest lesion was located within the left parietal lobe. Extracranial soft tissue mass adjacent to spinous process of C2 and posterior arch of C1 suspicious for metastatic disease. Mr Malik was started on systemic chemotherapy with carboplatin/etoposide on August 31 and completed on September 03, 2019. He tolerated it reasonably well but as per patient and his aunt, patient did 'crash' during chemotherapy, his blood pressure dropped and his pulse was fast. He was diagnosed with atrial fibrillation- since then he is having off and on episode of tachycardia and palpitation. Radiation oncology was consulted for brain mets but radiation was not offered because the patient was asymptomatic. He was started on systemic chemotherapy because of progressive and symptomatic intrathoracic disease. The current plan is to complete systemic chemotherapy followed by whole brain radiation therapy. Mr Malik had his third cycle of chemotherapy with Carboplatin/etoposide on 10/29/2019-10/31/2019. (He did receive 1 chemotherapy prior to transferring his care to [facility]his second cycle was complete on 10/03/2019). He is receiving growth factor support for neutropenia. Mr. Malik did have PET CT imaging on 11/02/2019 after 3 cycles of chemotherapy. It was noted there were bilateral cervical lymph nodes described on the prior imaging for CT was not present on this PET CT. There was no head or neck intramuscular metastatic disease present. There was complete postobstructive atelectasis of the left upper lobe. A region of residual activity measuring 1.6 x 3.7 cm with an SUV of 6.2 is consistent with a lung primary. Mild activity in the subaortic node is consistent with local metastatic disease. There was no other significant mediastinal adenopathy present. Innumerable small sclerotic osseous lesions best in the pelvis are most compatible with treated osseous metastatic disease. These were difficult to characterize due to size and background marrow activity from recent Neulasta therapy. He continues with chemotherapy at this time. The followup MRI scan of the brain to assess response .Was done on November 15, 2019 showed excellent response to the chemotherapy as radiation was not given earlier and planning was to do after completion of systemic chemotherapy for extensive intrathoracic disease. And repeat MRI scan showed no evidence of progressed metastatic disease interval decrease in size of cystic appearing peripheral enhancing left parietal lesion measuring 1.6 x 2.6 cm compared to 3.6 x 2.9 cm prior to chemotherapy and also interval decrease in surrounding edema. Previously described lesions are no longer appreciated on the scan no new enhancing lesions. Patient completed 5 cycles of chemotherapy with carboplatin/etoposide on December 19, 2019, had excellent response, was referred to radiation oncology for consolidation radiotherapy to the chest and also to the brain as patient was diagnosed with brain mets at the time of diagnosis. Patient completed radiation therapy to his brain on January 27, 2020 and to his left chest on January 27, 2020 Follow-up CT scan of the chest abdomen pelvis done on May 14, 2020 showed partial collapse left upper lobe is unchanged. Increasing soft tissue in the proximal left upper lobe bronchus and encasing the left main pulmonary artery. Suspicious for progression of tumor. Difficult to determine that tumor versus atelectatic lung. No evidence of metastatic disease to the liver or adrenal gland. New cystic mass with peripheral enhancement in the perineum abscess versus pilonidal cyst. MRI scan of the brain shows new enhancing metastatic lesion in the left temporal lobe 5.2 mm with surrounding edema. Previously described left parietal peripherally enhancing cystic lesion has decreased in size measuring 1.6 cm x 1 cm today. No other new lesions seen. Came for follow-up, complaining of pain in the left shoulder but patient has history of bursitis involving both shoulders in the past used to get cortisone shots. But denies any hemoptysis or hematemesis denies any nausea or vomiting denies any headaches blurred vision or double vision as per patient this morning he had abscess popped up in the upper side of buttock line. He has been having these pop ups since he he was diagnosed with small cell lung cancer. Medications: Aspirin Adult Low Dose 1 Tablet (of 81 mg) Tablet, enteric coated Oral daily, Flonase 2 [place](s) (of 50 mcg/act) Suspension Nasal daily PRN, Ibuprofen 1 - 2 Capsule (of 200 mg) Oral daily PRN, oxyCODONE HCl 1 Capsule (of 5 mg) Oral q 8 hours PRN Allergies: Dexamethasone Review of Systems: Review of Systems is not available for this patient. Vital Signs: Performed on May 15, 2020 09:01 Height - 71.00 in Weight - 133.6 lbs (LOW) BSA - 1.78 sq.m BMI - 18.63 Temperature - 99 F (HIGH) Pulse - 102 /min (HIGH) Respiration - 17 /min BP - 129/80 mm(hg) O2 Sat - 97 % Pain - 9 Performance Status: 1 - No physically strenuous activity, but ambulatory and able to carry out light or sedentary work (e.g. office work, light house work). (ECOG) Physical Examination: ENMT - No mouth sores, no thrush, no jaundice, Respiratory - Poor air entry otherwise clear, Cardiovascular - Regular rate and rhythm of heart, Abdomen - Soft, bowel sounds present, Extremities - No visible edema. Lab/Imaging: Test performed on May 14, 2020 10:16 Glucose 87 mg/dL BUN 11 mg/dL Creatinine 0.85 mg/dL Cr Clearance (Est) 91.54 mL/min Sodium 138 mmol/L Potassium 4.0 mmol/L Chloride 102 mmol/L CO2 23 mmol/L Calcium 9.5 mg/dL Protein, Total 7.0 g/dL Albumin 4.0 g/dL Bilirubin, Total 0.6 mg/dL Alkaline Phosphatase 133 IU/L AST (SGOT) 15 IU/L ALT (SGPT) 9 IU/L WBC 7.1 10^9/L RBC 4.63 10^12/L HGB 13.3 g/dL HCT 40.6 % MCV 87.7 fl MCH 28.7 pg MCHC 32.8 g/dL RDW 13.9 % Platelet Count 172 10^9/L MPV 9.2 fL Neutrophils (Gran) 5.06 10^9/L Lymphocytes 1.25 10^9/L Monocytes 0.70 10^9/L Eosinophils 0.06 10^9/L Basophils 0.03 10^9/L Manual Lymphocytes 18 % Manual Monocytes 10 % Manual Eosinophils 1 % Manual Basophils 0 % Test performed on Feb 12, 2020 09:12 Manual Diff NO SPECIMEN OF 203077 Test performed on Dec 31, 2019 15:36 ABO & Rh Type # 2 AP Test performed on Dec 31, 2019 10:39 Platelets Leuko Reduced [id number] OP PLTLR ISSUED 12/31/19 1533 [id number] AP PLTLR ISSUED 12/31/19 1535 Neutrophil % 42.0 % Eosinophil % 0.8 % Basophils % 0.4 % NRBC % 0 % Impression: Small cell lung cancer involving left lung, per bronchoscopy done on August 18, 2019 Extensive loco- regional disease with bilateral cervical lymph nodes involvement. CT PET scan done on August 27, 2019 showed hypermetabolic large left hilar/mediastinal mass with matthew conglomeration in keeping with known small cell lung cancer. Also redemonstration of complete collapse of left lung with associated hypermetabolic activity may be secondary to diffuse tumor involvement or pneumonia There is evidence of metastatic disease to bilateral cervical chain lymph nodes as well as posterior upper neck intramuscular metastasis. In addition there is evidence of direct metastatic extension to the right of trachea and to an epicardial fat lymph node. No findings to suggest metastatic disease below diaphragm. No evidence of metastatic disease to the right lung. MRI scan of the brain done on September 01, 2019 at [facility] showed extensive brain mets but asymptomatic As per radiation oncology consultation at [facility] radiation therapy to brain was postponed till completion of systemic chemotherapy Started on Systemic chemotherapy with carboplatin/etoposide on September 01, 2019, first cycle was given at [facility] Longstanding history of smoking, quit in mid August 2019. Clinically, patient is doing well with no new signs symptoms suggestive of disease progression, tolerating systemic chemotherapy with carboplatin/etoposide well but with expected side effects e.g. progressive neutropenia/leukopenia causing delay in chemotherapy schedule with cycle 2. We have given him Neulasta to prevent chemotherapy-induced leukopenia/neutropenia and further delay in his chemotherapy schedule. Mr. Malik did have PET CT imaging on 11/02/2019 after 3 cycles of chemotherapy. It was noted there were bilateral cervical lymph nodes described on the prior imaging for CT was not present on this PET CT. There was no head or neck intramuscular metastatic disease present. There was complete postobstructive atelectasis of the left upper lobe. A region of residual activity measuring 1.6 x 3.7 cm with an SUV of 6.2 is consistent with a lung primary. Mild activity in the subaortic node is consistent with local metastatic disease. There was no other significant mediastinal adenopathy present. Innumerable small sclerotic osseous lesions best in the pelvis are most compatible with treated osseous metastatic disease. These were difficult to characterize due to size and background marrow activity from recent Neulasta therapy. He continues with chemotherapy at this time. The followup MRI scan of the brain to assess response has not been obtained as of this visit. recommendations for further plan of care per his last office note suggests in case patient has complete response, then will discuss with radiation oncology regarding radiation therapy to the thorax concurrent versus sequential followed by whole brain radiation therapy as, patient was diagnosed with brain mets at the time of diagnosis. We will also discuss about adding immunotherapy Tecentriq, as after completion of recommended chemotherapy, may continue with maintenance immunotherapy with Tecentriq alone . But patient decided to wait till follow-up CT scan reports. Which was done on May 14, 2019, MRI scan of the brain shows new enhancing metastatic lesion in the left temporal lobe 5.2 mm with surrounding edema. Previously described left parietal peripherally enhancing cystic lesion has decreased in size 1.6 x 1 cm. No new lesion seen and CT scan of chest abdomen pelvis done on May 14, 2020 shows partial collapse left upper lobe is unchanged. Increasing soft tissue in the proximal left upper lobe bronchus and encasing left main pulmonary artery suspicious for progression of tumor but difficult to determine tumor versus atelectatic lung. No evidence of metastatic disease to the liver or adrenal gland and and pelvis 2.6 x 1.3 cm collection of fluid in the perineum consistent with abscess versus pilonidal cyst Plan: Discussed with patient regarding his labs white blood count 7.1 hemoglobin 13.3 hematocrit 40.6 platelets 172,000, CMP within normal limits and follow-up CT scan of chest abdomen pelvis findings and MRI scan of the brain Clinically, patient is doing reasonably well with no new signs symptom suggestive of disease progression but follow-up MRI scan of brain shows subcentimeter nodule in the left temporal lobe with surrounding edema and no other new lesion seen except previously described 1.6 x 1.0 cm lesion in left parietal lobe which has decreased in size. CT scan of chest abdomen pelvis shows persistent partial collapse left upper lobe which is unchanged. Increased soft tissue in the proximal left upper lobe bronchus and encasing left main pulmonary artery. Suspicious for tumor progression but difficult to determine tumor versus atelectasis. No other abnormality seen in the liver or adrenal gland. Accepting pelvis new cystic mass with peripheral enhancement in the perineum abscess versus pilonidal cyst. As per patient this morning he had abscess pop up in his upper side of buttock line and now feeling better and is using antibiotic cream. He said he has noticed this pops up since he was diagnosed with small cell lung cancer. Patient was suggested to see the surgeon for possible pilonidal cyst but patient declined. Denies any fever chills As far as left upper lobe mass is concerned, could be recurrence or atelectasis so we will consider CT PET scan if it shows no evidence of recurrence we will consider refer to radiation for SRS to the new solitary brain lesion As far as left shoulder pain is concerned, will refer him to orthopedic for cortisone injection or management Patient is also complaining of lower back pain sometimes radiate to right leg, etiology unclear again if PET scan is unremarkable, will consider MRI scan of lumbosacral area to rule out any disc herniation or arthritis. Patient return to clinic after CT PET scan for further discussion Signed By: Amee Israel M.D. <<Signature on File>>
== END 2020-05-15 05:48 | disposition home or self-care (01) ==
LOC: ONCMED 05:48
PROVIDERS: PCP Family Medicine; Visit Provider Internal Medicine Hematology & Oncology
DX: C34.02 Malignant neoplasm of left main bronchus (principal); C79.31 Secondary malignant neoplasm of brain; C77.1 Secondary and unspecified malignant neoplasm of intrathoracic lymph nodes; Z92.3 Personal history of irradiation; Z87.891 Personal history of nicotine dependence; Z79.899 Other long term (current) drug therapy
CPT/HCPCS: 99215

== ENCOUNTER 2020-06-02 05:52 | Outpatient (CLI) | payer MEDICAID, SELFPAY ==
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
== END 2020-06-02 05:53 | disposition home or self-care (01) ==
LOC: ONCMED 05:53
PROVIDERS: PCP Family Medicine; Visit Provider Internal Medicine Hematology & Oncology
DX: C34.02 Malignant neoplasm of left main bronchus (principal); C79.31 Secondary malignant neoplasm of brain; C77.8 Secondary and unspecified malignant neoplasm of lymph nodes of multiple regions; M25.512 Pain in left shoulder; M25.511 Pain in right shoulder; Z79.899 Other long term (current) drug therapy; Z92.3 Personal history of irradiation
CPT/HCPCS: 99215

== ENCOUNTER 2020-06-24 11:27 | Outpatient (CLI) | payer MEDICAID, SELFPAY ==
[2020-06-24 12:13] LABS: Basophils # 0.1 10^3/uL (0.0-0.1); Basophils % 0.9 %; Eosinophils % 0.5 %; Hemoglobin 13.5 g/dL (11.7-16.6); Lymphocytes # 1.2 10^3/uL (0.8-4.8); Mean Corpuscular HGB Conc 32.1 g/dL (30.0-36.0); Mean Corpuscular Hemoglobin 29.4 pg (28.0-34.0); Mean Corpuscular Volume 91.5 fL (80-94); Mean Platelet Volume 9.1 fL (7.4-10.4); Monocytes # 0.4 10^3/uL (0.2-0.9); Monocytes % 5.8 %; Neutrophils # 4.81 10^3/uL (1.8-7.7); Neutrophils % 73.5 %; Nucleated Red Blood Cells % 0 %; Platelet Count 214 10^3/cmm (130-400); Red Blood Count 4.59 10^6/uL (4.1-5.3); White Blood Count 6.5 10^3/uL (4.0-10.0)
[2020-06-24 12:31] LABS: Alanine Aminotransferase 10 U/L (0-41); Albumin Level 4.1 g/dL (3.5-5.2); Alkaline Phosphatase 125 IU/L (40-130); Anion Gap 9.2 (5-19); Aspartate Amino Transferase 14 U/L (0-40); Blood Urea Nitrogen 16 mg/dL (6-20); Calcium 8.8 mg/dL (8.5-10.5); Carbon Dioxide 29 mmol/L (22-29); Chloride 103 mmol/L (98-107); Globulin 2.4 g/dL (1.3-4.6); Glomerular Filtration Rate 120.9 mL/min (90-130); Glucose 123 mg/dL (65-115); Osmolality Calculated 287 mOsm/kg (285-295); Potassium 4.2 mmol/L (3.5-5.1); Sodium 137 mmol/L (136-145); Total Bilirubin 0.3 mg/dL (0.15-1.2); Total Protein 6.5 g/dL (6.6-8.7)
[2020-06-24] MEDS: sodium chloride 0.9% 250 ML 75 ML IV (15:20)
--- NOTE | 2020-07-11 23:03 | ONC FU_ITS ---
[facility] M Maldonado Patient Note Patient: Tima Malik Unit #: [id number]: 1970 Dictated By: Josh RobertsDate of Visit: Jun 24, 2020 Onc MED Follow-Up/Prog Note Chief Complaint: Small cell lung cancer History of Present Illness: Mr. Malik is a 49-year-old gentleman with history of 40 to 50 pounds weight loss since February 2019. Mr Malik reports he sustained an injury to the chest in January or February 2019. Initially, it was not bothersome but then it become progressive to the point where even taking deep breath would hurt. The pain was not mainly in the mid upper anterior chest wall. He also developed progressive shortness of breath. He said he did not have medical insurance so he was taking over the counter pain medicine, which did help some but eventually on August 16, 2019 he went to the [facility] in [place], [place]. He had chest x-ray done which showed complete whiteout of left lung and CTA chest done showed complete collapse of left lung likely secondary to left hilar mass/malignancy. There was a bulky mediastinal and likely left hilar lymphadenopathy present. And moderate to large malignant left pleural effusion patient was transferred to [facility] in [place] where on August 17, 2019 underwent ultrasound-guided left thoracentesis and about 25 cc of cloudy yellow pleural fluid was removed, repeat CT scan of the chest done on August 17, 2019 showed possible obstruction of left main bronchus, a mucous plug or obstructing pulmonary mass or consideration. Complete opacification of left hemithorax appears similar to chest x-ray done on August 16, 2019. Elevation of left diaphragm suggest volume loss due to some degree of atelectasis. Left pleural effusion or large left consolidations are also considered. On August 18, 2019 patient underwent bronchoscopy and endobronchial biopsy and bronchial washing from left main bronchus confirmed invasive small cell carcinoma. Mr Malik underwent CT PET scan on August 27, 2019 which showed hypermetabolic very large left hilar/mediastinal mass and matthew conglomeration. There is also redemonstration of complete collapse of left lung with associated hypermetabolic activity that may be secondary to diffuse tumor involvement or pneumonia depending on clinical context. There was also evidence of metastatic disease to bilateral cervical chain lymph nodes as well as posterior upper neck intramuscular metastasis. In addition there is evidence of direct metastatic extension into the right of the trachea and to an epicardial fat lymph node. No findings to suggest metastatic disease below the diaphragm and no evidence of metastatic disease to the right lung. Mr Malik was referred to [facility] in [place] as it is convenient to the patient. Patient has longstanding history of smoking but states he quit in mid August 2019. Patient was admitted to hospital on August 29, 2019 with acute respiratory failure with hypoxia and he was intubated and then he was transferred to [facility] in [place] where he underwent further management and work-up including MRI scan of the head on September 01, 2019 which showed multiple intra-axial metastasis the largest lesion was located within the left parietal lobe. Extracranial soft tissue mass adjacent to spinous process of C2 and posterior arch of C1 suspicious for metastatic disease. Mr Malik was started on systemic chemotherapy with carboplatin/etoposide on August 31 and completed on September 03, 2019. He tolerated it reasonably well but as per patient and his aunt, patient did 'crash' during chemotherapy, his blood pressure dropped and his pulse was fast. He was diagnosed with atrial fibrillation- since then he is having off and on episode of tachycardia and palpitation. Radiation oncology was consulted for brain mets but radiation was not offered because the patient was asymptomatic. He was started on systemic chemotherapy because of progressive and symptomatic intrathoracic disease. The current plan is to complete systemic chemotherapy followed by whole brain radiation therapy. Mr Malik had his third cycle of chemotherapy with Carboplatin/etoposide on 10/29/2019-10/31/2019. (He did receive 1 chemotherapy prior to transferring his care to [facility]-his second cycle was complete on 10/03/2019). He is receiving growth factor support for neutropenia. Mr. Malik did have PET CT imaging on 11/02/2019 after 3 cycles of chemotherapy. It was noted there were bilateral cervical lymph nodes described on the prior imaging for CT was not present on this PET CT. There was no head or neck intramuscular metastatic disease present. There was complete postobstructive atelectasis of the left upper lobe. A region of residual activity measuring 1.6 x 3.7 cm with an SUV of 6.2 is consistent with a lung primary. Mild activity in the subaortic node is consistent with local metastatic disease. There was no other significant mediastinal adenopathy present. Innumerable small sclerotic osseous lesions best in the pelvis are most compatible with treated osseous metastatic disease. These were difficult to characterize due to size and background marrow activity from recent Neulasta therapy. He continues with chemotherapy at this time. The followup MRI scan of the brain to assess response .Was done on November 15, 2019 showed excellent response to the chemotherapy as radiation was not given earlier and planning was to do after completion of systemic chemotherapy for extensive intrathoracic disease. And repeat MRI scan showed no evidence of progressed metastatic disease interval decrease in size of cystic appearing peripheral enhancing left parietal lesion measuring 1.6 x 2.6 cm compared to 3.6 x 2.9 cm prior to chemotherapy and also interval decrease in surrounding edema. Previously described lesions are no longer appreciated on the scan no new enhancing lesions. Mr Malik completed 5 cycles of chemotherapy with carboplatin/etoposide on December 19, 2019, had excellent response. He was referred to radiation oncology for consolidation radiotherapy to the chest and also to the brain as patient was diagnosed with brain mets at the time of diagnosis. Mr Malik completed radiation therapy to his brain on January 27, 2020 and to his left chest on January 27, 2020. Follow-up CT scan of the chest abdomen pelvis done on May 14, 2020 showed partial collapse left upper lobe is unchanged. Increasing soft tissue in the proximal left upper lobe bronchus and encasing the left main pulmonary artery. Suspicious for progression of tumor. Difficult to determine that tumor versus atelectatic lung. No evidence of metastatic disease to the liver or adrenal gland. New cystic mass with peripheral enhancement in the perineum abscess versus pilonidal cyst. MRI scan of the brain from May reported a new enhancing metastatic lesion in the left temporal lobe 5.2 mm with surrounding edema. Previously described left parietal peripherally enhancing cystic lesion has decreased in size measuring 1.6 cm x 1 cm today. No other new lesions seen. history of bursitis involving both shoulders in the past used to get cortisone shots. Follow-up CT PET scan done on 05/23/2020 shows left upper lobe atelectasis seen on prior study on 11/02/2019 is unchanged on current, now with an SUV of 8.3 compared to 6.2 previously. The subaortic lymph node is significantly progressed now measuring 2.3 cm in diameter with SUV of 14.7. A left-sided anterior diaphragmatic node which was subcentimeter in size and FDG negative on prior study now measuring 1.5 cm and SUV of 6.6 and no evidence of distant mets. Mr. Malik has had follow-up with Dr. Israel regarding his PET/CT from May 2020. He was offered treatment with Tecentriq and is here today to begin his first cycle. He has no new complaints. He has persistent left shoulder pain and has been referred to orthopedics. He is awaiting that appointment. He also has right shoulder pain but it is less than the left side. He states he has had good luck with cortisone injections in them before and is hopeful that can be done again. He states he is doing good overall other than the shoulder pain. He denies any headaches or vision changes. He denies any double vision. He denies fever or chills. He states he has had no hemoptysis. He is somewhat short of breath but no worse than what he states is normal. He denies any orthopnea. He denies any chest pain or palpitations. He has had no diarrhea or constipation. He denies any bladder issues. He has had no lower extremity edema and has no neuropathy complaints. He states his appetite is fair and his energy is fair. His ECOG is 1. Past Medical History: Hypertension Left pleural effusion Respiratory failure Past Surgical History: Mr. Malik's surgical history is unremarkable. Allergies: Dexamethasone Medications: Aspirin Adult Low Dose 1 Tablet (of 81 mg) Tablet, enteric coated Oral daily Flonase 2 [place](s) (of 50 mcg/act) Suspension Nasal daily PRN Ibuprofen 1 - 2 Capsule (of 200 mg) Oral daily PRN oxyCODONE HCl 1 Capsule (of 5 mg) Oral q 8 hours PRN Family History: Mr. Malik's mother at age 68: esophageal cancer. Mr. Malik's father at age 71: lung cancer. Social History: Mr. Malik is single. Mr. Malik quit smoking less than one year ago but had smoked 2.0 packs/day for 37 years. He is a former drinker. He has indicated exposure to the following products: recreational drug use. Mr. Malik reports the following support systems: lives with spouse, significant other, family, or friends, supportive family/friends willing to assist with needs, and adequate transportation available for expected visits. His diet consists of regular meals. He indicates his activity level as: daily activities. Pt states he smokes marijuana. Review Of Symptoms: Vital Signs: Performed on Jun 24, 2020 14:28 Height - 71.00 in Weight - 133.4 lbs (HIGH) BSA - 1.78 sq.m BMI - 18.61 Temperature - 98.4 F Pulse - 90 /min Respiration - 18 /min BP - 113/75 mm(hg) O2 Sat - 98 % Pain - 7 Fatigue - 2,1 - No physically strenuous activity, but ambulatory and able to carry out light or sedentary work (e.g. office work, light house work). (ECOG) Physical Examination: Constitutional Alert, oriented, no acute distress. Skin pink, warm and dry. Head Normocephalic; atraumatic. Eyes Conjunctivae and sclerae are clear and without icterus. Pupils are reactive and equal. Neck Supple without masses or thyromegaly. No jugular venous distension. Hematologic/Lymphatic No petechiae or purpura. No tender or palpable lymph nodes in the cervical or supraclavicular areas. Respiratory Lungs are clear to auscultation without rhonchi or wheezing. Cardiovascular Regular rate and rhythm of heart without murmurs,clicks, gallops or rubs. Abdomen Non-tender, non-distended, no masses or ascites. Good bowel sounds noted in all quads. No guarding or rebound tenderness. No pulsatile masses. Back/Spine Non-tender to palpation. Extremities No visible deformities, no cyanosis, clubbing or edema. Musculoskeletal No tenderness or swelling, normal range of motion without obvious weakness. Integumentary No rashes or lesions. Neurologic No sensory or motor deficits, normal cerebellar function, normal gait. Psychiatric Alert and oriented times three. Coherent speech. Verbalizes understanding of our discussions today. Laboratory:Test performed on Jun 30, 2020 12:45 Sodium 138 mmol/L Potassium 4.2 mmol/L Chloride 106 mmol/L CO2 25 mmol/L Anion Gap 11.2 BUN 12 mg/dL Creatinine 0.7 mg/dL Cr Clearance (Est) 113.5000 mL/min eGFR 120.9 mL/min Glucose 76 mg/dL Osmolality - Calculated 285 mOsm/kg Calcium 8.4 mg/dL Protein, Total 6.0 g/dL Albumin 3.7 g/dL Globulin 2.3 g/dL Bilirubin, Total 0.4 mg/dL ALT (SGPT) 8 U/L AST (SGOT) 14 U/L Alkaline Phosphatase 113 IU/L WBC 5.8 10 3/uL RBC 4.19 10 6/uL HGB 12.6 g/dL HCT 39.2 % MCV 93.6 fL MCH 30.1 pg MCHC 32.1 g/dL RDW 14.8 % Platelet Count 186 10 3/cmm MPV 9.8 fL Neutrophils 4.33 10 3/uL Lymphocytes 0.9 10 3/uL Monocytes 0.5 10 3/uL Eosinophils 0.1 10 3/uL Basophils 0.0 10 3/uL Neutrophil % 74.3 % Lymphocyte % 16.0 % Monocyte % 7.7 % Eosinophil % 1.0 % Basophils % 0.7 % NRBC % 0 % Test performed on May 14, 2020 10:16 Manual Lymphocytes 18 % Manual Monocytes 10 % Manual Eosinophils 1 % Manual Basophils 0 % Test performed on Feb 12, 2020 09:12 Manual Diff NO SPECIMEN OF [id number] Test performed on Dec 31, 2019 15:36 ABO & Rh Type # 2 AP Test performed on Dec 31, 2019 10:39 Platelets Leuko Reduced [id number] OP PLTLR ISSUED 12/31/19 1533 [id number] AP PLTLR ISSUED 12/31/19 1535 Impression: Small cell lung cancer involving left lung, per bronchoscopy done on August 18, 2019 Extensive loco- regional disease with bilateral cervical lymph nodes involvement. CT PET scan done on August 27, 2019 showed hypermetabolic large left hilar/mediastinal mass with matthew conglomeration in keeping with known small cell lung cancer. Also redemonstration of complete collapse of left lung with associated hypermetabolic activity may be secondary to diffuse tumor involvement or pneumonia There is evidence of metastatic disease to bilateral cervical chain lymph nodes as well as posterior upper neck intramuscular metastasis. In addition there is evidence of direct metastatic extension to the right of trachea and to an epicardial fat lymph node. No findings to suggest metastatic disease below diaphragm. No evidence of metastatic disease to the right lung. MRI scan of the brain done on September 01, 2019 at [facility] showed extensive brain mets but asymptomatic As per radiation oncology consultation at [facility] radiation therapy to brain was postponed till completion of systemic chemotherapy Started on Systemic chemotherapy with carboplatin/etoposide on September 01, 2019, first cycle was given at [facility] in [place] Longstanding history of smoking, quit in mid August 2019. Clinically, patient is doing well with no new signs symptoms suggestive of disease progression, tolerating systemic chemotherapy with carboplatin/etoposide well but with expected side effects e.g. progressive neutropenia/leukopenia causing delay in chemotherapy schedule with cycle 2. We have given him Neulasta to prevent chemotherapy-induced leukopenia/neutropenia and further delay in his chemotherapy schedule. Mr. Malik did have PET CT imaging on 11/02/2019 after 3 cycles of chemotherapy. It was noted there were bilateral cervical lymph nodes described on the prior imaging for CT was not present on this PET CT. There was no head or neck intramuscular metastatic disease present. There was complete postobstructive atelectasis of the left upper lobe. A region of residual activity measuring 1.6 x 3.7 cm with an SUV of 6.2 is consistent with a lung primary. Mild activity in the subaortic node is consistent with local metastatic disease. There was no other significant mediastinal adenopathy present. Innumerable small sclerotic osseous lesions best in the pelvis are most compatible with treated osseous metastatic disease. These were difficult to characterize due to size and background marrow activity from recent Neulasta therapy. He continues with chemotherapy at this time. The followup MRI scan of the brain to assess response has not been obtained as of this visit. recommendations for further plan of care per his last office note suggests in case patient has complete response, then will discuss with radiation oncology regarding radiation therapy to the thorax concurrent versus sequential followed by whole brain radiation therapy as, patient was diagnosed with brain mets at the time of diagnosis. We will also discuss about adding immunotherapy Tecentriq, as after completion of recommended chemotherapy, may continue with maintenance immunotherapy with Tecentriq alone . But patient decided to wait till follow-up CT scan reports. Which was done on May 14, 2019, MRI scan of the brain shows new enhancing metastatic lesion in the left temporal lobe 5.2 mm with surrounding edema. Previously described left parietal peripherally enhancing cystic lesion has decreased in size 1.6 x 1 cm. No new lesion seen and CT scan of chest abdomen pelvis done on May 14, 2020 shows partial collapse left upper lobe is unchanged. Increasing soft tissue in the proximal left upper lobe bronchus and encasing left main pulmonary artery suspicious for progression of tumor but difficult to determine tumor versus atelectatic lung. No evidence of metastatic disease to the liver or adrenal gland and and pelvis 2.6 x 1.3 cm collection of fluid in the perineum consistent with abscess versus pilonidal cyst Follow-up CT PET scan done on 05/23/2020 showed no morphological changes in the left upper lobe atelectasis but now with increasing FDG uptake. Progression of subaortic and left anterior diaphragmatic node. No change in sterilized osseous metastatic disease. Plan: Problems Addressed Today 1. Small cell lung cancer with history of extensive brain mets but asymptomatic. He was started on systemic chemotherapy with carboplatin etoposide on September 01, 2019 with his first cycle given at [facility] in [facility]. Mr. Malik received a total of 30 Soto of radiation to the whole brain from January 12, 2022 January 27, [address] [facility] Israel discussed with Mr Malik regarding his PET/CT scan from 05/23/2020 which showed disease progression based on increased FDG uptake in the persistent left upper lobe atelectasis and significant increase in size of subaortic lymph node which is 2.3 cm with SUV of 14.7 and the left-sided anterior diaphragmatic node which was subcentimeter in size and FDG negative previously now 1.5 cm with SUV of 6.6, Based on these findings, Mr Malik has agreed to proceed with immunotherapy with Tecentriq, plan to give him Tecentriq 1200 mg intravenously every 3 weeks and then repeat PET/CT scan after 4 doses to assess the response. A. Proceed with cycle 1 atezolizumab (Tecentriq). B. Standard premeds prior to immunotherapy. C. Today's labs reviewed in detail discussed with Mr. Malik and a copy was given to him. WBC 6.5, hemoglobin 13.5, platelets 214,000 ANC is 4800. Sodium 137, potassium 4.2, random glucose 123, creatinine 0.7 LFTs are normal. Baseline TSH was pending at visit. D. He may have Compazine and lorazepam as needed on hand for antiemesis at home. 2. Bilateral shoulder pain more on the left side A. Referral made to orthopedics for further followup per Dr Jhonatan Toney. He does have ibuprofen 400 mg and takes to 3 times daily also has backup oxycodone 5 mg immediate release to use as needed for pain. 3. Follow-up plan A. We will plan to see him back in 3 weeks with CBC CMP TSH. B. Mr. Malik was instructed to contact us in the interim should questions or problems arise. 4. Chemotherapy patient treatment plan education regarding Tecentriq A. The patient was informed of the chemotherapy/immunotherapy plan and specific drugs were discussed. We also discussed how chemo/immuno therapy works and identified common side effects including alopecia; myelosuppression-including neutropenia, anemia, thrombocytopenia; peripheral neuropathy; fatigue; nausea; diarrhea; constipation; bleeding or bruising; skin changes; mouth sores; drug hypersensitivity/allergic reactions or anaphylaxis and extravasation. Specific side effects of immunotherapy discussed included but not limited to: Infusion reactions such as anaphylaxis, hives, shortness of breath, difficulty swallowing, fever, chills, hypotension hypertension, tremors/shakes, and anxiety amongst others ??? pneumonitis: new or worsening cough; chest pain; and shortness of breath. ??? Colitis: diarrhea or more bowel movements than usual; blood in stools or dark, tarry, sticky stools; and severe stomach area (abdomen) pain or tenderness. ??? Encephalitis: confusion, headaches, mental status changes, disorientation * hepatitis: jaundice; severe nausea or vomiting; pain on the right side of the abdomen; drowsiness; dark urine; bleeding or bruise more easily than normal. ??? nephritis and kidney failure: including decrease in the amount of urine; hematuria; lower extremity edema; and loss of appetite. ??? thyroid and pituitary changes that may include: headaches that will not go away or unusual headaches; extreme tiredness, weight gain or weight loss; changes in mood or behavior, such as decreased sex drive, irritability, or forgetfulness; dizziness or fainting; hair loss; feeling cold; constipation; and voice gets deeper. ???rash; changes in eyesight; severe or persistent muscle or joint pains; and severe muscle weakness. They have also been informed how to contact the clinic with side effects or symptoms, including but not limited to fever greater than 100.4???, chills, sore throat, bleeding or bruising that is not explained or mouth sores, cough, nasal discharge, diarrhea, constipation, nausea and/or vomiting not relieved with medications on hand at home, as well as any other concern or question they may have. Our hours are 8:00 a.m. to 4:30 p.m. on Monday through and 8-12:00 on Monday. However, someone is individualized education plan aide 24 hours per day and they have been advised to contact the [facility] at if it is after hours. We have also discussed potential long-term side effects of chemotherapy including secondary cancers, infertility, pulmonary complications, cardiac complications, and again peripheral neuropathy. We have discussed that they certainly need to let us know before taking any antioxidants or herbal or further dietary supplements, as we are unsure of how these agents react with chemotherapy and we request that they avoid these products for now. They were informed that it is okay to take multivitamins at normal doses. They verbally state that they understand to take all medications as directed by their healthcare provider unless otherwise indicated. They also verbalized understanding to leave the pressure dressing on the intravenous administration site for at least two hours after treatment. Instructions for oral care with baking soda and salt water rinses as well as a guide for use of [id number] medication were provided with the treatment plan. They have been given a written patient treatment plan, of which a copy is in the chart, as well as specific drug information. They have no questions and verbalized understanding and are willing to proceed with treatment at this time. Total time spent with this patient's care today including review of records prior to visit; review of treatment plan, side effect identification and management; answering various questions and post visit documentation was 60 minutes. Signed By: Josh Roberts-, AOCNP Amee Israel MD <<Signature on File>>
== END 2020-06-24 11:28 | disposition home or self-care (01) ==
LOC: ONCMED 11:31
PROVIDERS: PCP Family Medicine; Visit Provider Nurse Practitioner
DX: Z51.12 Encounter for antineoplastic immunotherapy (principal); C34.02 Malignant neoplasm of left main bronchus; C79.31 Secondary malignant neoplasm of brain; D64.9 Anemia, unspecified; I10 Essential (primary) hypertension; M25.511 Pain in right shoulder; M25.512 Pain in left shoulder; Z87.891 Personal history of nicotine dependence; Z79.899 Other long term (current) drug therapy
CPT/HCPCS: 80053; 85025; 96413; 99215; J7050; J9022

== ENCOUNTER 2020-06-30 06:01 | Outpatient (CLI) | payer MEDICAID, SELFPAY ==
[2020-06-30 13:16] LABS: Basophils % 0.7 %; Eosinophils # 0.1 10^3/uL (0.0-0.8); Hematocrit 39.2 % (42.0-52.0); Hemoglobin 12.6 g/dL (11.7-16.6); Lymphocytes # 0.9 10^3/uL (0.8-4.8); Mean Corpuscular HGB Conc 32.1 g/dL (30.0-36.0); Mean Corpuscular Hemoglobin 30.1 pg (28.0-34.0); Mean Corpuscular Volume 93.6 fL (80-94); Mean Platelet Volume 9.8 fL (7.4-10.4); Monocytes # 0.5 10^3/uL (0.2-0.9); Monocytes % 7.7 %; Neutrophils # 4.33 10^3/uL (1.8-7.7); Neutrophils % 74.3 %; Nucleated Red Blood Cells % 0 %; Platelet Count 186 10^3/cmm (130-400); Red Blood Count 4.19 10^6/uL (4.1-5.3); Red Cell Distribution Width 14.8 % (12.1-15.1); White Blood Count 5.8 10^3/uL (4.0-10.0)
[2020-06-30 13:41] LABS: Alanine Aminotransferase 8 U/L (0-41); Albumin Level 3.7 g/dL (3.5-5.2); Alkaline Phosphatase 113 IU/L (40-130); Anion Gap 11.2 (5-19); Aspartate Amino Transferase 14 U/L (0-40); Blood Urea Nitrogen 12 mg/dL (6-20); Calcium 8.4 mg/dL (8.5-10.5); Carbon Dioxide 25 mmol/L (22-29); Chloride 106 mmol/L (98-107); Globulin 2.3 g/dL (1.3-4.6); Glomerular Filtration Rate 120.9 mL/min (90-130); Glucose 76 mg/dL (65-115); Osmolality Calculated 285 mOsm/kg (285-295); Potassium 4.2 mmol/L (3.5-5.1); Sodium 138 mmol/L (136-145); Total Bilirubin 0.4 mg/dL (0.15-1.2)
--- NOTE | 2020-07-13 23:14 | ONC FU_ITS ---
[facility] M Maldonado Patient Note Patient: Tima Malik Unit #: [id number]: [id number] Dictated By: Josh RobertsDate of Visit: Jun 30, 2020 Onc MED Follow-Up/Prog Note Chief Complaint: Small cell lung cancer History of Present Illness: Mr. Malik is a 49-year-old gentleman with history of 40 to 50 pounds weight loss since February 2019. Mr Malik reports he sustained an injury to the chest in January or February 2019. Initially, it was not bothersome but then it become progressive to the point where even taking deep breath would hurt. The pain was not mainly in the mid upper anterior chest wall. He also developed progressive shortness of breath. He said he did not have medical insurance so he was taking over the counter pain medicine, which did help some but eventually on August 16, 2019 he went to the [facility] in [place], [place]. He had chest x-ray done which showed complete whiteout of left lung and CTA chest done showed complete collapse of left lung likely secondary to left hilar mass/malignancy. There was a bulky mediastinal and likely left hilar lymphadenopathy present. And moderate to large malignant left pleural effusion patient was transferred to [facility] in [place] where on August 17, 2019 underwent ultrasound-guided left thoracentesis and about 25 cc of cloudy yellow pleural fluid was removed, repeat CT scan of the chest done on August 17, 2019 showed possible obstruction of left main bronchus, a mucous plug or obstructing pulmonary mass or consideration. Complete opacification of left hemithorax appears similar to chest x-ray done on August 16, 2019. Elevation of left diaphragm suggest volume loss due to some degree of atelectasis. Left pleural effusion or large left consolidations are also considered. On August 18, 2019 patient underwent bronchoscopy and endobronchial biopsy and bronchial washing from left main bronchus confirmed invasive small cell carcinoma. Mr Malik underwent CT PET scan on August 27, 2019 which showed hypermetabolic very large left hilar/mediastinal mass and matthew conglomeration. There is also redemonstration of complete collapse of left lung with associated hypermetabolic activity that may be secondary to diffuse tumor involvement or pneumonia depending on clinical context There was also evidence of metastatic disease to bilateral cervical chain lymph nodes as well as posterior upper neck intramuscular metastasis. In addition there is evidence of direct metastatic extension into the right of the trachea and to an epicardial fat lymph node. No findings to suggest metastatic disease below the diaphragm and no evidence of metastatic disease to the right lung. Mr Malik was referred to cancer center in [place] as it is convenient to the patient. Patient has longstanding history of smoking but states he quit in mid August 2019. Patient was admitted to hospital on August 29, 2019 with acute respiratory failure with hypoxia and he was intubated and then he was transferred to [facility] in [place] where he underwent further management and work-up including MRI scan of the head on September 01, 2019 which showed multiple intra-axial metastasis the largest lesion was located within the left parietal lobe. Extracranial soft tissue mass adjacent to spinous process of C2 and posterior arch of C1 suspicious for metastatic disease. Mr Malik was started on systemic chemotherapy with carboplatin/etoposide on August 31 and completed on September 03, 2019. He tolerated it reasonably well but as per patient and his aunt, patient did 'crash' during chemotherapy, his blood pressure dropped and his pulse was fast. He was diagnosed with atrial fibrillation- since then he is having off and on episode of tachycardia and palpitation. Radiation oncology was consulted for brain mets but radiation was not offered because the patient was asymptomatic. He was started on systemic chemotherapy because of progressive and symptomatic intrathoracic disease. The current plan is to complete systemic chemotherapy followed by whole brain radiation therapy. Mr Malik had his third cycle of chemotherapy with Carboplatin/etoposide on 10/29/2019-10/31/2019. (He did receive 1 chemotherapy prior to transferring his care to [facility] [place]-his second cycle was complete on 10/03/2019). He is receiving growth factor support for neutropenia. Mr. Malik did have PET CT imaging on 11/02/2019 after 3 cycles of chemotherapy. It was noted there were bilateral cervical lymph nodes described on the prior imaging for CT was not present on this PET CT. There was no head or neck intramuscular metastatic disease present. There was complete postobstructive atelectasis of the left upper lobe. A region of residual activity measuring 1.6 x 3.7 cm with an SUV of 6.2 is consistent with a lung primary. Mild activity in the subaortic node is consistent with local metastatic disease. There was no other significant mediastinal adenopathy present. Innumerable small sclerotic osseous lesions best in the pelvis are most compatible with treated osseous metastatic disease. These were difficult to characterize due to size and background marrow activity from recent Neulasta therapy. He continues with chemotherapy at this time. The followup MRI scan of the brain to assess response .Was done on November 15, 2019 showed excellent response to the chemotherapy as radiation was not given earlier and planning was to do after completion of systemic chemotherapy for extensive intrathoracic disease. And repeat MRI scan showed no evidence of progressed metastatic disease interval decrease in size of cystic appearing peripheral enhancing left parietal lesion measuring 1.6 x 2.6 cm compared to 3.6 x 2.9 cm prior to chemotherapy and also interval decrease in surrounding edema. Previously described lesions are no longer appreciated on the scan no new enhancing lesions. Patient completed 5 cycles of chemotherapy with carboplatin/etoposide on December 19, 2019, had excellent response, was referred to radiation oncology for consolidation radiotherapy to the chest and also to the brain as patient was diagnosed with brain mets at the time of diagnosis. Patient completed radiation therapy to his brain on January 27, 2020 and to his left chest on January 27, 2020 Follow-up CT scan of the chest abdomen pelvis done on May 14, 2020 showed partial collapse left upper lobe is unchanged. Increasing soft tissue in the proximal left upper lobe bronchus and encasing the left main pulmonary artery. Suspicious for progression of tumor. Difficult to determine that tumor versus atelectatic lung. No evidence of metastatic disease to the liver or adrenal gland. New cystic mass with peripheral enhancement in the perineum abscess versus pilonidal cyst. MRI scan of the brain shows new enhancing metastatic lesion in the left temporal lobe 5.2 mm with surrounding edema. Previously described left parietal peripherally enhancing cystic lesion has decreased in size measuring 1.6 cm x 1 cm today. No other new lesions seen. history of bursitis involving both shoulders in the past used to get cortisone shots. Follow-up CT PET scan done on 05/23/2020 shows left upper lobe atelectasis seen on prior study on 11/02/2019 is unchanged on current, now with an SUV of 8.3 compared to 6.2 previously. The subaortic lymph node is significantly progressed now measuring 2.3 cm in diameter with SUV of 14.7. A left-sided anterior diaphragmatic node which was subcentimeter in size and FDG negative on prior study now measuring 1.5 cm and SUV of 6.6 and no evidence of distant mets. Mr. Malik is here today for follow-up. He began his first cycle of atezolizumab on 06/24/2020. He states he has tolerated it well overall. He has no new concerns today. He denies any fever or chills. He has had no shortness of breath orthopnea. Denies any mouth sores, sore throat or difficulty swallowing. He denies any cough or hemoptysis. He denies any chest pain or palpitations. He states his bowels and bladder are normal for him. He continues to have shoulder pain that is due to see the orthopedic on July 06 for follow-up/consult. He has no new concerns today. His ECOG is 1. Past Medical History: Hypertension Left pleural effusion Respiratory failure Past Surgical History: Mr. Malik's surgical history is unremarkable. Allergies: Dexamethasone Medications: Aspirin Adult Low Dose 1 Tablet (of 81 mg) Tablet, enteric coated Oral daily Flonase 2 [place](s) (of 50 mcg/act) Suspension Nasal daily PRN Ibuprofen 1 - 2 Capsule (of 200 mg) Oral daily PRN oxyCODONE HCl 1 Capsule (of 5 mg) Oral q 8 hours PRN Family History: Mr. Malik's mother at age 68: esophageal cancer. Mr. Malik's father at age 71: lung cancer. Social History: Mr. Malik is single. Mr. Malik quit smoking less than one year ago but had smoked 2.0 packs/day for 37 years. He is a former drinker. He has indicated exposure to the following products: recreational drug use. Mr. Malik reports the following support systems: lives with spouse, significant other, family, or friends, supportive family/friends willing to assist with needs, and adequate transportation available for expected visits. His diet consists of regular meals. He indicates his activity level as: daily activities. Pt states he smokes marijuana. Review Of Symptoms: <See Above> Vital Signs: Performed on Jun 30, 2020 14:50 Height - 71.00 in Weight - 135.6 lbs (HIGH) BSA - 1.79 sq.m BMI - 18.91 Temperature - 99.7 F (HIGH) Pulse - 102 /min (HIGH) Respiration - 18 /min BP - 100/62 mm(hg) O2 Sat - 97 % Pain - 7 Fatigue - 6,1 - No physically strenuous activity, but ambulatory and able to carry out light or sedentary work (e.g. office work, light house work). (ECOG) Physical Examination: Constitutional Alert, oriented, no acute distress. Skin pink, warm and dry. Head Normocephalic; atraumatic. Eyes Conjunctivae and sclerae are clear and without icterus. Pupils are reactive and equal. Neck Supple without masses or thyromegaly. No jugular venous distension. Hematologic/Lymphatic No petechiae or purpura. No tender or palpable lymph nodes in the cervical or supraclavicular areas. Respiratory Lungs are clear to auscultation without rhonchi or wheezing. Cardiovascular Regular rate and rhythm of heart without murmurs,clicks, gallops or rubs. Abdomen Non-tender, non-distended, no masses or ascites. Good bowel sounds noted in all quads. No guarding or rebound tenderness. No pulsatile masses. Back/Spine Non-tender to palpation. Extremities No visible deformities, no cyanosis, clubbing or edema. Musculoskeletal No tenderness or swelling, normal range of motion without obvious weakness. Integumentary No rashes or lesions. Neurologic No sensory or motor deficits, normal cerebellar function, normal gait. Psychiatric Alert and oriented times three. Coherent speech. Verbalizes understanding of our discussions today. Laboratory:Test performed on Jun 30, 2020 12:45 Sodium 138 mmol/L Potassium 4.2 mmol/L Chloride 106 mmol/L CO2 25 mmol/L Anion Gap 11.2 BUN 12 mg/dL Creatinine 0.7 mg/dL Cr Clearance (Est) 113.5000 mL/min eGFR 120.9 mL/min Glucose 76 mg/dL Osmolality - Calculated 285 mOsm/kg Calcium 8.4 mg/dL Protein, Total 6.0 g/dL Albumin 3.7 g/dL Globulin 2.3 g/dL Bilirubin, Total 0.4 mg/dL ALT (SGPT) 8 U/L AST (SGOT) 14 U/L Alkaline Phosphatase 113 IU/L WBC 5.8 10 3/uL RBC 4.19 10 6/uL HGB 12.6 g/dL HCT 39.2 % MCV 93.6 fL MCH 30.1 pg MCHC 32.1 g/dL RDW 14.8 % Platelet Count 186 10 3/cmm MPV 9.8 fL Neutrophils 4.33 10 3/uL Lymphocytes 0.9 10 3/uL Monocytes 0.5 10 3/uL Eosinophils 0.1 10 3/uL Basophils 0.0 10 3/uL Neutrophil % 74.3 % Lymphocyte % 16.0 % Monocyte % 7.7 % Eosinophil % 1.0 % Basophils % 0.7 % NRBC % 0 % Impression: Small cell lung cancer involving left lung, per bronchoscopy done on August 18, 2019 Extensive loco- regional disease with bilateral cervical lymph nodes involvement. CT PET scan done on August 27, 2019 showed hypermetabolic large left hilar/mediastinal mass with matthew conglomeration in keeping with known small cell lung cancer. Also redemonstration of complete collapse of left lung with associated hypermetabolic activity may be secondary to diffuse tumor involvement or pneumonia There is evidence of metastatic disease to bilateral cervical chain lymph nodes as well as posterior upper neck intramuscular metastasis. In addition there is evidence of direct metastatic extension to the right of trachea and to an epicardial fat lymph node. No findings to suggest metastatic disease below diaphragm. No evidence of metastatic disease to the right lung. MRI scan of the brain done on September 01, 2019 at [facility] showed extensive brain mets but asymptomatic As per radiation oncology consultation at [facility] radiation therapy to brain was postponed till completion of systemic chemotherapy Started on Systemic chemotherapy with carboplatin/etoposide on September 01, 2019, first cycle was given at [facility] in [place] Longstanding history of smoking, quit in mid August 2019. Clinically, patient is doing well with no new signs symptoms suggestive of disease progression, tolerating systemic chemotherapy with carboplatin/etoposide well but with expected side effects e.g. progressive neutropenia/leukopenia causing delay in chemotherapy schedule with cycle 2. We have given him Neulasta to prevent chemotherapy-induced leukopenia/neutropenia and further delay in his chemotherapy schedule. Mr. Malik did have PET CT imaging on 11/02/2019 after 3 cycles of chemotherapy. It was noted there were bilateral cervical lymph nodes described on the prior imaging for CT was not present on this PET CT. There was no head or neck intramuscular metastatic disease present. There was complete postobstructive atelectasis of the left upper lobe. A region of residual activity measuring 1.6 x 3.7 cm with an SUV of 6.2 is consistent with a lung primary. Mild activity in the subaortic node is consistent with local metastatic disease. There was no other significant mediastinal adenopathy present. Innumerable small sclerotic osseous lesions best in the pelvis are most compatible with treated osseous metastatic disease. These were difficult to characterize due to size and background marrow activity from recent Neulasta therapy. He continues with chemotherapy at this time. The followup MRI scan of the brain to assess response has not been obtained as of this visit. recommendations for further plan of care per his last office note suggests in case patient has complete response, then will discuss with radiation oncology regarding radiation therapy to the thorax concurrent versus sequential followed by whole brain radiation therapy as, patient was diagnosed with brain mets at the time of diagnosis. We will also discuss about adding immunotherapy Tecentriq, as after completion of recommended chemotherapy, may continue with maintenance immunotherapy with Tecentriq alone . But patient decided to wait till follow-up CT scan reports. Which was done on May 14, 2019, MRI scan of the brain shows new enhancing metastatic lesion in the left temporal lobe 5.2 mm with surrounding edema. Previously described left parietal peripherally enhancing cystic lesion has decreased in size 1.6 x 1 cm. No new lesion seen and CT scan of chest abdomen pelvis done on May 14, 2020 shows partial collapse left upper lobe is unchanged. Increasing soft tissue in the proximal left upper lobe bronchus and encasing left main pulmonary artery suspicious for progression of tumor but difficult to determine tumor versus atelectatic lung. No evidence of metastatic disease to the liver or adrenal gland and and pelvis 2.6 x 1.3 cm collection of fluid in the perineum consistent with abscess versus pilonidal cyst Follow-up CT PET scan done on 05/23/2020 showed no morphological changes in the left upper lobe atelectasis but now with increasing FDG uptake. Progression of subaortic and left anterior diaphragmatic node. No change in sterilized osseous metastatic disease. Plan/Problems Addressed at this Visit: 1. Small cell lung cancer with history of extensive brain mets but asymptomatic. He was started on systemic chemotherapy with carboplatin etoposide on September 01, 2019 with his first cycle given at [facility] in [facility]. Mr. Malik received a total of 30 [place] of radiation to the whole brain from January 12, 2022 January 27, [address] [facility] Israel discussed with Mr Malik regarding his PET/CT scan from 05/23/2020 which showed disease progression based on increased FDG uptake in the persistent left upper lobe atelectasis and significant increase in size of subaortic lymph node which is 2.3 cm with SUV of 14.7 and the left-sided anterior diaphragmatic node which was subcentimeter in size and FDG negative previously now 1.5 cm with SUV of 6.6, Based on these findings, Mr Malik has agreed to proceed with immunotherapy with Tecentriq, plan to give him Tecentriq 1200 mg intravenously every 3 weeks and then repeat PET/CT scan after 4 doses to assess the response. He began his first cycle on June 24, 2020. A. Proceed with cycle 1 atezolizumab (Tecentriq)-this is day 8 ad he was treated on day 1. He is tolerating it well thus far. B. Supportive care as indicated in the interim.. C. Today's labs reviewed in detail discussed with Mr. Malik and a copy was given to him. WBC 5.8, hemoglobin 12.6, platelets 186,000 ANC is 4330. Potassium 4.2 random glucose 76 LFTs are normal creatinine 0.7. His weight is stable at 135.6. D. He may have Compazine and lorazepam as needed on hand for antiemesis at home. 2. Bilateral shoulder pain more on the left side A. Referral made to orthopedics for further followup per Dr Israel-He reports he has follow-up on July 06, 2020 with orthopedics. B. He does have ibuprofen 400 mg and takes to 3 times daily also has backup oxycodone 5 mg immediate release to use as needed for pain. 3. Follow-up plan A. We will plan to see him back in 2 weeks with CBC CMP TSH. He will be due for cycle 2 Tecentriq at that time. B. Mr. Malik was instructed to contact us in the interim should questions or problems arise. Signed By: Josh Roberts-TOÑA, [facility] Aeme Israel MD <<Signature on File>>
== END 2020-06-30 06:02 | disposition home or self-care (01) ==
PROVIDERS: PCP Family Medicine; Visit Provider Nurse Practitioner
DX: C34.02 Malignant neoplasm of left main bronchus (principal); D64.9 Anemia, unspecified; I10 Essential (primary) hypertension; Z87.891 Personal history of nicotine dependence; Z79.899 Other long term (current) drug therapy
CPT/HCPCS: 36591; 80053; 85025; 99214

== ENCOUNTER → 2020-07-06 13:12 | Outpatient (BNVA) | payer MEDICAID, SELFPAY | PROVIDERS: PCP Family Medicine; Visit Provider Specialist | DX: M25.511 Pain in right shoulder (principal); M25.512 Pain in left shoulder | CPT/HCPCS: 73030 ==

== ENCOUNTER 2020-07-15 05:57 | Outpatient (CLI) | payer MEDICAID, SELFPAY ==
[2020-07-15 10:37] LABS: Basophils # 0.1 10^3/uL (0.0-0.1); Eosinophils # 0.1 10^3/uL (0.0-0.8); Eosinophils % 1.8 %; Hematocrit 42.7 % (42.0-52.0); Hemoglobin 13.8 g/dL (11.7-16.6); Lymphocytes # 0.7 10^3/uL (0.8-4.8); Lymphocytes % 10.7 %; Mean Corpuscular HGB Conc 32.3 g/dL (30.0-36.0); Mean Corpuscular Hemoglobin 29.7 pg (28.0-34.0); Mean Platelet Volume 9.4 fL (7.4-10.4); Monocytes # 0.7 10^3/uL (0.2-0.9); Monocytes % 11.2 %; Neutrophils # 4.58 10^3/uL (1.8-7.7); Neutrophils % 75.1 %; Nucleated Red Blood Cells % 0 %; Platelet Count 191 10^3/cmm (130-400); Red Blood Count 4.64 10^6/uL (4.1-5.3); Red Cell Distribution Width 14.8 % (12.1-15.1); White Blood Count 6.1 10^3/uL (4.0-10.0)
[2020-07-15 11:05] LABS: Alanine Aminotransferase 12 U/L (0-41); Albumin Level 4.1 g/dL (3.5-5.2); Alkaline Phosphatase 127 IU/L (40-130); Anion Gap 10.1 (5-19); Aspartate Amino Transferase 13 U/L (0-40); Blood Urea Nitrogen 14 mg/dL (6-20); Calcium 8.8 mg/dL (8.5-10.5); Carbon Dioxide 27 mmol/L (22-29); Chloride 106 mmol/L (98-107); Globulin 2.4 g/dL (1.3-4.6); Glomerular Filtration Rate 144.4 mL/min (90-130); Glucose 101 mg/dL (65-115); Osmolality Calculated 289 mOsm/kg (285-295); Potassium 4.1 mmol/L (3.5-5.1); Sodium 139 mmol/L (136-145); Total Bilirubin 0.5 mg/dL (0.15-1.2); Total Protein 6.5 g/dL (6.6-8.7)
[2020-07-15] MEDS: sodium chloride 0.9% 250 ML 75 ML IV (12:06)
[2020-07-15 12:24] LABS: Hepatitis B Surface AB 3.5 (11.5-1000)
[2020-07-15 13:21] LABS: Hepatitis A Antibody IgM Non-Reactive (Nonreactive); Hepatitis B Core AB, Total Non-Reactive (Nonreactive); Hepatitis B Surface Antigen Non-Reactive (Nonreactive); Hepatitis C Virus Antibody Non-Reactive (Nonreactive)
--- NOTE | 2020-07-31 12:12 | ONC FU_ITS ---
Dr. Israel follow up note Patient: Tima Malik Unit #: [id number]: [id number] Dicatated By: Amee Israel M.D.Date of Visit:July 15, 2020 Onc Med Follow-up/Prog Note History of Present Illness: Mr. Malik is a 49-year-old gentleman with history of 40 to 50 pounds weight loss since February 2019. Mr Malik reports he sustained an injury to the chest in January or February 2019. Initially, it was not bothersome but then it become progressive to the point where even taking deep breath would hurt. The pain was not mainly in the mid upper anterior chest wall. He also developed progressive shortness of breath. He said he did not have medical insurance so he was taking over the counter pain medicine, which did help some but eventually on August 16, 2019 he went to the [facility] in [place], [place]. He had chest x-ray done which showed complete whiteout of left lung and CTA chest done showed complete collapse of left lung likely secondary to left hilar mass/malignancy. There was a bulky mediastinal and likely left hilar lymphadenopathy present. And moderate to large malignant left pleural effusion patient was transferred to [facility] in [place] where on August 17, 2019 underwent ultrasound-guided left thoracentesis and about 25 cc of cloudy yellow pleural fluid was removed, repeat CT scan of the chest done on August 17, 2019 showed possible obstruction of left main bronchus, a mucous plug or obstructing pulmonary mass or consideration. Complete opacification of left hemithorax appears similar to chest x-ray done on August 16, 2019. Elevation of left diaphragm suggest volume loss due to some degree of atelectasis. Left pleural effusion or large left consolidations are also considered. On August 18, 2019 patient underwent bronchoscopy and endobronchial biopsy and bronchial washing from left main bronchus confirmed invasive small cell carcinoma. Mr Malik underwent CT PET scan on August 27, 2019 which showed hypermetabolic very large left hilar/mediastinal mass and matthew conglomeration. There is also redemonstration of complete collapse of left lung with associated hypermetabolic activity that may be secondary to diffuse tumor involvement or pneumonia depending on clinical context There was also evidence of metastatic disease to bilateral cervical chain lymph nodes as well as posterior upper neck intramuscular metastasis. In addition there is evidence of direct metastatic extension into the right of the trachea and to an epicardial fat lymph node. No findings to suggest metastatic disease below the diaphragm and no evidence of metastatic disease to the right lung. Mr Malik was referred to cancer center in [place] as it is convenient to the patient. Patient has longstanding history of smoking but states he quit in mid August 2019. Patient was admitted to hospital on August 29, 2019 with acute respiratory failure with hypoxia and he was intubated and then he was transferred to [facility] in [place] where he underwent further management and work-up including MRI scan of the head on September 01, 2019 which showed multiple intra-axial metastasis the largest lesion was located within the left parietal lobe. Extracranial soft tissue mass adjacent to spinous process of C2 and posterior arch of C1 suspicious for metastatic disease. Mr Malik was started on systemic chemotherapy with carboplatin/etoposide on August 31 and completed on September 03, 2019. He tolerated it reasonably well but as per patient and his aunt, patient did 'crash' during chemotherapy, his blood pressure dropped and his pulse was fast. He was diagnosed with atrial fibrillation- since then he is having off and on episode of tachycardia and palpitation. Radiation oncology was consulted for brain mets but radiation was not offered because the patient was asymptomatic. He was started on systemic chemotherapy because of progressive and symptomatic intrathoracic disease. The current plan is to complete systemic chemotherapy followed by whole brain radiation therapy. Mr Malik had his third cycle of chemotherapy with Carboplatin/etoposide on 10/29/2019-10/31/2019. (He did receive 1 chemotherapy prior to transferring his care to [facility]-his second cycle was complete on 10/03/2019). He is receiving growth factor support for neutropenia. Mr. Malik did have PET CT imaging on 11/02/2019 after 3 cycles of chemotherapy. It was noted there were bilateral cervical lymph nodes described on the prior imaging for CT was not present on this PET CT. There was no head or neck intramuscular metastatic disease present. There was complete postobstructive atelectasis of the left upper lobe. A region of residual activity measuring 1.6 x 3.7 cm with an SUV of 6.2 is consistent with a lung primary. Mild activity in the subaortic node is consistent with local metastatic disease. There was no other significant mediastinal adenopathy present. Innumerable small sclerotic osseous lesions best in the pelvis are most compatible with treated osseous metastatic disease. These were difficult to characterize due to size and background marrow activity from recent Neulasta therapy. He continues with chemotherapy at this time. The followup MRI scan of the brain to assess response .Was done on November 15, 2019 showed excellent response to the chemotherapy as radiation was not given earlier and planning was to do after completion of systemic chemotherapy for extensive intrathoracic disease. And repeat MRI scan showed no evidence of progressed metastatic disease interval decrease in size of cystic appearing peripheral enhancing left parietal lesion measuring 1.6 x 2.6 cm compared to 3.6 x 2.9 cm prior to chemotherapy and also interval decrease in surrounding edema. Previously described lesions are no longer appreciated on the scan no new enhancing lesions. Patient completed 5 cycles of chemotherapy with carboplatin/etoposide on December 19, 2019, had excellent response, was referred to radiation oncology for consolidation radiotherapy to the chest and also to the brain as patient was diagnosed with brain mets at the time of diagnosis. Patient completed radiation therapy to his brain on January 27, 2020 and to his left chest on January 27, 2020 Follow-up CT scan of the chest abdomen pelvis done on May 14, 2020 showed partial collapse left upper lobe is unchanged. Increasing soft tissue in the proximal left upper lobe bronchus and encasing the left main pulmonary artery. Suspicious for progression of tumor. Difficult to determine that tumor versus atelectatic lung. No evidence of metastatic disease to the liver or adrenal gland. New cystic mass with peripheral enhancement in the perineum abscess versus pilonidal cyst. MRI scan of the brain shows new enhancing metastatic lesion in the left temporal lobe 5.2 mm with surrounding edema. Previously described left parietal peripherally enhancing cystic lesion has decreased in size measuring 1.6 cm x 1 cm today. No other new lesions seen. history of bursitis involving both shoulders in the past used to get cortisone shots. Follow-up CT PET scan done on 05/23/2020 shows left upper lobe atelectasis seen on prior study on 11/02/2019 is unchanged on current, now with an SUV of 8.3 compared to 6.2 previously. The subaortic lymph node is significantly progressed now measuring 2.3 cm in diameter with SUV of 14.7. A left-sided anterior diaphragmatic node which was subcentimeter in size and FDG negative on prior study now measuring 1.5 cm and SUV of 6.6 and no evidence of distant mets. started on atezolizumab on 06/24/2020. Came for follow-up, denies any specific complaints, left shoulder pain got better with cortisone injection for few days. But no fever chills, no nausea vomiting, no diarrhea constipation, no skin rash, no shortness of breath or wheezing, no melena or hematochezia, no diarrhea or constipation, no jaundice tolerated first dose of atezolizumab well Medications: Aspirin Adult Low Dose 1 Tablet (of 81 mg) Tablet, enteric coated Oral daily, Flonase 2 Weston(s) (of 50 mcg/act) Suspension Nasal daily PRN, Ibuprofen 1 - 2 Capsule (of 200 mg) Oral daily PRN, oxyCODONE HCl 1 Capsule (of 5 mg) Oral q 8 hours PRN Allergies: Dexamethasone Review of Systems: Review of Systems is not available for this patient. Vital Signs: Performed on July 15, 2020 11:20 Height - 71.00 in Weight - 127 lbs (LOW) BSA - 1.74 sq.m BMI - 17.71 (LOW) Temperature - 98.4 F Pulse - 84 /min Respiration - 18 /min BP - 104/70 mm(hg) O2 Sat - 98 % Pain - 4 Fatigue - 2 Performance Status: 1 - No physically strenuous activity, but ambulatory and able to carry out light or sedentary work (e.g. office work, light house work). (ECOG) Physical Examination: ENMT - No mouth sores, no thrush, no jaundice, no cervical lymphadenopathy, Respiratory - Lungs are clear to auscultation, Cardiovascular - Regular rate and rhythm of heart, Abdomen - Soft, bowel sounds present, Extremities - No visible edema. Lab/Imaging: Test performed on Jun 30, 2020 12:45 Sodium 138 mmol/L Potassium 4.2 mmol/L Chloride 106 mmol/L CO2 25 mmol/L Anion Gap 11.2 BUN 12 mg/dL Creatinine 0.7 mg/dL Cr Clearance (Est) 113.5000 mL/min eGFR 120.9 mL/min Glucose 76 mg/dL Osmolality - Calculated 285 mOsm/kg Calcium 8.4 mg/dL Protein, Total 6.0 g/dL Albumin 3.7 g/dL Globulin 2.3 g/dL Bilirubin, Total 0.4 mg/dL ALT (SGPT) 8 U/L AST (SGOT) 14 U/L Alkaline Phosphatase 113 IU/L WBC 5.8 10 3/uL RBC 4.19 10 6/uL HGB 12.6 g/dL HCT 39.2 % MCV 93.6 fL MCH 30.1 pg MCHC 32.1 g/dL RDW 14.8 % Platelet Count 186 10 3/cmm MPV 9.8 fL Neutrophils 4.33 10 3/uL Lymphocytes 0.9 10 3/uL Monocytes 0.5 10 3/uL Eosinophils 0.1 10 3/uL Basophils 0.0 10 3/uL Neutrophil % 74.3 % Lymphocyte % 16.0 % Monocyte % 7.7 % Eosinophil % 1.0 % Basophils % 0.7 % NRBC % 0 % Test performed on May 14, 2020 10:16 Manual Lymphocytes 18 % Manual Monocytes 10 % Manual Eosinophils 1 % Manual Basophils 0 % Test performed on Feb 12, 2020 09:12 Manual Diff [place]IM[place] OF [id number] Impression: Small cell lung cancer involving left lung, per bronchoscopy done on August 18, 2019 Extensive loco- regional disease with bilateral cervical lymph nodes involvement. CT PET scan done on August 27, 2019 showed hypermetabolic large left hilar/mediastinal mass with matthew conglomeration in keeping with known small cell lung cancer. Also redemonstration of complete collapse of left lung with associated hypermetabolic activity may be secondary to diffuse tumor involvement or pneumonia There is evidence of metastatic disease to bilateral cervical chain lymph nodes as well as posterior upper neck intramuscular metastasis. In addition there is evidence of direct metastatic extension to the right of trachea and to an epicardial fat lymph node. No findings to suggest metastatic disease below diaphragm. No evidence of metastatic disease to the right lung. MRI scan of the brain done on September 01, 2019 at [facility] in [place] showed extensive brain mets but asymptomatic As per radiation oncology consultation at [facility] radiation therapy to brain was postponed till completion of systemic chemotherapy Started on Systemic chemotherapy with carboplatin/etoposide on September 01, 2019, first cycle was given at [facility] in [place] Longstanding history of smoking, quit in mid August 2019. Clinically, patient is doing well with no new signs symptoms suggestive of disease progression, tolerating systemic chemotherapy with carboplatin/etoposide well but with expected side effects e.g. progressive neutropenia/leukopenia causing delay in chemotherapy schedule with cycle 2. We have given him Neulasta to prevent chemotherapy-induced leukopenia/neutropenia and further delay in his chemotherapy schedule. Mr. Malik did have PET CT imaging on 11/02/2019 after 3 cycles of chemotherapy. It was noted there were bilateral cervical lymph nodes described on the prior imaging for CT was not present on this PET CT. There was no head or neck intramuscular metastatic disease present. There was complete postobstructive atelectasis of the left upper lobe. A region of residual activity measuring 1.6 x 3.7 cm with an SUV of 6.2 is consistent with a lung primary. Mild activity in the subaortic node is consistent with local metastatic disease. There was no other significant mediastinal adenopathy present. Innumerable small sclerotic osseous lesions best in the pelvis are most compatible with treated osseous metastatic disease. These were difficult to characterize due to size and background marrow activity from recent Neulasta therapy. He continues with chemotherapy at this time. The followup MRI scan of the brain to assess response has not been obtained as of this visit. recommendations for further plan of care per his last office note suggests in case patient has complete response, then will discuss with radiation oncology regarding radiation therapy to the thorax concurrent versus sequential followed by whole brain radiation therapy as, patient was diagnosed with brain mets at the time of diagnosis. We will also discuss about adding immunotherapy Tecentriq, as after completion of recommended chemotherapy, may continue with maintenance immunotherapy with Tecentriq alone . But patient decided to wait till follow-up CT scan reports. Which was done on May 14, 2019, MRI scan of the brain shows new enhancing metastatic lesion in the left temporal lobe 5.2 mm with surrounding edema. Previously described left parietal peripherally enhancing cystic lesion has decreased in size 1.6 x 1 cm. No new lesion seen and CT scan of chest abdomen pelvis done on May 14, 2020 shows partial collapse left upper lobe is unchanged. Increasing soft tissue in the proximal left upper lobe bronchus and encasing left main pulmonary artery suspicious for progression of tumor but difficult to determine tumor versus atelectatic lung. No evidence of metastatic disease to the liver or adrenal gland and and pelvis 2.6 x 1.3 cm collection of fluid in the perineum consistent with abscess versus pilonidal cyst Follow-up CT PET scan done on 05/23/2020 showed no morphological changes in the left upper lobe atelectasis but now with increasing FDG uptake. Progression of subaortic and left anterior diaphragmatic node. No change in sterilized osseous metastatic disease.Started on Tecentriq on June 24, 2020 Plan: Discussed with patient regarding his labs white blood count 6.1 hemoglobin 13.8 hematocrit 42.7 platelets 191,000 CMP within normal limits TSH 1.40 Clinically, patient doing well, tolerating immunotherapy with Tecentriq well, will proceed with next dose today then he will return to clinic in 3 weeks with CBC CMP Signed By: Amee Israel M.D. <<Signature on File>>
== END 2020-07-15 05:58 | disposition home or self-care (01) ==
LOC: ONCMED 05:58
PROVIDERS: PCP Family Medicine; Visit Provider Internal Medicine Hematology & Oncology
DX: Z51.12 Encounter for antineoplastic immunotherapy (principal); C34.02 Malignant neoplasm of left main bronchus; C77.8 Secondary and unspecified malignant neoplasm of lymph nodes of multiple regions; J18.9 Pneumonia, unspecified organism; F17.211 Nicotine dependence, cigarettes, in remission; D70.1 Agranulocytosis secondary to cancer chemotherapy; T45.1X5A Adverse effect of antineoplastic and immunosuppressive drugs, initial encounter; Z79.899 Other long term (current) drug therapy
CPT/HCPCS: 80053; 84443; 85025; 86705; 86706; 86709; 86803; 87340; 96413; 99215; J7050; J9022

== ENCOUNTER 2020-08-05 08:43 | Outpatient (CLI) | payer MEDICAID, SELFPAY ==
[2020-08-05 09:21] LABS: Basophils % 0.8 %; Eosinophils # 0.1 10^3/uL (0.0-0.8); Eosinophils % 1.7 %; Hematocrit 43.4 % (42.0-52.0); Hemoglobin 13.9 g/dL (11.7-16.6); Lymphocytes # 1.1 10^3/uL (0.8-4.8); Lymphocytes % 19.9 %; Mean Corpuscular Hemoglobin 29.6 pg (28.0-34.0); Mean Corpuscular Volume 92.5 fL (80-94); Mean Platelet Volume 9.4 fL (7.4-10.4); Monocytes # 0.4 10^3/uL (0.2-0.9); Monocytes % 7.9 %; Neutrophils # 3.71 10^3/uL (1.8-7.7); Neutrophils % 69.5 %; Nucleated Red Blood Cells % 0 %; Platelet Count 185 10^3/cmm (130-400); Red Blood Count 4.69 10^6/uL (4.1-5.3); Red Cell Distribution Width 14.1 % (12.1-15.1); White Blood Count 5.3 10^3/uL (4.0-10.0)
[2020-08-05 09:47] LABS: Alanine Aminotransferase 9 U/L (0-41); Alkaline Phosphatase 123 IU/L (40-130); Anion Gap 14.4 (5-19); Aspartate Amino Transferase 14 U/L (0-40); Blood Urea Nitrogen 15 mg/dL (6-20); Calcium 8.6 mg/dL (8.5-10.5); Carbon Dioxide 25 mmol/L (22-29); Chloride 102 mmol/L (98-107); Globulin 2.5 g/dL (1.3-4.6); Glomerular Filtration Rate 144.4 mL/min (90-130); Glucose 83 mg/dL (65-115); Osmolality Calculated 284 mOsm/kg (285-295); Potassium 4.4 mmol/L (3.5-5.1); Sodium 137 mmol/L (136-145); Total Bilirubin 0.4 mg/dL (0.15-1.2); Total Protein 6.5 g/dL (6.6-8.7)
[2020-08-05] MEDS: sodium chloride 0.9% 250 ML 75 ML IV (12:10)
--- NOTE | 2020-08-05 17:17 | ONC FU_ITS ---
Dr. Israel follow up note Patient: Tima Malik Unit #: [id number]: [id number] Dicatated By: Amee Israel M.D.Date of Visit:Aug 05, 2020 Onc Med Follow-up/Prog Note History of Present Illness: Mr. Malik is a 49-year-old gentleman with history of 40 to 50 pounds weight loss since February 2019. Mr Malik reports he sustained an injury to the chest in January or February 2019. Initially, it was not bothersome but then it become progressive to the point where even taking deep breath would hurt. The pain was not mainly in the mid upper anterior chest wall. He also developed progressive shortness of breath. He said he did not have medical insurance so he was taking over the counter pain medicine, which did help some but eventually on August 16, 2019 he went to the [facility] in [place], [place]. He had chest x-ray done which showed complete whiteout of left lung and CTA chest done showed complete collapse of left lung likely secondary to left hilar mass/malignancy. There was a bulky mediastinal and likely left hilar lymphadenopathy present. And moderate to large malignant left pleural effusion patient was transferred to [facility] in [place] where on August 17, 2019 underwent ultrasound-guided left thoracentesis and about 25 cc of cloudy yellow pleural fluid was removed, repeat CT scan of the chest done on August 17, 2019 showed possible obstruction of left main bronchus, a mucous plug or obstructing pulmonary mass or consideration. Complete opacification of left hemithorax appears similar to chest x-ray done on August 16, 2019. Elevation of left diaphragm suggest volume loss due to some degree of atelectasis. Left pleural effusion or large left consolidations are also considered. On August 18, 2019 patient underwent bronchoscopy and endobronchial biopsy and bronchial washing from left main bronchus confirmed invasive small cell carcinoma. Mr Malik underwent CT PET scan on August 27, 2019 which showed hypermetabolic very large left hilar/mediastinal mass and matthew conglomeration. There is also redemonstration of complete collapse of left lung with associated hypermetabolic activity that may be secondary to diffuse tumor involvement or pneumonia depending on clinical context There was also evidence of metastatic disease to bilateral cervical chain lymph nodes as well as posterior upper neck intramuscular metastasis. In addition there is evidence of direct metastatic extension into the right of the trachea and to an epicardial fat lymph node. No findings to suggest metastatic disease below the diaphragm and no evidence of metastatic disease to the right lung. Mr Malik was referred to cancer center in [place] as it is convenient to the patient. Patient has longstanding history of smoking but states he quit in mid August 2019. Patient was admitted to hospital on August 29, 2019 with acute respiratory failure with hypoxia and he was intubated and then he was transferred to [facility] in [place] where he underwent further management and work-up including MRI scan of the head on September 01, 2019 which showed multiple intra-axial metastasis the largest lesion was located within the left parietal lobe. Extracranial soft tissue mass adjacent to spinous process of C2 and posterior arch of C1 suspicious for metastatic disease. Mr Malik was started on systemic chemotherapy with carboplatin/etoposide on August 31 and completed on September 03, 2019. He tolerated it reasonably well but as per patient and his aunt, patient did 'crash' during chemotherapy, his blood pressure dropped and his pulse was fast. He was diagnosed with atrial fibrillation- since then he is having off and on episode of tachycardia and palpitation. Radiation oncology was consulted for brain mets but radiation was not offered because the patient was asymptomatic. He was started on systemic chemotherapy because of progressive and symptomatic intrathoracic disease. The current plan is to complete systemic chemotherapy followed by whole brain radiation therapy. Mr Malik had his third cycle of chemotherapy with Carboplatin/etoposide on 10/29/2019-10/31/2019. (He did receive 1 chemotherapy prior to transferring his care to [facility]-his second cycle was complete on 10/03/2019). He is receiving growth factor support for neutropenia. Mr. Malik did have PET CT imaging on 11/02/2019 after 3 cycles of chemotherapy. It was noted there were bilateral cervical lymph nodes described on the prior imaging for CT was not present on this PET CT. There was no head or neck intramuscular metastatic disease present. There was complete postobstructive atelectasis of the left upper lobe. A region of residual activity measuring 1.6 x 3.7 cm with an SUV of 6.2 is consistent with a lung primary. Mild activity in the subaortic node is consistent with local metastatic disease. There was no other significant mediastinal adenopathy present. Innumerable small sclerotic osseous lesions best in the pelvis are most compatible with treated osseous metastatic disease. These were difficult to characterize due to size and background marrow activity from recent Neulasta therapy. He continues with chemotherapy at this time. The followup MRI scan of the brain to assess response .Was done on November 15, 2019 showed excellent response to the chemotherapy as radiation was not given earlier and planning was to do after completion of systemic chemotherapy for extensive intrathoracic disease. And repeat MRI scan showed no evidence of progressed metastatic disease interval decrease in size of cystic appearing peripheral enhancing left parietal lesion measuring 1.6 x 2.6 cm compared to 3.6 x 2.9 cm prior to chemotherapy and also interval decrease in surrounding edema. Previously described lesions are no longer appreciated on the scan no new enhancing lesions. Patient completed 5 cycles of chemotherapy with carboplatin/etoposide on December 19, 2019, had excellent response, was referred to radiation oncology for consolidation radiotherapy to the chest and also to the brain as patient was diagnosed with brain mets at the time of diagnosis. Patient completed radiation therapy to his brain on January 27, 2020 and to his left chest on January 27, 2020 Follow-up CT scan of the chest abdomen pelvis done on May 14, 2020 showed partial collapse left upper lobe is unchanged. Increasing soft tissue in the proximal left upper lobe bronchus and encasing the left main pulmonary artery. Suspicious for progression of tumor. Difficult to determine that tumor versus atelectatic lung. No evidence of metastatic disease to the liver or adrenal gland. New cystic mass with peripheral enhancement in the perineum abscess versus pilonidal cyst. MRI scan of the brain shows new enhancing metastatic lesion in the left temporal lobe 5.2 mm with surrounding edema. Previously described left parietal peripherally enhancing cystic lesion has decreased in size measuring 1.6 cm x 1 cm today. No other new lesions seen. history of bursitis involving both shoulders in the past used to get cortisone shots. Follow-up CT PET scan done on 05/23/2020 shows left upper lobe atelectasis seen on prior study on 11/02/2019 is unchanged on current, now with an SUV of 8.3 compared to 6.2 previously. The subaortic lymph node is significantly progressed now measuring 2.3 cm in diameter with SUV of 14.7. A left-sided anterior diaphragmatic node which was subcentimeter in size and FDG negative on prior study now measuring 1.5 cm and SUV of 6.6 and no evidence of distant mets. started on atezolizumab on 06/24/2020. Came for follow-up, denies any specific complaints, no fever chills, nausea nausea or vomiting, no diarrhea constipation, no skin rash, no shortness of breath, no melena or hematochezia, tolerating atezolizumab well otherwise Medications: Aspirin Adult Low Dose 1 Tablet (of 81 mg) Tablet, enteric coated Oral daily, Flonase 2 [place](s) (of 50 mcg/act) Suspension Nasal daily PRN, Ibuprofen 1 - 2 Capsule (of 200 mg) Oral daily PRN, oxyCODONE HCl 1 Capsule (of 5 mg) Oral q 8 hours PRN Allergies: Dexamethasone Review of Systems: Review of Systems is not available for this patient. Vital Signs: Performed on Aug 05, 2020 11:14 Height - 71.00 in Weight - 128 lbs (HIGH) BSA - 1.74 sq.m BMI - 17.85 (LOW) Temperature - 98.5 F Pulse - 115 /min (HIGH) Respiration - 18 /min BP - 97/65 mm(hg) O2 Sat - 98 % Pain - 0 Fatigue - 2 Performance Status: 0 - Fully active, able to carry on all predisease activities without restrictions. (ECOG) Physical Examination: ENMT - No mouth sores, no thrush, no jaundice, Respiratory - Lungs are clear to auscultation, Cardiovascular - Regular rate and rhythm of heart, Abdomen - Soft, bowel sounds present, Extremities - No visible edema or rash. Lab/Imaging: Test performed on Jun 30, 2020 12:45 Sodium 138 mmol/L Potassium 4.2 mmol/L Chloride 106 mmol/L CO2 25 mmol/L Anion Gap 11.2 BUN 12 mg/dL Creatinine 0.7 mg/dL Cr Clearance (Est) 113.5000 mL/min eGFR 120.9 mL/min Glucose 76 mg/dL Osmolality - Calculated 285 mOsm/kg Calcium 8.4 mg/dL Protein, Total 6.0 g/dL Albumin 3.7 g/dL Globulin 2.3 g/dL Bilirubin, Total 0.4 mg/dL ALT (SGPT) 8 U/L AST (SGOT) 14 U/L Alkaline Phosphatase 113 IU/L WBC 5.8 10 3/uL RBC 4.19 10 6/uL HGB 12.6 g/dL HCT 39.2 % MCV 93.6 fL MCH 30.1 pg MCHC 32.1 g/dL RDW 14.8 % Platelet Count 186 10 3/cmm MPV 9.8 fL Neutrophils 4.33 10 3/uL Lymphocytes 0.9 10 3/uL Monocytes 0.5 10 3/uL Eosinophils 0.1 10 3/uL Basophils 0.0 10 3/uL Neutrophil % 74.3 % Lymphocyte % 16.0 % Monocyte % 7.7 % Eosinophil % 1.0 % Basophils % 0.7 % NRBC % 0 % Test performed on May 14, 2020 10:16 Manual Lymphocytes 18 % Manual Monocytes 10 % Manual Eosinophils 1 % Manual Basophils 0 % Test performed on Feb 12, 2020 09:12 Manual Diff NO SPECIMEN OF [id number] Impression: Small cell lung cancer involving left lung, per bronchoscopy done on August 18, 2019 Extensive loco- regional disease with bilateral cervical lymph nodes involvement. CT PET scan done on August 27, 2019 showed hypermetabolic large left hilar/mediastinal mass with matthew conglomeration in keeping with known small cell lung cancer. Also redemonstration of complete collapse of left lung with associated hypermetabolic activity may be secondary to diffuse tumor involvement or pneumonia There is evidence of metastatic disease to bilateral cervical chain lymph nodes as well as posterior upper neck intramuscular metastasis. In addition there is evidence of direct metastatic extension to the right of trachea and to an epicardial fat lymph node. No findings to suggest metastatic disease below diaphragm. No evidence of metastatic disease to the right lung. MRI scan of the brain done on September 01, 2019 at [facility] showed extensive brain mets but asymptomatic As per radiation oncology consultation at [facility] radiation therapy to brain was postponed till completion of systemic chemotherapy Started on Systemic chemotherapy with carboplatin/etoposide on September 01, 2019, first cycle was given at [facility] Longstanding history of smoking, quit in mid August 2019. Clinically, patient is doing well with no new signs symptoms suggestive of disease progression, tolerating systemic chemotherapy with carboplatin/etoposide well but with expected side effects e.g. progressive neutropenia/leukopenia causing delay in chemotherapy schedule with cycle 2. We have given him Neulasta to prevent chemotherapy-induced leukopenia/neutropenia and further delay in his chemotherapy schedule. Mr. Malik did have PET CT imaging on 11/02/2019 after 3 cycles of chemotherapy. It was noted there were bilateral cervical lymph nodes described on the prior imaging for CT was not present on this PET CT. There was no head or neck intramuscular metastatic disease present. There was complete postobstructive atelectasis of the left upper lobe. A region of residual activity measuring 1.6 x 3.7 cm with an SUV of 6.2 is consistent with a lung primary. Mild activity in the subaortic node is consistent with local metastatic disease. There was no other significant mediastinal adenopathy present. Innumerable small sclerotic osseous lesions best in the pelvis are most compatible with treated osseous metastatic disease. These were difficult to characterize due to size and background marrow activity from recent Neulasta therapy. He continues with chemotherapy at this time. The followup MRI scan of the brain to assess response has not been obtained as of this visit. recommendations for further plan of care per his last office note suggests in case patient has complete response, then will discuss with radiation oncology regarding radiation therapy to the thorax concurrent versus sequential followed by whole brain radiation therapy as, patient was diagnosed with brain mets at the time of diagnosis. We will also discuss about adding immunotherapy Tecentriq, as after completion of recommended chemotherapy, may continue with maintenance immunotherapy with Tecentriq alone . But patient decided to wait till follow-up CT scan reports. Which was done on May 14, 2019, MRI scan of the brain shows new enhancing metastatic lesion in the left temporal lobe 5.2 mm with surrounding edema. Previously described left parietal peripherally enhancing cystic lesion has decreased in size 1.6 x 1 cm. No new lesion seen and CT scan of chest abdomen pelvis done on May 14, 2020 shows partial collapse left upper lobe is unchanged. Increasing soft tissue in the proximal left upper lobe bronchus and encasing left main pulmonary artery suspicious for progression of tumor but difficult to determine tumor versus atelectatic lung. No evidence of metastatic disease to the liver or adrenal gland and and pelvis 2.6 x 1.3 cm collection of fluid in the perineum consistent with abscess versus pilonidal cyst Follow-up CT PET scan done on 05/23/2020 showed no morphological changes in the left upper lobe atelectasis but now with increasing FDG uptake. Progression of subaortic and left anterior diaphragmatic node. No change in sterilized osseous metastatic disease.Started on Tecentriq on June 24, 2020 Plan: Discussed with patient regarding his labs white blood count 5.8 hemoglobin 13.9 hematocrit 43.4 platelets 185,000 CMP within normal limits Clinically, patient doing well with no new signs symptoms just of recurrence of disease, his lab work-up is within normal range, at this point we will proceed with the next dose of Tecentriq today and then he will return to clinic in 3 weeks with CBC CMP and if reasonable we will continue with immunotherapy with Tecentriq Signed By: Amee Israel M.D. <<Signature on File>>
== END 2020-08-05 08:44 | disposition home or self-care (01) ==
LOC: ONCMED 08:44
PROVIDERS: PCP Family Medicine; Visit Provider Internal Medicine Hematology & Oncology
DX: Z51.12 Encounter for antineoplastic immunotherapy (principal); C34.02 Malignant neoplasm of left main bronchus; C77.8 Secondary and unspecified malignant neoplasm of lymph nodes of multiple regions; C79.31 Secondary malignant neoplasm of brain; Z79.899 Other long term (current) drug therapy
CPT/HCPCS: 80053; 85025; 96413; 99215; J7050; J9022

== ENCOUNTER 2020-08-26 08:54 | Outpatient (CLI) | payer MEDICAID, SELFPAY ==
[2020-08-26 09:30] LABS: Basophils % 0.6 %; Eosinophils # 0.1 10^3/uL (0.0-0.8); Eosinophils % 0.8 %; Hematocrit 40.1 % (42.0-52.0); Hemoglobin 13.1 g/dL (11.7-16.6); Lymphocytes # 0.9 10^3/uL (0.8-4.8); Lymphocytes % 14.2 %; Mean Corpuscular HGB Conc 32.7 g/dL (30.0-36.0); Mean Corpuscular Hemoglobin 30.3 pg (28.0-34.0); Mean Corpuscular Volume 92.6 fL (80-94); Mean Platelet Volume 9.8 fL (7.4-10.4); Monocytes # 0.5 10^3/uL (0.2-0.9); Monocytes % 7.2 %; Neutrophils % 76.7 %; Nucleated Red Blood Cells % 0 %; Platelet Count 221 10^3/cmm (130-400); Red Blood Count 4.33 10^6/uL (4.1-5.3); Red Cell Distribution Width 13.6 % (12.1-15.1); White Blood Count 6.4 10^3/uL (4.0-10.0)
[2020-08-26 09:54] LABS: Alanine Aminotransferase 16 U/L (0-41); Albumin Level 3.4 g/dL (3.5-5.2); Alkaline Phosphatase 131 IU/L (40-130); Aspartate Amino Transferase 19 U/L (0-40); Blood Urea Nitrogen 14 mg/dL (6-20); Calcium 8.4 mg/dL (8.5-10.5); Carbon Dioxide 25 mmol/L (22-29); Globulin 2.5 g/dL (1.3-4.6); Glomerular Filtration Rate 177.5 mL/min (90-130); Glucose 136 mg/dL (65-115); Total Bilirubin 0.3 mg/dL (0.15-1.2); Total Protein 5.9 g/dL (6.6-8.7)
[2020-08-26 09:57] LABS: Potassium 3.9 mmol/L (3.5-5.1)
[2020-08-26 11:20] LABS: Anion Gap 10.9 (5-19); Thyroid Stimulating Hormone 0.89 uIU/mL (0.27-4.20)
[2020-08-26 11:23] LABS: Chloride 107 mmol/L (98-107); Osmolality Calculated 291 mOsm/kg (285-295); Sodium 139 mmol/L (136-145)
[2020-08-26] MEDS: sodium chloride 0.9% 250 ML 75 ML IV (12:03)
--- NOTE | 2020-09-08 20:12 | ONC FU_ITS ---
Jose M Maldonado Patient Note Patient: iTma Malik Unit #: [id number]: [id number] Dictated By: Josh RobertsDate of Visit: Aug 26, 2020 Onc MED Follow-Up/Prog Note Chief Complaint: Small cell lung cancer History of Present Illness: Mr. Malik is a 49-year-old gentleman with history of 40 to 50 pounds weight loss since February 2019. Mr Malik reports he sustained an injury to the chest in January or February 2019. Initially, it was not bothersome but then it become progressive to the point where even taking deep breath would hurt. The pain was not mainly in the mid upper anterior chest wall. He also developed progressive shortness of breath. He said he did not have medical insurance so he was taking over the counter pain medicine, which did help some but eventually on August 16, 2019 he went to [facility] in [place], [place]. He had chest x-ray done which showed complete whiteout of left lung and CTA chest done showed complete collapse of left lung likely secondary to left hilar mass/malignancy. There was a bulky mediastinal and likely left hilar lymphadenopathy present. And moderate to large malignant left pleural effusion patient was transferred to [facility] in [place] where on August 17, 2019 underwent ultrasound-guided left thoracentesis and about 25 cc of cloudy yellow pleural fluid was removed, repeat CT scan of the chest done on August 17, 2019 showed possible obstruction of left main bronchus, a mucous plug or obstructing pulmonary mass or consideration. Complete opacification of left hemithorax appears similar to chest x-ray done on August 16, 2019. Elevation of left diaphragm suggest volume loss due to some degree of atelectasis. Left pleural effusion or large left consolidations are also considered. On August 18, 2019 patient underwent bronchoscopy and endobronchial biopsy and bronchial washing from left main bronchus confirmed invasive small cell carcinoma. Mr Malik underwent CT PET scan on August 27, 2019 which showed hypermetabolic very large left hilar/mediastinal mass and matthew conglomeration. There is also redemonstration of complete collapse of left lung with associated hypermetabolic activity that may be secondary to diffuse tumor involvement or pneumonia depending on clinical context There was also evidence of metastatic disease to bilateral cervical chain lymph nodes as well as posterior upper neck intramuscular metastasis. In addition there is evidence of direct metastatic extension into the right of the trachea and to an epicardial fat lymph node. No findings to suggest metastatic disease below the diaphragm and no evidence of metastatic disease to the right lung. Mr Malik was referred to cancer center in [place] as it is convenient to the patient. Patient has longstanding history of smoking but states he quit in mid August 2019. Mr Malik was admitted to hospital on August 29, 2019 with acute respiratory failure with hypoxia. He was intubated and then he transferred to [facility] in [place] where he underwent further management and work-up. He had a MRI scan of the head on September 01, 2019 which showed multiple intra-axial metastasis the largest lesion was located within the left parietal lobe. Extracranial soft tissue mass adjacent to spinous process of C2 and posterior arch of C1 suspicious for metastatic disease. Mr Malik was started on systemic chemotherapy with cycle 1 carboplatin/etoposide on August 31 and completed on September 03, 2019. He tolerated it reasonably well but as per patient and his aunt, he did crash' during chemotherapy. They reported that his blood pressure dropped and his pulse was fast. He was diagnosed with atrial fibrillation- since then he is having off and on episode of tachycardia and palpitation. Radiation oncology was consulted for brain mets but radiation was not offered because the patient was asymptomatic. He was started on systemic chemotherapy because of progressive and symptomatic intrathoracic disease. The current plan is to complete systemic chemotherapy followed by whole brain radiation therapy. Mr Malik had his third cycle of chemotherapy with Carboplatin/etoposide on 10/29/2019-10/31/2019. (He did receive 1 chemotherapy prior to transferring his care to [facility]-his second cycle was complete on 10/03/2019). He is receiving growth factor support for neutropenia. Mr. Malik did have PET CT imaging on 11/02/2019 after 3 cycles of chemotherapy. It was noted there were bilateral cervical lymph nodes described on the prior imaging for CT was not present on this PET CT. There was no head or neck intramuscular metastatic disease present. There was complete postobstructive atelectasis of the left upper lobe. A region of residual activity measuring 1.6 x 3.7 cm with an SUV of 6.2 is consistent with a lung primary. Mild activity in the subaortic node is consistent with local metastatic disease. There was no other significant mediastinal adenopathy present. Innumerable small sclerotic osseous lesions best in the pelvis are most compatible with treated osseous metastatic disease. These were difficult to characterize due to size and background marrow activity from recent Neulasta therapy. He continues with chemotherapy at this time. The followup MRI scan of the brain to assess response .Was done on November 15, 2019 showed excellent response to the chemotherapy as radiation was not given earlier and planning was to do after completion of systemic chemotherapy for extensive intrathoracic disease. And repeat MRI scan showed no evidence of progressed metastatic disease interval decrease in size of cystic appearing peripheral enhancing left parietal lesion measuring 1.6 x 2.6 cm compared to 3.6 x 2.9 cm prior to chemotherapy and also interval decrease in surrounding edema. Previously described lesions are no longer appreciated on the scan no new enhancing lesions. Mr Malik completed 5 cycles of chemotherapy with carboplatin/etoposide on December 19, 2019 and had excellent response. He was referred to radiation oncology for consolidation radiotherapy to the chest and also to the brain as patient was diagnosed with brain mets at the time of diagnosis. Patient completed radiation therapy to his brain on January 27, 2020 and to his left chest on January 27, 2020. Follow-up CT scan of the chest abdomen pelvis done on May 14, 2020 showed partial collapse left upper lobe is unchanged. Increasing soft tissue in the proximal left upper lobe bronchus and encasing the left main pulmonary artery. Suspicious for progression of tumor. Difficult to determine that tumor versus atelectatic lung. No evidence of metastatic disease to the liver or adrenal gland. New cystic mass with peripheral enhancement in the perineum abscess versus pilonidal cyst. MRI scan of the brain shows new enhancing metastatic lesion in the left temporal lobe 5.2 mm with surrounding edema. Previously described left parietal peripherally enhancing cystic lesion has decreased in size measuring 1.6 cm x 1 cm today. No other new lesions seen. history of bursitis involving both shoulders in the past used to get cortisone shots. Follow-up CT PET scan done on 05/23/2020 shows left upper lobe atelectasis seen on prior study on 11/02/2019 is unchanged on current, now with an SUV of 8.3 compared to 6.2 previously. The subaortic lymph node is significantly progressed now measuring 2.3 cm in diameter with SUV of 14.7. A left-sided anterior diaphragmatic node which was subcentimeter in size and FDG negative on prior study now measuring 1.5 cm and SUV of 6.6 and no evidence of distant mets. Mr Malik was started on atezolizumab on 06/24/2020. He has tolerated it well so far. Mr. Malik is here today for follow-up and is due for cycle 4 atezolizumab. He has no new concerns today. He states has been working in his garden some. He does state that he does not have much of an appetite. He has tried some natural/medicinal marijuana but depends on the breed of the plan as to how well it works for his appetite. He is inquiring about how to get a medicinal marijuana card and unfortunately I have no information on that. He is advised he gets Dopp with a local dispensary and discussed with them how to go about obtaining his medical marijuana card . He continues to have intermittent pain but states is stable. Is controlled with ibuprofen 800 mg 4 times daily as needed. He also uses oxycodone 10 mg as needed for breakthrough pain. He states his left shoulder disc continues to bother him off and on and had gotten a little bit worse with working in the garden . He continues to use lorazepam for anxiety/insomnia and occasional nausea. He states he is really has not had a whole lot of nausea with this treatment and especially since he has completed radiation for the brain mets. He denies any fever or chills. He denies any mouth sores, sore throat or difficulty swallowing. He denies any increase in shortness of breath orthopnea. He denies any cough or hemoptysis. He denies any diarrhea or constipation. He has had no hematochezia. He denies any bladder changes. He denies any neuropathy or lower extremity edema. His ECOG is 2. Past Medical History: Hypertension Left pleural effusion Respiratory failure Past Surgical History: Mr. Malik's surgical history is unremarkable. Allergies: Dexamethasone Medications: Aspirin Adult Low Dose 1 Tablet (of 81 mg) Tablet, enteric coated Oral daily Flonase 2 [place](s) (of 50 mcg/act) Suspension Nasal daily PRN Ibuprofen 1 - 2 Capsule (of 200 mg) Oral daily PRN LORazepam 0.5 - 1 Tablet (of 1 mg) Oral b.i.d. PRN oxyCODONE HCl 1 Capsule (of 5 mg) Oral q 8 hours PRN Family History: Mr. Malik's mother at age 68: esophageal cancer. Mr. Malik's father at age 71: lung cancer. Social History: Mr. Malik is single. He quit smoking 1 year ago but had smoked 2.0 packs/day for 37 years. He has no history of drinking. He has indicated exposure to the following products: recreational drug use. Mr. Malik reports the following support systems: lives with spouse, significant other, family, or friends, supportive family/friends willing to assist with needs, and adequate transportation available for expected visits. His diet consists of regular meals. He indicates his activity level as: daily activities. Pt states he smokes marijuana. Review Of Symptoms: <See Above> Vital Signs: Performed on Aug 26, 2020 11:02 Height - 71.00 in Weight - 125.6 lbs (LOW) BSA - 1.73 sq.m BMI - 17.52 (LOW) Temperature - 97.7 F (LOW) Pulse - 75 /min Respiration - 18 /min BP - 138/92 mm(hg) O2 Sat - 95 % (LOW) Pain - 0,1 - No physically strenuous activity, but ambulatory and able to carry out light or sedentary work (e.g. office work, light house work). (ECOG) Physical Examination: Constitutional Alert, oriented, no acute distress. Skin pink, warm and dry. Head Normocephalic; atraumatic. Eyes Conjunctivae and sclerae are clear and without icterus. Pupils are reactive and equal. Neck Supple without masses or thyromegaly. No jugular venous distension. Hematologic/Lymphatic No petechiae or purpura. No tender or palpable lymph nodes in the cervical or supraclavicular areas. Respiratory Lungs are clear to auscultation without rhonchi or wheezing. Cardiovascular Regular rate and rhythm of heart without murmurs,clicks, gallops or rubs. Abdomen Non-tender, non-distended, no masses or ascites. Good bowel sounds noted in all quads. No guarding or rebound tenderness. No pulsatile masses. Back/Spine Non-tender to palpation. Extremities No visible deformities, no cyanosis, clubbing or edema. Musculoskeletal No tenderness or swelling, normal range of motion without obvious weakness. Integumentary No rashes or lesions. Neurologic No sensory or motor deficits, normal cerebellar function, normal gait. Psychiatric Alert and oriented times three. Coherent speech. Verbalizes understanding of our discussions today. Laboratory:Test performed on Aug 26, 2020 09:05 Sodium 139 mmol/L TSH 0.89 uIU/mL Potassium 3.9 mmol/L Chloride 107 mmol/L CO2 25 mmol/L Anion Gap 10.9 BUN 14 mg/dL Creatinine 0.5 mg/dL Cr Clearance (Est) 145.60 mL/min eGFR 177.5 mL/min Glucose 136 mg/dL Osmolality - Calculated 291 mOsm/kg Calcium 8.4 mg/dL Protein, Total 5.9 g/dL Albumin 3.4 g/dL Globulin 2.5 g/dL Bilirubin, Total 0.3 mg/dL ALT (SGPT) 16 U/L AST (SGOT) 19 U/L Alkaline Phosphatase 131 IU/L WBC 6.4 10 3/uL RBC 4.33 10 6/uL HGB 13.1 g/dL HCT 40.1 % MCV 92.6 fL MCH 30.3 pg MCHC 32.7 g/dL RDW 13.6 % Platelet Count 221 10 3/cmm MPV 9.8 fL Neutrophils 4.90 10 3/uL Lymphocytes 0.9 10 3/uL Monocytes 0.5 10 3/uL Eosinophils 0.1 10 3/uL Basophils 0.0 10 3/uL Neutrophil % 76.7 % Lymphocyte % 14.2 % Monocyte % 7.2 % Eosinophil % 0.8 % Basophils % 0.6 % NRBC % 0 % Test performed on May 14, 2020 10:16 Manual Lymphocytes 18 % Manual Monocytes 10 % Manual Eosinophils 1 % Manual Basophils 0 % Impression: Small cell lung cancer involving left lung, per bronchoscopy done on August 18, 2019 Extensive loco- regional disease with bilateral cervical lymph nodes involvement. CT PET scan done on August 27, 2019 showed hypermetabolic large left hilar/mediastinal mass with matthew conglomeration in keeping with known small cell lung cancer. Also redemonstration of complete collapse of left lung with associated hypermetabolic activity may be secondary to diffuse tumor involvement or pneumonia There is evidence of metastatic disease to bilateral cervical chain lymph nodes as well as posterior upper neck intramuscular metastasis. In addition there is evidence of direct metastatic extension to the right of trachea and to an epicardial fat lymph node. No findings to suggest metastatic disease below diaphragm. No evidence of metastatic disease to the right lung. MRI scan of the brain done on September 01, 2019 at [facility] in [place] showed extensive brain mets but asymptomatic As per radiation oncology consultation at [facility] radiation therapy to brain was postponed till completion of systemic chemotherapy Started on Systemic chemotherapy with carboplatin/etoposide on September 01, 2019, first cycle was given at [facility] in [place] Longstanding history of smoking, quit in mid August 2019. Clinically, patient is doing well with no new signs symptoms suggestive of disease progression, tolerating systemic chemotherapy with carboplatin/etoposide well but with expected side effects e.g. progressive neutropenia/leukopenia causing delay in chemotherapy schedule with cycle 2. We have given him Neulasta to prevent chemotherapy-induced leukopenia/neutropenia and further delay in his chemotherapy schedule. Mr. Malik did have PET CT imaging on 11/02/2019 after 3 cycles of chemotherapy. It was noted there were bilateral cervical lymph nodes described on the prior imaging for CT was not present on this PET CT. There was no head or neck intramuscular metastatic disease present. There was complete postobstructive atelectasis of the left upper lobe. A region of residual activity measuring 1.6 x 3.7 cm with an SUV of 6.2 is consistent with a lung primary. Mild activity in the subaortic node is consistent with local metastatic disease. There was no other significant mediastinal adenopathy present. Innumerable small sclerotic osseous lesions best in the pelvis are most compatible with treated osseous metastatic disease. These were difficult to characterize due to size and background marrow activity from recent Neulasta therapy. He continues with chemotherapy at this time. The followup MRI scan of the brain to assess response has not been obtained as of this visit. recommendations for further plan of care per his last office note suggests in case patient has complete response, then will discuss with radiation oncology regarding radiation therapy to the thorax concurrent versus sequential followed by whole brain radiation therapy as, patient was diagnosed with brain mets at the time of diagnosis. We will also discuss about adding immunotherapy Tecentriq, as after completion of recommended chemotherapy, may continue with maintenance immunotherapy with Tecentriq alone . But patient decided to wait till follow-up CT scan reports. Which was done on May 14, 2019, MRI scan of the brain shows new enhancing metastatic lesion in the left temporal lobe 5.2 mm with surrounding edema. Previously described left parietal peripherally enhancing cystic lesion has decreased in size 1.6 x 1 cm. No new lesion seen and CT scan of chest abdomen pelvis done on May 14, 2020 shows partial collapse left upper lobe is unchanged. Increasing soft tissue in the proximal left upper lobe bronchus and encasing left main pulmonary artery suspicious for progression of tumor but difficult to determine tumor versus atelectatic lung. No evidence of metastatic disease to the liver or adrenal gland and and pelvis 2.6 x 1.3 cm collection of fluid in the perineum consistent with abscess versus pilonidal cyst Follow-up CT PET scan done on 05/23/2020 showed no morphological changes in the left upper lobe atelectasis but now with increasing FDG uptake. Progression of subaortic and left anterior diaphragmatic node. No change in sterilized osseous metastatic disease. Plan/Problems Addressed at this Visit: 1. Small cell lung cancer with history of extensive brain mets but asymptomatic. He was started on systemic chemotherapy with carboplatin etoposide on September 01, 2019 with his first cycle given at [facility] in [facility]. Mr. Malik received a total of 30 Soto of radiation to the whole brain from January 12, 2022 January 27, [address] [facility] Israel discussed with Mr Malik regarding his PET/CT scan from 05/23/2020 which showed disease progression based on increased FDG uptake in the persistent left upper lobe atelectasis and significant increase in size of subaortic lymph node which is 2.3 cm with SUV of 14.7 and the left-sided anterior diaphragmatic node which was subcentimeter in size and FDG negative previously now 1.5 cm with SUV of 6.6, Based on these findings, Mr Malik has agreed to proceed with immunotherapy with Tecentriq, plan to give him Tecentriq 1200 mg intravenously every 3 weeks and then repeat PET/CT scan after 4 doses to assess the response. He began his first cycle on June 24, 2020. A. He will proceed he will proceed with cycle 4 of Tecentriq (atezolizumab) at previous dosing. B. Today's labs reviewed in detail discussed with Mr. Malik and a copy was given to him. WBC 6.4, hemoglobin 13.1, platelets 221,000, ANC is 4900. Sodium 140, potassium 3.9 random glucose 138 creatinine 0.5 his LFTs are normal. His last TSH was on July 15, 2020 reported at 1.40. His weight today is noted to be 125.6 pounds which is down from August 05 at which time it was 128. It is noted that his weight on February 12, 2020 was 142 pounds. C. Initiation forI have read, persistent weight loss, metastatic small cell lung cancer with brain mets. His albumin is noted to be 3.4 on 08/26/2020. 5 mg chemotherapy/immunotherapy induced anorexia D. He may have Compazine and lorazepam as needed on hand for antiemesis at home. E. Am going to go and start him on prednisone 10 mg daily for appetite, shoulder pain and declining performance status. He has been counseled to take the prednisone with milk or food to avoid gastritis symptoms. F. We will refill his lorazepam, ibuprofen and he was given a written prescription for Dr. Israel's authorization for the oxycodone 10 mg. 2. Bilateral shoulder pain more on the left side A. Referral made to orthopedics for further followup per Dr Israel-He reports he has follow-up on July 06, 2020 with orthopedics. B. He does have ibuprofen 400 mg and takes to 3 times daily also has backup oxycodone 5 mg immediate release to use as needed for pain. C. He will be started on prednisone 10 mg daily will monitor him for improvement of the shoulder pain. 3. Follow-up plan A. Plan to see him for consideration of cycle 5 Tecentriq in 3 weeks at which time we will also request that he have labs to include CBC CMP TSH. Mr. Malik was encouraged to contact us in the interim should questions or problems arise. Have encouraged him to let us know if he does not receive PA for the Marinol or if he does not feel the prednisone is helping with his appetite. Signed By: Alfredo RoebrtsPChula-TOÑA, AOCNP Amee Israel MD <<Signature on File>>
== END 2020-08-26 08:55 | disposition home or self-care (01) ==
LOC: ONCMED 08:57
PROVIDERS: PCP Family Medicine; Visit Provider Nurse Practitioner
DX: Z51.12 Encounter for antineoplastic immunotherapy (principal); C34.02 Malignant neoplasm of left main bronchus; C77.8 Secondary and unspecified malignant neoplasm of lymph nodes of multiple regions; C79.31 Secondary malignant neoplasm of brain; Z79.899 Other long term (current) drug therapy
CPT/HCPCS: 80053; 84443; 85025; 96413; 99214; J7050; J9022

== ENCOUNTER 2020-09-16 08:56 | Outpatient (CLI) | payer MEDICAID, SELFPAY ==
[2020-09-16 09:18] LABS: Basophils % 0.4 %; Eosinophils # 0.1 10^3/uL (0.0-0.8); Eosinophils % 0.9 %; Hematocrit 39.9 % (42.0-52.0); Hemoglobin 12.9 g/dL (11.7-16.6); Lymphocytes # 0.7 10^3/uL (0.8-4.8); Lymphocytes % 7.3 %; Mean Corpuscular HGB Conc 32.3 g/dL (30.0-36.0); Mean Corpuscular Hemoglobin 30.6 pg (28.0-34.0); Mean Corpuscular Volume 94.8 fL (80-94); Mean Platelet Volume 9.3 fL (7.4-10.4); Monocytes # 0.5 10^3/uL (0.2-0.9); Monocytes % 5.6 %; Neutrophils # 7.63 10^3/uL (1.8-7.7); Neutrophils % 85.4 %; Nucleated Red Blood Cells % 0 %; Platelet Count 182 10^3/cmm (130-400); Red Blood Count 4.21 10^6/uL (4.1-5.3); Red Cell Distribution Width 14.8 % (12.1-15.1); White Blood Count 8.9 10^3/uL (4.0-10.0)
[2020-09-16 09:51] LABS: Alanine Aminotransferase 15 U/L (0-41); Albumin Level 3.5 g/dL (3.5-5.2); Alkaline Phosphatase 132 IU/L (40-130); Anion Gap 12.3 (5-19); Aspartate Amino Transferase 16 U/L (0-40); Blood Urea Nitrogen 20 mg/dL (6-20); Calcium 8.8 mg/dL (8.5-10.5); Carbon Dioxide 26 mmol/L (22-29); Chloride 108 mmol/L (98-107); Globulin 2.5 g/dL (1.3-4.6); Glomerular Filtration Rate 120.4 mL/min (90-130); Glucose 97 mg/dL (65-115); Osmolality Calculated 297 mOsm/kg (285-295); Potassium 4.3 mmol/L (3.5-5.1); Sodium 142 mmol/L (136-145); Thyroid Stimulating Hormone 1.19 uIU/mL (0.27-4.20); Total Bilirubin 0.2 mg/dL (0.15-1.2)
[2020-09-16] MEDS: sodium chloride 0.9% 250 ML 75 ML IV (11:57)
--- NOTE | 2020-09-20 16:29 | ONC FU_ITS ---
Dr. Israel follow up note Patient: Tima Malik Unit #: [id number]: [id number] Dicatated By: Amee Israel M.D.Date of Visit:Sep 16, 2020 Onc Med Follow-up/Prog Note History of Present Illness: Mr. Malik is a 50-year-old gentleman with history of 40 to 50 pounds weight loss since February 2019. Mr Malik reports he sustained an injury to the chest in January or February 2019. Initially, it was not bothersome but then it become progressive to the point where even taking deep breath would hurt. The pain was not mainly in the mid upper anterior chest wall. He also developed progressive shortness of breath. He said he did not have medical insurance so he was taking over the counter pain medicine, which did help some but eventually on August 16, 2019 he went to the [facility] in [place], [place]. He had chest x-ray done which showed complete whiteout of left lung and CTA chest done showed complete collapse of left lung likely secondary to left hilar mass/malignancy. There was a bulky mediastinal and likely left hilar lymphadenopathy present. And moderate to large malignant left pleural effusion patient was transferred to [facility] in [place] where on August 17, 2019 underwent ultrasound-guided left thoracentesis and about 25 cc of cloudy yellow pleural fluid was removed, repeat CT scan of the chest done on August 17, 2019 showed possible obstruction of left main bronchus, a mucous plug or obstructing pulmonary mass or consideration. Complete opacification of left hemithorax appears similar to chest x-ray done on August 16, 2019. Elevation of left diaphragm suggest volume loss due to some degree of atelectasis. Left pleural effusion or large left consolidations are also considered. On August 18, 2019 patient underwent bronchoscopy and endobronchial biopsy and bronchial washing from left main bronchus confirmed invasive small cell carcinoma. Mr Malik underwent CT PET scan on August 27, 2019 which showed hypermetabolic very large left hilar/mediastinal mass and matthew conglomeration. There is also redemonstration of complete collapse of left lung with associated hypermetabolic activity that may be secondary to diffuse tumor involvement or pneumonia depending on clinical context There was also evidence of metastatic disease to bilateral cervical chain lymph nodes as well as posterior upper neck intramuscular metastasis. In addition there is evidence of direct metastatic extension into the right of the trachea and to an epicardial fat lymph node. No findings to suggest metastatic disease below the diaphragm and no evidence of metastatic disease to the right lung. Mr Malik was referred to cancer center in [place] as it is convenient to the patient. Patient has longstanding history of smoking but states he quit in mid August 2019. Mr Malik was admitted to hospital on August 29, 2019 with acute respiratory failure with hypoxia. He was intubated and then he transferred to [facility] in [place] where he underwent further management and work-up. He had a MRI scan of the head on September 01, 2019 which showed multiple intra-axial metastasis the largest lesion was located within the left parietal lobe. Extracranial soft tissue mass adjacent to spinous process of C2 and posterior arch of C1 suspicious for metastatic disease. Mr Malik was started on systemic chemotherapy with cycle 1 carboplatin/etoposide on August 31 and completed on September 03, 2019. He tolerated it reasonably well but as per patient and his aunt, he did crash' during chemotherapy. They reported that his blood pressure dropped and his pulse was fast. He was diagnosed with atrial fibrillation- since then he is having off and on episode of tachycardia and palpitation. Radiation oncology was consulted for brain mets but radiation was not offered because the patient was asymptomatic. He was started on systemic chemotherapy because of progressive and symptomatic intrathoracic disease. The current plan is to complete systemic chemotherapy followed by whole brain radiation therapy. Mr Malik had his third cycle of chemotherapy with Carboplatin/etoposide on 10/29/2019-10/31/2019. (He did receive 1 chemotherapy prior to transferring his care to [facility]-his second cycle was complete on 10/03/2019). He is receiving growth factor support for neutropenia. Mr. Malik did have PET CT imaging on 11/02/2019 after 3 cycles of chemotherapy. It was noted there were bilateral cervical lymph nodes described on the prior imaging for CT was not present on this PET CT. There was no head or neck intramuscular metastatic disease present. There was complete postobstructive atelectasis of the left upper lobe. A region of residual activity measuring 1.6 x 3.7 cm with an SUV of 6.2 is consistent with a lung primary. Mild activity in the subaortic node is consistent with local metastatic disease. There was no other significant mediastinal adenopathy present. Innumerable small sclerotic osseous lesions best in the pelvis are most compatible with treated osseous metastatic disease. These were difficult to characterize due to size and background marrow activity from recent Neulasta therapy. He continues with chemotherapy at this time. The followup MRI scan of the brain to assess response .Was done on November 15, 2019 showed excellent response to the chemotherapy as radiation was not given earlier and planning was to do after completion of systemic chemotherapy for extensive intrathoracic disease. And repeat MRI scan showed no evidence of progressed metastatic disease interval decrease in size of cystic appearing peripheral enhancing left parietal lesion measuring 1.6 x 2.6 cm compared to 3.6 x 2.9 cm prior to chemotherapy and also interval decrease in surrounding edema. Previously described lesions are no longer appreciated on the scan no new enhancing lesions. Mr Malik completed 5 cycles of chemotherapy with carboplatin/etoposide on December 19, 2019 and had excellent response. He was referred to radiation oncology for consolidation radiotherapy to the chest and also to the brain as patient was diagnosed with brain mets at the time of diagnosis. Patient completed radiation therapy to his brain on January 27, 2020 and to his left chest on January 27, 2020. Follow-up CT scan of the chest abdomen pelvis done on May 14, 2020 showed partial collapse left upper lobe is unchanged. Increasing soft tissue in the proximal left upper lobe bronchus and encasing the left main pulmonary artery. Suspicious for progression of tumor. Difficult to determine that tumor versus atelectatic lung. No evidence of metastatic disease to the liver or adrenal gland. New cystic mass with peripheral enhancement in the perineum abscess versus pilonidal cyst. MRI scan of the brain shows new enhancing metastatic lesion in the left temporal lobe 5.2 mm with surrounding edema. Previously described left parietal peripherally enhancing cystic lesion has decreased in size measuring 1.6 cm x 1 cm today. No other new lesions seen. history of bursitis involving both shoulders in the past used to get cortisone shots. Follow-up CT PET scan done on 05/23/2020 shows left upper lobe atelectasis seen on prior study on 11/02/2019 is unchanged on current, now with an SUV of 8.3 compared to 6.2 previously. The subaortic lymph node is significantly progressed now measuring 2.3 cm in diameter with SUV of 14.7. A left-sided anterior diaphragmatic node which was subcentimeter in size and FDG negative on prior study now measuring 1.5 cm and SUV of 6.6 and no evidence of distant mets. Mr Malik was started on atezolizumab on 06/24/2020. He has tolerated it well so far. Came for follow-up, denies any specific complaints, no fever chills, no nausea or vomiting, no diarrhea or constipation, no shortness of breath, no skin rash, no wheezing, no jaundice, no abdominal pain or fullness, Continue to smoke marijuana, as per patient his appetite is good with Marinol and otherwisetolerating Tecentriq well otherwise Medications: Aspirin Adult Low Dose 1 Tablet (of 81 mg) Tablet, enteric coated Oral daily, Flonase 2 [place](s) (of 50 mcg/act) Suspension Nasal daily PRN, Ibuprofen 1 - 2 Capsule (of 200 mg) Oral daily PRN, LORazepam 0.5 - 1 Tablet (of 1 mg) Oral b.i.d. PRN, Marinol 1 Capsule (of 5 mg) Oral t.i.d., oxyCODONE HCl 1 Capsule (of 5 mg) Oral q 4 to 6 hours PRN Allergies: Dexamethasone Review of Systems: Review of Systems is not available for this patient. Vital Signs: Performed on Sep 16, 2020 10:34 Height - 71.00 in Weight - 129.2 lbs (HIGH) BSA - 1.75 sq.m BMI - 18.02 Temperature - 97.5 F (LOW) Pulse - 99 /min Respiration - 18 /min BP - 113/74 mm(hg) O2 Sat - 96 % Pain - 5 Performance Status: 0 - Fully active, able to carry on all predisease activities without restrictions. (ECOG) Physical Examination: ENMT - No mouth sores, no thrush, no jaundice, Respiratory - Lungs are clear to auscultation, Cardiovascular - Regular rate and rhythm of heart, Abdomen - Soft, bowel sounds present, Extremities - No visible edema. Lab/Imaging: Test performed on Aug 26, 2020 09:05 Sodium 139 mmol/L TSH 0.89 uIU/mL Potassium 3.9 mmol/L Chloride 107 mmol/L CO2 25 mmol/L Anion Gap 10.9 BUN 14 mg/dL Creatinine 0.5 mg/dL Cr Clearance (Est) 145.60 mL/min eGFR 177.5 mL/min Glucose 136 mg/dL Osmolality - Calculated 291 mOsm/kg Calcium 8.4 mg/dL Protein, Total 5.9 g/dL Albumin 3.4 g/dL Globulin 2.5 g/dL Bilirubin, Total 0.3 mg/dL ALT (SGPT) 16 U/L AST (SGOT) 19 U/L Alkaline Phosphatase 131 IU/L WBC 6.4 10 3/uL RBC 4.33 10 6/uL HGB 13.1 g/dL HCT 40.1 % MCV 92.6 fL MCH 30.3 pg MCHC 32.7 g/dL RDW 13.6 % Platelet Count 221 10 3/cmm MPV 9.8 fL Neutrophils 4.90 10 3/uL Lymphocytes 0.9 10 3/uL Monocytes 0.5 10 3/uL Eosinophils 0.1 10 3/uL Basophils 0.0 10 3/uL Neutrophil % 76.7 % Lymphocyte % 14.2 % Monocyte % 7.2 % Eosinophil % 0.8 % Basophils % 0.6 % NRBC % 0 % Test performed on May 14, 2020 10:16 Manual Lymphocytes 18 % Manual Monocytes 10 % Manual Eosinophils 1 % Manual Basophils 0 % Impression: Small cell lung cancer involving left lung, per bronchoscopy done on August 18, 2019 Extensive loco- regional disease with bilateral cervical lymph nodes involvement. CT PET scan done on August 27, 2019 showed hypermetabolic large left hilar/mediastinal mass with matthew conglomeration in keeping with known small cell lung cancer. Also redemonstration of complete collapse of left lung with associated hypermetabolic activity may be secondary to diffuse tumor involvement or pneumonia There is evidence of metastatic disease to bilateral cervical chain lymph nodes as well as posterior upper neck intramuscular metastasis. In addition there is evidence of direct metastatic extension to the right of trachea and to an epicardial fat lymph node. No findings to suggest metastatic disease below diaphragm. No evidence of metastatic disease to the right lung. MRI scan of the brain done on September 01, 2019 at [facility] in [place] showed extensive brain mets but asymptomatic As per radiation oncology consultation at [facility] radiation therapy to brain was postponed till completion of systemic chemotherapy Started on Systemic chemotherapy with carboplatin/etoposide on September 01, 2019, first cycle was given at [facility] in [place] Longstanding history of smoking, quit in mid August 2019. Clinically, patient is doing well with no new signs symptoms suggestive of disease progression, tolerating systemic chemotherapy with carboplatin/etoposide well but with expected side effects e.g. progressive neutropenia/leukopenia causing delay in chemotherapy schedule with cycle 2. We have given him Neulasta to prevent chemotherapy-induced leukopenia/neutropenia and further delay in his chemotherapy schedule. Mr. Malik did have PET CT imaging on 11/02/2019 after 3 cycles of chemotherapy. It was noted there were bilateral cervical lymph nodes described on the prior imaging for CT was not present on this PET CT. There was no head or neck intramuscular metastatic disease present. There was complete postobstructive atelectasis of the left upper lobe. A region of residual activity measuring 1.6 x 3.7 cm with an SUV of 6.2 is consistent with a lung primary. Mild activity in the subaortic node is consistent with local metastatic disease. There was no other significant mediastinal adenopathy present. Innumerable small sclerotic osseous lesions best in the pelvis are most compatible with treated osseous metastatic disease. These were difficult to characterize due to size and background marrow activity from recent Neulasta therapy. He continues with chemotherapy at this time. The followup MRI scan of the brain to assess response has not been obtained as of this visit. recommendations for further plan of care per his last office note suggests in case patient has complete response, then will discuss with radiation oncology regarding radiation therapy to the thorax concurrent versus sequential followed by whole brain radiation therapy as, patient was diagnosed with brain mets at the time of diagnosis. We will also discuss about adding immunotherapy Tecentriq, as after completion of recommended chemotherapy, may continue with maintenance immunotherapy with Tecentriq alone . But patient decided to wait till follow-up CT scan reports. Which was done on May 14, 2019, MRI scan of the brain shows new enhancing metastatic lesion in the left temporal lobe 5.2 mm with surrounding edema. Previously described left parietal peripherally enhancing cystic lesion has decreased in size 1.6 x 1 cm. No new lesion seen and CT scan of chest abdomen pelvis done on May 14, 2020 shows partial collapse left upper lobe is unchanged. Increasing soft tissue in the proximal left upper lobe bronchus and encasing left main pulmonary artery suspicious for progression of tumor but difficult to determine tumor versus atelectatic lung. No evidence of metastatic disease to the liver or adrenal gland and and pelvis 2.6 x 1.3 cm collection of fluid in the perineum consistent with abscess versus pilonidal cyst Follow-up CT PET scan done on 05/23/2020 showed no morphological changes in the left upper lobe atelectasis but now with increasing FDG uptake. Progression of subaortic and left anterior diaphragmatic node. No change in sterilized osseous metastatic disease. Plan: Discussed with patient regarding his labs white blood count 8.9 hemoglobin 12.9 hematocrit 39.9 platelets 182,000 CMP within normal limits except alk phos 132 Clinically, patient doing well with no new signs symptoms suggestive of recurrence of disease or disease progression, at this point we will proceed with the next cycle of Tecentriq today and then he will return to clinic in 3 weeks with follow-up CT PET scan and MRI scan of the head and CBC and CMP Signed By: Amee Israel M.D. <<Signature on File>>
== END 2020-09-16 08:57 | disposition home or self-care (01) ==
LOC: ONCMED 08:57
PROVIDERS: PCP Family Medicine; Visit Provider Internal Medicine Hematology & Oncology
DX: Z51.12 Encounter for antineoplastic immunotherapy (principal); C34.02 Malignant neoplasm of left main bronchus; C79.31 Secondary malignant neoplasm of brain; C77.8 Secondary and unspecified malignant neoplasm of lymph nodes of multiple regions; Z79.899 Other long term (current) drug therapy
CPT/HCPCS: 80053; 84443; 85025; 96413; 99215; J7050; J9022

== ENCOUNTER 2020-10-07 08:56 | Outpatient (CLI) | payer MEDICAID, SELFPAY ==
[2020-10-07 09:53] LABS: Basophils % 0.6 %; Eosinophils # 0.1 10^3/uL (0.0-0.8); Eosinophils % 1.8 %; Hematocrit 39.9 % (42.0-52.0); Hemoglobin 12.7 g/dL (11.7-16.6); Lymphocytes # 0.8 10^3/uL (0.8-4.8); Lymphocytes % 11.4 %; Mean Corpuscular HGB Conc 31.8 g/dL (30.0-36.0); Mean Corpuscular Hemoglobin 30.5 pg (28.0-34.0); Mean Corpuscular Volume 95.7 fL (80-94); Mean Platelet Volume 9.6 fL (7.4-10.4); Monocytes # 0.6 10^3/uL (0.2-0.9); Monocytes % 9.1 %; Neutrophils # 5.26 10^3/uL (1.8-7.7); Neutrophils % 76.8 %; Nucleated Red Blood Cells % 0 %; Platelet Count 198 10^3/cmm (130-400); Red Blood Count 4.17 10^6/uL (4.1-5.3); White Blood Count 6.8 10^3/uL (4.0-10.0)
[2020-10-07 10:12] LABS: Alanine Aminotransferase 12 U/L (0-41); Albumin Level 3.5 g/dL (3.5-5.2); Alkaline Phosphatase 126 IU/L (40-130); Anion Gap 11.5 (5-19); Aspartate Amino Transferase 17 U/L (0-40); Blood Urea Nitrogen 12 mg/dL (6-20); Calcium 8.6 mg/dL (8.5-10.5); Carbon Dioxide 23 mmol/L (22-29); Chloride 108 mmol/L (98-107); Globulin 2.6 g/dL (1.3-4.6); Glomerular Filtration Rate 143.8 mL/min (90-130); Glucose 93 mg/dL (65-115); Osmolality Calculated 285 mOsm/kg (285-295); Potassium 4.5 mmol/L (3.5-5.1); Sodium 138 mmol/L (136-145); Total Bilirubin 0.2 mg/dL (0.15-1.2); Total Protein 6.1 g/dL (6.6-8.7)
[2020-10-07] MEDS: sodium chloride 0.9% 250 ML 75 ML IV (11:51)
--- NOTE | 2020-10-07 15:37 | ONC FU_ITS ---
Dr. Israel follow up note Patient: Tima Malik Unit #: [id number]: 1970 Dicatated By: Amee Israel M.D.Date of Visit:Oct 07, 2020 Onc Med Follow-up/Prog Note History of Present Illness: Mr. Malik is a 50-year-old gentleman with history of 40 to 50 pounds weight loss since February 2019. Mr Malik reports he sustained an injury to the chest in January or February 2019. Initially, it was not bothersome but then it become progressive to the point where even taking deep breath would hurt. The pain was not mainly in the mid upper anterior chest wall. He also developed progressive shortness of breath. He said he did not have medical insurance so he was taking over the counter pain medicine, which did help some but eventually on August 16, 2019 he went to the [facility] in [place], [place]. He had chest x-ray done which showed complete whiteout of left lung and CTA chest done showed complete collapse of left lung likely secondary to left hilar mass/malignancy. There was a bulky mediastinal and likely left hilar lymphadenopathy present. And moderate to large malignant left pleural effusion patient was transferred to [facility] in [place] where on August 17, 2019 underwent ultrasound-guided left thoracentesis and about 25 cc of cloudy yellow pleural fluid was removed, repeat CT scan of the chest done on August 17, 2019 showed possible obstruction of left main bronchus, a mucous plug or obstructing pulmonary mass or consideration. Complete opacification of left hemithorax appears similar to chest x-ray done on August 16, 2019. Elevation of left diaphragm suggest volume loss due to some degree of atelectasis. Left pleural effusion or large left consolidations are also considered. On August 18, 2019 patient underwent bronchoscopy and endobronchial biopsy and bronchial washing from left main bronchus confirmed invasive small cell carcinoma. Mr Malik underwent CT PET scan on August 27, 2019 which showed hypermetabolic very large left hilar/mediastinal mass and matthew conglomeration. There is also redemonstration of complete collapse of left lung with associated hypermetabolic activity that may be secondary to diffuse tumor involvement or pneumonia depending on clinical context There was also evidence of metastatic disease to bilateral cervical chain lymph nodes as well as posterior upper neck intramuscular metastasis. In addition there is evidence of direct metastatic extension into the right of the trachea and to an epicardial fat lymph node. No findings to suggest metastatic disease below the diaphragm and no evidence of metastatic disease to the right lung. Mr Malik was referred to cancer center in [place] as it is convenient to the patient. Patient has longstanding history of smoking but states he quit in mid August 2019. Mr Malik was admitted to hospital on August 29, 2019 with acute respiratory failure with hypoxia. He was intubated and then he transferred to [facility] in [place] where he underwent further management and work-up. He had a MRI scan of the head on September 01, 2019 which showed multiple intra-axial metastasis the largest lesion was located within the left parietal lobe. Extracranial soft tissue mass adjacent to spinous process of C2 and posterior arch of C1 suspicious for metastatic disease. Mr Malik was started on systemic chemotherapy with cycle 1 carboplatin/etoposide on August 31 and completed on September 03, 2019. He tolerated it reasonably well but as per patient and his aunt, he did crash' during chemotherapy. They reported that his blood pressure dropped and his pulse was fast. He was diagnosed with atrial fibrillation- since then he is having off and on episode of tachycardia and palpitation. Radiation oncology was consulted for brain mets but radiation was not offered because the patient was asymptomatic. He was started on systemic chemotherapy because of progressive and symptomatic intrathoracic disease. The current plan is to complete systemic chemotherapy followed by whole brain radiation therapy. Mr Malik had his third cycle of chemotherapy with Carboplatin/etoposide on 10/29/2019-10/31/2019. (He did receive 1 chemotherapy prior to transferring his [place] [facility] second cycle was complete on 10/03/2019). He is receiving growth factor support for neutropenia. Mr. Malik did have PET CT imaging on 11/02/2019 after 3 cycles of chemotherapy. It was noted there were bilateral cervical lymph nodes described on the prior imaging for CT was not present on this PET CT. There was no head or neck intramuscular metastatic disease present. There was complete postobstructive atelectasis of the left upper lobe. A region of residual activity measuring 1.6 x 3.7 cm with an SUV of 6.2 is consistent with a lung primary. Mild activity in the subaortic node is consistent with local metastatic disease. There was no other significant mediastinal adenopathy present. Innumerable small sclerotic osseous lesions best in the pelvis are most compatible with treated osseous metastatic disease. These were difficult to characterize due to size and background marrow activity from recent Neulasta therapy. He continues with chemotherapy at this time. The followup MRI scan of the brain to assess response .Was done on November 15, 2019 showed excellent response to the chemotherapy as radiation was not given earlier and planning was to do after completion of systemic chemotherapy for extensive intrathoracic disease. And repeat MRI scan showed no evidence of progressed metastatic disease interval decrease in size of cystic appearing peripheral enhancing left parietal lesion measuring 1.6 x 2.6 cm compared to 3.6 x 2.9 cm prior to chemotherapy and also interval decrease in surrounding edema. Previously described lesions are no longer appreciated on the scan no new enhancing lesions. Mr Malik completed 5 cycles of chemotherapy with carboplatin/etoposide on December 19, 2019 and had excellent response. He was referred to radiation oncology for consolidation radiotherapy to the chest and also to the brain as patient was diagnosed with brain mets at the time of diagnosis. Patient completed radiation therapy to his brain on January 27, 2020 and to his left chest on January 27, 2020. Follow-up CT scan of the chest abdomen pelvis done on May 14, 2020 showed partial collapse left upper lobe is unchanged. Increasing soft tissue in the proximal left upper lobe bronchus and encasing the left main pulmonary artery. Suspicious for progression of tumor. Difficult to determine that tumor versus atelectatic lung. No evidence of metastatic disease to the liver or adrenal gland. New cystic mass with peripheral enhancement in the perineum abscess versus pilonidal cyst. MRI scan of the brain shows new enhancing metastatic lesion in the left temporal lobe 5.2 mm with surrounding edema. Previously described left parietal peripherally enhancing cystic lesion has decreased in size measuring 1.6 cm x 1 cm today. No other new lesions seen. history of bursitis involving both shoulders in the past used to get cortisone shots. Follow-up CT PET scan done on 05/23/2020 shows left upper lobe atelectasis seen on prior study on 11/02/2019 is unchanged on current, now with an SUV of 8.3 compared to 6.2 previously. The subaortic lymph node is significantly progressed now measuring 2.3 cm in diameter with SUV of 14.7. A left-sided anterior diaphragmatic node which was subcentimeter in size and FDG negative on prior study now measuring 1.5 cm and SUV of 6.6 and no evidence of distant mets. Mr Malik was started on atezolizumab on 06/24/2020. He has tolerated it well so far. Came for follow-up, denies any specific complaint except persistent chronic left anterior/central chest pain, not being controlled with hydrocodone 5 mg, patient also consumed marijuana on regular basis for the last 20 years. Denies any trauma to his chest denies any shortness of breath denies any palpitation denies any dysphagia denies any hemoptysis or hematemesis, appetite is good otherwise tolerating maintenance dose with Tecentriq well. Patient was supposed to have follow-up CT PET scan and MRI scan of brain done prior to this visit but somehow patient said due to personal reason he could not get it done and now wants to reschedule Medications: Aspirin Adult Low Dose 1 Tablet (of 81 mg) Tablet, enteric coated Oral daily, Flonase 2 [place](s) (of 50 mcg/act) Suspension Nasal daily PRN, Ibuprofen 1 - 2 Capsule (of 200 mg) Oral daily PRN, LORazepam 0.5 - 1 Tablet (of 1 mg) Oral b.i.d. PRN, Marinol 1 Capsule (of 5 mg) Oral t.i.d., oxyCODONE HCl 1 Capsule (of 5 mg) Oral q 4 to 6 hours PRN Allergies: Dexamethasone Review of Systems: Review of Systems is not available for this patient. Vital Signs: Performed on Oct 07, 2020 10:38 Height - 71.00 in Weight - 131 lbs (HIGH) BSA - 1.76 sq.m BMI - 18.27 Temperature - 97 F (LOW) Pulse - 96 /min Respiration - 18 /min BP - 111/76 mm(hg) O2 Sat - 96 % Pain - 8 Fatigue - 0 Performance Status: 0 - Fully active, able to carry on all predisease activities without restrictions. (ECOG) Physical Examination: ENMT - . No mouth sores, no thrush, no jaundice no mouth sores, no thrush, no jaundice, no cervical lymphadenopathy, Respiratory - Lungs are clear to auscultation, Cardiovascular - Regular rate and rhythm of heart, Abdomen - Soft, bowel sounds present, Extremities - No visible edema. Lab/Imaging: Test performed on Aug 26, 2020 09:05 Sodium 139 mmol/L TSH 0.89 uIU/mL Potassium 3.9 mmol/L Chloride 107 mmol/L CO2 25 mmol/L Anion Gap 10.9 BUN 14 mg/dL Creatinine 0.5 mg/dL Cr Clearance (Est) 145.60 mL/min eGFR 177.5 mL/min Glucose 136 mg/dL Osmolality - Calculated 291 mOsm/kg Calcium 8.4 mg/dL Protein, Total 5.9 g/dL Albumin 3.4 g/dL Globulin 2.5 g/dL Bilirubin, Total 0.3 mg/dL ALT (SGPT) 16 U/L AST (SGOT) 19 U/L Alkaline Phosphatase 131 IU/L WBC 6.4 10 3/uL RBC 4.33 10 6/uL HGB 13.1 g/dL HCT 40.1 % MCV 92.6 fL MCH 30.3 pg MCHC 32.7 g/dL RDW 13.6 % Platelet Count 221 10 3/cmm MPV 9.8 fL Neutrophils 4.90 10 3/uL Lymphocytes 0.9 10 3/uL Monocytes 0.5 10 3/uL Eosinophils 0.1 10 3/uL Basophils 0.0 10 3/uL Neutrophil % 76.7 % Lymphocyte % 14.2 % Monocyte % 7.2 % Eosinophil % 0.8 % Basophils % 0.6 % NRBC % 0 % Test performed on May 14, 2020 10:16 Manual Lymphocytes 18 % Manual Monocytes 10 % Manual Eosinophils 1 % Manual Basophils 0 % Impression: Small cell lung cancer involving left lung, per bronchoscopy done on August 18, 2019 Extensive loco- regional disease with bilateral cervical lymph nodes involvement. CT PET scan done on August 27, 2019 showed hypermetabolic large left hilar/mediastinal mass with matthew conglomeration in keeping with known small cell lung cancer. Also redemonstration of complete collapse of left lung with associated hypermetabolic activity may be secondary to diffuse tumor involvement or pneumonia There is evidence of metastatic disease to bilateral cervical chain lymph nodes as well as posterior upper neck intramuscular metastasis. In addition there is evidence of direct metastatic extension to the right of trachea and to an epicardial fat lymph node. No findings to suggest metastatic disease below diaphragm. No evidence of metastatic disease to the right lung. MRI scan of the brain done on September 01, 2019 at [facility] showed extensive brain mets but asymptomatic As per radiation oncology consultation at [facility] radiation therapy to brain was postponed till completion of systemic chemotherapy Started on Systemic chemotherapy with carboplatin/etoposide on September 01, 2019, first cycle was given at [facility] in [place] Longstanding history of smoking, quit in mid August 2019. Clinically, patient is doing well with no new signs symptoms suggestive of disease progression, tolerating systemic chemotherapy with carboplatin/etoposide well but with expected side effects e.g. progressive neutropenia/leukopenia causing delay in chemotherapy schedule with cycle 2. We have given him Neulasta to prevent chemotherapy-induced leukopenia/neutropenia and further delay in his chemotherapy schedule. Mr. Malik did have PET CT imaging on 11/02/2019 after 3 cycles of chemotherapy. It was noted there were bilateral cervical lymph nodes described on the prior imaging for CT was not present on this PET CT. There was no head or neck intramuscular metastatic disease present. There was complete postobstructive atelectasis of the left upper lobe. A region of residual activity measuring 1.6 x 3.7 cm with an SUV of 6.2 is consistent with a lung primary. Mild activity in the subaortic node is consistent with local metastatic disease. There was no other significant mediastinal adenopathy present. Innumerable small sclerotic osseous lesions best in the pelvis are most compatible with treated osseous metastatic disease. These were difficult to characterize due to size and background marrow activity from recent Neulasta therapy. He continues with chemotherapy at this time. The followup MRI scan of the brain to assess response has not been obtained as of this visit. recommendations for further plan of care per his last office note suggests in case patient has complete response, then will discuss with radiation oncology regarding radiation therapy to the thorax concurrent versus sequential followed by whole brain radiation therapy as, patient was diagnosed with brain mets at the time of diagnosis. We will also discuss about adding immunotherapy Tecentriq, as after completion of recommended chemotherapy, may continue with maintenance immunotherapy with Tecentriq alone . But patient decided to wait till follow-up CT scan reports. Which was done on May 14, 2019, MRI scan of the brain shows new enhancing metastatic lesion in the left temporal lobe 5.2 mm with surrounding edema. Previously described left parietal peripherally enhancing cystic lesion has decreased in size 1.6 x 1 cm. No new lesion seen and CT scan of chest abdomen pelvis done on May 14, 2020 shows partial collapse left upper lobe is unchanged. Increasing soft tissue in the proximal left upper lobe bronchus and encasing left main pulmonary artery suspicious for progression of tumor but difficult to determine tumor versus atelectatic lung. No evidence of metastatic disease to the liver or adrenal gland and and pelvis 2.6 x 1.3 cm collection of fluid in the perineum consistent with abscess versus pilonidal cyst Follow-up CT PET scan done on 05/23/2020 showed no morphological changes in the left upper lobe atelectasis but now with increasing FDG uptake. Progression of subaortic and left anterior diaphragmatic node. No change in sterilized osseous metastatic disease. Plan: Discussed with patient regarding his labs white blood count 6.8 hemoglobin 12.7 hematocrit 39.9 platelets 198,000 CMP within normal limits Clinically, patient doing well with no new signs symptom suggestive of disease progression, will proceed with next dose of Tecentriq today and then he will return to clinic in 3 weeks with CBC CMP, in the meantime, we will schedule him for follow-up CT PET scan and MRA head prior to next visit. As per left anterior/central chest pain is concerned, we will increase his oxycodone to 10 mg every 4-6 hour as needed Signed By: Amee Israel M.D. <<Signature on File>>
== END 2020-10-07 08:57 | disposition home or self-care (01) ==
LOC: ONCMED 08:57
PROVIDERS: PCP Family Medicine; Visit Provider Internal Medicine Hematology & Oncology
DX: Z51.12 Encounter for antineoplastic immunotherapy (principal); C34.02 Malignant neoplasm of left main bronchus; C77.8 Secondary and unspecified malignant neoplasm of lymph nodes of multiple regions; C79.31 Secondary malignant neoplasm of brain; F17.211 Nicotine dependence, cigarettes, in remission; Z92.21 Personal history of antineoplastic chemotherapy; Z79.899 Other long term (current) drug therapy
CPT/HCPCS: 36415; 80053; 85025; 96413; 99215; J7050; J9022

== ENCOUNTER 2020-10-28 10:43 | Outpatient (CLI) | payer MEDICAID, SELFPAY ==
[2020-10-28 11:22] LABS: Basophils # 0.1 10^3/uL (0.0-0.1); Basophils % 0.9 %; Eosinophils # 0.2 10^3/uL (0.0-0.8); Eosinophils % 1.6 %; Hematocrit 39.4 % (42.0-52.0); Hemoglobin 12.9 g/dL (11.7-16.6); Lymphocytes # 1.3 10^3/uL (0.8-4.8); Lymphocytes % 13.8 %; Mean Corpuscular HGB Conc 32.7 g/dL (30.0-36.0); Mean Corpuscular Hemoglobin 30.1 pg (28.0-34.0); Mean Corpuscular Volume 92.1 fl (80-94); Mean Platelet Volume 9.2 fL (7.4-10.4); Monocytes # 0.9 10^3/uL (0.2-0.9); Monocytes % 9.1 %; Neutrophils # 6.99 10^3/uL (1.8-7.7); Neutrophils % 74.3 %; Nucleated Red Blood Cells % 0 %; Platelet Count 337 10^3/cmm (130-400); Red Blood Count 4.28 10^6/uL (4.1-5.3); Red Cell Distribution Width 14.3 % (12.1-15.1); White Blood Count 9.4 10^3/uL (4.0-10.0)
[2020-10-28 11:49] LABS: Alanine Aminotransferase 22 U/L (0-41); Albumin Level 3.4 g/dL (3.5-5.2); Alkaline Phosphatase 198 IU/L (40-130); Anion Gap 14.4 (5-19); Aspartate Amino Transferase 24 U/L (0-40); Blood Urea Nitrogen 18 mg/dL (6-20); Calcium 8.8 mg/dL (8.5-10.5); Carbon Dioxide 24 mmol/L (22-29); Chloride 101 mmol/L (98-107); Globulin 3.1 g/dL (1.3-4.6); Glomerular Filtration Rate 177.5 mL/min (90-130); Glucose 73 mg/dL (65-115); Osmolality Calculated 280 mOsm/kg (285-295); Potassium 4.4 mmol/L (3.5-5.1); Sodium 135 mmol/L (136-145); Total Bilirubin 0.4 mg/dL (0.15-1.2); Total Protein 6.5 g/dL (6.6-8.7)
--- NOTE | 2020-11-01 19:48 | ONC FU_ITS ---
Dr. Israel follow up note Patient: Tima Malik Unit #: [id number]: [id number] Dicatated By: Amee Israel M.D.Date of Visit:Oct 28, 2020 Onc Med Follow-up/Prog Note History of Present Illness: Mr. Malik is a 50-year-old gentleman with history of 40 to 50 pounds weight loss since February 2019. Mr Malik reports he sustained an injury to the chest in January or February 2019. Initially, it was not bothersome but then it become progressive to the point where even taking deep breath would hurt. The pain was not mainly in the mid upper anterior chest wall. He also developed progressive shortness of breath. He said he did not have medical insurance so he was taking over the counter pain medicine, which did help some but eventually on August 16, 2019 he went to the [facility] in [place], [place]. He had chest x-ray done which showed complete whiteout of left lung and CTA chest done showed complete collapse of left lung likely secondary to left hilar mass/malignancy. There was a bulky mediastinal and likely left hilar lymphadenopathy present. And moderate to large malignant left pleural effusion patient was transferred to [facility] in [place] where on August 17, 2019 underwent ultrasound-guided left thoracentesis and about 25 cc of cloudy yellow pleural fluid was removed, repeat CT scan of the chest done on August 17, 2019 showed possible obstruction of left main bronchus, a mucous plug or obstructing pulmonary mass or consideration. Complete opacification of left hemithorax appears similar to chest x-ray done on August 16, 2019. Elevation of left diaphragm suggest volume loss due to some degree of atelectasis. Left pleural effusion or large left consolidations are also considered. On August 18, 2019 patient underwent bronchoscopy and endobronchial biopsy and bronchial washing from left main bronchus confirmed invasive small cell carcinoma. Mr Malik underwent CT PET scan on August 27, 2019 which showed hypermetabolic very large left hilar/mediastinal mass and matthew conglomeration. There is also redemonstration of complete collapse of left lung with associated hypermetabolic activity that may be secondary to diffuse tumor involvement or pneumonia depending on clinical context There was also evidence of metastatic disease to bilateral cervical chain lymph nodes as well as posterior upper neck intramuscular metastasis. In addition there is evidence of direct metastatic extension into the right of the trachea and to an epicardial fat lymph node. No findings to suggest metastatic disease below the diaphragm and no evidence of metastatic disease to the right lung. Mr Malik was referred to cancer center in [place] as it is convenient to the patient. Patient has longstanding history of smoking but states he quit in mid August 2019. Mr Malik was admitted to hospital on August 29, 2019 with acute respiratory failure with hypoxia. He was intubated and then he transferred to [facility] in [place] where he underwent further management and work-up. He had a MRI scan of the head on September 01, 2019 which showed multiple intra-axial metastasis the largest lesion was located within the left parietal lobe. Extracranial soft tissue mass adjacent to spinous process of C2 and posterior arch of C1 suspicious for metastatic disease. Mr Malik was started on systemic chemotherapy with cycle 1 carboplatin/etoposide on August 31 and completed on September 03, 2019. He tolerated it reasonably well but as per patient and his aunt, he did crash' during chemotherapy. They reported that his blood pressure dropped and his pulse was fast. He was diagnosed with atrial fibrillation- since then he is having off and on episode of tachycardia and palpitation. Radiation oncology was consulted for brain mets but radiation was not offered because the patient was asymptomatic. He was started on systemic chemotherapy because of progressive and symptomatic intrathoracic disease. The current plan is to complete systemic chemotherapy followed by whole brain radiation therapy. Mr Malik had his third cycle of chemotherapy with Carboplatin/etoposide on 10/29/2019-10/31/2019. (He did receive 1 chemotherapy prior to transferring his care to [facility] [place]-his second cycle was complete on 10/03/2019). He is receiving growth factor support for neutropenia. Mr. Malik did have PET CT imaging on 11/02/2019 after 3 cycles of chemotherapy. It was noted there were bilateral cervical lymph nodes described on the prior imaging for CT was not present on this PET CT. There was no head or neck intramuscular metastatic disease present. There was complete postobstructive atelectasis of the left upper lobe. A region of residual activity measuring 1.6 x 3.7 cm with an SUV of 6.2 is consistent with a lung primary. Mild activity in the subaortic node is consistent with local metastatic disease. There was no other significant mediastinal adenopathy present. Innumerable small sclerotic osseous lesions best in the pelvis are most compatible with treated osseous metastatic disease. These were difficult to characterize due to size and background marrow activity from recent Neulasta therapy. He continues with chemotherapy at this time. The followup MRI scan of the brain to assess response .Was done on November 15, 2019 showed excellent response to the chemotherapy as radiation was not given earlier and planning was to do after completion of systemic chemotherapy for extensive intrathoracic disease. And repeat MRI scan showed no evidence of progressed metastatic disease interval decrease in size of cystic appearing peripheral enhancing left parietal lesion measuring 1.6 x 2.6 cm compared to 3.6 x 2.9 cm prior to chemotherapy and also interval decrease in surrounding edema. Previously described lesions are no longer appreciated on the scan no new enhancing lesions. Mr Malik completed 5 cycles of chemotherapy with carboplatin/etoposide on December 19, 2019 and had excellent response. He was referred to radiation oncology for consolidation radiotherapy to the chest and also to the brain as patient was diagnosed with brain mets at the time of diagnosis. Patient completed radiation therapy to his brain on January 27, 2020 and to his left chest on January 27, 2020. Follow-up CT scan of the chest abdomen pelvis done on May 14, 2020 showed partial collapse left upper lobe is unchanged. Increasing soft tissue in the proximal left upper lobe bronchus and encasing the left main pulmonary artery. Suspicious for progression of tumor. Difficult to determine that tumor versus atelectatic lung. No evidence of metastatic disease to the liver or adrenal gland. New cystic mass with peripheral enhancement in the perineum abscess versus pilonidal cyst. MRI scan of the brain shows new enhancing metastatic lesion in the left temporal lobe 5.2 mm with surrounding edema. Previously described left parietal peripherally enhancing cystic lesion has decreased in size measuring 1.6 cm x 1 cm today. No other new lesions seen. history of bursitis involving both shoulders in the past used to get cortisone shots. Follow-up CT PET scan done on 05/23/2020 shows left upper lobe atelectasis seen on prior study on 11/02/2019 is unchanged on current, now with an SUV of 8.3 compared to 6.2 previously. The subaortic lymph node is significantly progressed now measuring 2.3 cm in diameter with SUV of 14.7. A left-sided anterior diaphragmatic node which was subcentimeter in size and FDG negative on prior study now measuring 1.5 cm and SUV of 6.6 and no evidence of distant mets. Mr Malik was started on atezolizumab on 06/24/2020. He has tolerated it well so far. Follow-up CT PET scan done on October 10, 2020 shows no complete atelectasis of left upper lobe with extensive abnormal activity throughout the lobe with SUV 11.9 consistent with recurrence. This mass invades the upper left mediastinum with invasion into anterior mediastinum and prevascular territory. And new malignant nodes are present in the anterior mediastinal, left supraclavicular, subcarinal territory. A new FDG positive opacity in the medial right middle lobe may be related to malignancy. Multifocal hepatic metastatic disease has developed. Dominant lesion in the inferior right hepatic lobe measuring 2 cm. With SUV of 9.5. Old osseous metastatic disease is unchanged and remain FDG negative but there is a new lesion in the proximal right femur with SUV of 6.3. Came for follow-up, complaining of upper anterior chest pain/discomfort but no dysphagia or shortness of breath, no hemoptysis or hematemesis, no fever chills, no nausea or vomiting, no headaches blurred or double vision, no jaundice, no abdominal pain but generalized weakness and fatigue. No skin rash, no diarrhea or or mucus in the stool, no wheezing or shortness of breath.But chronic right hip pain which is under control with current pain medication Medications: [employer] Stool Softener 1 Capsule (of 250 mg) Oral daily PRN, Flonase 2 [place](s) (of 50 mcg/act) Suspension Nasal daily PRN, Ibuprofen 1 Capsule (of 800 mg) Oral q 6 hours PRN, LORazepam 0.5 - 1 Tablet (of 1 mg) Oral b.i.d. PRN, Marinol 1 Capsule (of 5 mg) Oral t.i.d., oxyCODONE HCl Allergies: Dexamethasone Review of Systems: Review of Systems is not available for this patient. Vital Signs: Performed on Oct 28, 2020 12:44 Height - 71.00 in Weight - 119 lbs (LOW) BSA - 1.69 sq.m BMI - 16.60 (LOW) Temperature - 97 F (LOW) Pulse - 96 /min Respiration - 18 /min BP - 113/79 mm(hg) O2 Sat - 99 % Pain - 10 Fatigue - 8 Performance Status: 0 - Fully active, able to carry on all predisease activities without restrictions. (ECOG) Physical Examination: ENMT - No mouth sores, no thrush, no jaundice, Respiratory - Lungs are clear to auscultation, Cardiovascular - Regular rate and rhythm of heart, Abdomen - Soft, bowel sounds present, Extremities - No visible edema. Lab/Imaging: Test performed on Aug 26, 2020 09:05 Sodium 139 mmol/L TSH 0.89 uIU/mL Potassium 3.9 mmol/L Chloride 107 mmol/L CO2 25 mmol/L Anion Gap 10.9 BUN 14 mg/dL Creatinine 0.5 mg/dL Cr Clearance (Est) 145.60 mL/min eGFR 177.5 mL/min Glucose 136 mg/dL Osmolality - Calculated 291 mOsm/kg Calcium 8.4 mg/dL Protein, Total 5.9 g/dL Albumin 3.4 g/dL Globulin 2.5 g/dL Bilirubin, Total 0.3 mg/dL ALT (SGPT) 16 U/L AST (SGOT) 19 U/L Alkaline Phosphatase 131 IU/L WBC 6.4 10 3/uL RBC 4.33 10 6/uL HGB 13.1 g/dL HCT 40.1 % MCV 92.6 fL MCH 30.3 pg MCHC 32.7 g/dL RDW 13.6 % Platelet Count 221 10 3/cmm MPV 9.8 fL Neutrophils 4.90 10 3/uL Lymphocytes 0.9 10 3/uL Monocytes 0.5 10 3/uL Eosinophils 0.1 10 3/uL Basophils 0.0 10 3/uL Neutrophil % 76.7 % Lymphocyte % 14.2 % Monocyte % 7.2 % Eosinophil % 0.8 % Basophils % 0.6 % NRBC % 0 % Test performed on May 14, 2020 10:16 Manual Lymphocytes 18 % Manual Monocytes 10 % Manual Eosinophils 1 % Manual Basophils 0 % Impression: Small cell lung cancer involving left lung, per bronchoscopy done on August 18, 2019 Extensive loco- regional disease with bilateral cervical lymph nodes involvement. CT PET scan done on August 27, 2019 showed hypermetabolic large left hilar/mediastinal mass with matthew conglomeration in keeping with known small cell lung cancer. Also redemonstration of complete collapse of left lung with associated hypermetabolic activity may be secondary to diffuse tumor involvement or pneumonia There is evidence of metastatic disease to bilateral cervical chain lymph nodes as well as posterior upper neck intramuscular metastasis. In addition there is evidence of direct metastatic extension to the right of trachea and to an epicardial fat lymph node. No findings to suggest metastatic disease below diaphragm. No evidence of metastatic disease to the right lung. MRI scan of the brain done on September 01, 2019 at [facility] in [place] showed extensive brain mets but asymptomatic As per radiation oncology consultation at [facility] radiation therapy to brain was postponed till completion of systemic chemotherapy Started on Systemic chemotherapy with carboplatin/etoposide on September 01, 2019, first cycle was given at [facility] Longstanding history of smoking, quit in mid August 2019. Clinically, patient is doing well with no new signs symptoms suggestive of disease progression, tolerating systemic chemotherapy with carboplatin/etoposide well but with expected side effects e.g. progressive neutropenia/leukopenia causing delay in chemotherapy schedule with cycle 2. We have given him Neulasta to prevent chemotherapy-induced leukopenia/neutropenia and further delay in his chemotherapy schedule. Mr. Malik did have PET CT imaging on 11/02/2019 after 3 cycles of chemotherapy. It was noted there were bilateral cervical lymph nodes described on the prior imaging for CT was not present on this PET CT. There was no head or neck intramuscular metastatic disease present. There was complete postobstructive atelectasis of the left upper lobe. A region of residual activity measuring 1.6 x 3.7 cm with an SUV of 6.2 is consistent with a lung primary. Mild activity in the subaortic node is consistent with local metastatic disease. There was no other significant mediastinal adenopathy present. Innumerable small sclerotic osseous lesions best in the pelvis are most compatible with treated osseous metastatic disease. These were difficult to characterize due to size and background marrow activity from recent Neulasta therapy. He continues with chemotherapy at this time. The followup MRI scan of the brain to assess response has not been obtained as of this visit. recommendations for further plan of care per his last office note suggests in case patient has complete response, then will discuss with radiation oncology regarding radiation therapy to the thorax concurrent versus sequential followed by whole brain radiation therapy as, patient was diagnosed with brain mets at the time of diagnosis. We will also discuss about adding immunotherapy Tecentriq, as after completion of recommended chemotherapy, may continue with maintenance immunotherapy with Tecentriq alone . But patient decided to wait till follow-up CT scan reports. Which was done on May 14, 2019, MRI scan of the brain shows new enhancing metastatic lesion in the left temporal lobe 5.2 mm with surrounding edema. Previously described left parietal peripherally enhancing cystic lesion has decreased in size 1.6 x 1 cm. No new lesion seen and CT scan of chest abdomen pelvis done on May 14, 2020 shows partial collapse left upper lobe is unchanged. Increasing soft tissue in the proximal left upper lobe bronchus and encasing left main pulmonary artery suspicious for progression of tumor but difficult to determine tumor versus atelectatic lung. No evidence of metastatic disease to the liver or adrenal gland and and pelvis 2.6 x 1.3 cm collection of fluid in the perineum consistent with abscess versus pilonidal cyst Follow-up CT PET scan done on 05/23/2020 showed no morphological changes in the left upper lobe atelectasis but now with increasing FDG uptake. Progression of subaortic and left anterior diaphragmatic node. No change in sterilized osseous metastatic disease. Plan: Discussed with patient regarding his labs white blood count 9.4 hemoglobin 12.9 hematocrit 39.4 platelets 347,000 CMP within normal limits except alk phos 198 and follow-up CT PET scan which shows new complete atelectasis of left upper lobe with more extensive uptake consistent with disease progression. New malignant nodes in the left supraclavicular, mediastinal territories. Possible new malignancy T in the medial right middle lobe. New multifocal hepatic metastatic disease. New active osseous metastatic disease in the proximal right femur. Other lesions are unchanged and FDG negative. Clinically, patient is in mild to moderate distress due to upper anterior chest discomfort and fullness but no dysphagia or shortness of breath or wheezing, no hemoptysis or hematemesis, his follow-up CT PET scan shows disease progression mainly in the left upper lobe as well as mediastinal lymphadenopathy and now new hepatic mets and other concern is right proximal femur At this point we will consider discontinuing immunotherapy with Tecentriq and switch him to cisplatin 30 mg per metered squared day 1 and 8 and irinotecan 65 mg per metered square day 1 and 8 and repeat every 21 days and also consider monthly Xgeva all the side effect possible benefits associated with cisplatin/irinotecan including but not limited to nausea vomiting, bone marrow suppression, diarrhea especially with irinotecan and [place]/nephrotoxicity with cisplatin, hair loss, were discussed, further teaching will done by chemotherapy nurse, will obtain approval from visit insurance prior to the treatment We will also consider CT scan of pelvis and right proximal femur to assess extent of bone involvement and to see if he need internal fixation or radiation therapy. Patient will return to clinic 1 week after chemotherapy is initiated with CBC CMP Signed By: Amee Israel M.D. <<Signature on File>>
== END 2020-10-28 10:44 | disposition home or self-care (01) ==
LOC: ONCMED 10:45
PROVIDERS: PCP Family Medicine; Visit Provider Internal Medicine Hematology & Oncology
DX: C34.02 Malignant neoplasm of left main bronchus (principal); C77.8 Secondary and unspecified malignant neoplasm of lymph nodes of multiple regions; C78.7 Secondary malignant neoplasm of liver and intrahepatic bile duct; C79.31 Secondary malignant neoplasm of brain; C79.89 Secondary malignant neoplasm of other specified sites; Z79.899 Other long term (current) drug therapy; Z87.891 Personal history of nicotine dependence
CPT/HCPCS: 36591; 80053; 85025; 99214

== ENCOUNTER 2020-11-17 14:49 | Outpatient (CLI) | payer MEDICAID, SELFPAY ==
--- NOTE | 2020-11-17 15:40 | CT_ITS ---
WS: [id number] NONCONTRAST CT RIGHT FEMUR TECHNIQUE: Noncontrast CT right femur with coronal and sagittal reformatted images. CLINICAL INFORMATION: SUSPICIOUS LESION SEEN ON PET SCAN COMPARISON: PET CT October 10, 2020 DLP: 1746.[address] scans at [facility] use at least one of these dose optimization techniques: automated e xposure control; mA and/or kV adjustment per patient size (includes targeted exams where dose is matc hed to clinical indication); or iterative reconstruction. FINDINGS: PET CT October 10, 2020 reviewed. Focal area of uptake in the right proximal femur corresponds to a sc lerotic lesion involving the right greater trochanter. This measures approximately 2.4 x 1.5 CM. No e vidence of pathologic fracture. No lesions in the femoral neck. Moderate osteoarthritis involving the right hip with joint space narr owing and hypertrophic changes. No acute fractures. Femoral shaft is normal. Normal pubic rami. Mary Ann l acetabulum. Partially visualized free fluid in the pelvis. Body wall anasarca. Stable tiny scleroti c lesions within the visualized bony pelvis and proximal femur compatible with prior treated disease CT/CT femur RT w con [id number] IMPRESSION: 1. Sclerotic lesion involving the right greater trochanter measuring 2.4 x 1.5 cm corresponds to the FDG avid focus on the recent PET/CT. No pathologic fract ure. 2. No lesions in the femoral neck. 3. No acute fractures. 4. Moderate degenerative arthritis right hip with joint space narrowing. 5. Small amount of free fluid in the pelvis similar to the prior PET/CT.
[2020-11-17] MEDS: iohexol 300 mg/mL 100 mL Btl IV (15:58)
== END 2020-11-17 14:50 | disposition home or self-care (01) ==
PROVIDERS: PCP Family Medicine; Visit Provider Internal Medicine Hematology & Oncology
DX: M89.8X5 Other specified disorders of bone, thigh (principal)
CPT/HCPCS: 73701; Q9967

== ENCOUNTER 2020-11-27 11:09 | Outpatient (CLI) | payer MEDICAID, SELFPAY ==
[2020-11-27 12:00] LABS: Basophils # 0.1 10^3/uL (0.0-0.1); Basophils % 0.6 %; Eosinophils # 0.1 10^3/uL (0.0-0.8); Hemoglobin 10.1 g/dL (11.7-16.6); Lymphocytes # 0.5 10^3/uL (0.8-4.8); Lymphocytes % 6.1 %; Mean Corpuscular HGB Conc 31.6 g/dL (30.0-36.0); Mean Corpuscular Hemoglobin 29.3 pg (28.0-34.0); Mean Corpuscular Volume 92.8 fl (80-94); Mean Platelet Volume 9.6 fL (7.4-10.4); Monocytes % 11.7 %; Neutrophils # 6.72 10^3/uL (1.8-7.7); Nucleated Red Blood Cells % 0 %; Platelet Count 340 10^3/cmm (130-400); Red Blood Count 3.45 10^6/uL (4.1-5.3); Red Cell Distribution Width 14.4 % (12.1-15.1); White Blood Count 8.4 10^3/uL (4.0-10.0)
[2020-11-27 12:26] LABS: Alanine Aminotransferase 11 U/L (0-41); Albumin Level 2.2 g/dL (3.5-5.2); Alkaline Phosphatase 255 IU/L (40-130); Anion Gap 13.7 (5-19); Aspartate Amino Transferase 27 U/L (0-40); Blood Urea Nitrogen 13 mg/dL (6-20); Calcium 8.6 mg/dL (8.5-10.5); Carbon Dioxide 25 mmol/L (22-29); Chloride 100 mmol/L (98-107); Globulin 3.1 g/dL (1.3-4.6); Glomerular Filtration Rate 177.5 mL/min (90-130); Glucose 101 mg/dL (65-115); Osmolality Calculated 280 mOsm/kg (285-295); Potassium 3.7 mmol/L (3.5-5.1); Sodium 135 mmol/L (136-145); Total Bilirubin 0.2 mg/dL (0.15-1.2); Total Protein 5.3 g/dL (6.6-8.7)
== END 2020-11-27 11:10 | disposition home or self-care (01) ==
LOC: ONCMED 11:11
PROVIDERS: PCP Family Medicine; Visit Provider Internal Medicine Hematology & Oncology
DX: C34.02 Malignant neoplasm of left main bronchus (principal); D64.9 Anemia, unspecified
CPT/HCPCS: 36591; 80053; 85025

== ENCOUNTER 2020-11-30 06:39 | Outpatient (CLI) | payer MEDICAID, SELFPAY ==
--- NOTE | 2020-11-30 09:30 | ONC FU_ITS ---
Dr. Israel follow up note Patient: Tima Malik Unit #: [id number]: 1970 Dicatated By: Amee Israel M.D.Date of Visit:Nov 30, 2020 Onc Med Follow-up/Prog Note History of Present Illness: Mr. Malik is a 50-year-old gentleman with history of 40 to 50 pounds weight loss since February 2019. Mr Malik reports he sustained an injury to the chest in January or February 2019. Initially, it was not bothersome but then it become progressive to the point where even taking deep breath would hurt. The pain was not mainly in the mid upper anterior chest wall. He also developed progressive shortness of breath. He said he did not have medical insurance so he was taking over the counter pain medicine, which did help some but eventually on August 16, 2019 he went to the [facility] in [place], [place]. He had chest x-ray done which showed complete whiteout of left lung and CTA chest done showed complete collapse of left lung likely secondary to left hilar mass/malignancy. There was a bulky mediastinal and likely left hilar lymphadenopathy present. And moderate to large malignant left pleural effusion patient was transferred to [facility] in [place] where on August 17, 2019 underwent ultrasound-guided left thoracentesis and about 25 cc of cloudy yellow pleural fluid was removed, repeat CT scan of the chest done on August 17, 2019 showed possible obstruction of left main bronchus, a mucous plug or obstructing pulmonary mass or consideration. Complete opacification of left hemithorax appears similar to chest x-ray done on August 16, 2019. Elevation of left diaphragm suggest volume loss due to some degree of atelectasis. Left pleural effusion or large left consolidations are also considered. On August 18, 2019 patient underwent bronchoscopy and endobronchial biopsy and bronchial washing from left main bronchus confirmed invasive small cell carcinoma. Mr Malik underwent CT PET scan on August 27, 2019 which showed hypermetabolic very large left hilar/mediastinal mass and matthew conglomeration. There is also redemonstration of complete collapse of left lung with associated hypermetabolic activity that may be secondary to diffuse tumor involvement or pneumonia depending on clinical context There was also evidence of metastatic disease to bilateral cervical chain lymph nodes as well as posterior upper neck intramuscular metastasis. In addition there is evidence of direct metastatic extension into the right of the trachea and to an epicardial fat lymph node. No findings to suggest metastatic disease below the diaphragm and no evidence of metastatic disease to the right lung. Mr Malik was referred to cancer center in [place] as it is convenient to the patient. Patient has longstanding history of smoking but states he quit in mid August 2019. Mr Malik was admitted to hospital on August 29, 2019 with acute respiratory failure with hypoxia. He was intubated and then he transferred to [facility] in [place] where he underwent further management and work-up. He had a MRI scan of the head on September 01, 2019 which showed multiple intra-axial metastasis the largest lesion was located within the left parietal lobe. Extracranial soft tissue mass adjacent to spinous process of C2 and posterior arch of C1 suspicious for metastatic disease. Mr Malik was started on systemic chemotherapy with cycle 1 carboplatin/etoposide on August 31 and completed on September 03, 2019. He tolerated it reasonably well but as per patient and his aunt, he did crash' during chemotherapy. They reported that his blood pressure dropped and his pulse was fast. He was diagnosed with atrial fibrillation- since then he is having off and on episode of tachycardia and palpitation. Radiation oncology was consulted for brain mets but radiation was not offered because the patient was asymptomatic. He was started on systemic chemotherapy because of progressive and symptomatic intrathoracic disease. The current plan is to complete systemic chemotherapy followed by whole brain radiation therapy. Mr Malik had his third cycle of chemotherapy with Carboplatin/etoposide on 10/29/2019-10/31/2019. (He did receive 1 chemotherapy prior to transferring his care to [facility]-his second cycle was complete on 10/03/2019). He is receiving growth factor support for neutropenia. Mr. Malik did have PET CT imaging on 11/02/2019 after 3 cycles of chemotherapy. It was noted there were bilateral cervical lymph nodes described on the prior imaging for CT was not present on this PET CT. There was no head or neck intramuscular metastatic disease present. There was complete postobstructive atelectasis of the left upper lobe. A region of residual activity measuring 1.6 x 3.7 cm with an SUV of 6.2 is consistent with a lung primary. Mild activity in the subaortic node is consistent with local metastatic disease. There was no other significant mediastinal adenopathy present. Innumerable small sclerotic osseous lesions best in the pelvis are most compatible with treated osseous metastatic disease. These were difficult to characterize due to size and background marrow activity from recent Neulasta therapy. He continues with chemotherapy at this time. The followup MRI scan of the brain to assess response .Was done on November 15, 2019 showed excellent response to the chemotherapy as radiation was not given earlier and planning was to do after completion of systemic chemotherapy for extensive intrathoracic disease. And repeat MRI scan showed no evidence of progressed metastatic disease interval decrease in size of cystic appearing peripheral enhancing left parietal lesion measuring 1.6 x 2.6 cm compared to 3.6 x 2.9 cm prior to chemotherapy and also interval decrease in surrounding edema. Previously described lesions are no longer appreciated on the scan no new enhancing lesions. Mr Malik completed 5 cycles of chemotherapy with carboplatin/etoposide on December 19, 2019 and had excellent response. He was referred to radiation oncology for consolidation radiotherapy to the chest and also to the brain as patient was diagnosed with brain mets at the time of diagnosis. Patient completed radiation therapy to his brain on January 27, 2020 and to his left chest on January 27, 2020. Follow-up CT scan of the chest abdomen pelvis done on May 14, 2020 showed partial collapse left upper lobe is unchanged. Increasing soft tissue in the proximal left upper lobe bronchus and encasing the left main pulmonary artery. Suspicious for progression of tumor. Difficult to determine that tumor versus atelectatic lung. No evidence of metastatic disease to the liver or adrenal gland. New cystic mass with peripheral enhancement in the perineum abscess versus pilonidal cyst. MRI scan of the brain shows new enhancing metastatic lesion in the left temporal lobe 5.2 mm with surrounding edema. Previously described left parietal peripherally enhancing cystic lesion has decreased in size measuring 1.6 cm x 1 cm today. No other new lesions seen. history of bursitis involving both shoulders in the past used to get cortisone shots. Follow-up CT PET scan done on 05/23/2020 shows left upper lobe atelectasis seen on prior study on 11/02/2019 is unchanged on current, now with an SUV of 8.3 compared to 6.2 previously. The subaortic lymph node is significantly progressed now measuring 2.3 cm in diameter with SUV of 14.7. A left-sided anterior diaphragmatic node which was subcentimeter in size and FDG negative on prior study now measuring 1.5 cm and SUV of 6.6 and no evidence of distant mets. Mr Malik was started on atezolizumab on 06/24/2020. He has tolerated it well so far. Follow-up CT PET scan done on October 10, 2020 shows no complete atelectasis of left upper lobe with extensive abnormal activity throughout the lobe with SUV 11.9 consistent with recurrence. This mass invades the upper left mediastinum with invasion into anterior mediastinum and prevascular territory. And new malignant nodes are present in the anterior mediastinal, left supraclavicular, subcarinal territory. A new FDG positive opacity in the medial right middle lobe may be related to malignancy. Multifocal hepatic metastatic disease has developed. Dominant lesion in the inferior right hepatic lobe measuring 2 cm. With SUV of 9.5. Old osseous metastatic disease is unchanged and remain FDG negative but there is a new lesion in the proximal right femur with SUV of 6.3.CT scan of right femur done on November 17, 2020 showed sclerotic lesion involving right greater trochanter measuring 2.4 x 1.5 cm corresponds to FDG avid focus on recent CT PET, no pathological fracture. No lesion in the femoral neck. Came for follow-up, complaining of pain in his left shoulder/upper neck and now with mild to moderate left arm swelling mainly around the elbow area, denies any trauma to the arm or left shoulder, denies any insect bite, denies any fever chills, but off and on numbness in the left arm and weakness in left hand. As per patient, extended release morphine 15 mg every 12 hours along with breakthrough is not sufficient for his progressive left shoulder/left upper chest pain. Denies any hemoptysis or hematemesis but dyspnea on exertion, patient still consume marijuana. And now about to start second line systemic therapy with weekly cisplatin/irinotecan for progressive small cell lung cancer. Medications: [employer] Stool Softener 1 Capsule (of 250 mg) Oral daily PRN, Flonase 2 [place](s) (of 50 mcg/act) Suspension Nasal daily PRN, Ibuprofen 1 Capsule (of 800 mg) Oral q 6 hours PRN, LORazepam 0.5 - 1 Tablet (of 1 mg) Oral b.i.d. PRN, Marinol 1 Capsule (of 5 mg) Oral t.i.d., oxyCODONE HCl Allergies: Dexamethasone Review of Systems: Review of Systems is not available for this patient. Vital Signs: Vitals are not available for this patient. Performance Status: 2 - Ambulatory/capable of all self-care, unable to perform any work activities. Up and about more than 50% of waking hours. (ECOG) Physical Examination: ENMT - No mouth sores, no thrush, no jaundice, Respiratory - Poor air entry, decreased breath sound in the left lung, Cardiovascular - Regular rate and rhythm of heart, Abdomen - Soft, bowel sounds present, Extremities - 1+ edema lower extremity and nonpitting edema around left elbow and forearm. Lab/Imaging: Test performed on Aug 26, 2020 09:05 Sodium 139 mmol/L TSH 0.89 uIU/mL Potassium 3.9 mmol/L Chloride 107 mmol/L CO2 25 mmol/L Anion Gap 10.9 BUN 14 mg/dL Creatinine 0.5 mg/dL Cr Clearance (Est) 145.60 mL/min eGFR 177.5 mL/min Glucose 136 mg/dL Osmolality - Calculated 291 mOsm/kg Calcium 8.4 mg/dL Protein, Total 5.9 g/dL Albumin 3.4 g/dL Globulin 2.5 g/dL Bilirubin, Total 0.3 mg/dL ALT (SGPT) 16 U/L AST (SGOT) 19 U/L Alkaline Phosphatase 131 IU/L WBC 6.4 10 3/uL RBC 4.33 10 6/uL HGB 13.1 g/dL HCT 40.1 % MCV 92.6 fL MCH 30.3 pg MCHC 32.7 g/dL RDW 13.6 % Platelet Count 221 10 3/cmm MPV 9.8 fL Neutrophils 4.90 10 3/uL Lymphocytes 0.9 10 3/uL Monocytes 0.5 10 3/uL Eosinophils 0.1 10 3/uL Basophils 0.0 10 3/uL Neutrophil % 76.7 % Lymphocyte % 14.2 % Monocyte % 7.2 % Eosinophil % 0.8 % Basophils % 0.6 % NRBC % 0 % Impression: Small cell lung cancer involving left lung, per bronchoscopy done on August 18, 2019 Extensive loco- regional disease with bilateral cervical lymph nodes involvement. CT PET scan done on August 27, 2019 showed hypermetabolic large left hilar/mediastinal mass with matthew conglomeration in keeping with known small cell lung cancer. Also redemonstration of complete collapse of left lung with associated hypermetabolic activity may be secondary to diffuse tumor involvement or pneumonia There is evidence of metastatic disease to bilateral cervical chain lymph nodes as well as posterior upper neck intramuscular metastasis. In addition there is evidence of direct metastatic extension to the right of trachea and to an epicardial fat lymph node. No findings to suggest metastatic disease below diaphragm. No evidence of metastatic disease to the right lung. MRI scan of the brain done on September 01, 2019 at [facility] in [place] showed extensive brain mets but asymptomatic As per radiation oncology consultation at [facility] radiation therapy to brain was postponed till completion of systemic chemotherapy Started on Systemic chemotherapy with carboplatin/etoposide on September 01, 2019, first cycle was given at [facility] Longstanding history of smoking, quit in mid August 2019. Clinically, patient is doing well with no new signs symptoms suggestive of disease progression, tolerating systemic chemotherapy with carboplatin/etoposide well but with expected side effects e.g. progressive neutropenia/leukopenia causing delay in chemotherapy schedule with cycle 2. We have given him Neulasta to prevent chemotherapy-induced leukopenia/neutropenia and further delay in his chemotherapy schedule. Mr. Malik did have PET CT imaging on 11/02/2019 after 3 cycles of chemotherapy. It was noted there were bilateral cervical lymph nodes described on the prior imaging for CT was not present on this PET CT. There was no head or neck intramuscular metastatic disease present. There was complete postobstructive atelectasis of the left upper lobe. A region of residual activity measuring 1.6 x 3.7 cm with an SUV of 6.2 is consistent with a lung primary. Mild activity in the subaortic node is consistent with local metastatic disease. There was no other significant mediastinal adenopathy present. Innumerable small sclerotic osseous lesions best in the pelvis are most compatible with treated osseous metastatic disease. These were difficult to characterize due to size and background marrow activity from recent Neulasta therapy. He continues with chemotherapy at this time. The followup MRI scan of the brain to assess response has not been obtained as of this visit. recommendations for further plan of care per his last office note suggests in case patient has complete response, then will discuss with radiation oncology regarding radiation therapy to the thorax concurrent versus sequential followed by whole brain radiation therapy as, patient was diagnosed with brain mets at the time of diagnosis. We will also discuss about adding immunotherapy Tecentriq, as after completion of recommended chemotherapy, may continue with maintenance immunotherapy with Tecentriq alone . But patient decided to wait till follow-up CT scan reports. Which was done on May 14, 2019, MRI scan of the brain shows new enhancing metastatic lesion in the left temporal lobe 5.2 mm with surrounding edema. Previously described left parietal peripherally enhancing cystic lesion has decreased in size 1.6 x 1 cm. No new lesion seen and CT scan of chest abdomen pelvis done on May 14, 2020 shows partial collapse left upper lobe is unchanged. Increasing soft tissue in the proximal left upper lobe bronchus and encasing left main pulmonary artery suspicious for progression of tumor but difficult to determine tumor versus atelectatic lung. No evidence of metastatic disease to the liver or adrenal gland and and pelvis 2.6 x 1.3 cm collection of fluid in the perineum consistent with abscess versus pilonidal cyst Follow-up CT PET scan done on 05/23/2020 showed no morphological changes in the left upper lobe atelectasis but now with increasing FDG uptake. Progression of subaortic and left anterior diaphragmatic node. No change in sterilized osseous metastatic disease. Plan: Discussed with patient regarding his labs white blood count 5.4 hemoglobin 10.1 hematocrit 32 platelets 340,000 CMP within normal limit except alk phos 255 and albumin 2.2 compared to 3.[address] scan of right femur which shows no pathological fracture Clinically, patient is a mild to moderate distress due to progressive pain involving left upper chest/shoulder/left arm now with mild progressive swelling, most likely due to disease progression in left chest and is a concern but possible brachial plexus involvement or other concern is DVT in left upper extremity, or it could be due to lymphedema, will consider venous Doppler study of left arm to rule out DVT, if present, will consider anticoagulation.And because of progressive left upper chest/shoulder pain is concerned, probably due to disease progression, patient is also complaining of dyspnea exertion, will do chest x-ray, We will also start him on his second line systemic therapy with weekly cisplatin/irinotecan, considering his compromised performance status, will consider day 1 and 8 and repeat every 21 days. Patient is on allopurinol 100 mg p.o. twice a day, will monitor his electrolytes and for tumor lysis. As far as progressive left shoulder/upper chest/left arm pain is concerned, most likely due to disease progression, will increase his morphine extended release to 30 mg every 12 hours and continue with oxycodiene 10 mg p.o. every 6 hours as needed for breakthrough we will titrate up his pain medication as needed, hopefully if there is response to systemic therapy, his pain may improve. Discussed with patient regarding his prognosis which appear guarded, also discussed about hospice briefly, patient said if this treatment did not work he will consider hospice., Patient was encouraged to maintain nutrition, and hydration, we will continue with supportive care to maintain or improve quality of life. Discussed with radiation oncology, as patient has received consolidation therapy to left/mediastinal area in the past, now there is no room for further radiation therapy as far as symptomatic left upper thoracic area of disease progression is concerned Return to clinic in 1 week with CBC CMP if reasonable for day 8, treatment with weekly cisplatin/irinotecan. Signed By: Amee Israel M.D. <<Signature on File>>
[2020-11-30] MEDS: alteplase 1 mg/mL SDV 2 mL 2 MG IV (09:44)
[2020-11-30] MEDS: sodium chloride 0.9% 250 ML 75 ML IV (10:05)
[2020-11-30] MEDS: fosaprepitant 150 MG in sodium chloride 0.9% 150 ML 300 MG IV (11:30)
[2020-11-30] MEDS: palonosetron 0.25 mg/5 mL SDV IV (11:57)
--- NOTE | 2020-11-30 12:45 | XR_ITS ---
WS: [id number] Exam: XR chest 2V* [id number] Date/Time of Exam: 11/30/2020 12:45 PM Reason For Exam: SHORTNESS OF BREATH Comparison 08/30/2019. Again noted is total white out of the left pleural cavity suggesting fluid-filled pleural cavity. The right lung is fully expanded and clear. Right subclavian port ends in the lower one third of the SVC in good position. Bony structures are intact. XR/XR chest 2V* [id number] IMPRESSION: 1. Fluid-filled left pleural cavity unchanged. 2. The right lung is clear and fully expanded. 3. Right-sided Chemo-Port appearing to be in satisfactory position.
--- NOTE | 2020-11-30 12:45 | USCV_ITS ---
Tima Malik Age: 50 Gender: M : 1970 Exam Date: 11/30/2020 13:17 Ordering Phys: Amee Israel MD Technologist: Exam Location: [facility] [place] Indication: SWELLING PAIN HISTORY: Upper extremity swelling. Upper extremity pain. PROCEDURES: Venous duplex imaging was performed in only the left upper extremity. The following venous structures were evaluated: internal jugular vein, subclavian vein, axillary vein, and brachial veins. In addition, the basilic vein, cephalic vein, radial vein, and ulnar vein. FINDINGS: Normal 2-D, color Doppler and phasicity noted in the left upper extremity venous system extending from the left internal jugular vein through the main forearm. No thrombosis or occlusion noted. CONCLUSIONS No left upper extremity DVT. Dr. Stephanie Zavala DO (Electronically Signed) Final Date: 30 November 2020 15:42 S
[2020-11-30] MEDS: diphenhydrAMINE 50 mg/mL SDV 1mL 25 MG IV (13:45)
[2020-11-30] MEDS: morphine 4 mg/mL SDV 1 mL 2 MG IV (16:21)
[2020-11-30] MEDS: FUROsemide 10 mg/mL SDV 2mL 20 MG IV (16:23)
[2020-11-30] MEDS: potassium chloride 20 MEQ in sodium chloride 0.9% 500 ML 255 MEQ IV (16:24)
== END 2020-11-30 06:40 | disposition home or self-care (01) ==
PROVIDERS: PCP Family Medicine; Visit Provider Internal Medicine Hematology & Oncology
DX: Z51.11 Encounter for antineoplastic chemotherapy (principal); C34.12 Malignant neoplasm of upper lobe, left bronchus or lung; C77.0 Secondary and unspecified malignant neoplasm of lymph nodes of head, face and neck; C79.31 Secondary malignant neoplasm of brain; M79.89 Other specified soft tissue disorders; Z79.899 Other long term (current) drug therapy
CPT/HCPCS: 36593; 71046; 93971; 96367; 96375; 96413; 96417; 99215; J0461; J1100; J1200; J1453; J1940; J2270; J2469; J2997; J3475; J3480; J7030; J7040; J7050; J9060; J9206

== ENCOUNTER 2020-12-25 06:26 | Outpatient (RCR) | payer MEDICAID, SELFPAY ==
[2020-12-07] MEDS: sodium chloride 0.9% 250 ML 75 ML IV (08:55)
[2020-12-07 09:15] LABS: Basophils % 0.2 %; Eosinophils # 0.1 10^3/uL (0.0-0.8); Eosinophils % 1.2 %; Hemoglobin 8.8 g/dL (11.7-16.6); Lymphocytes # 0.4 10^3/uL (0.8-4.8); Lymphocytes % 4.3 %; Mean Corpuscular HGB Conc 31.4 g/dL (30.0-36.0); Mean Corpuscular Hemoglobin 28.9 pg (28.0-34.0); Mean Corpuscular Volume 91.8 fl (80-94); Mean Platelet Volume 10.3 fL (7.4-10.4); Monocytes # 0.8 10^3/uL (0.2-0.9); Monocytes % 9.7 %; Neutrophils # 6.74 10^3/uL (1.8-7.7); Neutrophils % 83.9 %; Nucleated Red Blood Cells % 0 %; Platelet Count 308 10^3/cmm (130-400); Red Blood Count 3.05 10^6/uL (4.1-5.3); Red Cell Distribution Width 14.7 % (12.1-15.1); White Blood Count 8.1 10^3/uL (4.0-10.0)
[2020-12-07 09:45] LABS: Alanine Aminotransferase 10 U/L (0-41); Albumin Level 2.4 g/dL (3.5-5.2); Alkaline Phosphatase 259 IU/L (40-130); Aspartate Amino Transferase 33 U/L (0-40); Chloride 104 mmol/L (98-107); Glucose 135 mg/dL (65-115); Potassium 4.3 mmol/L (3.5-5.1); Sodium 139 mmol/L (136-145); Total Protein 5.4 g/dL (6.6-8.7)
[2020-12-07 10:10] LABS: Anion Gap 14.3 (5-19); Blood Urea Nitrogen 14 mg/dL (6-20); Calcium 8.2 mg/dL (8.5-10.5); Carbon Dioxide 25 mmol/L (22-29); Glomerular Filtration Rate 229.6 mL/min (90-130); Osmolality Calculated 291 mOsm/kg (285-295); Total Bilirubin 0.2 mg/dL (0.15-1.2)
[2020-12-07] MEDS: ondansetron 2 mg/ML SDV 2 mL 8 MG IVP (11:44)
[2020-12-07] MEDS: sodium chloride 0.9% 250 ML IV (11:44)
[2020-12-07 11:58] VITALS: RESP 16; O2SAT 98
[2020-12-07] MEDS: oxyCODONE 5 mg IR Tab/Cap 10 MG PO (11:58)
[2020-12-08] MEDS: sodium chloride 0.9% 250 ML 75 ML IV (10:38)
[2020-12-08] MEDS: ondansetron 2 mg/ML SDV 2 mL 8 MG IVP (10:38)
[2020-12-08] MEDS: pegfilgrastim 6 mg/0.6 mL Kit (onpro) SUBCUT (12:20)
--- NOTE | 2020-12-11 15:34 | ONC FU_ITS ---
Dr. Israel follow up note Patient: Tima Malik Unit #: [id number]: [id number] Dicatated By: Amee Israel M.D.Date of Visit:Dec 07, 2020 Onc Med Follow-up/Prog Note History of Present Illness: Mr. Malik is a 50-year-old gentleman with history of 40 to 50 pounds weight loss since February 2019. Mr Malik reports he sustained an injury to the chest in January or February 2019. Initially, it was not bothersome but then it become progressive to the point where even taking deep breath would hurt. The pain was not mainly in the mid upper anterior chest wall. He also developed progressive shortness of breath. He said he did not have medical insurance so he was taking over the counter pain medicine, which did help some but eventually on August 16, 2019 he went to the [facility] in [place], [place]. He had chest x-ray done which showed complete whiteout of left lung and CTA chest done showed complete collapse of left lung likely secondary to left hilar mass/malignancy. There was a bulky mediastinal and likely left hilar lymphadenopathy present. And moderate to large malignant left pleural effusion patient was transferred to [facility] in [place] where on August 17, 2019 underwent ultrasound-guided left thoracentesis and about 25 cc of cloudy yellow pleural fluid was removed, repeat CT scan of the chest done on August 17, 2019 showed possible obstruction of left main bronchus, a mucous plug or obstructing pulmonary mass or consideration. Complete opacification of left hemithorax appears similar to chest x-ray done on August 16, 2019. Elevation of left diaphragm suggest volume loss due to some degree of atelectasis. Left pleural effusion or large left consolidations are also considered. On August 18, 2019 patient underwent bronchoscopy and endobronchial biopsy and bronchial washing from left main bronchus confirmed invasive small cell carcinoma. Mr Malik underwent CT PET scan on August 27, 2019 which showed hypermetabolic very large left hilar/mediastinal mass and matthew conglomeration. There is also redemonstration of complete collapse of left lung with associated hypermetabolic activity that may be secondary to diffuse tumor involvement or pneumonia depending on clinical context There was also evidence of metastatic disease to bilateral cervical chain lymph nodes as well as posterior upper neck intramuscular metastasis. In addition there is evidence of direct metastatic extension into the right of the trachea and to an epicardial fat lymph node. No findings to suggest metastatic disease below the diaphragm and no evidence of metastatic disease to the right lung. Mr Malik was referred to cancer center in [place] as it is convenient to the patient. Patient has longstanding history of smoking but states he quit in mid August 2019. Mr Malik was admitted to hospital on August 29, 2019 with acute respiratory failure with hypoxia. He was intubated and then he transferred to [facility] in [place] where he underwent further management and work-up. He had a MRI scan of the head on September 01, 2019 which showed multiple intra-axial metastasis the largest lesion was located within the left parietal lobe. Extracranial soft tissue mass adjacent to spinous process of C2 and posterior arch of C1 suspicious for metastatic disease. Mr Malik was started on systemic chemotherapy with cycle 1 carboplatin/etoposide on August 31 and completed on September 03, 2019. He tolerated it reasonably well but as per patient and his aunt, he did crash' during chemotherapy. They reported that his blood pressure dropped and his pulse was fast. He was diagnosed with atrial fibrillation- since then he is having off and on episode of tachycardia and palpitation. Radiation oncology was consulted for brain mets but radiation was not offered because the patient was asymptomatic. He was started on systemic chemotherapy because of progressive and symptomatic intrathoracic disease. The current plan is to complete systemic chemotherapy followed by whole brain radiation therapy. Mr Malik had his third cycle of chemotherapy with Carboplatin/etoposide on 10/29/2019-10/31/2019. (He did receive 1 chemotherapy prior to transferring his care to [facility]-his second cycle was complete on 10/03/2019). He is receiving growth factor support for neutropenia. Mr. Malik did have PET CT imaging on 11/02/2019 after 3 cycles of chemotherapy. It was noted there were bilateral cervical lymph nodes described on the prior imaging for CT was not present on this PET CT. There was no head or neck intramuscular metastatic disease present. There was complete postobstructive atelectasis of the left upper lobe. A region of residual activity measuring 1.6 x 3.7 cm with an SUV of 6.2 is consistent with a lung primary. Mild activity in the subaortic node is consistent with local metastatic disease. There was no other significant mediastinal adenopathy present. Innumerable small sclerotic osseous lesions best in the pelvis are most compatible with treated osseous metastatic disease. These were difficult to characterize due to size and background marrow activity from recent Neulasta therapy. He continues with chemotherapy at this time. The followup MRI scan of the brain to assess response .Was done on November 15, 2019 showed excellent response to the chemotherapy as radiation was not given earlier and planning was to do after completion of systemic chemotherapy for extensive intrathoracic disease. And repeat MRI scan showed no evidence of progressed metastatic disease interval decrease in size of cystic appearing peripheral enhancing left parietal lesion measuring 1.6 x 2.6 cm compared to 3.6 x 2.9 cm prior to chemotherapy and also interval decrease in surrounding edema. Previously described lesions are no longer appreciated on the scan no new enhancing lesions. Mr Malik completed 5 cycles of chemotherapy with carboplatin/etoposide on December 19, 2019 and had excellent response. He was referred to radiation oncology for consolidation radiotherapy to the chest and also to the brain as patient was diagnosed with brain mets at the time of diagnosis. Patient completed radiation therapy to his brain on January 27, 2020 and to his left chest on January 27, 2020. Follow-up CT scan of the chest abdomen pelvis done on May 14, 2020 showed partial collapse left upper lobe is unchanged. Increasing soft tissue in the proximal left upper lobe bronchus and encasing the left main pulmonary artery. Suspicious for progression of tumor. Difficult to determine that tumor versus atelectatic lung. No evidence of metastatic disease to the liver or adrenal gland. New cystic mass with peripheral enhancement in the perineum abscess versus pilonidal cyst. MRI scan of the brain shows new enhancing metastatic lesion in the left temporal lobe 5.2 mm with surrounding edema. Previously described left parietal peripherally enhancing cystic lesion has decreased in size measuring 1.6 cm x 1 cm today. No other new lesions seen. history of bursitis involving both shoulders in the past used to get cortisone shots. Follow-up CT PET scan done on 05/23/2020 shows left upper lobe atelectasis seen on prior study on 11/02/2019 is unchanged on current, now with an SUV of 8.3 compared to 6.2 previously. The subaortic lymph node is significantly progressed now measuring 2.3 cm in diameter with SUV of 14.7. A left-sided anterior diaphragmatic node which was subcentimeter in size and FDG negative on prior study now measuring 1.5 cm and SUV of 6.6 and no evidence of distant mets. Mr Malik was started on atezolizumab on 06/24/2020. He has tolerated it well so far. Follow-up CT PET scan done on October 10, 2020 shows no complete atelectasis of left upper lobe with extensive abnormal activity throughout the lobe with SUV 11.9 consistent with recurrence. This mass invades the upper left mediastinum with invasion into anterior mediastinum and prevascular territory. And new malignant nodes are present in the anterior mediastinal, left supraclavicular, subcarinal territory. A new FDG positive opacity in the medial right middle lobe may be related to malignancy. Multifocal hepatic metastatic disease has developed. Dominant lesion in the inferior right hepatic lobe measuring 2 cm. With SUV of 9.5. Old osseous metastatic disease is unchanged and remain FDG negative but there is a new lesion in the proximal right femur with SUV of 6.3.CT scan of right femur done on November 17, 2020 showed sclerotic lesion involving right greater trochanter measuring 2.4 x 1.5 cm corresponds to FDG avid focus on recent CT PET, no pathological fracture. No lesion in the femoral neck. Came for follow-up, complaining of progressive left arm/shoulder pain and swelling of left elbow area, venous Doppler study shows no DVT, patient tolerated weekly dose of cisplatin and irinotecan well but no improvement in symptoms rather worsening of left chest pain and progressive shortness of breath, no fever chills, no nausea or vomiting, no diarrhea constipation, as per patient current pain medication is not helping his progressive left upper chest/shoulder/arm pain Medications: [employer] Stool Softener 1 Capsule (of 250 mg) Oral daily PRN, Flonase 2 [place](s) (of 50 mcg/act) Suspension Nasal daily PRN, Ibuprofen 1 Capsule (of 800 mg) Oral q 6 hours PRN, LORazepam 0.5 - 1 Tablet (of 1 mg) Oral b.i.d. PRN, Marinol 1 Capsule (of 5 mg) Oral t.i.d., oxyCODONE HCl Allergies: Dexamethasone Review of Systems: Review of Systems is not available for this patient. Vital Signs: Performed on Dec 07, 2020 14:30 Height - 71.00 in Temperature - 98.9 F (HIGH) Pulse - 85 /min Respiration - 16 /min BP - 95/63 mm(hg) O2 Sat - 95 % (LOW) Pain - 6 Performed on Dec 07, 2020 12:07 Height - 71.00 in Weight - 134.8 lbs (HIGH) BSA - 1.78 sq.m BMI - 18.80 Temperature - 98.7 F Pulse - 93 /min Respiration - 18 /min BP - 97/66 mm(hg) O2 Sat - 97 % Pain - 10 Fatigue - 9 Performance Status: 2 - Ambulatory/capable of all self-care, unable to perform any work activities. Up and about more than 50% of waking hours. (ECOG) Physical Examination: ENMT - No mouth sores, no thrush, no jaundice, Respiratory - No breath sound left side otherwise clear, Cardiovascular - Regular rate and rhythm of hearts, Abdomen - Soft, bowel sounds present, Extremities - Trace edema. Lab/Imaging: Test performed on Dec 07, 2020 08:30 Sodium 139 mmol/L Potassium 4.3 mmol/L Chloride 104 mmol/L CO2 25 mmol/L Anion Gap 14.3 BUN 14 mg/dL Creatinine 0.4 mg/dL Cr Clearance (Est) 179.3900 mL/min eGFR 229.6 mL/min Glucose 135 mg/dL Osmolality - Calculated 291 mOsm/kg Calcium 8.2 mg/dL Protein, Total 5.4 g/dL Albumin 2.4 g/dL Globulin 3.0 g/dL Bilirubin, Total 0.2 mg/dL ALT (SGPT) 10 U/L AST (SGOT) 33 U/L Alkaline Phosphatase 259 IU/L WBC 8.1 10 3/uL RBC 3.05 10 6/uL HGB 8.8 g/dL HCT 28.0 % MCV 91.8 fl MCH 28.9 pg MCHC 31.4 g/dL RDW 14.7 % Platelet Count 308 10 3/cmm MPV 10.3 fL Neutrophils 6.74 10 3/uL Lymphocytes 0.4 10 3/uL Monocytes 0.8 10 3/uL Eosinophils 0.1 10 3/uL Basophils 0.0 10 3/uL Neutrophil % 83.9 % Lymphocyte % 4.3 % Monocyte % 9.7 % Eosinophil % 1.2 % Basophils % 0.2 % NRBC % 0 % Test performed on Aug 26, 2020 09:05 TSH 0.89 uIU/mL Impression: Small cell lung cancer involving left lung, per bronchoscopy done on August 18, 2019 Extensive loco- regional disease with bilateral cervical lymph nodes involvement. CT PET scan done on August 27, 2019 showed hypermetabolic large left hilar/mediastinal mass with matthew conglomeration in keeping with known small cell lung cancer. Also redemonstration of complete collapse of left lung with associated hypermetabolic activity may be secondary to diffuse tumor involvement or pneumonia There is evidence of metastatic disease to bilateral cervical chain lymph nodes as well as posterior upper neck intramuscular metastasis. In addition there is evidence of direct metastatic extension to the right of trachea and to an epicardial fat lymph node. No findings to suggest metastatic disease below diaphragm. No evidence of metastatic disease to the right lung. MRI scan of the brain done on September 01, 2019 at [facility] in [place] showed extensive brain mets but asymptomatic As per radiation oncology consultation at [facility] radiation therapy to brain was postponed till completion of systemic chemotherapy Started on Systemic chemotherapy with carboplatin/etoposide on September 01, 2019, first cycle was given at [facility] in [place] Longstanding history of smoking, quit in mid August 2019. Clinically, patient is doing well with no new signs symptoms suggestive of disease progression, tolerating systemic chemotherapy with carboplatin/etoposide well but with expected side effects e.g. progressive neutropenia/leukopenia causing delay in chemotherapy schedule with cycle 2. We have given him Neulasta to prevent chemotherapy-induced leukopenia/neutropenia and further delay in his chemotherapy schedule. Mr. Malik did have PET CT imaging on 11/02/2019 after 3 cycles of chemotherapy. It was noted there were bilateral cervical lymph nodes described on the prior imaging for CT was not present on this PET CT. There was no head or neck intramuscular metastatic disease present. There was complete postobstructive atelectasis of the left upper lobe. A region of residual activity measuring 1.6 x 3.7 cm with an SUV of 6.2 is consistent with a lung primary. Mild activity in the subaortic node is consistent with local metastatic disease. There was no other significant mediastinal adenopathy present. Innumerable small sclerotic osseous lesions best in the pelvis are most compatible with treated osseous metastatic disease. These were difficult to characterize due to size and background marrow activity from recent Neulasta therapy. He continues with chemotherapy at this time. The followup MRI scan of the brain to assess response has not been obtained as of this visit. recommendations for further plan of care per his last office note suggests in case patient has complete response, then will discuss with radiation oncology regarding radiation therapy to the thorax concurrent versus sequential followed by whole brain radiation therapy as, patient was diagnosed with brain mets at the time of diagnosis. We will also discuss about adding immunotherapy Tecentriq, as after completion of recommended chemotherapy, may continue with maintenance immunotherapy with Tecentriq alone . But patient decided to wait till follow-up CT scan reports. Which was done on May 14, 2019, MRI scan of the brain shows new enhancing metastatic lesion in the left temporal lobe 5.2 mm with surrounding edema. Previously described left parietal peripherally enhancing cystic lesion has decreased in size 1.6 x 1 cm. No new lesion seen and CT scan of chest abdomen pelvis done on May 14, 2020 shows partial collapse left upper lobe is unchanged. Increasing soft tissue in the proximal left upper lobe bronchus and encasing left main pulmonary artery suspicious for progression of tumor but difficult to determine tumor versus atelectatic lung. No evidence of metastatic disease to the liver or adrenal gland and and pelvis 2.6 x 1.3 cm collection of fluid in the perineum consistent with abscess versus pilonidal cyst Follow-up CT PET scan done on 05/23/2020 showed no morphological changes in the left upper lobe atelectasis but now with increasing FDG uptake. Progression of subaortic and left anterior diaphragmatic node. No change in sterilized osseous metastatic disease. Plan: Discussed with patient regarding his labs white blood count 8.1 hemoglobin 8.8 hematocrit 28 platelets 308,000 CMP within normal limit except albumin 2.4 because 259 Clinically, patient is moderate to severe distress due to progressive left upper chest pain/left shoulder arm pain not being controlled with current pain medication patient was recently switched to palliative chemotherapy with weekly cisplatin/irinotecan but apparently there is a worsening of symptom, discussed with patient regarding hospice care patient is somewhat reluctant. And patient believes new regimen with cisplatin/irinotecan is not helping him. Discussed with patient, it was decided to discontinue cisplatin/irinotecan and rechallenge him with carboplatin/etoposide, we will modify the dose to carboplatin day 1 and etoposide day 1 and 2 for first cycle, if tolerated then following treatment will be full dose. On the other hand if patient has no improvement, will consider lubrinectidine or hospice care Patient return to clinic in 1 week with CBC CMP in the meantime we will titrate up his pain medication dose with long-acting morphine and oxycodone for breakthrough Signed By: Amee Israel M.D. <<Signature on File>>
[2020-12-17] MEDS: alteplase 1 mg/mL SDV 2 mL 2 MG IV ×2 (11:33→12:38)
[2020-12-17 12:19] LABS: Hematocrit 24.7 % (42.0-52.0); Hemoglobin 7.9 g/dL (11.7-16.6); Lymphocytes # 0.1 10^3/uL (0.8-4.8); Lymphocytes % 58.3 %; Mean Corpuscular Hemoglobin 28.7 pg (28.0-34.0); Mean Corpuscular Volume 89.8 fl (80-94); Mean Platelet Volume 9.2 fL (7.4-10.4); Monocytes % 8.3 %; Neutrophils % 33.4 %; Nucleated Red Blood Cells % 0 %; Red Blood Count 2.75 10^6/uL (4.1-5.3); Red Cell Distribution Width 14.6 % (12.1-15.1)
[2020-12-17 12:44] LABS: Alanine Aminotransferase 9 U/L (0-41); Albumin Level 2.4 g/dL (3.5-5.2); Alkaline Phosphatase 195 IU/L (40-130); Anion Gap 15.3 (5-19); Aspartate Amino Transferase 14 U/L (0-40); Blood Urea Nitrogen 10 mg/dL (6-20); Calcium 8.9 mg/dL (8.5-10.5); Carbon Dioxide 24 mmol/L (22-29); Chloride 98 mmol/L (98-107); Globulin 3.2 g/dL (1.3-4.6); Glomerular Filtration Rate 229.6 mL/min (90-130); Glucose 68 mg/dL (65-115); Osmolality Calculated 273 mOsm/kg (285-295); Potassium 4.3 mmol/L (3.5-5.1); Sodium 133 mmol/L (136-145); Total Bilirubin 0.5 mg/dL (0.15-1.2); Total Protein 5.6 g/dL (6.6-8.7)
[2020-12-17 12:57] LABS: Neutrophils # 0.08 10^3/uL (1.8-7.7); Platelet Count 15 10^3/cmm (130-400); White Blood Count 0.2 10^3/uL (4.0-10.0)
[2020-12-17 12:58] LABS: Slide Review Slide Review Perform
--- NOTE | 2020-12-17 17:37 | ONC FU_ITS ---
Dr. Israel follow up note Patient: Tima Malik Unit #: [id number]: 1970 Dicatated By: Amee Israel M.D.Date of Visit:Dec 17, 2020 Onc Med Follow-up/Prog Note History of Present Illness: Mr. Malik is a 50-year-old gentleman with history of 40 to 50 pounds weight loss since February 2019. Mr Malik reports he sustained an injury to the chest in January or February 2019. Initially, it was not bothersome but then it become progressive to the point where even taking deep breath would hurt. The pain was not mainly in the mid upper anterior chest wall. He also developed progressive shortness of breath. He said he did not have medical insurance so he was taking over the counter pain medicine, which did help some but eventually on August 16, 2019 he went to the [facility] in [place], [place]. He had chest x-ray done which showed complete whiteout of left lung and CTA chest done showed complete collapse of left lung likely secondary to left hilar mass/malignancy. There was a bulky mediastinal and likely left hilar lymphadenopathy present. And moderate to large malignant left pleural effusion patient was transferred to [facility] in [place] where on August 17, 2019 underwent ultrasound-guided left thoracentesis and about 25 cc of cloudy yellow pleural fluid was removed, repeat CT scan of the chest done on August 17, 2019 showed possible obstruction of left main bronchus, a mucous plug or obstructing pulmonary mass or consideration. Complete opacification of left hemithorax appears similar to chest x-ray done on August 16, 2019. Elevation of left diaphragm suggest volume loss due to some degree of atelectasis. Left pleural effusion or large left consolidations are also considered. On August 18, 2019 patient underwent bronchoscopy and endobronchial biopsy and bronchial washing from left main bronchus confirmed invasive small cell carcinoma. Mr Malik underwent CT PET scan on August 27, 2019 which showed hypermetabolic very large left hilar/mediastinal mass and matthew conglomeration. There is also redemonstration of complete collapse of left lung with associated hypermetabolic activity that may be secondary to diffuse tumor involvement or pneumonia depending on clinical context There was also evidence of metastatic disease to bilateral cervical chain lymph nodes as well as posterior upper neck intramuscular metastasis. In addition there is evidence of direct metastatic extension into the right of the trachea and to an epicardial fat lymph node. No findings to suggest metastatic disease below the diaphragm and no evidence of metastatic disease to the right lung. Mr Malik was referred to cancer center in [place] as it is convenient to the patient. Patient has longstanding history of smoking but states he quit in mid August 2019. Mr Malik was admitted to hospital on August 29, 2019 with acute respiratory failure with hypoxia. He was intubated and then he transferred to [facility] in [place] where he underwent further management and work-up. He had a MRI scan of the head on September 01, 2019 which showed multiple intra-axial metastasis the largest lesion was located within the left parietal lobe. Extracranial soft tissue mass adjacent to spinous process of C2 and posterior arch of C1 suspicious for metastatic disease. Mr Malik was started on systemic chemotherapy with cycle 1 carboplatin/etoposide on August 31 and completed on September 03, 2019. He tolerated it reasonably well but as per patient and his aunt, he did crash' during chemotherapy. They reported that his blood pressure dropped and his pulse was fast. He was diagnosed with atrial fibrillation- since then he is having off and on episode of tachycardia and palpitation. Radiation oncology was consulted for brain mets but radiation was not offered because the patient was asymptomatic. He was started on systemic chemotherapy because of progressive and symptomatic intrathoracic disease. The current plan is to complete systemic chemotherapy followed by whole brain radiation therapy. Mr Malik had his third cycle of chemotherapy with Carboplatin/etoposide on 10/29/2019-10/31/2019. (He did receive 1 chemotherapy prior to transferring his care to [facility]-his second cycle was complete on 10/03/2019). He is receiving growth factor support for neutropenia. Mr. Malik did have PET CT imaging on 11/02/2019 after 3 cycles of chemotherapy. It was noted there were bilateral cervical lymph nodes described on the prior imaging for CT was not present on this PET CT. There was no head or neck intramuscular metastatic disease present. There was complete postobstructive atelectasis of the left upper lobe. A region of residual activity measuring 1.6 x 3.7 cm with an SUV of 6.2 is consistent with a lung primary. Mild activity in the subaortic node is consistent with local metastatic disease. There was no other significant mediastinal adenopathy present. Innumerable small sclerotic osseous lesions best in the pelvis are most compatible with treated osseous metastatic disease. These were difficult to characterize due to size and background marrow activity from recent Neulasta therapy. He continues with chemotherapy at this time. The followup MRI scan of the brain to assess response .Was done on November 15, 2019 showed excellent response to the chemotherapy as radiation was not given earlier and planning was to do after completion of systemic chemotherapy for extensive intrathoracic disease. And repeat MRI scan showed no evidence of progressed metastatic disease interval decrease in size of cystic appearing peripheral enhancing left parietal lesion measuring 1.6 x 2.6 cm compared to 3.6 x 2.9 cm prior to chemotherapy and also interval decrease in surrounding edema. Previously described lesions are no longer appreciated on the scan no new enhancing lesions. Mr Malik completed 5 cycles of chemotherapy with carboplatin/etoposide on December 19, 2019 and had excellent response. He was referred to radiation oncology for consolidation radiotherapy to the chest and also to the brain as patient was diagnosed with brain mets at the time of diagnosis. Patient completed radiation therapy to his brain on January 27, 2020 and to his left chest on January 27, 2020. Follow-up CT scan of the chest abdomen pelvis done on May 14, 2020 showed partial collapse left upper lobe is unchanged. Increasing soft tissue in the proximal left upper lobe bronchus and encasing the left main pulmonary artery. Suspicious for progression of tumor. Difficult to determine that tumor versus atelectatic lung. No evidence of metastatic disease to the liver or adrenal gland. New cystic mass with peripheral enhancement in the perineum abscess versus pilonidal cyst. MRI scan of the brain shows new enhancing metastatic lesion in the left temporal lobe 5.2 mm with surrounding edema. Previously described left parietal peripherally enhancing cystic lesion has decreased in size measuring 1.6 cm x 1 cm today. No other new lesions seen. history of bursitis involving both shoulders in the past used to get cortisone shots. Follow-up CT PET scan done on 05/23/2020 shows left upper lobe atelectasis seen on prior study on 11/02/2019 is unchanged on current, now with an SUV of 8.3 compared to 6.2 previously. The subaortic lymph node is significantly progressed now measuring 2.3 cm in diameter with SUV of 14.7. A left-sided anterior diaphragmatic node which was subcentimeter in size and FDG negative on prior study now measuring 1.5 cm and SUV of 6.6 and no evidence of distant mets. Mr Malik was started on atezolizumab on 06/24/2020. He has tolerated it well so far. Follow-up CT PET scan done on October 10, 2020 shows no complete atelectasis of left upper lobe with extensive abnormal activity throughout the lobe with SUV 11.9 consistent with recurrence. This mass invades the upper left mediastinum with invasion into anterior mediastinum and prevascular territory. And new malignant nodes are present in the anterior mediastinal, left supraclavicular, subcarinal territory. A new FDG positive opacity in the medial right middle lobe may be related to malignancy. Multifocal hepatic metastatic disease has developed. Dominant lesion in the inferior right hepatic lobe measuring 2 cm. With SUV of 9.5. Old osseous metastatic disease is unchanged and remain FDG negative but there is a new lesion in the proximal right femur with SUV of 6.3.CT scan of right femur done on November 17, 2020 showed sclerotic lesion involving right greater trochanter measuring 2.4 x 1.5 cm corresponds to FDG avid focus on recent CT PET, no pathological fracture. No lesion in the femoral neck. complaining of progressive left arm/shoulder pain and swelling of left elbow area, venous Doppler study shows no DVT, patient tolerated weekly dose of cisplatin and irinotecan well but no improvement in symptoms rather worsening of left chest pain and progressive shortness of breath, as per patient current pain medication is not helping his progressive left upper chest/shoulder/arm pain, Switched to carboplatin/etoposide on December 07, 2020 because of progressive symptoms, patient received modified dose of carboplatin/etoposide e.g. 2 days of etoposide only. But with Neulasta support Came for follow-up, complaining of generalized weakness and fatigue, but his left shoulder chest pain is much better since last week chemotherapy, left swelling around elbow is also improving, breathing is also improving, patient is pleased with the chemotherapy, denies any fever chills, denies any nausea or vomiting, denies any diarrhea or constipation, denies any hemoptysis or hematemesis, tolerated modified dose of carboplatin/etoposide well Medications: [employer] Stool Softener 1 Capsule (of 250 mg) Oral daily PRN, Flonase 2 [place](s) (of 50 mcg/act) Suspension Nasal daily PRN, Ibuprofen 1 Capsule (of 800 mg) Oral q 6 hours PRN, LORazepam 0.5 - 1 Tablet (of 1 mg) Oral b.i.d. PRN, Marinol 1 Capsule (of 5 mg) Oral t.i.d., oxyCODONE HCl Allergies: Dexamethasone Review of Systems: Review of Systems is not available for this patient. Vital Signs: Performed on Dec 17, 2020 13:12 Height - 71.00 in Weight - 122.4 lbs (LOW) BSA - 1.71 sq.m BMI - 17.07 (LOW) Temperature - 99.0 F (HIGH) Pulse - 106 /min (HIGH) Respiration - 20 /min BP - 92/56 mm(hg) O2 Sat - 99 % Pain - 6 Fatigue - 8 Performance Status: 2 - Ambulatory/capable of all self-care, unable to perform any work activities. Up and about more than 50% of waking hours. (ECOG) Physical Examination: ENMT - No mouth sores, no thrush, no jaundice, Respiratory - Decreased breath sound on the left side otherwise clear, Cardiovascular - Regular rate and rhythm of heart, Abdomen - Soft, bowel sounds present, Extremities - No visible edema. Lab/Imaging: Test performed on Dec 07, 2020 08:30 Sodium 139 mmol/L Potassium 4.3 mmol/L Chloride 104 mmol/L CO2 25 mmol/L Anion Gap 14.3 BUN 14 mg/dL Creatinine 0.4 mg/dL Cr Clearance (Est) 179.3900 mL/min eGFR 229.6 mL/min Glucose 135 mg/dL Osmolality - Calculated 291 mOsm/kg Calcium 8.2 mg/dL Protein, Total 5.4 g/dL Albumin 2.4 g/dL Globulin 3.0 g/dL Bilirubin, Total 0.2 mg/dL ALT (SGPT) 10 U/L AST (SGOT) 33 U/L Alkaline Phosphatase 259 IU/L WBC 8.1 10 3/uL RBC 3.05 10 6/uL HGB 8.8 g/dL HCT 28.0 % MCV 91.8 fl MCH 28.9 pg MCHC 31.4 g/dL RDW 14.7 % Platelet Count 308 10 3/cmm MPV 10.3 fL Neutrophils 6.74 10 3/uL Lymphocytes 0.4 10 3/uL Monocytes 0.8 10 3/uL Eosinophils 0.1 10 3/uL Basophils 0.0 10 3/uL Neutrophil % 83.9 % Lymphocyte % 4.3 % Monocyte % 9.7 % Eosinophil % 1.2 % Basophils % 0.2 % NRBC % 0 % Test performed on Aug 26, 2020 09:05 TSH 0.89 uIU/mL Impression: Small cell lung cancer involving left lung, per bronchoscopy done on August 18, 2019 Extensive loco- regional disease with bilateral cervical lymph nodes involvement. CT PET scan done on August 27, 2019 showed hypermetabolic large left hilar/mediastinal mass with matthew conglomeration in keeping with known small cell lung cancer. Also redemonstration of complete collapse of left lung with associated hypermetabolic activity may be secondary to diffuse tumor involvement or pneumonia There is evidence of metastatic disease to bilateral cervical chain lymph nodes as well as posterior upper neck intramuscular metastasis. In addition there is evidence of direct metastatic extension to the right of trachea and to an epicardial fat lymph node. No findings to suggest metastatic disease below diaphragm. No evidence of metastatic disease to the right lung. MRI scan of the brain done on September 01, 2019 at [facility] showed extensive brain mets but asymptomatic As per radiation oncology consultation at [facility] radiation therapy to brain was postponed till completion of systemic chemotherapy Started on Systemic chemotherapy with carboplatin/etoposide on September 01, 2019, first cycle was given at [facility] Longstanding history of smoking, quit in mid August 2019. Clinically, patient is doing well with no new signs symptoms suggestive of disease progression, tolerating systemic chemotherapy with carboplatin/etoposide well but with expected side effects e.g. progressive neutropenia/leukopenia causing delay in chemotherapy schedule with cycle 2. We have given him Neulasta to prevent chemotherapy-induced leukopenia/neutropenia and further delay in his chemotherapy schedule. Mr. Malik did have PET CT imaging on 11/02/2019 after 3 cycles of chemotherapy. It was noted there were bilateral cervical lymph nodes described on the prior imaging for CT was not present on this PET CT. There was no head or neck intramuscular metastatic disease present. There was complete postobstructive atelectasis of the left upper lobe. A region of residual activity measuring 1.6 x 3.7 cm with an SUV of 6.2 is consistent with a lung primary. Mild activity in the subaortic node is consistent with local metastatic disease. There was no other significant mediastinal adenopathy present. Innumerable small sclerotic osseous lesions best in the pelvis are most compatible with treated osseous metastatic disease. These were difficult to characterize due to size and background marrow activity from recent Neulasta therapy. He continues with chemotherapy at this time. The followup MRI scan of the brain to assess response has not been obtained as of this visit. recommendations for further plan of care per his last office note suggests in case patient has complete response, then will discuss with radiation oncology regarding radiation therapy to the thorax concurrent versus sequential followed by whole brain radiation therapy as, patient was diagnosed with brain mets at the time of diagnosis. We will also discuss about adding immunotherapy Tecentriq, as after completion of recommended chemotherapy, may continue with maintenance immunotherapy with Tecentriq alone . But patient decided to wait till follow-up CT scan reports. Which was done on May 14, 2019, MRI scan of the brain shows new enhancing metastatic lesion in the left temporal lobe 5.2 mm with surrounding edema. Previously described left parietal peripherally enhancing cystic lesion has decreased in size 1.6 x 1 cm. No new lesion seen and CT scan of chest abdomen pelvis done on May 14, 2020 shows partial collapse left upper lobe is unchanged. Increasing soft tissue in the proximal left upper lobe bronchus and encasing left main pulmonary artery suspicious for progression of tumor but difficult to determine tumor versus atelectatic lung. No evidence of metastatic disease to the liver or adrenal gland and and pelvis 2.6 x 1.3 cm collection of fluid in the perineum consistent with abscess versus pilonidal cyst Follow-up CT PET scan done on 05/23/2020 showed no morphological changes in the left upper lobe atelectasis but now with increasing FDG uptake. Progression of subaortic and left anterior diaphragmatic node. No change in sterilized osseous metastatic disease. Plan: Discussed with patient regarding his labs white blood count 200 hemoglobin 7.9 g per good 24.7 platelets 15,000 ANC 80 CMP within normal limit except sodium 133, albumin 2.4 Clinically, patient is doing reasonably well, now with dyspnea on exertion, lab work-up shows pancytopenia due to chemotherapy, despite of Neulasta, at this point will consider starting him on Levaquin 500 mg p.o. daily for neutropenic prophylaxis, also consider 2 units of packed RBC and also platelets transfusion, patient was advised in case there is a fever chills or mental status changes, he need to come to hospital immediately he was also advised to stay away from public places., Overall with carboplatin/etoposide, patient has significant improvement in his symptoms specially left chest/shoulder/arm pain, which has improved significantly and now well under control with current pain medications. And then he will return to clinic in 1 week with CBC CMP Signed By: Amee Israel M.D. <<Signature on File>>
[2020-12-18] MEDS: acetaminophen 325 mg Tablet 650 MG PO (08:30)
[2020-12-18] MEDS: sodium chloride 0.9% 250 ML 999 ML IV (08:30)
[2020-12-18] MEDS: diphenhydrAMINE 25 mg Capsule PO (08:30)
[2020-12-18 08:35] VITALS: BP 72/49; PULSE 108; RESP 18; TEMP 36.8; O2SAT 95
[2020-12-18 08:50] VITALS: BP 74/50; PULSE 109; RESP 18; TEMP 36.9; O2SAT 93
[2020-12-18] MEDS: FUROsemide 10 mg/mL SDV 2mL 20 MG IV (10:50)
[2020-12-18 10:55] VITALS: BP 78/51; PULSE 96; RESP 18; TEMP 36.6; O2SAT 93
[2020-12-18 11:10] VITALS: BP 76/42; PULSE 100; RESP 18; TEMP 36.6; O2SAT 94
[2020-12-18 11:23] VITALS: PULSE 100; RESP 17; TEMP 36.6; O2SAT 93
[2020-12-18 12:40] VITALS: RESP 25; O2SAT 95
[2020-12-18] MEDS: oxyCODONE 5 mg IR Tab/Cap 10 MG PO (12:40)
[2020-12-23 11:49] LABS: Hematocrit 28.8 % (42.0-52.0); Hemoglobin 9.4 g/dL (11.7-16.6); Mean Corpuscular HGB Conc 32.6 g/dL (30.0-36.0); Mean Corpuscular Hemoglobin 28.7 pg (28.0-34.0); Mean Corpuscular Volume 87.8 fl (80-94); Red Blood Count 3.28 10^6/uL (4.1-5.3); Red Cell Distribution Width 15.1 % (12.1-15.1)
[2020-12-23 12:15] LABS: Alanine Aminotransferase 9 U/L (0-41); Albumin Level 2.3 g/dL (3.5-5.2); Alkaline Phosphatase 179 IU/L (40-130); Aspartate Amino Transferase 11 U/L (0-40); Blood Urea Nitrogen 13 mg/dL (6-20); Calcium 8.4 mg/dL (8.5-10.5); Carbon Dioxide 26 mmol/L (22-29); Chloride 98 mmol/L (98-107); Globulin 3.2 g/dL (1.3-4.6); Glomerular Filtration Rate 177.5 mL/min (90-130); Glucose 85 mg/dL (65-115); Osmolality Calculated 279 mOsm/kg (285-295); Sodium 135 mmol/L (136-145); Total Bilirubin 0.9 mg/dL (0.15-1.2); Total Protein 5.5 g/dL (6.6-8.7)
[2020-12-23 12:40] LABS: White Blood Count 0.8 10^3/uL (4.0-10.0)
[2020-12-23 12:42] LABS: Absolute Segmented Neutrophil 0.1 10/cmm (1.6-7.1); Band Neutrophils Absolute 0.1 10^3/cmm (0.0-1.2); Lymphocytes 4 %; Segmented Neutrophils 7 %; Total Cells Counted 25 (0-100)
[2020-12-23 12:43] LABS: Lymphocytes Absolute 0.1 10^3/cmm (1.2-3.4); Ovalocytes Trace; Platelet Estimate Decreased (Normal)
[2020-12-23 12:46] LABS: Platelet Count 4 10^3/cmm (130-400)
[2020-12-23 12:47] LABS: Absolute Neutrophil 0.1 10^3/cmm (1.4-6.5)
[2020-12-23] MEDS: famotidine 20 mg/2 mL INJ IVP (14:03)
[2020-12-23] MEDS: ondansetron 2 mg/ML SDV 2 mL 8 MG IVP (14:05)
[2020-12-23] MEDS: ertapenem 1,000 MG in sodium chloride 0.9% (100 ml) 100 ML 100 MG IV (14:28)
[2020-12-23] MEDS: sodium chloride 0.9% 1,000 ML 999 ML IV (15:21)
[2020-12-24] MEDS: acetaminophen 325 mg Tablet 650 MG PO (12:30)
[2020-12-24] MEDS: diphenhydrAMINE 25 mg Capsule PO (12:30)
[2020-12-24 13:00] VITALS: BP 80/51; PULSE 86; RESP 18; TEMP 37; O2SAT 95
[2020-12-24] MEDS: ertapenem 1,000 MG in sodium chloride 0.9% (100 ml) 100 ML 100 MG IV (14:00)
--- NOTE | 2021-01-07 12:30 | ONC FU_ITS ---
[facility] M [facility]donado Patient Note Patient: Tima Malik Unit #: [id number]: [id number] Dictated By: Josh RobertsDate of Visit: Dec 23, 2020 Onc MED Follow-Up/Prog Note Chief Complaint: Metastatic Small cell lung cancer History of Present Illness: Mr. Malik is a 50-year-old gentleman with history of 40 to 50 pounds weight loss since February 2019. Mr Malik reports he sustained an injury to the chest in January or February 2019. Initially, it was not bothersome but then it become progressive to the point where even taking deep breath would hurt. The pain was not mainly in the mid upper anterior chest wall. He also developed progressive shortness of breath. He said he did not have medical insurance so he was taking over the counter pain medicine, which did help some but eventually on August 16, 2019 he went to [facility] in [place], [place]. He had chest x-ray done which showed complete whiteout of left lung and CTA chest done showed complete collapse of left lung likely secondary to left hilar mass/malignancy. There was a bulky mediastinal and likely left hilar lymphadenopathy present. And moderate to large malignant left pleural effusion patient was transferred to [facility] in [place] where on August 17, 2019 underwent ultrasound-guided left thoracentesis and about 25 cc of cloudy yellow pleural fluid was removed, repeat CT scan of the chest done on August 17, 2019 showed possible obstruction of left main bronchus, a mucous plug or obstructing pulmonary mass or consideration. Complete opacification of left hemithorax appears similar to chest x-ray done on August 16, 2019. Elevation of left diaphragm suggest volume loss due to some degree of atelectasis. Left pleural effusion or large left consolidations are also considered. On August 18, 2019 patient underwent bronchoscopy and endobronchial biopsy and bronchial washing from left main bronchus confirmed invasive small cell carcinoma. Mr Malik underwent CT PET scan on August 27, 2019 which showed hypermetabolic very large left hilar/mediastinal mass and matthew conglomeration. There is also redemonstration of complete collapse of left lung with associated hypermetabolic activity that may be secondary to diffuse tumor involvement or pneumonia depending on clinical context There was also evidence of metastatic disease to bilateral cervical chain lymph nodes as well as posterior upper neck intramuscular metastasis. In addition there is evidence of direct metastatic extension into the right of the trachea and to an epicardial fat lymph node. No findings to suggest metastatic disease below the diaphragm and no evidence of metastatic disease to the right lung. Mr Malik was referred to cancer center in [place] as it is convenient to the patient. Patient has longstanding history of smoking but states he quit in mid August 2019. Mr Malik was admitted to hospital on August 29, 2019 with acute respiratory failure with hypoxia. He was intubated and then he transferred to [facility] in [place] where he underwent further management and work-up. He had a MRI scan of the head on September 01, 2019 which showed multiple intra-axial metastasis the largest lesion was located within the left parietal lobe. Extracranial soft tissue mass adjacent to spinous process of C2 and posterior arch of C1 suspicious for metastatic disease. Mr Malik was started on systemic chemotherapy with cycle 1 carboplatin/etoposide on August 31 and completed on September 03, 2019. He tolerated it reasonably well but as per patient and his aunt, he did crash' during chemotherapy. They reported that his blood pressure dropped and his pulse was fast. He was diagnosed with atrial fibrillation- since then he is having off and on episode of tachycardia and palpitation. Radiation oncology was consulted for brain mets but radiation was not offered because the patient was asymptomatic. He was started on systemic chemotherapy because of progressive and symptomatic intrathoracic disease. The current plan is to complete systemic chemotherapy followed by whole brain radiation therapy. Mr Malik had his third cycle of chemotherapy with Carboplatin/etoposide on 10/29/2019-10/31/2019. (He did receive 1 chemotherapy prior to transferring his care to [facility]-his second cycle was complete on 10/03/2019). He is receiving growth factor support for neutropenia. Mr. Malik did have PET CT imaging on 11/02/2019 after 3 cycles of chemotherapy. It was noted there were bilateral cervical lymph nodes described on the prior imaging for CT was not present on this PET CT. There was no head or neck intramuscular metastatic disease present. There was complete postobstructive atelectasis of the left upper lobe. A region of residual activity measuring 1.6 x 3.7 cm with an SUV of 6.2 is consistent with a lung primary. Mild activity in the subaortic node is consistent with local metastatic disease. There was no other significant mediastinal adenopathy present. Innumerable small sclerotic osseous lesions best in the pelvis are most compatible with treated osseous metastatic disease. These were difficult to characterize due to size and background marrow activity from recent Neulasta therapy. He continues with chemotherapy at this time. The followup MRI scan of the brain to assess response .Was done on November 15, 2019 showed excellent response to the chemotherapy as radiation was not given earlier and planning was to do after completion of systemic chemotherapy for extensive intrathoracic disease. And repeat MRI scan showed no evidence of progressed metastatic disease interval decrease in size of cystic appearing peripheral enhancing left parietal lesion measuring 1.6 x 2.6 cm compared to 3.6 x 2.9 cm prior to chemotherapy and also interval decrease in surrounding edema. Previously described lesions are no longer appreciated on the scan no new enhancing lesions. Mr Malik completed 5 cycles of chemotherapy with carboplatin/etoposide on December 19, 2019 and had excellent response. He was referred to radiation oncology for consolidation radiotherapy to the chest and also to the brain as patient was diagnosed with brain mets at the time of diagnosis. Patient completed radiation therapy to his brain on January 27, 2020 and to his left chest on January 27, 2020. Follow-up CT scan of the chest abdomen pelvis done on May 14, 2020 showed partial collapse left upper lobe is unchanged. Increasing soft tissue in the proximal left upper lobe bronchus and encasing the left main pulmonary artery. Suspicious for progression of tumor. Difficult to determine that tumor versus atelectatic lung. No evidence of metastatic disease to the liver or adrenal gland. New cystic mass with peripheral enhancement in the perineum abscess versus pilonidal cyst. MRI scan of the brain shows new enhancing metastatic lesion in the left temporal lobe 5.2 mm with surrounding edema. Previously described left parietal peripherally enhancing cystic lesion has decreased in size measuring 1.6 cm x 1 cm today. No other new lesions seen. history of bursitis involving both shoulders in the past used to get cortisone shots. Follow-up CT PET scan done on 05/23/2020 shows left upper lobe atelectasis seen on prior study on 11/02/2019 is unchanged on current, now with an SUV of 8.3 compared to 6.2 previously. The subaortic lymph node is significantly progressed now measuring 2.3 cm in diameter with SUV of 14.7. A left-sided anterior diaphragmatic node which was subcentimeter in size and FDG negative on prior study now measuring 1.5 cm and SUV of 6.6 and no evidence of distant mets. Mr Malik was started on atezolizumab on 06/24/2020. He has tolerated it well so far. Mr. Malik had follow-up PET/CT on October 09, 2020 which was compared to his PET CT from 05/23/2020. The findings report complete atelectasis of the left upper lobe with extensive abnormal activity throughout the lobe with SUV of up to 11.9, consistent with recurrence. The mass invaded the upper left mediastinum with invasion into the anterior mediastinum and prevascular territory. New malignant nodes were present including anterior mediastinal, left supraclavicular and subcarinal territories. A new FDG positive opacity in the medial right middle lobe may be related to malignancy as well. Multifocal hepatic metastatic disease had developed. The dominant lesion in the inferior right hepatic lobe measured 2 cm with an SUV of 9.5. There was an old osseous metastatic disease which was unchanged and remained FDG negative but there was a new lesion in the proximal right femur with an SUV of 6.3. Old osseous metastatic disease is unchanged and remain FDG negative but there is a new lesion in the proximal right femur with SUV of 6.3.CT scan of right femur done on November 17, 2020 showed sclerotic lesion involving right greater trochanter measuring 2.4 x 1.5 cm corresponds to FDG avid focus on recent CT PET, no pathological fracture. No lesion in the femoral neck. Mr. Malik began cycle 1 of cisplatin irinotecan on November 30, 2020 but his treatment was changed December 07, 2020 to carboplatin etoposide. Per Dr Israel's notes, Mr Malik was switched to carboplatin/etoposide on December 07, 2020 because of progressive symptoms. He did receive a modified dose of carboplatin/etoposide e.g. 2 days of etoposide only with Neulasta support. He has completed day 1 and 2 of cycle 1. He has had significant neutropenia with an ANC on day 10???despite Neulasta delivery- of 80 as well as a platelet count of 15,000 and hemoglobin of 7.9. He received supportive care with blood and hydration on December 18, 2020. His treatment is currently on hold due to the pancytopenia. He is here today for reassessment. He presents along with his [id number] today and Mr. Malik says that he is just weak and washed out. He has no get up and go. He has poor appetite. He denies any fever or chills but states he is just completely washed out. He has had no nausea or vomiting. He denies any bleeding. He denies any excessive bruising at this point. He states he did feel better after the blood his energy is some better but still very poor. He denies nausea or vomiting. He states he just does not feel like eating and is just sleeping a lot. He states he is just weak in general. He denies any peripheral neuropathy symptoms. He is had no diarrhea or constipation to report. His ECOG today is 3. Past Medical History: Hypertension Left pleural effusion Respiratory failure Past Surgical History: Bronchoscopy Allergies: Dexamethasone Medications: [employer] Stool Softener 1 Capsule (of 250 mg) Oral daily PRN Flonase 2 [place](s) (of 50 mcg/act) Suspension Nasal daily PRN Ibuprofen 1 Capsule (of 800 mg) Oral q 6 hours PRN LORazepam 0.5 - 1 Tablet (of 1 mg) Oral b.i.d. PRN Marinol 1 Capsule (of 5 mg) Oral t.i.d. oxyCODONE HCl Family History: Mr. Malik's mother at age 68: esophageal cancer. Mr. Malik's father at age 71: lung cancer. Social History: Mr. Malik is single. He quit smoking 1 year ago but had smoked 2.0 packs/day for 37 years. He has no history of drinking. He has indicated exposure to the following products: recreational drug use. Mr. Malik reports the following support systems: lives with spouse, significant other, family, or friends, supportive family/friends willing to assist with needs, and adequate transportation available for expected visits. His diet consists of regular meals. He indicates his activity level as: daily activities. Pt states he smokes marijuana. Review Of Symptoms: <See Above> Vital Signs: Performed on Dec 23, 2020 13:05 Height - 71.00 in Weight - 123 lbs (HIGH) BSA - 1.72 sq.m BMI - 17.16 (LOW) Temperature - 98.0 F (LOW) Pulse - 117 /min (HIGH) Respiration - 20 /min BP - 93/65 mm(hg) O2 Sat - 94 % (LOW) Pain - 3 Fatigue - 10,3 - Capable of only limited self-care, confined to bed or chair more than 50% of waking hours. (ECOG) Physical Examination: Constitutional Alert, oriented, no acute distress. Skin pale/pink, warm and dry. Head Normocephalic; atraumatic. Eyes Conjunctivae and sclerae are clear and without icterus. Pupils are reactive and equal. Neck Supple without masses or thyromegaly. No jugular venous distension. Hematologic/Lymphatic No petechiae or purpura. Respiratory Lungs are clear to auscultation without rhonchi or wheezing. Cardiovascular Regular rate and rhythm of heart without murmurs,clicks, gallops or rubs. Back/Spine Non-tender to palpation. Extremities No visible deformities, no cyanosis, clubbing or edema. Musculoskeletal No tenderness or swelling, normal range of motion WITH obvious weakness bilaterally. Integumentary No rashes or lesions. Neurologic No sensory or motor deficits, normal cerebellar function, normal gait but slow and weak. Psychiatric Alert and oriented times three. Coherent speech. Verbalizes understanding of our discussions today. Laboratory:Test performed on Dec 23, 2020 11:30 Sodium 135 mmol/L Potassium 4.0 mmol/L Chloride 98 mmol/L CO2 26 mmol/L Anion Gap 15.0 BUN 13 mg/dL Creatinine 0.5 mg/dL Cr Clearance (Est) 143.5100 mL/min eGFR 177.5 mL/min Glucose 85 mg/dL Osmolality - Calculated 279 mOsm/kg Calcium 8.4 mg/dL Protein, Total 5.5 g/dL Albumin 2.3 g/dL Globulin 3.2 g/dL Bilirubin, Total 0.9 mg/dL ALT (SGPT) 9 U/L AST (SGOT) 11 U/L Alkaline Phosphatase 179 IU/L WBC 0.8 10 3/uL Manual Segs % 7 % Manual Bands % 10.0 % RBC 3.28 10 6/uL HGB 9.4 g/dL Manual Lymphs % 4 % Atypical Lymphs % 3.0 % HCT 28.8 % MCV 87.8 fl Total Cells Counted 25 Manual Monos % 1.0 % MCH 28.7 pg MCHC 32.6 g/dL RDW 15.1 % Platelet Count 4 10 3/cmm Ovalocytes Trace Platelet Estimate Decreased Manual Segs Abs 0.1 10/cmm Manual Bands Abs 0.1 10 3/cmm Manual Neutrophils Abs 0.1 10 3/cmm Manual Lymphocytes Abs 0.1 10 3/cmm Manual Monocytes Abs 0.0 10 3/cmm Impression: 1. Metastatic Small cell lung cancer involving left lung; brain metastasis (August); bone metastasis and hepatic metastasis (October 2020). Extensive loco- regional disease with bilateral cervical lymph nodes involvement. CT PET scan done on August 27, 2019 showed hypermetabolic large left hilar/mediastinal mass with matthew conglomeration in keeping with known small cell lung cancer. Also redemonstration of complete collapse of left lung with associated hypermetabolic activity may be secondary to diffuse tumor involvement or pneumonia There is evidence of metastatic disease to bilateral cervical chain lymph nodes as well as posterior upper neck intramuscular metastasis. In addition there is evidence of direct metastatic extension to the right of trachea and to an epicardial fat lymph node. No findings to suggest metastatic disease below diaphragm. No evidence of metastatic disease to the right lung. MRI scan of the brain done on September 01, 2019 at [facility] showed extensive brain mets but asymptomatic As per radiation oncology consultation at [facility] radiation therapy to brain was postponed till completion of systemic chemotherapy Started on Systemic chemotherapy with carboplatin/etoposide on September 01, 2019, first cycle was given at [facility]. Follow-up PET/CT imaging in May 2020 showed left upper lobe atelectasis which was unchanged but the SUV had increased from 6.2-8.3. Subaortic node was significantly progressed noted to have an SUV of 14.7. Left-sided anterior diaphragmatic node was subcentimeter in size and FDG negative on the prior study but increased to 1.5 cm with an SUV of 6.6. There was no evidence of distant mets metastatic disease. Mr. Malik was started on atezolizumab on 06/24/2020. He remained on that until October 07, 2020 at which time he had six cycles[address] imaging reported complete atelectasis in the left upper lobe with extensive abnormal activity throughout the lobe with SUV 11.9 consistent with recurrence. The mass invaded the left upper mediastinum with invasion into the anterior mediastinum and prevascular territory. There were new malignant nodes present in the anterior mediastinal left supraclavicular and subcarinal territory. A new positive FDG opacity in the medial right middle lobe was suspected to be a malignancy as well. Multifocal hepatic metastatic disease had developed. The dominant lesion in the inferior right hepatic lobe measured 2 cm with an SUV of 9.5. There was an old osseous metastatic disease which was unchanged and remained FDG negative but a new lesion in the proximal right femur with an SUV of 6.3. He did have CT of the right femur on November 17, 2020 which showed sclerotic lesion involving the right greater trochanter measuring 2.4 x 1.4 cm corresponds to the FDG avid focus on recent PET CT there was no pathological fracture and no lesion in the femoral neck. Mr. Malik treatment plan at that time was changed to cisplatin etoposide which was first given on November 30, 2020. He continued to have significant pain and seemed to not tolerate this well also Dr. Israel had change his treatment to carboplatin and etoposide but decreased the etoposide dose to just 2 days and also gave him supportive care with Neulasta. He began his first treatment other carboplatin and etoposide on December 07, 2020. Since then he has had significant pancytopenia with an ANC of 80, platelet count of 15,000 and hemoglobin of 7.9 on day 10 of cycle one carboplatin etoposide. He is here today for reassessment. He has had supportive care with blood and hydration. 2. Pancytopenia, presumably chemotherapy induced, may be from metastatic lung cancer as well. Longstanding history of smoking, quit in mid August 2019. Plan/Problems Addressed at this Visit: 1. Small cell lung cancer involving left lung with brain, bone and hepatic metastasis. Currently undergoing treatment with carboplatin etoposide at reduced dose and growth factor support. A. Proceed with supportive care today as indicated. He will receive platelets as soon as they are available as they will need to be irradiated. His ANC has improved but is still dramatically low at 100. B. Today's labs reviewed in detail discussed with Mr. Malik and his [id number] and a copy was given to them. WBC 0.8, hemoglobin 9.4, platelets 4000 ANC is 100. Potassium 4.0 random glucose 85 creatinine 0.5 and his LFTs are normal his alk phos is improved at 179. His weight today is 123 pounds. C. We discussed that he does need to proceed with antibiotics and will do that IV as he will be here getting hydration today anyway. His ANC is at 100. He will require irradiated platelets for platelet count of 4000. Unfortunately we will may not be able to get those to him till tomorrow. If he has any acute bleeding he will present to the emergency room and receive regular platelets which would be an radiated. D. While he is here for supportive care, we will give him IV antibiotics and then start him on oral Levaquin 500 mg daily until his ANC recovers. E. I did discuss with his [id number] that Mr Malik is very appropriate for hospice consideration. His [id number] indicates that he and his have been discussing this amongst himself's and would like to pursue further discussion with Mr. Malik but they do not want him to think that they were giving up on him . I discussed with him the criteria needed for hospice admission as well as the benefits of hospice. He states is not sure Mr Malik is ready to do that yet but would like to discuss it with Dr. Israel upon his return. F. We will plan to recheck his CBC after his platelets are given tomorrow to see if he needs more platelets after that. G. I have tentatively asked for 2-week follow-up with Dr. Israel upon his return to discuss hospice. We will need to do interim counts as Mr. Malik is able to come in. Signed By: Josh Roberts_, AOCNP Amee Israel MD <<Signature on File>>
== END 2021-01-03 23:59 | disposition home or self-care (01) ==
LOC: ONCMED 06:26
PROVIDERS: Nurse Practitioner; PCP Family Medicine; Visit Provider Internal Medicine Hematology & Oncology
DX: Z51.11 Encounter for antineoplastic chemotherapy (principal); C34.02 Malignant neoplasm of left main bronchus; C77.0 Secondary and unspecified malignant neoplasm of lymph nodes of head, face and neck; C78.01 Secondary malignant neoplasm of right lung; C79.51 Secondary malignant neoplasm of bone; F17.211 Nicotine dependence, cigarettes, in remission; D61.810 Antineoplastic chemotherapy induced pancytopenia; D70.1 Agranulocytosis secondary to cancer chemotherapy; T45.1X5D Adverse effect of antineoplastic and immunosuppressive drugs, subsequent encounter; Z79.899 Other long term (current) drug therapy
CPT/HCPCS: 36415; 36430; 36591; 36593; 80053; 85007; 85025; 86850; 86900; 86920; 96361; 96365; 96366; 96367; 96372; 96374; 96375; 96376; 96377; 96401; 96413; 96417; 99215; J1100; J1335; J1940; J2405; J2505; J2997; J3475; J3480; J3490; J7030; J7040; J7050; J9045; J9181; P9037; P9040; Q5101

== ENCOUNTER 2020-12-25 11:32 | Inpatient (IN) | payer MEDICAID, SELFPAY ==
[2020-12-25] VITALS (10 sets, daily range): BP systolic 87–112; BP diastolic 55–73; PULSE 79–104; RESP 14–21; TEMP 36.6–37; O2SAT 94–99; BMI 24.3; BMI 18.9
[2020-12-25 11:15] LABS: Hematocrit 28.2 % (42.0-52.0); Hemoglobin 9.3 g/dL (11.7-16.6); Mean Corpuscular Hemoglobin 30.7 pg (28.0-34.0); Mean Corpuscular Volume 93.1 fl (80-94); Mean Platelet Volume 10.5 fL (7.4-10.4); Platelet Count 39 10^3/cmm (130-400); Red Blood Count 3.03 10^6/uL (4.1-5.3); Red Cell Distribution Width 15.3 % (12.1-15.1); White Blood Count 3.2 10^3/uL (4.0-10.0)
[2020-12-25 11:42] LABS: Absolute Neutrophil 2.2 10^3/cmm (1.4-6.5); Absolute Segmented Neutrophil 1.6 10/cmm (1.6-7.1); Band Neutrophils Absolute 0.6 10^3/cmm (0.0-1.2); Lymphocytes 18 %; Lymphocytes Absolute 0.8 10^3/cmm (1.2-3.4); Monocytes Absolute 0.1 10^3/cmm (0.1-0.6); Platelet Estimate Decreased (Normal); Segmented Neutrophils 49 %
[2020-12-25 11:43] LABS: Smudge Cells Trace; Tear Drop Cells Trace
[2020-12-25 11:44] LABS: Total Cells Counted 100 (0-100)
--- NOTE | 2020-12-25 12:18 | XR_ITS ---
WS: [id number] Portable AP upright chest, 12/25/2020 Clinical Data: Shortness of breath, metastatic small cell lung cancer Comparison: PA and lateral chest, 11/30/2020. Findings: The opacification of the left pleural space with elevation of left diaphragm has not change d. There is a shift of the trachea from right to left. The right internal jugular venous catheter rem ains in the same position. There is a patchy opacity in the right lower lobe which could represent pn eumonia. The right upper lobe is clear. XR/XR chest 1V portable [id number] Impression: 1. Patchy opacity in right lower lobe which could represent pneumonia. 2. No change in opacification of left pleural space.
--- NOTE | 2020-12-25 12:18 | ECG_ITS ---
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 Measurements Intervals [place] Rate: 85 P: 40 [place]: 140 QRS: 55 QRSD: 88 T: 66 QT: 334 QTc: 399 Interpretive Statements SINUS RHYTHM LOW QRS VOLTAGE IN EXTREMITY LEADS [QRS DEFLECTION < 0.5 mV IN LIMB LEADS] MODERATE ST DEPRESSION [0.05+ mV ST DEPRESSION] Compared to ECG 08/29/2019 13:05:47 Low QRS voltage now present ST (T wave) deviation now present Atrial fibrillation no longer present Electronically Signed On 12-25-2020 22:39:12 CDT by German Mckeon M.D. [email or web address]
--- NOTE | 2020-12-25 12:22 | W.ED.SOB ---
HPI - SOB/Dyspnea General: Chief Complaint: Shortness of Breath/Dyspnea Stated Complaint: Poss Pneumonia, sent per Oncology Time Seen by Provider: 12/25/20 12:09 Source: patient Mode of arrival: ambulatory Limitations: no limitations History of Present Illness: HPI Narrative: Patient states he had increased shortness of breath of the past couple days. Patient reportedly had platelet infusion yesterday for thrombocytopenia. Patient has metastatic small cell lung cancer. Patient states he has metastases in his lungs liver right hip chest and lymph nodes. Patient states he is undergoing chemotherapy presently. He states his last radiation treatment was several months ago. He is not on any blood thinners. He states he did not get vaccinated for Covid. He denies any exposure to Covid positive person. Patient denies any fever. He does complain of bilateral lower extremity edema. He states he no longer smokes tobacco. See nursing assessment. MD elicited complaint: shortness of breath and cough Pertinent past history: other (Lung cancer) Onset (ago): day(s) (3) Timing: intermittent Severity: mild Exacerbating factors: exertion Relieving factors: rest Known history of: other (Lung cancer) Associated symptoms: Reports chest congestion, cough and other (Peripheral edema); Deny abdominal pain, chest pain, diaphoresis, extremity pain, fever(s), lightheadedness, nausea, syncope or vomiting Related Data: Home oxygen amount: none Review of Systems Const: Reports: fatigue and malaise; Denies: fever(s), chills or diaphoresis Eyes: Denies: change in vision ENMT: Denies: throat pain Card: Reports: edema and dyspnea on exertion; Denies: chest pain, lightheadedness or syncope Resp: Reports: dyspnea, non-productive cough and chest congestion GI: Denies: abdominal pain, nausea, vomiting or diarrhea : Denies: flank pain Musc: Denies: neck pain, back pain or extremity pain Skin/Breast: Denies: rash or pruritus Neuro: Denies: headache(s) or numbness in extremities Psych: Denies: anxiety Ananda/Lymph: Denies: enlarged lymph nodes PFS ED PFSH: Medical History (Updated 12/25/20 @ 16:00 by Brenden Shannon MD) Cardiomyopathy Pleural effusion SOB (shortness of breath) Surgical History H/O circumcision S/P bronchoscopy Family History Father Cancer Mother Cancer lungs Other Diabetes Denies family history of Anesthesia complication Bleeding disorder Social History Smoking and tobacco status: former smoker Alcohol intake: never Desire information about substance/drug rehabilitation?: No Counseling given: No (utilizes substance secondary to cancer. ) Household members: family Marital status: Single Current occupational status: disabled History of recent travel: No Physical Exam Const: COMMON NORMALS: no acute distress, patient oriented x3, no limitations and alert GENERAL APPEARANCE: cooperative NUTRITIONAL APPEARANCE: thin HENMT: COMMON NORMALS: normocephalic and atraumatic HEAD & SCALP: normocephalic and atraumatic FACE & SINUS: normal facial exam Eye: COMMON NORMALS: EOMs intact bilaterally Neck/C-Spine: COMMON NORMALS: full ROM, no lymphadenopathy, supple, no meningeal signs and no JVD GENERAL: Yes normal visual inspection Lymph: LYMPHATIC: no lymphadenopathy noted Chest: COMMONS NORMALS: normal inspection of the chest and normal palpation of entire chest wall CHEST: No Ecchymosis present and No rash OTHER: Patient still has IV access to his right upper chest port. Resp: COMMON NORMALS: normal respiratory effort, No retractions, No use of accessory muscles and clear to auscultation bilaterally EFFORT & INSPECTION: No respiratory distress AUSCULTATION: clear to auscultation bilaterally Cardio: COMMON NORMALS: no JVD, regular rate, regular rhythm and Peripheral pulses 2+ throughout JUGULAR VENOUS DISTENTION: no JVD RATE: regular rate RHYTHM: regular rhythm PERIPHERAL PULSES: Peripheral pulses 2+ throughout GI: COMMON NORMALS: Normal to inspection, nondistended, normoactive bowel sounds present and non-tender : COMMON NORMALS: Yes no CVA tenderness BLADDER/KIDNEY EXAM: Yes no CVA tenderness Back/Pelvis: COMMON NORMALS: no CVA tenderness Extremity: COMMON NORMALS: full ROM and capillary refill normal NARRATIVE EXTREMITY EXAM: 1+ pitting edema of the lower extremities bilaterally. Neuro: COMMON NORMALS: patient oriented x3, CN's II-XII intact bilaterally, no focal motor deficits and no sensory deficits noted SENSORIUM/ORIENTATION: Yes alert MENINGEAL SIGNS: Yes no meningeal signs Psych: COMMON NORMALS: mental status grossly normal and Normal thought process present THOUGHT PROCESS: Normal thought process present Skin: COMMON NORMALS: no rashes or lesions noted, no wounds, turgor normal and no jaundice GENERAL SKIN EXAM: no rashes or lesions noted and turgor normal Course Vital Signs: Vital signs: Vital Signs Temperature 98 F 12/25/20 12:00 Pulse Rate 91 12/25/20 16:50 Respiratory Rate 21 H 12/25/20 12:00 Blood Pressure 95/65 12/25/20 16:50 Pulse Oximetry 95 12/25/20 16:50 MDM - SOB/Dyspnea MDM Narrative: Medical decision making narrative: See nursing assessment Patient reports he has chronic collapse of the left lung and fluid-filled left chest cavity. Patient denies pneumonectomy. 1420: Discussed case with Dr. Shannon hospitalist. He will see the patient emergency room. He asked that I order CT angiogram of the chest to rule out pulmonary embolus. 1710. Dr. Shannon has seen the patient and written orders for admission. Medical Records: Attestation: I reviewed the patient's medical records. Medical records narrative: WS: [id number] Exam: XR chest 2V* [id number] Date/Time of Exam: 11/30/2020 12:45 PM Reason For Exam: SHORTNESS OF BREATH Comparison 08/30/2019. Again noted is total white out of the left pleural cavity suggesting fluid-filled pleural cavity. The right lung is fully expanded and clear. Right subclavian port ends in the lower one third of the SVC in good position. Bony structures are intact. XR/XR chest 2V* [id number] IMPRESSION: 1. Fluid-filled left pleural cavity unchanged. 2. The right lung is clear and fully expanded. 3. Right-sided Chemo-Port appearing to be in satisfactory position. Dictated By:Markie Ratliff By:Markie Ratliff Date/Time:11/30/20 1310 CBC from 12/23/2020 showed a white blood cell count of 0.8, hemoglobin 9.4, hematocrit 28.8 platelet count of 4000. Previous CBC on 12/17/2020 showed a white count of 0.2 hemoglobin 7.9 hematocrit 24.7 platelet count of 15,000. [facility] [place], [place] [id number] Med Follow-Up/Prog NoteSigned Patient: Tima Malik DMR#: [id number]: [id number]#:[id number]/Sex: 50 / MADM Date: 12/17/20Loc: ONCMEDRoom/Bed:Attending Dr: Amee Israel MD Report Number: [id number] Dr. Israel follow up note Patient: Tima Malik Unit #: [id number]: [id number] Dicatated By: Amee Israel M.D.Date of Visit:Dec 17, 2020 Onc Med Follow-up/Prog Note History of Present Illness: Mr. Malik is a 50-year-old gentleman with history of 40 to 50 pounds weight loss since February 2019. Mr Malik reports he sustained an injury to the chest in January or February 2019. Initially, it was not bothersome but then it become progressive to the point where even taking deep breath would hurt. The pain was not mainly in the mid upper anterior chest wall. He also developed progressive shortness of breath. He said he did not have medical insurance so he was taking over the counter pain medicine, which did help some but eventually on August 16, 2019 he went to the [facility] in [place], [place]. He had chest x-ray done which showed complete whiteout of left lung and CTA chest done showed complete collapse of left lung likely secondary to left hilar mass/malignancy. There was a bulky mediastinal and likely left hilar lymphadenopathy present. And moderate to large malignant left pleural effusion patient was transferred to [facility] in [place] where on August 17, 2019 underwent ultrasound-guided left thoracentesis and about 25 cc of cloudy yellow pleural fluid was removed, repeat CT scan of the chest done on August 17, 2019 showed possible obstruction of left main bronchus, a mucous plug or obstructing pulmonary mass or consideration. Complete opacification of left hemithorax appears similar to chest x-ray done on August 16, 2019. Elevation of left diaphragm suggest volume loss due to some degree of atelectasis. Left pleural effusion or large left consolidations are also considered. On August 18, 2019 patient underwent bronchoscopy and endobronchial biopsy and bronchial washing from left main bronchus confirmed invasive small cell carcinoma. Mr Malik underwent CT PET scan on August 27, 2019 which showed hypermetabolic very large left hilar/mediastinal mass and matthew conglomeration. There is also redemonstration of complete collapse of left lung with associated hypermetabolic activity that may be secondary to diffuse tumor involvement or pneumonia depending on clinical context There was also evidence of metastatic disease to bilateral cervical chain lymph nodes as well as posterior upper neck intramuscular metastasis. In addition there is evidence of direct metastatic extension into the right of the trachea and to an epicardial fat lymph node. No findings to suggest metastatic disease below the diaphragm and no evidence of metastatic disease to the right lung. Mr Malik was referred to cancer center in [place] as it is convenient to the patient. Patient has longstanding history of smoking but states he quit in mid August 2019. Mr Malik was admitted to hospital on August 29, 2019 with acute respiratory failure with hypoxia. He was intubated and then he transferred to [facility] in [place] where he underwent further management and work-up. He had a MRI scan of the head on September 01, 2019 which showed multiple intra-axial metastasis the largest lesion was located within the left parietal lobe. Extracranial soft tissue mass adjacent to spinous process of C2 and posterior arch of C1 suspicious for metastatic disease. Mr Malik was started on systemic chemotherapy with cycle 1 carboplatin/etoposide on August 31 and completed on September 03, 2019. He tolerated it reasonably well but as per patient and his aunt, he did crash' during chemotherapy. They reported that his blood pressure dropped and his pulse was fast. He was diagnosed with atrial fibrillation- since then he is having off and on episode of tachycardia and palpitation. Radiation oncology was consulted for brain mets but radiation was not offered because the patient was asymptomatic. He was started on systemic chemotherapy because of progressive and symptomatic intrathoracic disease. The current plan is to complete systemic chemotherapy followed by whole brain radiation therapy. Mr Malik had his third cycle of chemotherapy with Carboplatin/etoposide on 10/29/2019-10/31/2019. (He did receive 1 chemotherapy prior to transferring his [place] [facility]his second cycle was complete on 10/03/2019). He is receiving growth factor support for neutropenia. Mr. Malik did have PET CT imaging on 11/02/2019 after 3 cycles of chemotherapy. It was noted there were bilateral cervical lymph nodes described on the prior imaging for CT was not present on this PET CT. There was no head or neck intramuscular metastatic disease present. There was complete postobstructive atelectasis of the left upper lobe. A region of residual activity measuring 1.6 x 3.7 cm with an SUV of 6.2 is consistent with a lung primary. Mild activity in the subaortic node is consistent with local metastatic disease. There was no other significant mediastinal adenopathy present. Innumerable small sclerotic osseous lesions best in the pelvis are most compatible with treated osseous metastatic disease. These were difficult to characterize due to size and background marrow activity from recent Neulasta therapy. He continues with chemotherapy at this time. The followup MRI scan of the brain to assess response .Was done on November 15, 2019 showed excellent response to the chemotherapy as radiation was not given earlier and planning was to do after completion of systemic chemotherapy for extensive intrathoracic disease. And repeat MRI scan showed no evidence of progressed metastatic disease interval decrease in size of cystic appearing peripheral enhancing left parietal lesion measuring 1.6 x 2.6 cm compared to 3.6 x 2.9 cm prior to chemotherapy and also interval decrease in surrounding edema. Previously described lesions are no longer appreciated on the scan no new enhancing lesions. Mr Malik completed 5 cycles of chemotherapy with carboplatin/etoposide on December 19, 2019 and had excellent response. He was referred to radiation oncology for consolidation radiotherapy to the chest and also to the brain as patient was diagnosed with brain mets at the time of diagnosis. Patient completed radiation therapy to his brain on January 27, 2020 and to his left chest on January 27, 2020. Follow-up CT scan of the chest abdomen pelvis done on May 14, 2020 showed partial collapse left upper lobe is unchanged. Increasing soft tissue in the proximal left upper lobe bronchus and encasing the left main pulmonary artery. Suspicious for progression of tumor. Difficult to determine that tumor versus atelectatic lung. No evidence of metastatic disease to the liver or adrenal gland. New cystic mass with peripheral enhancement in the perineum abscess versus pilonidal cyst. MRI scan of the brain shows new enhancing metastatic lesion in the left temporal lobe 5.2 mm with surrounding edema. Previously described left parietal peripherally enhancing cystic lesion has decreased in size measuring 1.6 cm x 1 cm today. No other new lesions seen. history of bursitis involving both shoulders in the past used to get cortisone shots. Follow-up CT PET scan done on 05/23/2020 shows left upper lobe atelectasis seen on prior study on 11/02/2019 is unchanged on current, now with an SUV of 8.3 compared to 6.2 previously. The subaortic lymph node is significantly progressed now measuring 2.3 cm in diameter with SUV of 14.7. A left-sided anterior diaphragmatic node which was subcentimeter in size and FDG negative on prior study now measuring 1.5 cm and SUV of 6.6 and no evidence of distant mets. Mr Malik was started on atezolizumab on 06/24/2020. He has tolerated it well so far. Follow-up CT PET scan done on October 10, 2020 shows no complete atelectasis of left upper lobe with extensive abnormal activity throughout the lobe with SUV 11.9 consistent with recurrence. This mass invades the upper left mediastinum with invasion into anterior mediastinum and prevascular territory. And new malignant nodes are present in the anterior mediastinal, left supraclavicular, subcarinal territory. A new FDG positive opacity in the medial right middle lobe may be related to malignancy. Multifocal hepatic metastatic disease has developed. Dominant lesion in the inferior right hepatic lobe measuring 2 cm. With SUV of 9.5. Old osseous metastatic disease is unchanged and remain FDG negative but there is a new lesion in the proximal right femur with SUV of 6.3.CT scan of right femur done on November 17, 2020 showed sclerotic lesion involving right greater trochanter measuring 2.4 x 1.5 cm corresponds to FDG avid focus on recent CT PET, no pathological fracture. No lesion in the femoral neck. complaining of progressive left arm/shoulder pain and swelling of left elbow area, venous Doppler study shows no DVT, patient tolerated weekly dose of cisplatin and irinotecan well but no improvement in symptoms rather worsening of left chest pain and progressive shortness of breath, as per patient current pain medication is not helping his progressive left upper chest/shoulder/arm pain, Switched to carboplatin/etoposide on December 07, 2020 because of progressive symptoms, patient received modified dose of carboplatin/etoposide e.g. 2 days of etoposide only. But with Neulasta support Came for follow-up, complaining of generalized weakness and fatigue, but his left shoulder chest pain is much better since last week chemotherapy, left swelling around elbow is also improving, breathing is also improving, patient is pleased with the chemotherapy, denies any fever chills, denies any nausea or vomiting, denies any diarrhea or constipation, denies any hemoptysis or hematemesis, tolerated modified dose of carboplatin/etoposide well Medications: [employer] Stool Softener 1 Capsule (of 250 mg) Oral daily PRN, Flonase 2 Pray(s) (of 50 mcg/act) Suspension Nasal daily PRN, Ibuprofen 1 Capsule (of 800 mg) Oral q 6 hours PRN, LORazepam 0.5 - 1 Tablet (of 1 mg) Oral b.i.d. PRN, Marinol 1 Capsule (of 5 mg) Oral t.i.d., oxyCODONE HCl Allergies: Dexamethasone Review of Systems: Review of Systems is not available for this patient. Vital Signs: Performed on Dec 17, 2020 13:12 Height - 71.00 in Weight - 122.4 lbs (LOW) BSA - 1.71 sq.m BMI - 17.07 (LOW) Temperature - 99.0 F (HIGH) Pulse - 106 /min (HIGH) Respiration - 20 /min BP - 92/56 mm(hg) O2 Sat - 99 % Pain - 6 Fatigue - 8 Performance Status: 2 - Ambulatory/capable of all self-care, unable to perform any work activities. Up and about more than 50% of waking hours. (ECOG) Physical Examination: ENMT - No mouth sores, no thrush, no jaundice, Respiratory - Decreased breath sound on the left side otherwise clear, Cardiovascular - Regular rate and rhythm of heart, Abdomen - Soft, bowel sounds present, Extremities - No visible edema. Lab/Imaging: Test performed on Dec 07, 2020 08:30 Sodium 139 mmol/L Potassium 4.3 mmol/L Chloride 104 mmol/L CO2 25 mmol/L Anion Gap 14.3 BUN 14 mg/dL Creatinine 0.4 mg/dL Cr Clearance (Est) 179.3900 mL/min eGFR 229.6 mL/min Glucose 135 mg/dL Osmolality - Calculated 291 mOsm/kg Calcium 8.2 mg/dL Protein, Total 5.4 g/dL Albumin 2.4 g/dL Globulin 3.0 g/dL Bilirubin, Total 0.2 mg/dL ALT (SGPT) 10 U/L AST (SGOT) 33 U/L Alkaline Phosphatase 259 IU/L WBC 8.1 10 3/uL RBC 3.05 10 6/uL HGB 8.8 g/dL HCT 28.0 % MCV 91.8 fl MCH 28.9 pg MCHC 31.4 g/dL RDW 14.7 % Platelet Count 308 10 3/cmm MPV 10.3 fL Neutrophils 6.74 10 3/uL Lymphocytes 0.4 10 3/uL Monocytes 0.8 10 3/uL Eosinophils 0.1 10 3/uL Basophils 0.0 10 3/uL Neutrophil % 83.9 % Lymphocyte % 4.3 % Monocyte % 9.7 % Eosinophil % 1.2 % Basophils % 0.2 % NRBC % 0 % Test performed on Aug 26, 2020 09:05 TSH 0.89 uIU/mL Impression: Small cell lung cancer involving left lung, per bronchoscopy done on August 18, 2019 Extensive loco- regional disease with bilateral cervical lymph nodes involvement. CT PET scan done on August 27, 2019 showed hypermetabolic large left hilar/mediastinal mass with matthew conglomeration in keeping with known small cell lung cancer. Also redemonstration of complete collapse of left lung with associated hypermetabolic activity may be secondary to diffuse tumor involvement or pneumonia There is evidence of metastatic disease to bilateral cervical chain lymph nodes as well as posterior upper neck intramuscular metastasis. In addition there is evidence of direct metastatic extension to the right of trachea and to an epicardial fat lymph node. No findings to suggest metastatic disease below diaphragm. No evidence of metastatic disease to the right lung. MRI scan of the brain done on September 01, 2019 at [facility] showed extensive brain mets but asymptomatic As per radiation oncology consultation at [facility] radiation therapy to brain was postponed till completion of systemic chemotherapy Started on Systemic chemotherapy with carboplatin/etoposide on September 01, 2019, first cycle was given at [facility] Longstanding history of smoking, quit in mid August 2019. Clinically, patient is doing well with no new signs symptoms suggestive of disease progression, tolerating systemic chemotherapy with carboplatin/etoposide well but with expected side effects e.g. progressive neutropenia/leukopenia causing delay in chemotherapy schedule with cycle 2. We have given him Neulasta to prevent chemotherapy-induced leukopenia/neutropenia and further delay in his chemotherapy schedule. Mr. Malik did have PET CT imaging on 11/02/2019 after 3 cycles of chemotherapy. It was noted there were bilateral cervical lymph nodes described on the prior imaging for CT was not present on this PET CT. There was no head or neck intramuscular metastatic disease present. There was complete postobstructive atelectasis of the left upper lobe. A region of residual activity measuring 1.6 x 3.7 cm with an SUV of 6.2 is consistent with a lung primary. Mild activity in the subaortic node is consistent with local metastatic disease. There was no other significant mediastinal adenopathy present. Innumerable small sclerotic osseous lesions best in the pelvis are most compatible with treated osseous metastatic disease. These were difficult to characterize due to size and background marrow activity from recent Neulasta therapy. He continues with chemotherapy at this time. The followup MRI scan of the brain to assess response has not been obtained as of this visit. recommendations for further plan of care per his last office note suggests in case patient has complete response, then will discuss with radiation oncology regarding radiation therapy to the thorax concurrent versus sequential followed by whole brain radiation therapy as, patient was diagnosed with brain mets at the time of diagnosis. We will also discuss about adding immunotherapy Tecentriq, as after completion of recommended chemotherapy, may continue with maintenance immunotherapy with Tecentriq alone . But patient decided to wait till follow-up CT scan reports. Which was done on May 14, 2019, MRI scan of the brain shows new enhancing metastatic lesion in the left temporal lobe 5.2 mm with surrounding edema. Previously described left parietal peripherally enhancing cystic lesion has decreased in size 1.6 x 1 cm. No new lesion seen and CT scan of chest abdomen pelvis done on May 14, 2020 shows partial collapse left upper lobe is unchanged. Increasing soft tissue in the proximal left upper lobe bronchus and encasing left main pulmonary artery suspicious for progression of tumor but difficult to determine tumor versus atelectatic lung. No evidence of metastatic disease to the liver or adrenal gland and and pelvis 2.6 x 1.3 cm collection of fluid in the perineum consistent with abscess versus pilonidal cyst Follow-up CT PET scan done on 05/23/2020 showed no morphological changes in the left upper lobe atelectasis but now with increasing FDG uptake. Progression of subaortic and left anterior diaphragmatic node. No change in sterilized osseous metastatic disease. Plan: Discussed with patient regarding his labs white blood count 200 hemoglobin 7.9 g per good 24.7 platelets 15,000 ANC 80 CMP within normal limit except sodium 133, albumin 2.4 Clinically, patient is doing reasonably well, now with dyspnea on exertion, lab work-up shows pancytopenia due to chemotherapy, despite of Neulasta, at this point will consider starting him on Levaquin 500 mg p.o. daily for neutropenic prophylaxis, also consider 2 units of packed RBC and also platelets transfusion, patient was advised in case there is a fever chills or mental status changes, he need to come to hospital immediately he was also advised to stay away from public places., Overall with carboplatin/etoposide, patient has significant improvement in his symptoms specially left chest/shoulder/arm pain, which has improved significantly and now well under control with current pain medications. And then he will return to clinic in 1 week with CBC CMP Signed By: Amee Israel M.D. <<Signature on File>> Dictated By:Amee Israel MDSigned By:Signed Date/Time:12/17/20 3689 Lab Data: Attestation: I reviewed the patient's lab results. Labs: Lab Results 12/25/20 12/25/20 12/25/20 10:30 12:49 12:49 WBC 3.2 10^3/uL L 10^ 3/uL Cancelled (4.0-10.0) Corrected WBC Cancelled RBC 3.03 10^6/uL L 10 ^6/uL Cancelled (4.1-5.3) Hgb 9.3 g/dL L g/dL Cancelled (11.7-16.6) Hct 28.2 % L % Cancelled (42.0-52.0) MCV 93.1 fl fl Cancelled (80-94) MCH 30.7 pg pg Cancelled (28.0-34.0) MCHC 33.0 g/dL g/dL Cancelled (30.0-36.0) RDW 15.3 % H % Cancelled (12.1-15.1) Plt Count 39 10^3/cmm L 10^ 3/cmm Cancelled (130-400) MPV 10.5 fL H fL Cancelled (7.4-10.4) Gran % Cancelled Neut % (Auto) Cancelled Lymph % (Auto) Cancelled [place] % (Auto) Cancelled Eos % (Auto) Cancelled Baso % (Auto) Cancelled Neut # (Auto) Cancelled Lymph # (Auto) Cancelled [place] # (Auto) Cancelled Eos # (Auto) Cancelled Baso # (Auto) Cancelled Absolute Gran (aut o) Cancelled Nucleated RBC % (a uto) Cancelled Total Counted 100 (0-100) Atypical Lymphs % 6.0 % H % (0-5) Absolute Neutrophi ls 2.2 10^3/cmm 10^3 /cmm (1.4-6.5) Segmented Neutroph ils 49 % % Abs Segm Neuts (Ma n) 1.6 10/cmm 10/cmm (1.6-7.1) Band Neutrophils 20.0 % % Abs Band Neuts (Ma n) 0.6 10^3/cmm 10^3 /cmm (0.0-1.2) Absolute Lymphocyt es 0.8 10^3/cmm L 10 ^3/cmm (1.2-3.4) Lymphocytes (Manua l) 18 % % Monocytes (Manual) 4.0 % % Absolute Monocytes 0.1 10^3/cmm 10^3 /cmm (0.1-0.6) Metamyelocytes 1.0 % % Myelocytes 2.0 % % Nucleated RBCs # Cancelled Smudge Cells Trace Platelet Estimate Decreased (Normal) Tear Drop Cells Trace D-Dimer 4.96 ug/mIFEU H u g/mIFEU (0-0.59) Sodium Potassium Chloride Carbon Dioxide Anion Gap BUN Creatinine GFR Calculation Glucose Calculated Osmolal ity Lactic Acid Calcium Total Bilirubin AST ALT Alkaline Phosphata se Troponin T Baselin e C-Reactive Protein NT-Pro-B Natriuret Pep Total Protein Albumin Globulin Procalcitonin Influenza Type A A g Influenza Type B A g SARS-CoV-2 Ag (Rap id) 12/25/20 12/25/20 12/25/20 12:49 12:49 12:49 WBC Corrected WBC RBC Hgb Hct MCV MCH MCHC RDW Plt Count MPV Gran % Neut % (Auto) Lymph % (Auto) [place] % (Auto) Eos % (Auto) Baso % (Auto) Neut # (Auto) Lymph # (Auto) [place] # (Auto) Eos # (Auto) Baso # (Auto) Absolute Gran (aut o) Nucleated RBC % (a uto) Total Counted Atypical Lymphs % Absolute Neutrophi ls Segmented Neutroph ils Abs Segm Neuts (Ma n) Band Neutrophils Abs Band Neuts (Ma n) Absolute Lymphocyt es Lymphocytes (Man[place]) Monocytes (Manual) Absolute Monocytes Metamyelocytes Myelocytes Nucleated RBCs # Smudge Cells Platelet Estimate Tear Drop Cells D-Dimer Sodium 139 mmol/L mmol/L (136-145) Potassium 4.0 mmol/L mmol/L (3.5-5.1) Chloride 105 mmol/L mmol/L (98-107) Carbon Dioxide 27 mmol/L mmol/L (22-29) Anion Gap 11.0 (5-19) BUN 19 mg/dL mg/dL (6-20) Creatinine 0.6 mg/dL L mg/dL (0.7-1.2) GFR Calculation 143.8 mL/min H mL /min (90-130) Glucose 72 mg/dL mg/dL (65-115) Calculated Osmolal ity 289 mOsm/kg mOsm/ kg (285-295) Lactic Acid 1.0 mmol/L mmol/L (0.5-2.2) Calcium 8.3 mg/dL L mg/dL (8.5-10.5) Total Bilirubin 0.4 mg/dL mg/dL (0.15-1.2) AST 12 U/L U/L (0-40) ALT 10 U/L U/L (0-41) Alkaline Phosphata se 187 IU/L H IU/L (40-130) Troponin T Baselin e C-Reactive Protein 95.6 mg/L H mg/L (0.0-4.9) NT-Pro-B Natriuret Pep 1183 pg/mL H pg/m L (0-125) Total Protein 4.8 g/dL L g/dL (6.6-8.7) Albumin 2.1 g/dL L g/dL (3.5-5.2) Globulin 2.7 g/dL g/dL (1.3-4.6) Procalcitonin 0.16 ng/mL ng/mL (0-0.5) Influenza Type A A g Influenza Type B A g SARS-CoV-2 Ag (Rap id) 12/25/20 12/25/20 12/25/20 12:49 13:15 13:15 WBC Corrected WBC RBC Hgb Hct MCV MCH MCHC RDW Plt Count MPV Gran % Neut % (Auto) Lymph % (Auto) [place] % (Auto) Eos % (Auto) Baso % (Auto) Neut # (Auto) Lymph # (Auto) [place] # (Auto) Eos # (Auto) Baso # (Auto) Absolute Gran (aut o) Nucleated RBC % (a uto) Total Counted Atypical Lymphs % Absolute Neutrophi ls Segmented Neutroph ils Abs Segm Neuts (Ma n) Band Neutrophils Abs Band Neuts (Ma n) Absolute Lymphocyt es Lymphocytes (Man[place] l) Monocytes (Manual) Absolute Monocytes Metamyelocytes Myelocytes Nucleated RBCs # Smudge Cells Platelet Estimate Tear Drop Cells D-Dimer Sodium Potassium Chloride Carbon Dioxide Anion Gap BUN Creatinine GFR Calculation Glucose Calculated Osmolal ity Lactic Acid Calcium Total Bilirubin AST ALT Alkaline Phosphata se Troponin T Baselin e 10 ng/L ng/L (0-15) C-Reactive Protein NT-Pro-B Natriuret Pep Total Protein Albumin Globulin Procalcitonin Influenza Type A A g Negative (Negative) Influenza Type B A g Negative (Negative) SARS-CoV-2 Ag (Rap id) Negative (Negative) Imaging Data^: CT Head: Radiologist's impression: Ordering Provider/Ordering MD: Brenden Shannon MD Date of Service: 12/25/20 Procedure(s): CT head wo con* [id number] Accession Number(s): [id number] Report Number: [id number] PROCEDURE INFORMATION: Exam: CT Head Without Contrast Exam date and time: 12/25/2020 3:28 PM Age: 50 years old Clinical indication: Altered mental status/memory loss; Confusion or disorientation; Patient HX: HX of brain mets - doesm't feel right; Additional info: Braint mets, cerbral edema TECHNIQUE: Imaging protocol: Computed tomography of the head without contrast. Radiation optimization: All CT scans at this facility use at least one of these dose optimization techniques: automated exposure control; mA and/or kV adjustment per patient size (includes targeted exams where dose is matched to clinical indication); or iterative reconstruction. COMPARISON: MR head wo/w con [id number] 05/13/2020 10:25 AM RADIATION DOSE METRICS: Total DLP (mGy-cm): 786.36 FINDINGS: Brain: A 16 mm round hypodense area is present in the left aspect of the reuben, which is nonspecific. The left parietal lobe white matter cystic space is smaller compared to the prior exam. Small 4 mm calcific focus is seen in the anterior temporal lobe periventricular white matter. A similar appearing smaller focus is also present in the right temporal lobe periventricular white matter. Mild white matter chronic microvascular changes are also noted. No hemorrhage is visualized. Cerebral ventricles: No ventriculomegaly. Paranasal sinuses: Visualized sinuses are unremarkable. No fluid levels. Mastoid air cells: Visualized mastoid air cells are well aerated. Bones/joints: Unremarkable. No acute fracture. Soft tissues: Unremarkable. CT/CT head wo con* [id number] IMPRESSION: Indeterminate pontine hypodensity. Subacute infarction is a possibility. A neoplastic process is also a diagnostic consideration. MRI with contrast is recommended for further assessment. Radiation Dose CTDIVOL = (mGy): DLP = 786.36 (mGy-cm) Dictated By:Sudhakar Davenport MDSigned By:Sudhakar Davenport MDSigned Date/Time:12/25/[address] Chest: Radiologist's impression: Ordering Provider/Ordering MD: Kevin Elizondo MD Date of Service: 12/25/20 Procedure(s): CT angio chest 23827 Accession Number(s): [id number] Report Number: [id number] PROCEDURE INFORMATION: Exam: CTA Chest With Contrast Exam date and time: 12/25/2020 2:39 PM Age: 50 years old Clinical indication: Cough and shortness of breath. History of lung cancer with metastases status post remote surgery. Complains of shortness of breath and cough with elevated D-dimer. Metastatic small cell lung cancer. Rule out pulmonary embolus. TECHNIQUE: Imaging protocol: Computed tomographic angiography of the chest with contrast. 3D rendering (Not supervised by radiologist): MIP and/or 3D reconstructed images were created by the technologist. Radiation optimization: All CT scans at this facility use at least one of these dose optimization techniques: automated exposure control; mA and/or kV adjustment per patient size (includes targeted exams where dose is matched to clinical indication); or iterative reconstruction. Contrast material: OMNI 350; Contrast volume: 76 ml; Contrast route: INTRAVENOUS (IV); COMPARISON: CT angio chest PE protcl [id number] 08/29/2019 3:59 PM RADIATION DOSE METRICS: Total DLP (mGy-cm): 611.07 FINDINGS: Tubes, catheters and devices: Right port with tip at the SVC/right atrial junction. Pulmonary arteries: There is occlusion of a branch of the left main pulmonary artery likely secondary to malignancy. No pulmonary embolus is identified. Aorta: No thoracic aortic aneurysm. No thoracic aortic dissection. Veins: One of the left pulmonary veins is not visualized; unchanged from prior. Lungs: Debris fills the left bronchial tree, and there is consolidation involving the entire left lung which likely in part reflects malignancy and may in part reflect aspiration pneumonia. No pulmonary mass.. There are ground-glass and airspace opacities in the right chest that may reflect pneumonia. Some of these opacities have a masslike appearance, and metastatic disease is not excluded. Pleural spaces: Small bilateral pleural effusions. No pneumothorax. Heart: An epicardial mass on the left has increased in size. This mass measures 5.4 x 4.8 cm; previously 2.7 x 2.7 cm. There are calcifications associated with this mass. No pericardial effusion. Lymph nodes: Left supraclavicular lymphadenopathy appears new. A left supraclavicular lymph node measures 1.1 x 1.2 cm. A right hilar lymph node has increased in size measuring 2.3 x 2.7 cm; previously 2.3 x 1.8 cm. There is worsening left axillary lymphadenopathy. A left axillary lymph node measures 1.1 x 1.1 cm. Mediastinum: An anterior/left/superior mediastinal/left hilar/anterior left thoracic mass appears less prominent than on the prior study. The residual mass appears centrally necrotic in the anterior left hemithorax. No hiatal hernia. Upper abdomen: Nonobstructive left renal stones. There are multiple new hepatic lesions suspicious for metastases. Multiple new splenic lesions measuring up to 2 cm that may reflect metastases. Heterogeneous enhancement of the spleen may reflect phase of contrast enhancement. Bones/joints: No acute fracture is seen. CT/CT angio chest [id number] IMPRESSION: 1. No pulmonary embolus is identified. 2. There is occlusion of a branch of the left main pulmonary artery likely secondary to malignancy. 3. Debris fills the left bronchial tree, and there is consolidation involving the entire left lung which likely in part reflects malignancy and may in part reflect aspiration pneumonia. 4. There are ground-glass and airspace opacities in the right chest that may reflect pneumonia. Some of these opacities have a masslike appearance, and metastatic disease is not excluded. Recommend close interval follow-up to reassess. 5. Worsening right hilar, left axillary and left supraclavicular lymphadenopathy suspicious for metastatic disease. 6. Enlarging epicardial mass on the left. 7. An anterior/left/superior mediastinal/left hilar/anterior left thoracic mass appears less prominent than on the prior study. The residual mass appears centrally necrotic in the anterior left hemithorax. 8. Multiple new hepatic lesions suspicious for metastases. 9. Multiple new splenic lesions that may reflect metastases. Heterogeneous enhancement of the spleen may reflect phase of contrast enhancement. 10. Small bilateral pleural effusions. Radiation Dose CTDIVOL = (mGy): DLP = 611.07 (mGy-cm) Dictated By:Jose Salcedoigned By:Jose Salcedoigned Date/Time:12/25/20 1708 EKG Data^: EKG 1: Attestation: I personally reviewed and interpreted this EKG as follows: EKG Interpretation Date: 12/25/20 EKG interpretation time: 13:14 Prior EKG tracings: not available for review Interpretation: Normal EKG except for low voltage. Normal sinus rhythm heart rate 85. Normal DC interval normal QT interval normal QRS except for low voltage. No previous EKG to compare to. Normal axis. Normal T waves. Normal ST segment. Discharge Plan Discharge Clinical Impression: SOB (shortness of breath), Small cell lung cancer, Chronic hypotension Condition: Stable Prescriptions: No Action allopurinol 100 mg tablet 100 mg PO BID MDD see pharmacy comment RF: 0 morphine 60 mg tablet extended release 60 mg PO Q12H RF: 0 lorazepam 1 mg tablet 1 mg PO TID PRN (Reason: Anxiety) RF: 0 levofloxacin 500 mg tablet 500 mg PO DAILY RF: 0 oxycodone 10 mg Tablet 10 mg PO QID PRN (Reason: Pain) RF: 0 Referrals: Chun Moerira [Primary Care Provider] - Coding Level of Care Code ED [employer] for Chg Fwd Exam Comprehensive
[2020-12-25 13:38] LABS: D Dimer 4.96 ug/mIFEU (0-0.59)
[2020-12-25 13:45] LABS: Influenza A by IFA Negative (Negative); Influenza B by IFA Negative (Negative); SARS Covid-2 Antigen Negative (Negative)
[2020-12-25 13:47] LABS: Alanine Aminotransferase 10 U/L (0-41); Albumin Level 2.1 g/dL (3.5-5.2); Alkaline Phosphatase 187 IU/L (40-130); Aspartate Amino Transferase 12 U/L (0-40); Blood Urea Nitrogen 19 mg/dL (6-20); Calcium 8.3 mg/dL (8.5-10.5); Carbon Dioxide 27 mmol/L (22-29); Chloride 105 mmol/L (98-107); Globulin 2.7 g/dL (1.3-4.6); Glomerular Filtration Rate 143.8 mL/min (90-130); Glucose 72 mg/dL (65-115); NT Pro B Type Natriuretic Pept 1183 pg/mL (0-125); Osmolality Calculated 289 mOsm/kg (285-295); Sodium 139 mmol/L (136-145); Total Bilirubin 0.4 mg/dL (0.15-1.2); Total Protein 4.8 g/dL (6.6-8.7)
[2020-12-25] MEDS: sodium chloride 0.9% 1,000 ML 1000 ML IV ×3 (14:05→17:40)
--- NOTE | 2020-12-25 14:39 | CTR_ITS ---
PROCEDURE INFORMATION: Exam: CTA Chest With Contrast Exam date and time: 12/25/2020 2:39 PM Age: 50 years old Clinical indication: Cough and shortness of breath. History of lung cancer with metastases status post remote surgery. Complains of shortness of breath and cough with elevated D-dimer. Metastatic small cell lung cancer. Rule out pulmonary embolus. TECHNIQUE: Imaging protocol: Computed tomographic angiography of the chest with contrast. 3D rendering (Not supervised by radiologist): MIP and/or 3D reconstructed images were created by the technologist. Radiation optimization: All CT scans at this facility use at least one of these dose optimization techniques: automated exposure control; mA and/or kV adjustment per patient size (includes targeted exams where dose is matched to clinical indication); or iterative reconstruction. Contrast material: OMNI 350; Contrast volume: 76 ml; Contrast route: INTRAVENOUS (IV); COMPARISON: CT angio chest PE protcl [id number] 08/29/2019 3:59 PM RADIATION DOSE METRICS: Total DLP (mGy-cm): 611.07 FINDINGS: Tubes, catheters and devices: Right port with tip at the SVC/right atrial junction. Pulmonary arteries: There is occlusion of a branch of the left main pulmonary artery likely secondary to malignancy. No pulmonary embolus is identified. Aorta: No thoracic aortic aneurysm. No thoracic aortic dissection. Veins: One of the left pulmonary veins is not visualized; unchanged from prior. Lungs: Debris fills the left bronchial tree, and there is consolidation involving the entire left lung which likely in part reflects malignancy and may in part reflect aspiration pneumonia. No pulmonary mass.. There are ground-glass and airspace opacities in the right chest that may reflect pneumonia. Some of these opacities have a masslike appearance, and metastatic disease is not excluded. Pleural spaces: Small bilateral pleural effusions. No pneumothorax. Heart: An epicardial mass on the left has increased in size. This mass measures 5.4 x 4.8 cm; previously 2.7 x 2.7 cm. There are calcifications associated with this mass. No pericardial effusion. Lymph nodes: Left supraclavicular lymphadenopathy appears new. A left supraclavicular lymph node measures 1.1 x 1.2 cm. A right hilar lymph node has increased in size measuring 2.3 x 2.7 cm; previously 2.3 x 1.8 cm. There is worsening left axillary lymphadenopathy. A left axillary lymph node measures 1.1 x 1.1 cm. Mediastinum: An anterior/left/superior mediastinal/left hilar/anterior left thoracic mass appears less prominent than on the prior study. The residual mass appears centrally necrotic in the anterior left hemithorax. No hiatal hernia. Upper abdomen: Nonobstructive left renal stones. There are multiple new hepatic lesions suspicious for metastases. Multiple new splenic lesions measuring up to 2 cm that may reflect metastases. Heterogeneous enhancement of the spleen may reflect phase of contrast enhancement. Bones/joints: No acute fracture is seen. CT/CT angio chest [id number] IMPRESSION: 1. No pulmonary embolus is identified. 2. There is occlusion of a branch of the left main pulmonary artery likely secondary to malignancy. 3. Debris fills the left bronchial tree, and there is consolidation involving the entire left lung which likely in part reflects malignancy and may in part reflect aspiration pneumonia. 4. There are ground-glass and airspace opacities in the right chest that may reflect pneumonia. Some of these opacities have a masslike appearance, and metastatic disease is not excluded. Recommend close interval follow-up to reassess. 5. Worsening right hilar, left axillary and left supraclavicular lymphadenopathy suspicious for metastatic disease. 6. Enlarging epicardial mass on the left. 7. An anterior/left/superior mediastinal/left hilar/anterior left thoracic mass appears less prominent than on the prior study. The residual mass appears centrally necrotic in the anterior left hemithorax. 8. Multiple new hepatic lesions suspicious for metastases. 9. Multiple new splenic lesions that may reflect metastases. Heterogeneous enhancement of the spleen may reflect phase of contrast enhancement. 10. Small bilateral pleural effusions. Radiation Dose CTDIVOL = (mGy): DLP = 611.07 (mGy-cm)
--- NOTE | 2020-12-25 15:28 | CTR_ITS ---
PROCEDURE INFORMATION: Exam: CT Head Without Contrast Exam date and time: 12/25/2020 3:28 PM Age: 50 years old Clinical indication: Altered mental status/memory loss; Confusion or disorientation; Patient HX: HX of brain mets - doesm't feel right; Additional info: B[place] mets, cerbral edema TECHNIQUE: Imaging protocol: Computed tomography of the head without contrast. Radiation optimization: All CT scans at this facility use at least one of these dose optimization techniques: automated exposure control; mA and/or kV adjustment per patient size (includes targeted exams where dose is matched to clinical indication); or iterative reconstruction. COMPARISON: MR head wo/w con [id number] 05/13/2020 10:25 AM RADIATION DOSE METRICS: Total DLP (mGy-cm): 786.36 FINDINGS: Brain: A 16 mm round hypodense area is present in the left aspect of the reuben, which is nonspecific. The left parietal lobe white matter cystic space is smaller compared to the prior exam. Small 4 mm calcific focus is seen in the anterior temporal lobe periventricular white matter. A similar appearing smaller focus is also present in the right temporal lobe periventricular white matter. Mild white matter chronic microvascular changes are also noted. No hemorrhage is visualized. Cerebral ventricles: No ventriculomegaly. Paranasal sinuses: Visualized sinuses are unremarkable. No fluid levels. Mastoid air cells: Visualized mastoid air cells are well aerated. Bones/joints: Unremarkable. No acute fracture. Soft tissues: Unremarkable. CT/CT head wo con* [id number] IMPRESSION: Indeterminate pontine hypodensity. Subacute infarction is a possibility. A neoplastic process is also a diagnostic consideration. MRI with contrast is recommended for further assessment. Radiation Dose CTDIVOL = (mGy): DLP = 786.36 (mGy-cm)
--- NOTE | 2020-12-25 15:54 | P.HP_ITS ---
Providers/Chief Complaint Primary Care Provider: Chun Moreira Chief Complaint: Poss Pneumonia, sent per Oncology History of Present Illness Tima Malik is a 50 year old male with a past medical history of small cell lung cancer involving the left lung for bronchoscopy August 18, 2019, with evidence of brain metastasis, partial collapse of left upper lung, metastatic lymphadenopathy, osseous metastatic disease, history of thrombocytopenia, status post 2 units platelets on December 18, history of care immunotherapy induced anemia, recent history of Neulasta, who presents to [facility] due to a 4-day history of cough, shortness of breath, decreased appetite. Patient tells me that for the last 4 days, he has had a productive cough, shortness of breath with exertion, less than a few feet, decreased appetite, no nausea, vomiting, abdominal pain, chest pain, denies any headaches, no blurry vision. Denies history of COVID-19, no known Covid exposure, has not received Covid vaccinations. Review of Systems Const: Reports: fatigue; Denies: fever(s), chills or malaise Eyes: Denies: change in vision or blurry vision ENMT: Denies: throat pain or nasal congestion Card: Reports: dyspnea on exertion; Denies: chest pain, palpitations, edema, syncope or pre-syncope Resp: Reports: dyspnea and productive cough; Denies: non-productive cough or wheezing GI: Denies: abdominal pain, nausea, vomiting, hematemesis, diarrhea, constipation, hematochezia or melena : Denies: flank pain, difficulty urinating, dysuria or urinary frequency Musc: Denies: neck pain or back pain Skin/Breast: Denies: rash Neuro: Denies: headache(s), dizziness or vertigo Psych: Denies: anxiety or depression Endo: Denies: polyuria or polydipsia Medications/Allergies Home Medications Medication Instructions Recorded Confirmed Last Taken Type fluticasone propionate 2 puff INHALATION DAILY 08/29/19 07/06/20 Unknown History ibuprofen 400 mg PO TID PRN 08/29/19 07/06/20 Unknown History oxycodone 5 mg tablet 5 mg PO Q8H PRN 09/16/19 07/06/20 1 Day Ago History ~09/22/19 aspirin 81 mg tablet,delayed 81 mg PO DAILY 30 Days #30 tab 12/04/19 07/06/20 Unknown Rx release metoprolol tartrate 25 mg tablet 25 mg PO BID 30 Days #60 tab 12/04/19 07/06/20 Unknown Rx Allergies Allergy/AdvReac Type Severity Reaction Status Date / Time allopurinol Allergy ALGY-Hives Verified 07/06/20 13:11 dexamethasone Allergy afib Verified 07/06/20 13:11 PFSH Acute PFSH: Medical History (Updated 12/25/20 @ 16:00 by Brenden Shannon MD) Cardiomyopathy Pleural effusion SOB (shortness of breath) Surgical History H/O circumcision S/P bronchoscopy Family History Father Cancer Mother Cancer lungs Other Diabetes Denies family history of Anesthesia complication Bleeding disorder Social History Smoking and tobacco status: former smoker Alcohol intake: never Desire information about substance/drug rehabilitation?: No Counseling given: No (utilizes substance secondary to cancer. ) Household members: family Marital status: Single Current occupational status: disabled History of recent travel: No Vitals/I&O/Wt Last Vital Signs Temp 98 F 12/25/20 12:00 Pulse 87 12/25/20 14:58 Resp 21 H 12/25/20 12:00 BP 88/60 12/25/20 14:58 Pulse Ox 95 12/25/20 14:58 12/25/20 12/25/20 12/25/20 06:59 14:59 22:59 Intake Total 1000 / 1000 Balance 1000 / 1000 Weight last 48 hrs Weight 77.111 kg Physical Exam Const: COMMON NORMALS: no acute distress and patient oriented x3 HENMT: COMMON NORMALS: normocephalic HEAD & SCALP: normocephalic Eye: COMMON NORMALS: Equal, round and reactive pupils present and EOMs intact bilaterally GENERAL EYE: appearance normal, both eyes and all related structures PUPIL: Yes Equal, round and reactive pupils present Neck/C-Spine: COMMON NORMALS: full ROM and no lymphadenopathy THYROID: Thyroid normal Lymph: LYMPHATIC: no lymphadenopathy noted Resp: COMMON NORMALS: normal respiratory effort, No retractions, No use of accessory muscles and clear to auscultation bilaterally AUSCULTATION: wheezes Cardio: COMMON NORMALS: regular rate, regular rhythm, S1 normal heart sound present, S2 normal heart sound present, No gallops present (Cardio), No clicks present (Cardio) and No murmurs present (Cardio) RATE: regular rate RHY THM: regular rhythm HEART SOUNDS: S1 normal heart sound present and S2 normal heart sound present GI: COMMON NORMALS: Normal to inspection, nondistended, normoactive bowel sounds present, Soft to palpation, non-tender and No hepatosplenomegaly present PALPATION: Yes Soft to palpation and Yes No hepatosplenomegaly present Extremity: COMMON NORMALS: normal to inspection, full ROM and no pedal edema Neuro: COMMON NORMALS: patient oriented x3, CN's II-XII intact bilaterally, moves all extremities and no focal motor deficits Psych: COMMON NORMALS: mental status grossly normal, Normal thought process present and cooperative THOUGHT PROCESS: Normal thought process present Data : 12/25/20 10:30 12/25/20 12:49 Micro: Microbiology 12/25/20 13:50 Blood Culture - Preliminary Blood SPECIMEN COLLECTED 12/25/20 13:54 Blood Culture - Preliminary Blood SPECIMEN COLLECTED A&P Assessment and plan (1) Pneumonia: -We will order Covid PCR, rapid Covid negative, Covid precautions -Start on broad-spectrum antibiotic therapy, vancomycin, Zosyn -Await CT angiogram -Urine cultures, blood cultures, MRSA PCR, urine bacterial antigens -Monitor respiratory status -Continue DuoNeb treatments -Chronic hypotension, lactic acid within normal limits, midodrine 10 3 times daily -DNR/DNI -Lovenox for DVT prophylaxis History of small cell lung cancer, with brain mets, osseous mets, metastasis to lymph node, status post chemoradiation Anemia, secondary to chemotherapy Thrombocytopenia, secondary to chemotherapy Leukopenia, secondary chemotherapy Status: Acute (2) Chronic hypotension: Status: Acute (3) Cardiomyopathy: Status: Acute Qualifiers: Cardiomyopathy type: other Qualified Code(s): I42.8 - Other cardiomyopathies Attestations Medical Necessity Statement*: Patient requires hospitalization for pneumonia inpatient, greater than 2 midnights Coding Level of Care Code Acute 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
[2020-12-25] MEDS: iohexol 350 mg/mL 100 mL Btl IV (16:01)
[2020-12-25 16:21] LABS: Troponin(5th) Baseline 10 ng/L (0-15)
[2020-12-25 16:22] LABS: C Reactive Protein 95.6 mg/L (0.0-4.9); Procalcitonin 0.16 ng/mL (0-0.5)
--- NOTE | 2020-12-25 17:29 | ECG_ITS ---
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 Measurements Intervals [place] Rate: 85 P: 59 DE: 142 QRS: 60 QRSD: 97 T: 61 QT: 336 QTc: 400 Interpretive Statements SINUS RHYTHM LOW QRS VOLTAGE IN EXTREMITY LEADS [QRS DEFLECTION < 0.5 mV IN LIMB LEADS] MINIMAL ST DEPRESSION [0.025+ mV ST DEPRESSION] Compared to ECG 12/25/2020 13:10:15 No significant changes Electronically Signed On 12-25-2020 22:48:24 CDT by German Mckeon M.D. [email or web address] [employer].[employer]/store/[id number]
[2020-12-25 17:34] LABS: Troponin 5 2HR 9.24 ng/L (0-15)
[2020-12-25 17:35] LABS: Troponin 5 2HR Delta -0.76 ABS# (0-10)
--- NOTE | 2020-12-25 17:51 | ED_ITS ---
HPI - SOB/Dyspnea General: Chief Complaint: Shortness of Breath/Dyspnea Stated Complaint: Poss Pneumonia, sent per Oncology Time Seen by Provider: 12/25/20 12:09 Source: patient Mode of arrival: ambulatory Limitations: no limitations History of Present Illness: Severity: mild Exacerbating factors: exertion Relieving factors: rest Related Data: Home oxygen amount: none PFSH ED PFSH: Medical History (Updated 12/25/20 @ 16:00 by Brenden Shannon MD) Cardiomyopathy Pleural effusion SOB (shortness of breath) Surgical History H/O circumcision S/P bronchoscopy Family History Father Cancer Mother Cancer lungs Other Diabetes Denies family history of Anesthesia complication Bleeding disorder Social History Smoking and tobacco status: former smoker Alcohol intake: never Desire information about substance/drug rehabilitation?: No Counseling given: No (utilizes substance secondary to cancer. ) Household members: family Marital status: Single Current occupational status: disabled History of recent travel: No Course Vital Signs: Vital signs: Vital Signs Temperature 98 F 12/25/20 12:00 Pulse Rate 91 12/25/20 16:50 Respiratory Rate 21 H 12/25/20 12:00 Blood Pressure 95/65 12/25/20 16:50 Pulse Oximetry 95 12/25/20 16:50 MDM - SOB/Dyspnea Lab Data: Labs: Lab Results 12/25/20 12/25/20 12/25/20 10:30 12:49 12:49 WBC 3.2 10^3/uL L 10^ 3/uL Cancelled (4.0-10.0) Corrected WBC Cancelled RBC 3.03 10^6/uL L 10 ^6/uL Cancelled (4.1-5.3) Hgb 9.3 g/dL L g/dL Cancelled (11.7-16.6) Hct 28.2 % L % Cancelled (42.0-52.0) MCV 93.1 fl fl Cancelled (80-94) MCH 30.7 pg pg Cancelled (28.0-34.0) MCHC 33.0 g/dL g/dL Cancelled (30.0-36.0) RDW 15.3 % H % Cancelled (12.1-15.1) Plt Count 39 10^3/cmm L 10^ 3/cmm Cancelled (130-400) MPV 10.5 fL H fL Cancelled (7.4-10.4) Gran % Cancelled Neut % (Auto) Cancelled Lymph % (Auto) Cancelled Nash % (Auto) Cancelled Eos % (Auto) Cancelled Baso % (Auto) Cancelled Neut # (Auto) Cancelled Lymph # (Auto) Cancelled Nash # (Auto) Cancelled Eos # (Auto) Cancelled Baso # (Auto) Cancelled Absolute Gran (aut o) Cancelled Nucleated RBC % (a uto) Cancelled Total Counted 100 (0-100) Atypical Lymphs % 6.0 % H % (0-5) Absolute Neutrophi ls 2.2 10^3/cmm 10^3 /cmm (1.4-6.5) Segmented Neutroph ils 49 % % Abs Segm Neuts (Ma n) 1.6 10/cmm 10/cmm (1.6-7.1) Band Neutrophils 20.0 % % Abs Band Neuts (Ma n) 0.6 10^3/cmm 10^3 /cmm (0.0-1.2) Absolute Lymphocyt es 0.8 10^3/cmm L 10 ^3/cmm (1.2-3.4) Lymphocytes (Manua l) 18 % % Monocytes (Manual) 4.0 % % Absolute Monocytes 0.1 10^3/cmm 10^3 /cmm (0.1-0.6) Metamyelocytes 1.0 % % Myelocytes 2.0 % % Nucleated RBCs # Cancelled Smudge Cells Trace Platelet Estimate Decreased (Normal) Tear Drop Cells Trace D-Dimer 4.96 ug/mIFEU H u g/mIFEU (0-0.59) Sodium Potassium Chloride Carbon Dioxide Anion Gap BUN Creatinine GFR Calculation Glucose Calculated Osmolal ity Lactic Acid Calcium Total Bilirubin AST ALT Alkaline Phosphata se Troponin T Baselin e C-Reactive Protein NT-Pro-B Natriuret Pep Total Protein Albumin Globulin Procalcitonin Influenza Type A A g Influenza Type B A g SARS-CoV-2 Ag (Rap id) 12/25/20 12/25/20 12/25/20 12:49 12:49 12:49 WBC Corrected WBC RBC Hgb Hct MCV MCH MCHC RDW Plt Count MPV Gran % Neut % (Auto) Lymph % (Auto) Nash % (Auto) Eos % (Auto) Baso % (Auto) Neut # (Auto) Lymph # (Auto) Nash # (Auto) Eos # (Auto) Baso # (Auto) Absolute Gran (aut o) Nucleated RBC % (a uto) Total Counted Atypical Lymphs % Absolute Neutrophi ls Segmented Neutroph ils Abs Segm Neuts (Ma n) Band Neutrophils Abs Band Neuts (Ma n) Absolute Lymphocyt es Lymphocytes (Manua l) Monocytes (Manual) Absolute Monocytes Metamyelocytes Myelocytes Nucleated RBCs # Smudge Cells Platelet Estimate Tear Drop Cells D-Dimer Sodium 139 mmol/L mmol/L (136-145) Potassium 4.0 mmol/L mmol/L (3.5-5.1) Chloride 105 mmol/L mmol/L (98-107) Carbon Dioxide 27 mmol/L mmol/L (22-29) Anion Gap 11.0 (5-19) BUN 19 mg/dL mg/dL (6-20) Creatinine 0.6 mg/dL L mg/dL (0.7-1.2) GFR Calculation 143.8 mL/min H mL /min (90-130) Glucose 72 mg/dL mg/dL (65-115) Calculated Osmolal ity 289 mOsm/kg mOsm/ kg (285-295) Lactic Acid 1.0 mmol/L mmol/L (0.5-2.2) Calcium 8.3 mg/dL L mg/dL (8.5-10.5) Total Bilirubin 0.4 mg/dL mg/dL (0.15-1.2) AST 12 U/L U/L (0-40) ALT 10 U/L U/L (0-41) Alkaline Phosphata se 187 IU/L H IU/L (40-130) Troponin T Baselin e C-Reactive Protein 95.6 mg/L H mg/L (0.0-4.9) NT-Pro-B Natriuret Pep 1183 pg/mL H pg/m L (0-125) Total Protein 4.8 g/dL L g/dL (6.6-8.7) Albumin 2.1 g/dL L g/dL (3.5-5.2) Globulin 2.7 g/dL g/dL (1.3-4.6) Procalcitonin 0.16 ng/mL ng/mL (0-0.5) Influenza Type A A g Influenza Type B A g SARS-CoV-2 Ag (Rap id) 12/25/20 12/25/20 12/25/20 12:49 13:15 13:15 WBC Corrected WBC RBC Hgb Hct MCV MCH MCHC RDW Plt Count MPV Gran % Neut % (Auto) Lymph % (Auto) Nash % (Auto) Eos % (Auto) Baso % (Auto) Neut # (Auto) Lymph # (Auto) Nash # (Auto) Eos # (Auto) Baso # (Auto) Absolute Gran (aut o) Nucleated RBC % (a uto) Total Counted Atypical Lymphs % Absolute Neutrophi ls Segmented Neutroph ils Abs Segm Neuts (Ma n) Band Neutrophils Abs Band Neuts (Ma n) Absolute Lymphocyt es Lymphocytes (Manua l) Monocytes (Manual) Absolute Monocytes Metamyelocytes Myelocytes Nucleated RBCs # Smudge Cells Platelet Estimate Tear Drop Cells D-Dimer Sodium Potassium Chloride Carbon Dioxide Anion Gap BUN Creatinine GFR Calculation Glucose Calculated Osmolal ity Lactic Acid Calcium Total Bilirubin AST ALT Alkaline Phosphata se Troponin T Baselin e 10 ng/L ng/L (0-15) C-Reactive Protein NT-Pro-B Natriuret Pep Total Protein Albumin Globulin Procalcitonin Influenza Type A A g Negative (Negative) Influenza Type B A g Negative (Negative) SARS-CoV-2 Ag (Rap id) Negative (Negative) EKG Data^: EKG 2: Attestation: I personally reviewed and interpreted this EKG as follows: EKG Interpretation Date: 12/25/20 EKG interpretation time: 17:35 Prior EKG tracings: available for review Interpretation: EKG shows no change from previous EKG earlier. Normal sinus rhythm with heart rate of 85. Normal axis. Normal QRS. Normal ST segment. Normal P waves, normal MA interval, normal QT interval. Discharge Plan Discharge Patient Disposition: Admitted As Inpatient Admit Provider: Brenden Shannon Clinical Impression: SOB (shortness of breath), Small cell lung cancer, Chronic hypotension Condition: Stable Coding Level of Care Code ED Performance Improvement Director for [facility]
--- NOTE | 2020-12-25 18:39 | PC.NURSE ---
upon arrival to department oxygen saturation was 88% on RA, placed on 2LNC oxygen saturation 93%. will continue to monitor.
[2020-12-25] MEDS: midodrine 5 mg TABLET 10 MG PO ×2 (18:50→21:27)
[2020-12-25] MEDS: enoxaparin 40 mg/0.4 mL Syringe SUBCUT (18:50)
[2020-12-25] MEDS: pantoprazole 40 mg SDV IVP (18:51)
[2020-12-25] MEDS: docusate sodium 100 mg Capsule PO (18:51)
[2020-12-25] MEDS: polyethylene glycol 3350 Pkt 17 gm PO (18:51)
[2020-12-25] MEDS: sodium chloride 0.9% 1,000 ML 50 ML IV (18:51)
[2020-12-25] MEDS: vancomycin 1,000 MG in sodium chloride 0.9% 250 ML 250 MG IV (19:58)
[2020-12-25 20:32] LABS: Troponin 5 6HR 8.19 ng/L (0-15); Troponin 5 6HR Delta -1.81 ng/L (0-12)
[2020-12-25] MEDS: piperacillin-tazobactam 3.375 GM in sodium chloride 0.9% (plus) 50 ML IV (21:27)
--- NOTE | 2020-12-25 21:29 | ECG_ITS ---
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 Measurements Intervals [place] Rate: 78 P: 56 DE: 144 QRS: 56 QRSD: 97 T: 61 QT: 336 QTc: 383 Interpretive Statements SINUS RHYTHM Compared to ECG 12/25/2020 17:25:07 ST (T wave) deviation no longer present Electronically Signed On 12-25-2020 22:47:51 CDT by German Mckeon M.D. [email or web address]/[id number]
[2020-12-26] VITALS (13 sets, daily range): BP systolic 94–112; BP diastolic 60–67; PULSE 51–70; RESP 16–24; TEMP 36.5–36.8; O2SAT 93–97
[2020-12-26] MEDS: vancomycin 1,000 MG in sodium chloride 0.9% 250 ML 250 MG IV ×3 (02:58→18:54)
[2020-12-26] MEDS: pantoprazole 40 mg SDV IVP ×2 (06:07→17:46)
[2020-12-26] MEDS: piperacillin-tazobactam 3.375 GM in sodium chloride 0.9% (plus) 50 ML IV ×3 (06:10→21:44)
--- NOTE | 2020-12-26 06:10 | PC.NURSE ---
protonix ivp admin for primary nurse
[2020-12-26 06:41] LABS: Basophils # 0.1 10^3/uL (0.0-0.1); Basophils % 1.1 %; Hematocrit 26.2 % (42.0-52.0); Hemoglobin 8.4 g/dL (11.7-16.6); Lymphocytes # 0.6 10^3/uL (0.8-4.8); Lymphocytes % 14.2 %; Mean Corpuscular HGB Conc 32.1 g/dL (30.0-36.0); Mean Corpuscular Hemoglobin 30.2 pg (28.0-34.0); Mean Corpuscular Volume 94.2 fl (80-94); Mean Platelet Volume 10.3 fL (7.4-10.4); Monocytes # 0.3 10^3/uL (0.2-0.9); Monocytes % 5.6 %; Neutrophils # 2.89 10^3/uL (1.8-7.7); Neutrophils % 65.1 %; Nucleated Red Blood Cells % 0 %; Platelet Count 39 10^3/cmm (130-400); Red Blood Count 2.78 10^6/uL (4.1-5.3); Red Cell Distribution Width 15.2 % (12.1-15.1); White Blood Count 4.4 10^3/uL (4.0-10.0)
[2020-12-26 07:10] LABS: Chol HDL Ratio 4.43 mg/dL (1.0-5.00); Cholesterol 93 mg/dL (0-200); HDL Cholesterol 21 mg/dL (60-100); LDL Cholesterol Calculated 53 mg/dL (50-129); LDL HDL Ratio 2.52 RATIO (0.00-3.22); NT Pro B Type Natriuretic Pept 1760 pg/mL (0-125); Triglycerides 94 mg/dL (0-150)
[2020-12-26 07:16] LABS: Alanine Aminotransferase 9 U/L (0-41); Albumin Level 2.1 g/dL (3.5-5.2); Alkaline Phosphatase 166 IU/L (40-130); Aspartate Amino Transferase 15 U/L (0-40); Blood Urea Nitrogen 12 mg/dL (6-20); Calcium 7.9 mg/dL (8.5-10.5); Carbon Dioxide 24 mmol/L (22-29); Chloride 109 mmol/L (98-107); Globulin 2.4 g/dL (1.3-4.6); Glomerular Filtration Rate 177.5 mL/min (90-130); Glucose 72 mg/dL (65-115); Magnesium 1.5 mg/dL (1.7-2.3); Osmolality Calculated 288 mOsm/kg (285-295); Phosphorus 2.5 mg/dL (2.5-4.5); Sodium 140 mmol/L (136-145); Thyroid Stimulating Hormone 1.32 uIU/mL (0.27-4.20); Total Bilirubin 0.4 mg/dL (0.15-1.2); Total Protein 4.5 g/dL (6.6-8.7)
[2020-12-26 07:24] LABS: Slide Review Slide Review Perform
[2020-12-26] MEDS: budesonide 0.5 mg/2 mL Neb INHALATION ×2 (08:22→21:19)
[2020-12-26] MEDS: ipratropium-albuterol 3 mL Neb INHALATION ×4 (08:22→21:19)
[2020-12-26] MEDS: midodrine 5 mg TABLET 10 MG PO ×3 (09:53→21:43)
[2020-12-26] MEDS: aspirin 81 mg EC Tablet PO (09:55)
[2020-12-26] MEDS: docusate sodium 100 mg Capsule PO ×2 (09:55→17:45)
[2020-12-26 13:33] LABS: ABG PCO2 40.5 mmHg (35-45); ABG PH Result 7.46 (7.35-7.45); Alveolar-Arterial Oxygen Gradi 5.1 mmHg (5-10); Arterial Blood Gas Hematocrit 28.1 % (42-52); Base Excess ABG 4.3 mmol/L (-2.0-2.0); Blood Gas Allen Test Pos; Blood Gas Operator Identificat BD; Blood Gas Sample Site Brachial, left; Blood Gas Sample Type Arterial; HCO3 ABG 28.5 mmol/L (22-26); HGB O2 Sat 88.6 % (95-100); Ionized Calcium Level - ABG 1.2 mmol/L (1.1-1.4); Methemoglobin 0.7 % (0.4-1.5); Oxygen Saturation ABG 92.9; PO2 ABG 60.7 mmHg (80.0-100.0); Total Hemoglobin 9.2 g/dL (14-18)
[2020-12-26 13:46] LABS: Oxygen Device ROOM AIR
--- NOTE | 2020-12-26 16:03 | P.PN_ITS ---
Subjective Subjective: Interval history: This morning patient was seen, he tells me that he is breathing better, no fevers, chills, no nausea, no vomiting, no chest pain, no headache, no blurry vision Vitals/I&O/Wt Last Vital Signs Temp 98.1 F 12/26/20 11:45 Pulse 64 12/26/20 15:34 Resp 18 12/26/20 15:34 BP 94/60 12/26/20 15:17 Pulse Ox 94 12/26/20 15:34 12/26/20 12/26/20 12/26/20 06:59 14:59 22:59 Intake Total 300 / 3550 1660 / 1660 Output Total 350 / 350 Balance -50 / 3200 1660 / 1660 Weight last 48 hrs Weight 61.689 kg Weight 77.111 kg Physical Exam Const: COMMON NORMALS: no acute distress and patient oriented x3 Resp: COMMON NORMALS: normal respiratory effort, No retractions, No use of accessory muscles and clear to auscultation bilaterally AUSCULTATION: clear to auscultation bilaterally Cardio: COMMON NORMALS: regular rate, regular rhythm, S1 normal heart sound present and S2 normal heart sound present RATE: regular rate RHYTHM: regular rhythm HEART SOUNDS: S1 normal heart sound present and S2 normal heart sound present GI: COMMON NORMALS: Normal to inspection, nondistended, normoactive bowel sounds present, Soft to palpation and non-tender PALPATION: Yes Soft to palpation Extremity: COMMON NORMALS: no pedal edema Neuro: COMMON NORMALS: patient oriented x3 Psych: COMMON NORMALS: mental status grossly normal Data : 12/26/20 06:25 12/26/20 06:25 Micro: Microbiology 12/25/20 13:54 Blood Culture - Preliminary Blood NEGATIVE TO DATE 12/25/20 13:50 Blood Culture - Preliminary Blood Gram positive cocci 12/25/20 17:04 MRSA Culture - Final Nose A&P Assessment and plan (1) Pneumonia: -CT angiogram of the chest shows 1. No pulmonary embolus is identified. 2. There is occlusion of a branch of the left main pulmonary artery likely secondary to malignancy. 3. Debris fills the left bronchial tree, and there is consolidation involving the entire left lung which likely in part reflects malignancy and may in part reflect aspiration pneumonia. 4. There are ground-glass and airspace opacities in the right chest that may reflect pneumonia. Some of these opacities have a masslike appearance, and metastatic disease is not excluded. Recommend close interval follow-up to reassess. 5. Worsening right hilar, left axillary and left supraclavicular lymphadenopathy suspicious for metastatic disease. 6. Enlarging epicardial mass on the left. 7. An anterior/left/superior mediastinal/left hilar/anterior left thoracic mass appears less prominent than on the prior study. The residual mass appears centrally necrotic in the anterior left hemithorax. 8. Multiple new hepatic lesions suspicious for metastases. 9. Multiple new splenic lesions that may reflect metastases. Heterogeneous enhancement of the spleen may reflect phase of contrast enhancement. 10. Small bilateral pleural effusions. 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 The left parietal lobe white matter cystic space is smaller compared to the prior exam. Small 4 mm calcific focus is seen in the anterior temporal lobe periventricular white matter. A similar appearing smaller focus is also present in the right temporal lobe periventricular white matter. Mild white matter chronic microvascular changes are also noted. No hemorrhage is visualized. Indeterminate pontine hypodensity. Subacute infarction is a possibility. A neoplastic process is also a diagnostic consideration. MRI with contrast is recommended for further assessment. -As asymptomatic can consider outpatient follow-up with MRI Anemia, secondary to chemotherapy Thrombocytopenia, secondary to chemotherapy Leukopenia, secondary chemotherapy Status: Acute (2) Chronic hypotension: Status: Acute (3) Cardiomyopathy: Status: Acute Qualifiers: Cardiomyopathy type: other Qualified Code(s): I42.8 - Other cardiomyopathies Attestations Medical Necessity Statement*: Patient requires hospitalization for pneumonia, hypoxia, inpatient, greater than 2 midnights Coding Level of Care Code Acute Coach Tour Driver for [facility] Fwd Diagnoses Pneumonia J18.9 Chronic hypotension I95.89 Cardiomyopathy I42.8 Cardiomyopathy type: other
[2020-12-26] MEDS: enoxaparin 40 mg/0.4 mL Syringe SUBCUT (17:50)
[2020-12-26] MEDS: sodium chloride 0.9% 1,000 ML 50 ML IV (18:55)
[2020-12-27] VITALS (11 sets, daily range): BP systolic 100–120; BP diastolic 59–71; PULSE 48–70; RESP 16–18; TEMP 36.4–36.9; O2SAT 95–98
[2020-12-27] MEDS: vancomycin 1,000 MG in sodium chloride 0.9% 250 ML 250 MG IV ×3 (02:30→17:05)
[2020-12-27] MEDS: pantoprazole 40 mg SDV IVP ×2 (05:34→17:05)
[2020-12-27 05:43] LABS: Basophils # 0.1 10^3/uL (0.0-0.1); Basophils % 1.1 %; Eosinophils % 0.2 %; Hematocrit 25.1 % (42.0-52.0); Hemoglobin 8.3 g/dL (11.7-16.6); Lymphocytes # 0.7 10^3/uL (0.8-4.8); Lymphocytes % 11.2 %; Mean Corpuscular HGB Conc 33.1 g/dL (30.0-36.0); Mean Corpuscular Hemoglobin 31.6 pg (28.0-34.0); Mean Corpuscular Volume 95.4 fl (80-94); Mean Platelet Volume 10.6 fL (7.4-10.4); Monocytes # 0.5 10^3/uL (0.2-0.9); Monocytes % 7.6 %; Neutrophils # 4.19 10^3/uL (1.8-7.7); Neutrophils % 65.9 %; Nucleated Red Blood Cells % 0 %; Platelet Count 62 10^3/cmm (130-400); Red Blood Count 2.63 10^6/uL (4.1-5.3); Red Cell Distribution Width 15.5 % (12.1-15.1); White Blood Count 6.4 10^3/uL (4.0-10.0)
[2020-12-27] MEDS: piperacillin-tazobactam 3.375 GM in sodium chloride 0.9% (plus) 50 ML IV ×3 (05:44→20:51)
[2020-12-27 06:16] LABS: Alanine Aminotransferase 7 U/L (0-41); Alkaline Phosphatase 163 IU/L (40-130); Anion Gap 11.9 (5-19); Aspartate Amino Transferase 14 U/L (0-40); Blood Urea Nitrogen 13 mg/dL (6-20); Calcium 7.7 mg/dL (8.5-10.5); Carbon Dioxide 22 mmol/L (22-29); Chloride 111 mmol/L (98-107); Globulin 2.7 g/dL (1.3-4.6); Glomerular Filtration Rate 120.4 mL/min (90-130); Glucose 82 mg/dL (65-115); Magnesium 1.5 mg/dL (1.7-2.3); Osmolality Calculated 291 mOsm/kg (285-295); Phosphorus 2.8 mg/dL (2.5-4.5); Potassium 3.9 mmol/L (3.5-5.1); Sodium 141 mmol/L (136-145); Total Bilirubin 0.4 mg/dL (0.15-1.2); Total Protein 4.7 g/dL (6.6-8.7)
[2020-12-27 06:38] LABS: Slide Review Slide Review Perform
[2020-12-27] MEDS: budesonide 0.5 mg/2 mL Neb INHALATION ×2 (09:00→19:22)
[2020-12-27] MEDS: ipratropium-albuterol 3 mL Neb INHALATION ×3 (09:00→19:22)
[2020-12-27] MEDS: midodrine 5 mg TABLET 10 MG PO ×3 (09:18→20:51)
[2020-12-27] MEDS: aspirin 81 mg EC Tablet PO (09:18)
[2020-12-27] MEDS: morphine 4 mg/mL SDV 1 mL 2 MG IVP (09:23)
[2020-12-27] MEDS: sodium chloride 0.9% 1,000 ML 50 ML IV (10:43)
--- NOTE | 2020-12-27 11:58 | PM.PN ---
Subjective Subjective: Interval history: Patient was seen this morning, he is complaining of diarrhea, no fevers, chills, no abdominal pain, is on 2 L, he tells me that he uses morphine 60 mg every 12 hours, oxycodone at home, that he is now receiving here Vitals/I&O/Wt Last Vital Signs Temp 97.6 F 12/27/20 08:00 Pulse 48 L 12/27/20 09:12 Resp 18 12/27/20 09:23 BP 120/68 12/27/20 08:00 Pulse Ox 95 12/27/20 09:12 12/26/20 12/27/20 12/27/20 22:59 06:59 14:59 Intake Total 540 / 2200 300 / 2500 1090 / 1090 Output Total 200 / 1025 200 / 1225 Balance 340 / 1175 100 / 1275 1090 / 1090 Weight last 48 hrs Weight 61.689 kg Weight 77.111 kg Physical Exam Const: COMMON NORMALS: no acute distress and patient oriented x3 Resp: COMMON NORMALS: normal respiratory effort, No retractions, No use of accessory muscles and clear to auscultation bilaterally AUSCULTATION: clear to auscultation bilaterally Cardio: COMMON NORMALS: regular rate, regular rhythm, S1 normal heart sound present and S2 normal heart sound present RATE: regular rate RHYTHM: regular rhythm HEART SOUNDS: S1 normal heart sound present and S2 normal heart sound present GI: COMMON NORMALS: Normal to inspection, nondistended, normoactive bowel sounds present, Soft to palpation and non-tender PALPATION: Yes Soft to palpation Extremity: COMMON NORMALS: no pedal edema Neuro: COMMON NORMALS: patient oriented x3 Psych: COMMON NORMALS: mental status grossly normal Data : 12/27/20 05:18 12/27/20 05:18 Micro: Microbiology 12/27/20 09:30 Blood Culture - Preliminary Blood SPECIMEN COLLECTED 12/25/20 13:50 Blood Culture - Preliminary Blood Coagulase negativ staphylococc 12/27/20 08:44 Blood Culture - Preliminary Blood SPECIMEN COLLECTED 12/25/20 13:54 Blood Culture - Preliminary Blood NEGATIVE TO DATE 12/25/20 17:04 MRSA Culture - Final Nose A&P Assessment and plan (1) Pneumonia: -CT angiogram of the chest shows 1. No pulmonary embolus is identified. 2. There is occlusion of a branch of the left main pulmonary artery likely secondary to malignancy. 3. Debris fills the left bronchial tree, and there is consolidation involving the entire left lung which likely in part reflects malignancy and may in part reflect aspiration pneumonia. 4. There are ground-glass and airspace opacities in the right chest that may reflect pneumonia. Some of these opacities have a masslike appearance, and metastatic disease is not excluded. Recommend close interval follow-up to reassess. 5. Worsening right hilar, left axillary and left supraclavicular lymphadenopathy suspicious for metastatic disease. 6. Enlarging epicardial mass on the left. 7. An anterior/left/superior mediastinal/left hilar/anterior left thoracic mass appears less prominent than on the prior study. The residual mass appears centrally necrotic in the anterior left hemithorax. 8. Multiple new hepatic lesions suspicious for metastases. 9. Multiple new splenic lesions that may reflect metastases. Heterogeneous enhancement of the spleen may reflect phase of contrast enhancement. 10. Small bilateral pleural effusions. 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 The left parietal lobe white matter cystic space is smaller compared to the prior exam. Small 4 mm calcific focus is seen in the anterior temporal lobe periventricular white matter. A similar appearing smaller focus is also present in the right temporal lobe periventricular white matter. Mild white matter chronic microvascular changes are also noted. No hemorrhage is visualized. Indeterminate pontine hypodensity. Subacute infarction is a possibility. A neoplastic process is also a diagnostic consideration. MRI with contrast is recommended for further assessment. -As asymptomatic can consider outpatient follow-up with MRI Anemia, secondary to chemotherapy Thrombocytopenia, secondary to chemotherapy Leukopenia, secondary chemotherapy Chronic pain, cancer related pain, continue home morphine 60 mg p.o. every 12 hours, oxycodone, home lorazepam Diarrhea, start lactobacillus, C. difficile pending Status: Acute (2) Chronic hypotension: Status: Acute (3) Cardiomyopathy: Status: Acute Qualifiers: Cardiomyopathy type: other Qualified Code(s): I42.8 - Other cardiomyopathies Attestations Medical Necessity Statement*: Patient requires hospitalization for pneumonia, Coding Level of Care Code Acute Clinical Nurse Manager for [facility] Diagnoses Pneumonia J18.9 Chronic hypotension I95.89 Cardiomyopathy I42.8 Cardiomyopathy type: other
[2020-12-27] MEDS: morphine ER (12 HR) 30 mg tablet 60 MG PO ×2 (12:08→23:48)
[2020-12-27] MEDS: oxyCODONE 5 mg IR Tab/Cap 10 MG PO (15:29)
[2020-12-27 15:38] LABS: Quest SARS-CoV-2 RNA NOT DETECTED (NOT DETECTED)
[2020-12-27] MEDS: guaiFENesin 600 mg Tablet PO (17:05)
[2020-12-27] MEDS: allopurinol 100 mg Tablet PO (17:05)
[2020-12-27] MEDS: enoxaparin 40 mg/0.4 mL Syringe SUBCUT (17:05)
[2020-12-27] MEDS: lactobacillus 1 Tablet 1 TAB PO (17:05)
[2020-12-28] VITALS (10 sets, daily range): BP systolic 102–138; BP diastolic 64–85; PULSE 56–87; RESP 16; TEMP 36.4–36.6; O2SAT 83–100
[2020-12-28 02:35] LABS: Basophils % 0.7 %; Eosinophils % 0.2 %; Hematocrit 25.8 % (42.0-52.0); Hemoglobin 8.2 g/dL (11.7-16.6); Lymphocytes # 0.7 10^3/uL (0.8-4.8); Lymphocytes % 12.1 %; Mean Corpuscular HGB Conc 31.8 g/dL (30.0-36.0); Mean Corpuscular Hemoglobin 30.1 pg (28.0-34.0); Mean Corpuscular Volume 94.9 fl (80-94); Mean Platelet Volume 10.8 fL (7.4-10.4); Monocytes # 0.6 10^3/uL (0.2-0.9); Monocytes % 10.4 %; Neutrophils # 3.57 10^3/uL (1.8-7.7); Neutrophils % 61.7 %; Nucleated Red Blood Cells % 0 %; Platelet Count 85 10^3/cmm (130-400); Red Blood Count 2.72 10^6/uL (4.1-5.3); Red Cell Distribution Width 16.2 % (12.1-15.1); White Blood Count 5.8 10^3/uL (4.0-10.0)
[2020-12-28 03:00] LABS: Alanine Aminotransferase 6 U/L (0-41); Albumin Level 2.1 g/dL (3.5-5.2); Alkaline Phosphatase 157 IU/L (40-130); Anion Gap 12.8 (5-19); Aspartate Amino Transferase 14 U/L (0-40); Blood Urea Nitrogen 14 mg/dL (6-20); Calcium 7.7 mg/dL (8.5-10.5); Carbon Dioxide 23 mmol/L (22-29); Chloride 114 mmol/L (98-107); Globulin 2.4 g/dL (1.3-4.6); Glomerular Filtration Rate 71.4 mL/min (90-130); Glucose 89 mg/dL (65-115); Magnesium 1.7 mg/dL (1.7-2.3); Osmolality Calculated 302 mOsm/kg (285-295); Phosphorus 3.7 mg/dL (2.5-4.5); Potassium 3.8 mmol/L (3.5-5.1); Sodium 146 mmol/L (136-145); Total Bilirubin 0.3 mg/dL (0.15-1.2); Total Protein 4.5 g/dL (6.6-8.7)
[2020-12-28 03:06] LABS: Vancomycin Trough 33.5 ug/mL (10-15)
[2020-12-28 03:07] LABS: Slide Review Slide Review Perform
[2020-12-28] MEDS: pantoprazole 40 mg SDV IVP (05:36)
[2020-12-28] MEDS: piperacillin-tazobactam 3.375 GM in sodium chloride 0.9% (plus) 50 ML IV ×2 (05:45→14:14)
[2020-12-28] MEDS: midodrine 5 mg TABLET 10 MG PO ×2 (08:11→14:14)
[2020-12-28] MEDS: guaiFENesin 600 mg Tablet PO (08:11)
[2020-12-28] MEDS: sodium chloride 0.9% 1,000 ML 50 ML IV (08:11)
[2020-12-28] MEDS: docusate sodium 100 mg Capsule PO (08:11)
[2020-12-28] MEDS: aspirin 81 mg EC Tablet PO (08:11)
[2020-12-28] MEDS: lactobacillus 1 Tablet 1 TAB PO (08:11)
[2020-12-28] MEDS: allopurinol 100 mg Tablet PO (08:11)
[2020-12-28] MEDS: budesonide 0.5 mg/2 mL Neb INHALATION (08:17)
[2020-12-28] MEDS: ipratropium-albuterol 3 mL Neb INHALATION (08:17)
[2020-12-28] MEDS: morphine ER (12 HR) 30 mg tablet 60 MG PO (11:25)
[2020-12-28 12:17] LABS: Vancomycin Random 27.6 ug/mL (20.0-40.0)
--- NOTE | 2020-12-28 12:28 | PC.NURSE ---
Vanc held overnight due to troguh being 33.5. Random trough drawn for dose due at 1100 was 27.6 Held does per pharmacy. patient is being discharged this afternoon.
--- NOTE | 2020-12-28 17:45 | PC.RESP ---
Pulmonary Rehab information sent to patient.
--- NOTE | 2020-12-28 22:02 | PM.DCS ---
Discharge Providers Date of Admission: 12/25/20 18:30 Date of Discharge: December 28, 2020 Attending Provider at Admission: Brenden Shannon MD Attending Provider at Discharge: Jeff Navarro Primary Care Provider: Chun Moreira Diagnoses at Discharge Discharge Diagnosis (1) Pneumonia: Status: Acute (2) Chronic hypotension: Status: Acute (3) Cardiomyopathy: Status: Acute Qualifiers: Cardiomyopathy type: other Qualified Code(s): I42.8 - Other cardiomyopathies Reason for Visit Reason for Visit: Poss Pneumonia, sent per Oncology Hospital Course Hospital Course 50-year-old gentleman with metastatic lung cancer with prior metastases to the brain, on most recent PET scan on October identifying a stasis ulcer to the liver, with chronic left upper lobe collapse, metastatic lymphadenopathy, mets to bone, not previously on oxygen having not responded to first-line chemotherapy, on second line chemotherapy option, immunotherapy, with anemia,, cytopenia, recently received Neulasta, admitted on 12/25 due to 4-day history of cough, shortness of breath, decreased appetite, severe dyspnea on exertion. Chest CTA on presentation: 1. No pulmonary embolus is identified. 2. There is occlusion of a branch of the left main pulmonary artery likely secondary to malignancy. 3. Debris fills the left bronchial tree, and there is consolidation involving the entire left lung which likely in part reflects malignancy and may in part reflect aspiration pneumonia. 4. There are ground-glass and airspace opacities in the right chest that may reflect pneumonia. Some of these opacities have a masslike appearance, and metastatic disease is not excluded. Recommend close interval follow-up to reassess. 5. Worsening right hilar, left axillary and left supraclavicular lymphadenopathy suspicious for metastatic disease. 6. Enlarging epicardial mass on the left. 7. An anterior/left/superior mediastinal/left hilar/anterior left thoracic mass appears less prominent than on the prior study. The residual mass appears centrally necrotic in the anterior left hemithorax. 8. Multiple new hepatic lesions suspicious for metastases. 9. Multiple new splenic lesions that may reflect metastases. Heterogeneous enhancement of the spleen may reflect phase of contrast enhancement. 10. Small bilateral pleural effusions. Head CT with indeterminate pontine hypodensity. Subacute infarction a possibility. Neoplastic process also a consideration. Was treated with vancomycin, Zosyn. Remained afebrile, without leukocytosis or signs of sepsis. With improving thrombocytopenia. Good neutrophil counts after recent neutropenia. Oxygenation remained good in high 90s on 2 L nasal cannula. Subjectively he is feeling much better. MRSA PCR negative. Blood cultures 1 set 2 bottles from 12/25 +ve for coagulase-negative staph. Repeat blood culture 12/27 negative so far. Both final cultures pending. Chronic/recurrent hypotension. Most started on midodrine 10 mg 3 times daily, however, currently withheld as she is becoming hypotensive, blood pressure 138/85. As his oxygenation has remained steady over the last several days, no signs of sepsis, and he is feeling better, she felt comfortable returning home today, although given extensive metastatic disease will be following up with his oncologist early next week when he is back in town. Consideration also given to possibility of Pleurx catheter to allow for drainage of the effusion, however, this is likely to be less successful given likely progressive collapse of the left lung due to extensive metastatic disease with effusion filling the void rather than being primary process. However, he is agreeable to additionally follow-up after discussion with oncology with regards to prognosis with pulmonology in office for reassessment and additional discussion of whether there may be benefit from Pleurx catheter. He is referred for additional assessment of the indeterminate pontine hypodensity with concern for recurrence of metastatic disease with MRI of the brain. He is needing to elevate head of bed due to the concern of malignant metastatic disease, and it is difficult for him to accomplish with pillows given he has to maintain pillow below his buttocks already, as well as below left arm, with additional buildup of pillows risking a rather precarious structure, thus a hospital bed is requested to assist him with this purpose. Physical Exam Const: COMMON NORMALS: no acute distress, patient oriented x3 and alert GENERAL APPEARANCE: cooperative and comfortable NUTRITIONAL APPEARANCE: cachectic ORIENTATION/CONSCIOUSNESS: Yes awake OTHER: Pleasant, conversant. HENMT: COMMON NORMALS: oropharynx normal Neck/C-Spine: COMMON NORMALS: no JVD Resp: COMMON NORMALS: normal respiratory effort AUSCULTATION: diminished lung sounds on the left Cardio: COMMON NORMALS: no JVD, regular rhythm, S1 normal heart sound present, S2 normal heart sound present and No murmurs present (Cardio) RHYTHM: regular rhythm HEART SOUNDS: S1 normal heart sound present and S2 normal heart sound present GI: COMMON NORMALS: Normal to inspection, nondistended, normoactive bowel sounds present, Soft to palpation and non-tender PALPATION: Yes Soft to palpation Extremity: COMMON NORMALS: no joint enlargement and no pedal edema Neuro: COMMON NORMALS: patient oriented x3 and moves all extremities SENSORIUM/ORIENTATION: Yes alert Skin: COMMON NORMALS: no rashes or lesions noted GENERAL SKIN EXAM: no rashes or lesions noted Discharge Data Data Completed and Pending: Completed Studies During Hospitalization Category Date Time Status CT angio chest 71 275 Urgent Cat Scan 12/25/20 14:[address] head wo con* 7 0450 Urgent Cat Scan 12/25/20 15:28 Completed XR chest 1V reilly ble [id number] Urgent Exams 12/25/20 12:18 Completed Pending at discharge Category Date Time Status Blood Culture Sta t Lab 12/25/20 13:50 Results Blood Culture Sta t Lab 12/27/20 09:30 Results Erythrocyte Sedim entation Rate Rout ine Lab 12/27/20 05:18 Received Labs from last 24 hours 12/28/20 12/28/20 12/28/20 11:26 02:19 02:19 WBC RBC Hgb Hct MCV MCH MCHC RDW Plt Count MPV Neut % (Auto) Lymph % (Auto) [place] % (Auto) Eos % (Auto) Baso % (Auto) Neut # (Auto) Lymph # (Auto) [place] # (Auto) Eos # (Auto) Baso # (Auto) Nucleated RBC % (a uto) Nucleated RBCs # Sodium 146 H Potassium 3.8 Chloride 114 H Carbon Dioxide 23 Anion Gap 12.8 BUN 14 Creatinine 1.1 GFR Calculation 71.4 L Glucose 89 Calculated Osmolal ity 302 H Calcium 7.7 L Phosphorus 3.7 Magnesium 1.7 Total Bilirubin 0.3 AST 14 ALT 6 Alkaline Phosphata se 157 H Total Protein 4.5 L Albumin 2.1 L Globulin 2.4 Vancomycin Trough 33.5 H* Random Vancomycin 27.6 12/28/20 02:19 WBC 5.8 RBC 2.72 L Hgb 8.2 L Hct 25.8 L MCV 94.9 H MCH 30.1 MCHC 31.8 RDW 16.2 H Plt Count 85 L D MPV 10.8 H Neut % (Auto) 61.7 Lymph % (Auto) 12.1 [place] % (Auto) 10.4 Eos % (Auto) 0.2 Baso % (Auto) 0.7 Neut # (Auto) 3.57 Lymph # (Auto) 0.7 L [place] # (Auto) 0.6 Eos # (Auto) 0.0 Baso # (Auto) 0.0 Nucleated RBC % (a uto) 0 Nucleated RBCs # 0.0 Sodium Potassium Chloride Carbon Dioxide Anion Gap BUN Creatinine GFR Calculation Glucose Calculated Osmolal ity Calcium Phosphorus Magnesium Total Bilirubin AST ALT Alkaline Phosphata se Total Protein Albumin Globulin Vancomycin Trough Random Vancomycin Vitals: Last Vital Signs Temp 97.5 F L 12/28/20 17:01 Pulse 58 L 12/28/20 17:01 Resp 16 12/28/20 17:01 BP 138/85 12/28/20 17:01 Pulse Ox 97 12/28/20 17:01 Discharge Plan Discharge Patient Disposition: Home Condition: Stable Prescriptions: New Mucinex 600 mg Tablet Extended Release 12hr 600 mg PO BID Qty: 30 RF: 0 Augmentin 875-125 mg tablet 1 tab PO BID Qty: 24 RF: 0 doxycycline hyclate 100 mg tablet 100 mg PO BID 12 Days Qty: 24 RF: 0 Continued allopurinol 100 mg tablet 100 mg PO BID MDD see pharmacy comment RF: 0 morphine 60 mg tablet extended release 60 mg PO Q12H RF: 0 lorazepam 1 mg tablet 1 mg PO TID PRN (Reason: Anxiety) RF: 0 oxycodone 10 mg Tablet 10 mg PO QID PRN (Reason: Pain) RF: 0 Discontinued levofloxacin 500 mg tablet 500 mg PO DAILY RF: 0 Discharge Orders: Discharge Order (Routine); Ordered 12/28/20 Ordered By: Jeff Navarro Other Ambulatory Orders: MR head wo/w con [id number] (Routine) Timeframe: 1 Week Facility: [facility] - Location: Rad[facility] Ordered By: Jeff Navarro DME: Hospital Bed (Order) Location: None Selected Ordered By: Jeff Navarro DME: Oxygen (Order) Location: None Selected Ordered By: Jeff Navarro Ref[place]: [facility] [place] Chun Moreira [Primary Care Provider] - 12/29/20 9:00 am Annita Sarmiento MD [Physician] - 01/11/21 1:00 pm Amee Israel MD [Staff Physician] - 01/07/21 12:30 pm Discharge Diet: Advance as tolerated and Regular Discharge Activity: Increase activity as tolerated and Oxygen as instructed Patient Instructions: Doxycycline (By mouth), Amoxicillin/Clavulanate Potassium (By mouth), Lung Cancer (GEN), Pleural Effusion (GEN), Hypoxia (GEN), Pneumonia (GEN), Opioid Safety, Using Oxygen at Home Activity Restrictions/Additional Instructions: Please complete antibiotic course for pneumonia. Follow-up with your cancer doctor early next week to discuss metastatic cancer and further options for treatment. Please discuss consideration of prognosis. With this please follow-up with the lung doctor for again consideration of whether pleural catheter, although with limitations as discussed. Discussed with your cancer doctor regarding metastatic disease seen on most recent CT scan in the hospital. Continue oxygen at home. Please have your primary doctor, and cancer doctor follow-up your blood counts in office. Mild thrombocytopenia (low platelets has been seen), however, improving. Please have your primary doctor follow-up on the final blood cultures, with coagulase-negative Staphylococcus seen in 2 bottles from the same set on 12/25, thought to be possible contaminant, however, repeat blood cultures from 12/27 and final cultures from 12/25 need to be followed up. Please discuss with your doctor. Consider discussion of hospice care with your primary doctor and oncology doctor. GUSTAV[facility]retel WILL CALL WITH APPOINTMENT FOR MRI Discharge Attestations Time Spent in Discharge Care*: greater than 30 min Quality Metrics Clinical Quality Measures During this hospital stay, did patient experience: None Coding Level of Care Code Acute Chg FW OR note Diagnoses Pneumonia J18.9 Chronic hypotension I95.89 Cardiomyopathy I42.8 Cardiomyopathy type: other
[2020-12-29 09:51] LABS: Erythrocyte Sedimentation Rate 29 mm/hr (0-10)
== END 2020-12-28 17:20 | disposition home or self-care (01) | DRG 194 ==
LOC: ER 17:35 → MEDSURG 12-26 03:04
PROVIDERS: Internal Medicine Hematology & Oncology; Admitting Provider Family Medicine; Emergency Provider Family Medicine; PCP Family Medicine; Visit Provider Internal Medicine
DX: J18.9 Pneumonia, unspecified organism (principal); C34.02 Malignant neoplasm of left main bronchus; C78.7 Secondary malignant neoplasm of liver and intrahepatic bile duct; C77.1 Secondary and unspecified malignant neoplasm of intrathoracic lymph nodes; C79.51 Secondary malignant neoplasm of bone; C79.31 Secondary malignant neoplasm of brain; I42.9 Cardiomyopathy, unspecified; J90 Pleural effusion, not elsewhere classified; D69.59 Other secondary thrombocytopenia; T45.1X5A Adverse effect of antineoplastic and immunosuppressive drugs, initial encounter; Z79.899 Other long term (current) drug therapy; Z92.3 Personal history of irradiation; Z87.891 Personal history of nicotine dependence; D64.81 Anemia due to antineoplastic chemotherapy; I95.89 Other hypotension; Z66 Do not resuscitate; Z79.891 Long term (current) use of opiate analgesic; G89.3 Neoplasm related pain (acute) (chronic)
CPT/HCPCS: 36415; 36600; 70450; 71045; 71275; 80051; 80053; 80061; 80202; 82330; 82805; 83605; 83735; 83880; 84100; 84145; 84443; 84484; 85007; 85025; 85378; 85651; 86140; 87040; 87205; 87426; 87635; 87641; 87804; 93005; 94640; 94664; 96360; 96361; 96372; 99285; C9113; J1650; J2270; J2543; J3370; J7030; J7050; J7626; Q9967

== ENCOUNTER 2021-01-07 06:34 | Outpatient (RCR) | payer MEDICAID, SELFPAY ==
--- NOTE | 2021-01-11 08:46 | ONC FU_ITS ---
Dr. Israel follow up note Patient: Tima Malik Unit #: [id number]: [id number] Dicatated By: Amee Israel M.D.Date of Visit:Jan 07, 2021 Onc Med Follow-up/Prog Note History of Present Illness: Mr. Malik is a 50-year-old gentleman with history of 40 to 50 pounds weight loss since February 2019. Mr Malik reports he sustained an injury to the chest in January or February 2019. Initially, it was not bothersome but then it become progressive to the point where even taking deep breath would hurt. The pain was not mainly in the mid upper anterior chest wall. He also developed progressive shortness of breath. He said he did not have medical insurance so he was taking over the counter pain medicine, which did help some but eventually on August 16, 2019 he went to the [facility] in [place], [place]. He had chest x-ray done which showed complete whiteout of left lung and CTA chest done showed complete collapse of left lung likely secondary to left hilar mass/malignancy. There was a bulky mediastinal and likely left hilar lymphadenopathy present. And moderate to large malignant left pleural effusion patient was transferred to [facility] in [place] where on August 17, 2019 underwent ultrasound-guided left thoracentesis and about 25 cc of cloudy yellow pleural fluid was removed, repeat CT scan of the chest done on August 17, 2019 showed possible obstruction of left main bronchus, a mucous plug or obstructing pulmonary mass or consideration. Complete opacification of left hemithorax appears similar to chest x-ray done on August 16, 2019. Elevation of left diaphragm suggest volume loss due to some degree of atelectasis. Left pleural effusion or large left consolidations are also considered. On August 18, 2019 patient underwent bronchoscopy and endobronchial biopsy and bronchial washing from left main bronchus confirmed invasive small cell carcinoma. Mr Malik underwent CT PET scan on August 27, 2019 which showed hypermetabolic very large left hilar/mediastinal mass and matthew conglomeration. There is also redemonstration of complete collapse of left lung with associated hypermetabolic activity that may be secondary to diffuse tumor involvement or pneumonia depending on clinical context There was also evidence of metastatic disease to bilateral cervical chain lymph nodes as well as posterior upper neck intramuscular metastasis. In addition there is evidence of direct metastatic extension into the right of the trachea and to an epicardial fat lymph node. No findings to suggest metastatic disease below the diaphragm and no evidence of metastatic disease to the right lung. Mr Malik was referred to cancer center in [place] as it is convenient to the patient. Patient has longstanding history of smoking but states he quit in mid August 2019. Mr Malik was admitted to hospital on August 29, 2019 with acute respiratory failure with hypoxia. He was intubated and then he transferred to [facility] in [place] where he underwent further management and work-up. He had a MRI scan of the head on September 01, 2019 which showed multiple intra-axial metastasis the largest lesion was located within the left parietal lobe. Extracranial soft tissue mass adjacent to spinous process of C2 and posterior arch of C1 suspicious for metastatic disease. Mr Malik was started on systemic chemotherapy with cycle 1 carboplatin/etoposide on August 31 and completed on September 03, 2019. He tolerated it reasonably well but as per patient and his aunt, he did crash' during chemotherapy. They reported that his blood pressure dropped and his pulse was fast. He was diagnosed with atrial fibrillation- since then he is having off and on episode of tachycardia and palpitation. Radiation oncology was consulted for brain mets but radiation was not offered because the patient was asymptomatic. He was started on systemic chemotherapy because of progressive and symptomatic intrathoracic disease. The current plan is to complete systemic chemotherapy followed by whole brain radiation therapy. Mr Malik had his third cycle of chemotherapy with Carboplatin/etoposide on 10/29/2019-10/31/2019. (He did receive 1 chemotherapy prior to transferring his care to [facility]-his second cycle was complete on 10/03/2019). He is receiving growth factor support for neutropenia. Mr. Malik did have PET CT imaging on 11/02/2019 after 3 cycles of chemotherapy. It was noted there were bilateral cervical lymph nodes described on the prior imaging for CT was not present on this PET CT. There was no head or neck intramuscular metastatic disease present. There was complete postobstructive atelectasis of the left upper lobe. A region of residual activity measuring 1.6 x 3.7 cm with an SUV of 6.2 is consistent with a lung primary. Mild activity in the subaortic node is consistent with local metastatic disease. There was no other significant mediastinal adenopathy present. Innumerable small sclerotic osseous lesions best in the pelvis are most compatible with treated osseous metastatic disease. These were difficult to characterize due to size and background marrow activity from recent Neulasta therapy. He continues with chemotherapy at this time. The followup MRI scan of the brain to assess response .Was done on November 15, 2019 showed excellent response to the chemotherapy as radiation was not given earlier and planning was to do after completion of systemic chemotherapy for extensive intrathoracic disease. And repeat MRI scan showed no evidence of progressed metastatic disease interval decrease in size of cystic appearing peripheral enhancing left parietal lesion measuring 1.6 x 2.6 cm compared to 3.6 x 2.9 cm prior to chemotherapy and also interval decrease in surrounding edema. Previously described lesions are no longer appreciated on the scan no new enhancing lesions. Mr Malik completed 5 cycles of chemotherapy with carboplatin/etoposide on December 19, 2019 and had excellent response. He was referred to radiation oncology for consolidation radiotherapy to the chest and also to the brain as patient was diagnosed with brain mets at the time of diagnosis. Patient completed radiation therapy to his brain on January 27, 2020 and to his left chest on January 27, 2020. Follow-up CT scan of the chest abdomen pelvis done on May 14, 2020 showed partial collapse left upper lobe is unchanged. Increasing soft tissue in the proximal left upper lobe bronchus and encasing the left main pulmonary artery. Suspicious for progression of tumor. Difficult to determine that tumor versus atelectatic lung. No evidence of metastatic disease to the liver or adrenal gland. New cystic mass with peripheral enhancement in the perineum abscess versus pilonidal cyst. MRI scan of the brain shows new enhancing metastatic lesion in the left temporal lobe 5.2 mm with surrounding edema. Previously described left parietal peripherally enhancing cystic lesion has decreased in size measuring 1.6 cm x 1 cm today. No other new lesions seen. history of bursitis involving both shoulders in the past used to get cortisone shots. Follow-up CT PET scan done on 05/23/2020 shows left upper lobe atelectasis seen on prior study on 11/02/2019 is unchanged on current, now with an SUV of 8.3 compared to 6.2 previously. The subaortic lymph node is significantly progressed now measuring 2.3 cm in diameter with SUV of 14.7. A left-sided anterior diaphragmatic node which was subcentimeter in size and FDG negative on prior study now measuring 1.5 cm and SUV of 6.6 and no evidence of distant mets. Mr Malik was started on atezolizumab on 06/24/2020. He has tolerated it well so far. Mr. Malik had follow-up PET/CT on October 09, 2020 which was compared to his PET CT from 05/23/2020. The findings report complete atelectasis of the left upper lobe with extensive abnormal activity throughout the lobe with SUV of up to 11.9, consistent with recurrence. The mass invaded the upper left mediastinum with invasion into the anterior mediastinum and prevascular territory. New malignant nodes were present including anterior mediastinal, left supraclavicular and subcarinal territories. A new FDG positive opacity in the medial right middle lobe may be related to malignancy as well. Multifocal hepatic metastatic disease had developed. The dominant lesion in the inferior right hepatic lobe measured 2 cm with an SUV of 9.5. There was an old osseous metastatic disease which was unchanged and remained FDG negative but there was a new lesion in the proximal right femur with an SUV of 6.3. Old osseous metastatic disease is unchanged and remain FDG negative but there is a new lesion in the proximal right femur with SUV of 6.3.CT scan of right femur done on November 17, 2020 showed sclerotic lesion involving right greater trochanter measuring 2.4 x 1.5 cm corresponds to FDG avid focus on recent CT PET, no pathological fracture. No lesion in the femoral neck. Mr. Malik began cycle 1 of cisplatin irinotecan on November 30, 2020 but his treatment was changed December 07, 2020 to carboplatin etoposide. Per Dr Israel's notes, Mr Malik was switched to carboplatin/etoposide on December 07, 2020 because of progressive symptoms. He did receive a modified dose of carboplatin/etoposide e.g. 2 days of etoposide only with Neulasta support. He has completed day 1 and 2 of cycle 1. He has had significant neutropenia with an ANC on day 10???despite Neulasta delivery- of 80 as well as a platelet count of 15,000 and hemoglobin of 7.9. He received supportive care with blood and hydration on December 18, 2020. His treatment is currently on hold due to the pancytopenia. Came for follow-up, denies any specific complaint except generalized weakness and fatigue appetite, weight loss, persistent lymphedema in left arm. Patient has a poor social support now lives with his aunt, as per nursing patient and family is considering hospice care. Patient denies any fever chills denies any nausea or vomiting denies any diarrhea but off-and-on constipation denies any worsening of chest pain, now under control with current pain medication. Medications: Flonase 2 [place](s) (of 50 mcg/act) Suspension Nasal daily PRN, Ibuprofen 1 Capsule (of 800 mg) Oral q 6 hours PRN, LORazepam 0.5 - 1 Tablet (of 1 mg) Oral b.i.d. PRN, Marinol 1 Capsule (of 5 mg) Oral t.i.d., Morphine Sulfate ER 1 Tablet (of 60 mg) Tablet, controlled release Oral at bedtime, Morphine Sulfate ER 1 Tablet (of 15 mg) Tablet, controlled release Oral every am Allergies: Dexamethasone Review of Systems: Review of Systems is not available for this patient. Vital Signs: Performed on Jan 07, 2021 14:05 Height - 71.00 in Temperature - 99.6 F (HIGH) Pulse - 111 /min (HIGH) Respiration - 20 /min BP - 106/70 mm(hg) O2 Sat - 91 % (LOW) Pain - 6 Fatigue - 8 Performance Status: 3 - Capable of only limited self-care, confined to bed or chair more than 50% of waking hours. (ECOG) Physical Examination: ENMT - , Dry oral mucosa, poor oral hygiene, no jaundice, Respiratory - Poor air entry otherwise clear, Cardiovascular - Regular rate and rhythm of heart, Abdomen - Soft, bowel sounds present, Extremities - 1+ edema left upper extremity and trace edema lower extremities. Lab/Imaging: Test performed on Dec 23, 2020 11:30 Sodium 135 mmol/L Potassium 4.0 mmol/L Chloride 98 mmol/L CO2 26 mmol/L Anion Gap 15.0 BUN 13 mg/dL Creatinine 0.5 mg/dL Cr Clearance (Est) 143.5100 mL/min eGFR 177.5 mL/min Glucose 85 mg/dL Osmolality - Calculated 279 mOsm/kg Calcium 8.4 mg/dL Protein, Total 5.5 g/dL Albumin 2.3 g/dL Globulin 3.2 g/dL Bilirubin, Total 0.9 mg/dL ALT (SGPT) 9 U/L AST (SGOT) 11 U/L Alkaline Phosphatase 179 IU/L WBC 0.8 10 3/uL Manual Segs % 7 % Manual Bands % 10.0 % RBC 3.28 10 6/uL HGB 9.4 g/dL Manual Lymphs % 4 % Atypical Lymphs % 3.0 % HCT 28.8 % MCV 87.8 fl Total Cells Counted 25 Manual Monos % 1.0 % MCH 28.7 pg MCHC 32.6 g/dL RDW 15.1 % Platelet Count 4 10 3/cmm Ovalocytes Trace Platelet Estimate Decreased Manual Segs Abs 0.1 10/cmm Manual Bands Abs 0.1 10 3/cmm Manual Neutrophils Abs 0.1 10 3/cmm Manual Lymphocytes Abs 0.1 10 3/cmm Manual Monocytes Abs 0.0 10 3/cmm Test performed on Dec 07, 2020 08:30 MPV 10.3 fL Neutrophils 6.74 10 3/uL Lymphocytes 0.4 10 3/uL Monocytes 0.8 10 3/uL Eosinophils 0.1 10 3/uL Basophils 0.0 10 3/uL Neutrophil % 83.9 % Lymphocyte % 4.3 % Monocyte % 9.7 % Eosinophil % 1.2 % Basophils % 0.2 % NRBC % 0 % Test performed on Aug 26, 2020 09:05 TSH 0.89 uIU/mL Impression: 1. Metastatic Small cell lung cancer involving left lung; brain metastasis (August); bone metastasis and hepatic metastasis (October 2020). Extensive loco- regional disease with bilateral cervical lymph nodes involvement. CT PET scan done on August 27, 2019 showed hypermetabolic large left hilar/mediastinal mass with matthew conglomeration in keeping with known small cell lung cancer. Also redemonstration of complete collapse of left lung with associated hypermetabolic activity may be secondary to diffuse tumor involvement or pneumonia There is evidence of metastatic disease to bilateral cervical chain lymph nodes as well as posterior upper neck intramuscular metastasis. In addition there is evidence of direct metastatic extension to the right of trachea and to an epicardial fat lymph node. No findings to suggest metastatic disease below diaphragm. No evidence of metastatic disease to the right lung. MRI scan of the brain done on September 01, 2019 at [facility] showed extensive brain mets but asymptomatic As per radiation oncology consultation at [facility] radiation therapy to brain was postponed till completion of systemic chemotherapy Started on Systemic chemotherapy with carboplatin/etoposide on September 01, 2019, first cycle was given at [facility]. Follow-up PET/CT imaging in May 2020 showed left upper lobe atelectasis which was unchanged but the SUV had increased from 6.2-8.3. Subaortic node was significantly progressed noted to have an SUV of 14.7. Left-sided anterior diaphragmatic node was subcentimeter in size and FDG negative on the prior study but increased to 1.5 cm with an SUV of 6.6. There was no evidence of distant mets metastatic disease. Mr. Malik was started on atezolizumab on 06/24/2020. He remained on that until October 07, 2020 at which time he had six cycles[address] imaging reported complete atelectasis in the left upper lobe with extensive abnormal activity throughout the lobe with SUV 11.9 consistent with recurrence. The mass invaded the left upper mediastinum with invasion into the anterior mediastinum and prevascular territory. There were new malignant nodes present in the anterior mediastinal left supraclavicular and subcarinal territory. A new positive FDG opacity in the medial right middle lobe was suspected to be a malignancy as well. Multifocal hepatic metastatic disease had developed. The dominant lesion in the inferior right hepatic lobe measured 2 cm with an SUV of 9.5. There was an old osseous metastatic disease which was unchanged and remained FDG negative but a new lesion in the proximal right femur with an SUV of 6.3. He did have CT of the right femur on November 17, 2020 which showed sclerotic lesion involving the right greater trochanter measuring 2.4 x 1.4 cm corresponds to the FDG avid focus on recent PET CT there was no pathological fracture and no lesion in the femoral neck. Mr. Malik treatment plan at that time was changed to cisplatin etoposide which was first given on November 30, 2020. He continued to have significant pain and seemed to not tolerate this well also Dr. Israel had change his treatment to carboplatin and etoposide but decreased the etoposide dose to just 2 days and also gave him supportive care with Neulasta. He began his first treatment other carboplatin and etoposide on December 07, 2020. Since then he has had significant pancytopenia with an ANC of 80, platelet count of 15,000 and hemoglobin of 7.9 on day 10 of cycle one carboplatin etoposide. He is here today for reassessment. He has had supportive care with blood and hydration. 2. Pancytopenia, presumably chemotherapy induced, may be from metastatic lung cancer as well. Longstanding history of smoking, quit in mid August 2019. Plan: Discussed with patient regarding his concerns regarding disease status and worsening of performance status which is multifactorial including poor nutrition due to poor appetite, and also is a disease which appears somewhat resistant to palliative therapy and due to poor nutrition, patient requires prolonge period to recover from chemo related side effects especially bone marrow recovery despite of Neulasta support. Now, due to poor performance status and social support, poor nutrition, intolerance to chemotherapy and patient and his aunt's wish to consider hospice care, we will, discontinue his palliative therapy and refer him to hospice for further management. Signed By: Amee Israel M.D. <<Signature on File>>
== END 2021-02-02 23:59 | disposition home or self-care (01) ==
LOC: ONCMED 06:34
PROVIDERS: PCP Family Medicine; Visit Provider Internal Medicine Hematology & Oncology
DX: C34.02 Malignant neoplasm of left main bronchus (principal); C79.31 Secondary malignant neoplasm of brain; C79.51 Secondary malignant neoplasm of bone; C78.7 Secondary malignant neoplasm of liver and intrahepatic bile duct; C77.8 Secondary and unspecified malignant neoplasm of lymph nodes of multiple regions; J98.11 Atelectasis; D61.818 Other pancytopenia; F17.211 Nicotine dependence, cigarettes, in remission; Z79.899 Other long term (current) drug therapy; Z92.21 Personal history of antineoplastic chemotherapy
CPT/HCPCS: 99214